=== PATIENT | female | born 1955 | race African-American/Black ===

== ENCOUNTER 2017-05-19 07:48 | Observation (INO) | payer MEDICAID ==
[~2017-05-19] VITALS: Ht 152.4 cm; Wt 126.1 kg
[2017-05-19] VITALS (10 sets, daily range): BP systolic 141–210; BP diastolic 65–91; PULSE 74–90; RESP 16–20; TEMP 98–99.2; O2SAT 92–98
[~2017-05-19 07:48] MED LIST: ADVA500A INH; ALBU0.08 NEB; AMLO10TA2 PO; BENZ100 PO; CPAP; DOCU100C15 PO; ESCI10TA PO; FERR325T18 PO; FURO40TA PO; GETGO ROLLING W1 MI1; HOSP BED1; HOSP BED2; ISOS20TA PO; LEVO750T3 PO; LEVO75TA3 PO; LORA0.5T PO; METF500T PO; MORP60TA24 PO; NEBUKIT5; NITR0.4S SL; OMEP20TA93 PO; OXYC-395 PO; PRED10 PO; PRED20 PO; PROC10TA PO; RISP2TAB37 PO; ROPI4TAB PO; SENN1TAB PO; SPIR25TA PO; TRAZ50TA12 PO; WHEEMIS3
[2017-05-19] MEDS ORDERED: SODIUM CHLORIDE 0.9% FLUSH 10 ML FLUSH IVF PRN (08:00)
--- NOTE | 2017-05-19 08:07 | PD ---
HPI Chief Complaint: Cardiac Complaint Time Seen by Provider: 07:56 Travel History International Travel<30 days: No Contact w/Intl Traveler<30days: No Traveled to known affect area: No History of Present Illness HPI per patient history of defib firing intermittently almost daily for past 2 weeks per patient...last shock was last night 8pm and previous one was 8am...just prior to firing of device she feels lightheaded and palpitations. per patient last devise evaluation about 3 months ago pcp: verna? in professional building cardio:shamsin medtronic pmhx: dm, htn, chol, mi without stents, pacemaker/defibrillator PFSH Past Medical History Hx Anticoagulant Therapy: Yes (COUMADIN) Anemia: Yes Arthritis: Yes Asthma: Yes Atrial Fibrillation: Yes Autoimmune Disease: No Blood Disorders: No Bipolar Disorder: Yes Anxiety: Yes Depression: Yes Heart Rhythm Problems: Yes (PALPITATIONS ) Cancer: No Cardiac Catheterization: Yes Cardiovascular Problems: Yes (PACEMAKER) High Cholesterol: Yes Chemotherapy: No Chest Pain: Yes Congestive Heart Failure: Yes COPD: Yes Cerebrovascular Accident: Yes Coronary Artery Disease: Yes Dementia: Yes Diabetes: Yes Dialysis: Yes Diminished Hearing: No Diverticulitis: Yes Endocrine: Yes Gastrointestinal Disorders: Yes (DIVERTICULITIS) GERD: Yes Glaucoma: No Genitourinary: No Headaches: Yes (1978 UNKNOWN TYPE) Hepatitis: Yes (doesn't know what type) Hiatal Hernia: Yes Hypertension: Yes Immune Disorder: No Implanted Vascular Access Dvce: Yes Kidney Stones: No Musculoskeletal: Yes (DJD) Neurologic: Yes Psychiatric: Yes Reproductive: Yes Respiratory: Yes Immunizations Current: No Myocardial Infarction: Yes Pancreatitis: Yes Pneumonia: Yes Radiation Therapy: No Renal Failure: No Schizophrenia: Yes Seizures: No Sickle Cell Disease: No Sleep Apnea: Yes (CPAP) Thyroid Disease: Yes (NODULES ON THYROID) Ulcer: Yes PNEUMOCCOCAL Vaccine (Year): 2010 Menopausal: Yes : 1 Para: 1 Miscarriage: 0 : 0 Tubal Ligation: Yes Past Surgical History Abdominal Surgery: Yes (gall bladder removed 2009) AICD: Yes (PACER/DEFIB - medtronic) Body Medical Devices: PACER Cardiac Surgery: Yes (pacemaker) Cholecystectomy: Yes Ear Surgery: No Endocrine Surgery: No Eye Surgery: No Genitourinary Surgery: No Gynecologic Surgery: Yes (PARTIAL HYSTERECTOMY) Hysterectomy: Yes Neurologic Surgery: No Oral Surgery: Yes (UPPER TEETH REMOVED) Pacemaker: Yes Thoracic Surgery: No Other Surgery: Yes (RIGHT HAND, CYST) Social History Alcohol Use: No Tobacco Use: No (quit) Substance Use: No (PT DENIES) Allergies-Medications (Allergen,Severity, Reaction): Coded Allergies: aspirin (Verified Allergy, Severe, Anaphylaxis, 05/19/17) PT STATES IT MAKES HER TONGUE SWELL AND HER HEART STOPS BEATING. benazepril (Verified Allergy, Severe, ANAPHALAXIS, 05/19/17) captopril (Verified Allergy, Severe, ANAPHALAXIS, 05/19/17) enalaprilat (Verified Allergy, Severe, Anaphylaxis, 05/19/17) fosinopril (Verified Allergy, Severe, ANAPHALAXIS, 05/19/17) gabapentin (Verified Allergy, Severe, AGGRESSIVE BEHAVIOR, 05/19/17) ibuprofen (Verified Allergy, Severe, TOUNGE SWELLING, 05/19/17) lisinopril (Verified Allergy, Severe, ANAPHALAXIS, 05/19/17) quinapril (Verified Allergy, Severe, ANAPHALAXIS, 05/19/17) naproxen (Verified Allergy, Intermediate, RESTELESS LEG, 05/19/17) MRI PRECAUTION (Verified Adverse Reaction, Severe, NON REVO PACEMAKER 07/04 LRS, 05/19/17) acetaminophen (Verified Adverse Reaction, Severe, 05/19/17) RESTLESS LEGS Reported Meds & Prescriptions Reported Meds & Active Scripts Active Levofloxacin 750 Mg Tablet 750 Mg PO DAILY Prednisone 20 Mg Tab 40 Mg PO DAILY Take 40 mg (2 tablets) daily for 5 days Albuterol Neb (Albuterol Sulfate) 2.5 Mg/3 Ml Neb 2.5 Mg NEB Q4HR NEB PRN Advair Diskus Inh (Fluticasone-Salmeterol Inh) 500-50 Mcg/Blist Aer 1 Puff INH BID Rinse mouth after use. Amlodipine (Amlodipine Besylate) 10 Mg Tab 10 Mg PO DAILY Tessalon Perles (Benzonatate) 100 Mg Cap 100 Mg PO TID PRN Lorazepam 0.5 Mg Tab 0.5 Mg PO Q6H PRN Morphine Sulfate CR (Morphine Sulfate) 60 Mg Tab 30 Mg PO BID PRN Oxycodone (Oxycodone HCl) 10 Mg Tab 10 Mg PO Q4H PRN Furosemide 40 Mg Tab 40 Mg PO BID Isosorbide Mononitrate 20 Mg Tab 60 Mg PO DAILY Take 2 doses 7 hours apart. Prednisone 10 Mg Tab 10 Mg PO DAILY Prochlorperazine Maleate 10 Mg Tab 10 Mg PO Q4H PRN Ferrous Sulfate 325 Mg (65 Mg Iron) Tablet 325 Mg PO TIDPC Risperdal (Risperidone) 2 Mg Tab 2 Mg PO BID Metformin (Metformin HCl) 500 Mg Tab 500 Mg PO BIDPC With meals Ropinirole 4 Mg Tab 8 Mg PO BID Omeprazole 20 Mg Tab 20 Mg PO DAILY Trazodone (Trazodone HCl) 50 Mg Tab 50 Mg PO HS Levothyroxine (Levothyroxine Sodium) 75 Mcg Tab 75 Mcg PO DAILY [Cpap] HS Nebulizer Kit/Tubing/Mout (N/A) 1 Kit Kit Kit .ROUTE DIRECTED Wheelchair (Device) 1 Mis Mis Ea .ROUTE DIRECTED Walker Rolling/GetGo (Device) 1 Mis Mis Ea .ROUTE DIRECTED Hospital Bed - Electric 1 Ea Ea Ea .ROUTE DIRECTED Hospital Bed - Manual 1 Ea Ea Ea .ROUTE DIRECTED Spironolactone 25 Mg Tab 12.5 Mg PO DAILY Reported Nitrostat SL (Nitroglycerin) 0.4 Mg Subl 0.4 Mg SL DIRECTED PRN 1 tablet under the tongue as needed for chest pain. Repeat every 5 minutes for a total of 3 DOSES or call 911 if NO relief. Senna-Plus (Sennosides-Docusate Sodium) 8.6-50 Mg Tab 2 Tab PO BID Escitalopram (Escitalopram Oxalate) 10 Mg Tab 10 Mg PO DAILY Docusate Sodium 100 Mg Cap 100 Mg PO DAILY Review of Systems General / Constitutional: No: Fever Eyes: No: Visual changes HENT: Positive: Lightheadedness Cardiovascular: Positive: Palpitations Respiratory: No: Shortness of Breath Gastrointestinal: No: Abdominal Pain Genitourinary: No: Dysuria Musculoskeletal: No: Pain Skin: No Rash Neurologic: No: Weakness Psychiatric: No: Depression Endocrine: No: Polydipsia Hematologic/Lymphatic: No: Easy Bruising Physical Exam Narrative GENERAL: SKIN: Warm and dry. HEAD: Atraumatic. Normocephalic. EYES: Pupils equal and round. No scleral icterus. No injection or drainage. ENT: No nasal bleeding or discharge. Mucous membranes pink and moist. NECK: Trachea midline. No JVD. CARDIOVASCULAR: Regular rate and rhythm. RESPIRATORY: No accessory muscle use. Clear to auscultation. Breath sounds equal bilaterally. GASTROINTESTINAL: Abdomen soft, non-tender, nondistended. obese MUSCULOSKELETAL: Extremities without clubbing, cyanosis, or edema. No obvious deformities. NEUROLOGICAL: Awake and alert. No obvious cranial nerve deficits. Motor grossly within normal limits. Five out of 5 muscle strength in the arms and legs. Normal speech. PSYCHIATRIC: Appropriate mood and affect; insight and judgment normal. Data Data Last Documented VS Vital Signs Date Time Temp Pulse Resp B/P (MAP) Pulse Ox O2 Delivery O2 Flow Rate FiO2 05/19/17 08:12 98.8 88 20 173/74 (107) 98 Room Air Orders Orders Electrocardiogram (05/19/17 07:56) B-Type Natriuretic Peptide (05/19/17 07:56) Ckmb (Isoenzyme) Profile (05/19/17 07:56) Complete Blood Count With Diff (05/19/17 07:56) Comprehensive Metabolic Panel (05/19/17 07:56) Prothrombin Time / Inr (Pt) (05/19/17 07:56) Act Partial Throm Time (Ptt) (05/19/17 07:56) Troponin I (05/19/17 07:56) Lipase (05/19/17 07:56) Chest, Single Ap (05/19/17 07:56) Ecg Monitoring (05/19/17 07:56) Bilateral Bp Monitoring (05/19/17 07:56) Iv Access Insert/Monitor (05/19/17 07:56) Oximetry (05/19/17 07:56) Oxygen Administration (05/19/17 07:56) Sodium Chloride 0.9% Flush (Ns Flush) (05/19/17 08:00) [facility] Medical Decision Making Medical Screen Exam Complete: Yes Emergency Medical Condition: Yes Medical Record Reviewed: Yes Interpretation(s) paced rhythm on ekg Differential Diagnosis arrhythmia v anemia v dehydration v electrolyte abnl v mi v nonstemi Narrative Course medtronic rep called for device interrogation Facundo Bean MD May 19, 2017 08:07
--- NOTE | 2017-05-19 08:22 | RADRPT ---
EXAM DATE/TIME: 05/19/2017 08:05 [place] COMPARISON: CHEST SINGLE AP, December 26, 2015, 7:24. INDICATIONS : Chest pain, states pacemaker difibrillator has been going off 2 or 3 times a night for the past 2 wee ks MEDICAL HISTORY : Diabetes mellitus type II. Cardiovascular disease. Stroke. SURGICAL HISTORY : Pacemaker. ENCOUNTER: Initial ACUITY: 2 weeks PAIN SCORE: 4/10 LOCATION: Bilateral chest FINDINGS: A single view of the chest demonstrates the lungs to be symmetrically aerated without evidence of mas s, infiltrate or effusion. The cardiomediastinal contours are unremarkable. Osseous structures are intact. A pacing device overlies the left chest. Leads appear intact within their visualized aspects. CONCLUSION: No acute disease. Manny Darden Jr., MD on May 19, 2017 at 8:18 Board Certified Radiologist. This report was verified electronically.
[2017-05-19 09:16] LABS: AUTOMATED NEUTROPHIL # 7.4 TH/MM3 (1.8-7.7); BASOPHIL # 0.1 TH/MM3 (0-0.2); BASOPHIL % 0.7 % (0.0-2.0); HEMATOCRIT 39.8 % (35.0-46.0); HEMO FLAGS DIFF FINAL; LYMPH % 14.5 % (9.0-44.0); LYMPHOCYTE # 1.4 TH/MM3 (1.0-4.8); MEAN CELL VOLUME 77.4 FL (80.0-100.0); MEAN CORPUSCULAR HEMOGLOBIN 23.9 PG (27.0-34.0); MEAN CORPUSCULAR HGB CONC 30.9 % (32.0-36.0); MONO % 5.9 % (0.0-8.0); NEUT % 78.9 % (16.0-70.0); PLATELET COUNT 225 TH/MM3 (150-450); RED BLOOD COUNT 5.14 MIL/MM3 (4.00-5.30); RED CELL DISTRIBUTION WIDTH 19.1 % (11.6-17.2); WHITE BLOOD COUNT 9.3 TH/MM3 (4.0-11.0)
[2017-05-19 09:23] LABS: INTERNATIONAL NORMALIZED RATIO 1.1 RATIO; PROTHROMBIN TIME - PATIENT 11.3 SEC (9.8-11.6)
[2017-05-19] MEDS ORDERED: SODIUM CHLORIDE 0.9% FLUSH 10 ML FLUSH IV FLUSH PRN ×2 (10:00→10:30)
[2017-05-19] MEDS ORDERED: D5-1/2 NS + KCL 20 MEQ INJ 1,000 ML IV SCH (10:26)
[2017-05-19] MEDS ORDERED: RESP: ALBUTEROL 2.5 MG/3 ML NEB (PRN) NEB ×2 (10:30→11:30)
[2017-05-19] MEDS ORDERED: PROCHLORPERAZINE MALEATE 10 MG TAB PO PRN (10:30)
[2017-05-19] MEDS ORDERED: NITROGLYCERIN 0.4 MG SL 25 TABS/BTL SL PRN (10:30)
[2017-05-19 10:38] LABS: APTT (PATIENT) 40.1 SEC (24.3-30.1)
[2017-05-19] MEDS ORDERED: GLUCAGON 1 MG/ML VIAL OTHER PRN (10:45)
[2017-05-19] MEDS ORDERED: SENNOSIDES 8.6 MG TAB PO PRN (10:45)
[2017-05-19] MEDS ORDERED: DEXTROSE 50% IN WATER 50 ML VIAL(D50) IV PUSH PRN (10:45)
[2017-05-19] MEDS ORDERED: LACTULOSE SYRUP 20 GM/30 ML CUP PO PRN (10:45)
[2017-05-19] MEDS ORDERED: ONDANSETRON HCL 4 MG/2 ML VIAL IVP PRN (10:45)
[2017-05-19] MEDS ORDERED: MAGNESIUM HYDROXIDE SUSP 30 ML CUP PO PRN (10:45)
[2017-05-19] MEDS ORDERED: BISACODYL 10 MG SUPP RECTAL PRN (10:45)
[2017-05-19] MEDS ORDERED: ACETAMINOPHEN 325 MG TAB PO PRN (10:45)
[2017-05-19 10:47] LABS: ALKALINE PHOSPHATASE 121 U/L (45-117); CREATINE KINASE 209 U/L (26-192); TOTAL BILIRUBIN ADULT 0.2 MG/DL (0.2-1.0)
[2017-05-19 10:56] LABS: ALT (GPT) 20 U/L (10-53); ANION GAP 5 MEQ/L (5-15); AST (GOT) 17 U/L (15-37); BICARBONATE 25.7 MEQ/L (21.0-32.0); BLOOD UREA NITROGEN 15 MG/DL (7-18); CHLORIDE 106 MEQ/L (98-107); GLOMERULAR FILTRATION RATE 81 ML/MIN (>89); POTASSIUM 4.1 MEQ/L (3.5-5.1); SODIUM (NA) 137 MEQ/L (136-145)
[2017-05-19 11:00] LABS: CKMB 2.6 NG/ML (0.5-3.6)
[2017-05-19] MEDS ORDERED: PILL SPLITTER OTHER PRN (11:00)
[2017-05-19] MEDS: methylPREDNISolone SOD SUCC 40 MG/1 ML VIAL IV PUSH SCH ×2 (11:25→21:38)
[2017-05-19] MEDS: INSULIN ASPART SUPPLEMENTAL SCALE SQ SCH ×3 (11:28→21:00)
--- NOTE | 2017-05-19 11:33 | HHI.HP ---
[facility] Service Family Medicine Primary Care Physician Giovana Khan , R3 MD Karan Admission Diagnosis AICD LOW BATTERY Diagnoses: International Travel<30 Days: No Contact w/Intl Traveler<30days: No Known Affected Area: No History of Present Illness This is a 61-year-old female with past medical history significant for multiple chronic medical conditions presenting to the hospital with complaints of sporadic chest pain that she claims is her AICD shocking her. At the time of evaluation she is no longer having the chest pain. The AICD techs evaluated her pacemaker and found the battery to be low, and reported that at this point it could not shock her if needed. Patient reports that she's been feeling these chest pain symptoms daily for the past 2 weeks and felt like the last shock with this morning. She feels like the shocks occurs sporadically and she cannot relate them to any specific activity. She reports that she's seen her PCP for an upper respiratory infection 3 days ago and feels like her symptoms are resolving. There is also concern for possible urinary tract infection UA was ordered and results are not available, repeat UA to be performed and antibiotics continued at this time. She admits to some mild shortness of breath and wheezing that has been progressively improving. She says at baseline she has chronic lower back pain and abdominal pain that is treated with morphine and oxycodone. Explained to her that the plan is to admit her and have cardiology evaluate her AICD and she agrees to the plan of care. (Truong Mendez MD, R3) Review of Systems Constitutional: COMPLAINS OF: Fatigue, Dizziness, DENIES: Fever, Weight gain, Weight loss, Change in appetite Endocrine: DENIES: Polydipsia, Polyuria Eyes: DENIES: Blurred vision, Eye pain, Vision loss, Double Vision Ears, nose, mouth, throat: DENIES: Tinnitus, Hearing loss, Vertigo, Nasal discharge, Throat pain, Hoarseness, Running Nose, Epistaxis Respiratory: COMPLAINS OF: Apneas, Snoring, Shortness of breath, DENIES: Wheezing, Sputum production Cardiovascular: COMPLAINS OF: Chest pain, DENIES: Syncope, Lower Extremity Edema Gastrointestinal: COMPLAINS OF: Abdominal pain, DENIES: Black stools, Bloody stools, Diarrhea, Nausea, Vomiting Genitourinary: DENIES: Dyspareunia, Urinary frequency, Urinary incontinence, Hematuria Musculoskeletal: COMPLAINS OF: Joint pain, Back pain, DENIES: Muscle aches, Stiffness, Joint Swelling Integumentary: DENIES: Rash Hematologic/lymphatic: DENIES: Bruising Neurologic: COMPLAINS OF: Headache, Tremor, Poor Balance, DENIES: Abnormal gait , Seizures Psychiatric: COMPLAINS OF: Anxiety, Depression (Truong Mendez MD, R3) Past Family Social History Past Medical History Past Medical History Anxiety/depression Atrial fibrillation Bipolar disorder Hypertension Hyperlipidemia COPD Congestive heart failure, systolic Diabetes mellitus, diet controlled GERD History of diverticulitis Sleep apnea Schizophrenia Chronic back pain Sleep apnea RLS Past Surgical History Past Surgical History AICD (left ventribular pacemaker lead) implantation 2010 for Cardiomyopathy Cholecystectomy 2007 Partial hysterectomy 1989 Dental extraction Right hand surgery 1993 (Truong Mendez MD, R3) Allergies: Coded Allergies: aspirin (Verified Allergy, Severe, Anaphylaxis, 05/19/17) PT STATES IT MAKES HER TONGUE SWELL AND HER HEART STOPS BEATING. benazepril (Verified Allergy, Severe, ANAPHALAXIS, 05/19/17) captopril (Verified Allergy, Severe, ANAPHALAXIS, 05/19/17) enalaprilat (Verified Allergy, Severe, Anaphylaxis, 05/19/17) fosinopril (Verified Allergy, Severe, ANAPHALAXIS, 05/19/17) gabapentin (Verified Allergy, Severe, AGGRESSIVE BEHAVIOR, 05/19/17) ibuprofen (Verified Allergy, Severe, TOUNGE SWELLING, 05/19/17) lisinopril (Verified Allergy, Severe, ANAPHALAXIS, 05/19/17) quinapril (Verified Allergy, Severe, ANAPHALAXIS, 05/19/17) naproxen (Verified Allergy, Intermediate, RESTELESS LEG, 05/19/17) MRI PRECAUTION (Verified Adverse Reaction, Severe, NON REVO PACEMAKER 07/04 LRS, 05/19/17) acetaminophen (Verified Adverse Reaction, Severe, 05/19/17) RESTLESS LEGS Family History Family History Father: Alcoholic Mother: Heart disease, DM 10 brothers and sisters: DM, hypertension, heart disease, hypothyroidism, renal disease, prostate cancer, depression Social History Social History Lives with daughter. 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 Completed 4 years of college. from her . Denies alcohol or illicit drug use. Smokes 11.5 PPD for 30 years, currently smoking. Daughter smokes 1 pack per day in the house. (Truong Mendez MD, R3) Physical Exam Vital Signs Vital Signs Date Time Temp Pulse Resp B/P (MAP) Pulse Ox O2 Delivery O2 Flow Rate FiO2 05/19/17 08:12 98.8 88 20 173/74 (107) 98 Room Air 05/19/17 07:50 99.0 80 18 210/91 (130) 98 Room Air Physical Exam GENERAL: Well-nourished, well-developed obese female patient in no acute distress. SKIN: Warm and dry. No rashes or lesions present. EYES: No scleral icterus. No conjunctival injection or drainage. Extraocular movements intact. THROAT: Moist mucous membranes. NECK: Supple, trachea midline. CARDIOVASCULAR: Regular rate and rhythm with 2/6 CHEN. Strong radial and pedal pulses. CHEST: Symmetric chest expansion with respiration. RESPIRATORY: Scattered wheezes bilaterally, decreased breath sounds in lower lobes bilaterally. No accessory muscle use. GASTROINTESTINAL: Abdomen soft, suprapubic tenderness, nondistended. MUSCULOSKELETAL: No cyanosis or edema. No nail changes. BACK: Bilateral CVA tenderness. Neuro: Resting tremor in right arm. PSYCH: Flat affect. Good eye contact. Good insight and judgment. Normal speech. Laboratory Laboratory Tests Test 05/19/17 08:54 05/19/17 10:08 White Blood Count 9.3 Red Blood Count 5.14 Hemoglobin 12.3 Hematocrit 39.8 Mean Corpuscular Volume 77.4 Mean Corpuscular Hemoglobin 23.9 Mean Corpuscular Hemoglobin Concent 30.9 Red Cell Distribution Width 19.1 Platelet Count 225 Mean Platelet Volume 8.5 Neutrophils (%) (Auto) 78.9 Lymphocytes (%) (Auto) 14.5 Monocytes (%) (Auto) 5.9 Eosinophils (%) (Auto) 0.0 Basophils (%) (Auto) 0.7 Neutrophils # (Auto) 7.4 Lymphocytes # (Auto) 1.4 Monocytes # (Auto) 0.6 Eosinophils # (Auto) 0.0 Basophils # (Auto) 0.1 CBC Comment DIFF FINAL Differential Comment B-Type Natriuretic Peptide 32 Prothrombin Time 11.3 Prothromb Time International Ratio 1.1 Activated Partial Thromboplast Time 40.1 (Truong Mendez MD, R3) Result Diagram: 05/19/17 0854 Imaging Last Impressions Chest X-Ray 05/19/17 0756 Signed Impressions: Service Date/Time: Friday, May 19, 2017 08:05 - CONCLUSION: No acute disease. Manny Darden Jr., MD (Truong Mendez MD, R3) Caprini VTE Risk Assessment Caprini VTE Risk Assessment: Mod/High Risk (score >= 2) Caprini Risk Assessment Model Point Value = 1 Point Value = 2 Point Value = 3 Point Value = 5 Age 41-60 Minor surgery BMI > 25 kg/m2 Swollen legs Varicose veins or History of unexplained or recurrent spontaneous Oral contraceptives or hormone replacement Sepsis (< 1 month) Serious lung disease, including pneumonia (< 1 month) Abnormal pulmonary function Acute myocardial infarction Congestive heart failure (< 1 month) History of inflammatory bowel disease Medical patient at bed rest Age 61-74 Arthroscopic surgery Major open surgery (> 45 min) Laparoscopic surgery (> 45 min) Malignancy Confined to bed (> 72 hours) Immobilizing plaster cast Central venous access Age >= 75 History of VTE Family history of VTE Factor V Leiden Prothrombin [id number] Lupus anticoagulant Anticardiolipin antibodies Elevated serum homocysteine Heparin-induced thrombocytopenia Other congenital or acquired thrombophilia Stroke (< 1 month) Elective arthroplasty Hip, pelvis, or leg fracture Acute spinal cord injury (< 1 month) Prophylaxis Regimen Total Risk Factor Score Risk Level Prophylaxis Regimen 0-1 Low Early ambulation 2 Moderate Order ONE of the following: *Sequential Compression Device (SCD) *Heparin 5000 units SQ BID 3-4 Higher Order ONE of the following medications: *Heparin 5000 units SQ TID *Enoxaparin/Lovenox 40 mg SQ daily (WT < 150 kg, CrCl > 30 mL/min) *Enoxaparin/Lovenox 30 mg SQ daily (WT < 150 kg, CrCl > 10-29 mL/min) *Enoxaparin/Lovenox 30 mg SQ BID (WT < 150 kg, CrCl > 30 mL/min) AND/OR *Sequential Compression Device (SCD) 5 or more Highest Order ONE of the following medications: *Heparin 5000 units SQ TID (Preferred with Epidurals) *Enoxaparin/Lovenox 40 mg SQ daily (WT < 150 kg, CrCl > 30 mL/min) *Enoxaparin/Lovenox 30 mg SQ daily (WT < 150 kg, CrCl > 10-29 mL/min) *Enoxaparin/Lovenox 30 mg SQ BID (WT < 150 kg, CrCl > 30 mL/min) AND *Sequential Compression Device (SCD) (Truong Mendez MD, R3) Assessment and Plan Assessment and Plan This is a 61-year-old female with past medical history significant for multiple chronic medical conditions presenting to the hospital for complaints of her AICD shocking her, upon evaluation AICD is low battery. She is being admitted for the low battery AICD and chest pain rule out. Code Status Full code (Truong Mendez MD, R3) Attending Attestation Patient seen and examined. Case reviewed and discussed with the resident team. Agree with plan of care as discussed with me and documented in the resident note. pt seen on admission. she is still having constant pain from the "picking " of her pace maker as she describes it. (Loida Nuñez MD) Problem List: (1) Chest pain ICD Codes: R07.9 - Chest pain Status: Acute Plan: Patient presents to the hospital with 2 week history of chest pain that she reports is her AICD shocking her. Upon evaluation of the AICD has a low battery and currently cannot be shocking the patient. Admitted for chest pain rule out and further AICD evaluation. * Admit to observation * Consulted cardiology to evaluate AICD, recommendations appreciated * Trending troponins: Current troponin level is less than 0.02 * Trending EKG * NPO at this time for possible procedure today, will start diabetic diet if no procedure today * CBC, CMP ordered for the a.m. * Place on telemetry for chest pain (2) AICD battery failure ICD Codes: Z45.02 - Encounter for adjustment and management of automatic implantable cardiac defibrillator Status: Acute Plan: Per AICD electrical maintenance technician the battery is low and cannot be operational at this time See plan above (3) UTI (urinary tract infection) ICD Codes: N39.0 - Urinary tract infection, site not specified Status: Acute Plan: Previous visit with PCP was concerned for urinary tract infection UA was ordered but results have not been obtained * UA and cultures ordered * Continued levofloxacin 750 mg as previously prescribed (4) Upper respiratory infection ICD Codes: J06.9 - Acute upper respiratory infection, unspecified Status: Acute Plan: At visit with PCP on 05/16/17 patient was reporting cough, nasal congestion, and mild shortness of breath, concerning for viral upper respiratory infection. On physical exam there is notable wheezing. Antibiotics previously started for urinary tract infection will be continued. * Continue patient's home breathing treatments * Held by mouth steroids started Solu-Medrol IV * Oxygen as needed (5) Cardiomyopathy ICD Codes: I42.9 - Cardiomyopathy, unspecified Status: Chronic Plan: AICD was placed due to cardiomyopathy. * See plan above (6) COPD (chronic obstructive pulmonary disease) ICD Codes: J44.9 - Chronic obstructive pulmonary disease Status: Chronic Plan: Patient has a history of COPD. * Continue home breathing treatments * Start albuterol 2.5 mg every 6 hours when necessary shortness of breath or wheezing (7) DM (diabetes mellitus) ICD Codes: E11.9 - Diabetes mellitus Status: Chronic Plan: Patient history of type 2 diabetes. Currently being treated with metformin. * Holding metformin * Monitor blood glucose per protocol * Started Levemir 5 units twice a day we'll titrate per glucoses * Placed on sliding scale (8) CHF (congestive heart failure) ICD Codes: I50.9 - Heart failure, unspecified Status: Chronic Plan: Present history of congestive heart failure part of reason for AICD placement * Continue furosemide 40 mg twice a day * Continue amlodipine 10 mg by mouth daily * Continue isosorbide mononitrate 30 mg by mouth daily * Continue Nitrostat * Continue spironolactone 12.5 mg by mouth daily (9) Schizophrenia ICD Codes: F20.9 - Schizophrenia, unspecified Status: Acute Plan: Long-standing history of schizophrenia versus bipolar with anxiety and depression * Continue risperidone * Continue trazodone * Continue escitalopram * Continue Ativan when necessary anxiety (10) Hypertension ICD Codes: I10 - Essential (primary) hypertension Status: Chronic Plan: Long-standing history of hypertension. * See congestive heart failure plan above (11) Hypothyroidism ICD Codes: E03.9 - Hypothyroidism Status: Chronic Plan: Long-standing history of hypothyroidism * Continue Synthroid 75 MCG by mouth daily (12) Chronic back pain ICD Codes: M54.9 - Dorsalgia, unspecified; G89.29 - Other chronic pain Status: Acute (13) Nutrition, metabolism, and development symptoms ICD Codes: R63.8 - Other symptoms and signs concerning food and fluid intake Plan: Fluids: D5-1/2 NS at 100mls/hr Diet: Nothing by mouth for possible procedure will start diet if procedure is delayed Vitals every 4 Monitor electrolytes and replace accordingly Out of bed ad lilia. GI prophylaxis with omeprazole DD prophylaxis with SCDs holding pharmacologic for possible procedure (Truong Mendez MD, R3) Problem Qualifiers (1) Chest pain: Qualified Codes: R07.9 - Chest pain, unspecified (2) Upper respiratory infection: Qualified Codes: J06.9 - Acute upper respiratory infection, unspecified (3) COPD (chronic obstructive pulmonary disease): (4) DM (diabetes mellitus): (5) Hypertension: Qualified Codes: I10 - Essential (primary) hypertension Truong Mendez MD, R3 May 19, 2017 11:33 Loida Nuñez MD May 20, 2017 16:20
--- NOTE | 2017-05-19 12:52 | MB ---
cc: MARCIE SOTELO M.D. DATE OF CONSULTATION 05/19/2017 REASON FOR CONSULTATION AICD discharge HISTORY OF PRESENT ILLNESS This is a 61-yof8 who I saw in my office twice. The patient presented to [facility] emergency room with a complaint of AICD discharge. The AICD was checked and showed no actual discharge, however, the battery is very low. The patient also complained of chest pain and body aches all over. She denies unprovoked or exertional shortness of breath. She also denies PND, orthopnea or lower extremity edema or weight gain. Her set of cardiac enzymes are normal. EKG is also within normal limits. ALLERGIES Unknown SOCIAL HISTORY The patient smoked for a long time and continues to do so. FAMILY HISTORY Noncontributory REVIEW OF SYSTEMS HEENT: No complaints of lightheadedness or dizziness. CARDIOVASCULAR: History of cardiomyopathy status post AICD placement. PULMONARY: No history of asthma. There is a history of COPD. GASTROINTESTINAL: No history of GERD or GI bleed. The remainder of her review of systems is within normal limits. PHYSICAL EXAMINATION VITAL SIGNS: Blood pressure 130/70 with a heart rate of 80, respiratory rate 12. The patient is afebrile. NECK: Supple with no jugular venous distention. CHEST: Clear to auscultation and percussion. HEART: S1 normal in intensity. S2 single. Regular rate and rhythm. No S3 appreciated. ABDOMEN: Benign. EXTREMITIES: No edema, clubbing or cyanosis. IMPRESSION 1. AICD battery end of life. 2. History of cardiomyopathy status post AICD placement. 3. Tobacco abuse 4. COPD 5. Type 2 diabetes mellitus 6. Hypertension 7. Hypothyroidism 8. History of schizophrenia. RECOMMENDATIONS We will rule out the patient for myocardial infarction with serial CPK's and EKG's. I will contact Dr. Yoo, data technician for a battery exchange next available. Thank you for this consultation. MD JAREN Hebert/JOVI /12:34 PM /12:39 PM
[2017-05-19 15:16] LABS: BACTERIA, URINE OCC /hpf; BLOOD, URINE NEG (NEG); COMMENT (UR) CULT NOT INDICATED; CULTURE IF INDICATED CULT NOT INDICATED; GLUCOSE,URINE NEG (NEG); KETONE, URINE NEG (NEG); MUCUS URINE FEW /lpf (OCC); NITRITE,URINE NEG (NEG); SQUAMOUS EPITHELIAL CELL URINE 4 /hpf (0-5); URINE COLOR YELLOW (YELLW/STRAW)
[2017-05-19] MEDS: FERROUS SULFATE 325 MG (65 MG ELEMENTAL IRON) TAB PO SCH ×2 (16:09→18:20)
[2017-05-19] MEDS: MORPHINE SULFATE 30 MG CONTROLLED RELEASE TAB PO SCH ×2 (16:09→23:41)
--- NOTE | 2017-05-19 16:44 | EKG ---
Date Performed: 05/19/2017 Time Performed: 08:23:08 PTAGE: 61 years EKG: ELECTRONIC VENTRICULAR PACEMAKER Since previous tracing, no significant change noted ABNORM AL RHYTHM ECG PREVIOUS TRACING : 12/26/2015 06.51 DOCTOR: Sona Potter Interpretating Date/Time 05/19/2017 16:44:40
[2017-05-19] MEDS: FUROSEMIDE 40 MG TAB PO SCH (18:20)
--- NOTE | 2017-05-19 19:19 | MB ---
cc: MARCIE SOTELO M.D., HANSCY M.D. DATE OF CONSULTATION 05/19/17 REASON FOR CONSULTATION Defibrillator generator replacement. HISTORY OF PRESENT ILLNESS Mrs. Rubi is a 69 year-old female with history of congestive heart failure, cardiomyopathy, morbid obesity, high blood pressure followed by Dr. Sotelo admitted to the emergency room due to chest pain. During hospitalization, interrogation of the device showed device basically end of life. I was consulted for evaluation and management. The chart was reviewed. The patient was evaluated. ALLERGIES MRI ACETAMINOPHEN ASPIRIN BENAZEPRIL ENALAPRIL FOSINOPRIL NEURONTIN IBUPROFEN LISINOPRIL NAPROXEN QUINALAPRIL SOCIAL HISTORY Mrs. Rubi at this point denies smoking and drinking. FAMILY HISTORY Noncontributory to her current medical condition. MEDICATIONS Currently 1. Amlodipine 10 mg a day. 2. Lexapro 10 mg a day. 3. Ferrous sulfate 4. Lasix 40 mg twice a day. 5. Insulin. 6. Imdur 60 mg daily. 7. Levaquin. 8. Methylprednisolone 9. Risperdal 10. Requip 11. Senokot. 12. Aldactone 13. Desyrel. REVIEW OF SYSTEMS She referred currently no chest pain, no chest discomfort. No fever. PHYSICAL EXAMINATION GENERAL: Alert, fully oriented. VITAL SIGNS: Blood pressure is very high 179/91, pulse 74, respiratory rate is around 18 LUNGS: Ventilated CARDIOVASCULAR: S1-S2, no gallop. No murmur. ABDOMEN: Obese. No mass. No bruit. EXTREMITIES: With no edema. CARDIOLOGY STUDIES Electrocardiogram shows AV synchronized pacing. LABORATORY DATA Hemoglobin 12, white blood cell 9.3, potassium is 4.1, creatinine 0.86, troponin less than 0.02. INR is 1.1. ASSESSMENT AND RECOMMENDATIONS Mrs. Rubi has multiple risk factors. She has morbid obesity. She has high blood pressure, hyperlipidemia, diabetes mellitus. She has a history of heart failure. She is complaining of chest pain. Ischemic workup will be necessary. I will request a nuclear stress study. If there is no ischemia then I will proceed on Monday with a generator change. Case extensively discussed with her. Will be followed by one of my partners during the weekend. MD SABI Prajapati/ /6:49 PM /7:08 PM
[2017-05-19] MEDS ORDERED: SODIUM CHLORIDE 0.9% FLUSH 10 ML FLUSH IV FLUSH SCH (21:00)
[2017-05-19] MEDS: DOCUSATE SODIUM 50 MG/SENNA 8.6 MG TAB PO SCH (21:00)
[2017-05-19] MEDS: BUDESONIDE-FORMOTEROL 160/4.5 MCG INHALER INH SCH (21:38)
[2017-05-19] MEDS: risperiDONE 1 MG TAB PO SCH (21:39)
[2017-05-19] MEDS: traZODone HCL 50 MG TAB PO SCH (21:39)
[2017-05-19] MEDS: SODIUM CHLORIDE 0.9% FLUSH 10 ML FLUSH IV FLUSH SCH (21:40)
[2017-05-19] MEDS: INSULIN DETEMIR 100 UNITS/ML VIAL SQ SCH (21:40)
[2017-05-20] VITALS (9 sets, daily range): BP systolic 152–178; BP diastolic 59–88; PULSE 65–83; RESP 17–20; TEMP 98.2–98.4; O2SAT 93–100
[2017-05-20] MEDS: ISOSORBIDE MONONITRATE 20 MG TAB PO SCH (06:06)
[2017-05-20] MEDS: LEVOTHYROXINE SODIUM 75 MCG TAB PO SCH (06:06)
--- NOTE | 2017-05-20 06:55 | HHI.FPPN ---
Subjective Remarks Patient seen and examined this morning. Temperature 98.4, pulse 76, respiratory rate 17, blood pressure 152/59, pulse ox 100 on room air. She is continuing to complain of some chest pain. Troponins trended negative. Wheezing with inspiration has resolved. She understands that the plan of care is to perform nuclear stress test today, scheduled for AICD battery replacement on Monday, she agrees to this plan of care. No other complaints at this time (Truong Mendez MD, R3) Objective Vitals Vital Signs Date Time Temp Pulse Resp B/P (MAP) Pulse Ox O2 Delivery O2 Flow Rate FiO2 05/20/17 03:36 83 05/20/17 03:20 98.4 76 17 152/59 (90) 100 05/20/17 03:15 18 05/20/17 01:01 18 05/20/17 00:09 69 05/19/17 23:41 98.4 81 16 141/69 (93) 97 05/19/17 20:45 98.1 79 18 145/65 (91) 96 05/19/17 20:15 98 Nasal Cannula 2.00 05/19/17 20:00 77 05/19/17 16:05 99.2 90 18 186/88 (120) 92 05/19/17 15:00 81 05/19/17 11:53 80 05/19/17 11:01 98.0 74 20 179/91 (120) 94 05/19/17 10:50 05/19/17 08:12 98.8 88 20 173/74 (107) 98 Room Air 05/19/17 07:50 99.0 80 18 210/91 (130) 98 Room Air I/O 05/19/17 05/19/17 05/19/17 05/20/17 05/20/17 05/20/17 07:00 15:00 23:00 07:00 15:00 23:00 Intake Total 200 ml 750 ml Output Total 150 ml 800 ml Balance 50 ml -50 ml Intake Oral 750 ml IV Total 200 ml Output Urine Total 150 ml 800 ml # Voids 1 (Truong Mendez MD, R3) Result Diagram: 05/19/17 0854 05/19/17 1008 Imaging Last Impressions Chest X-Ray 05/19/17 6877 Signed Impressions: Service Date/Time: Friday, May 19, 2017 08:05 - CONCLUSION: No acute disease. Manny Darden Jr., MD Objective Remarks GENERAL: Well-nourished, well-developed obese female patient in no acute distress. SKIN: Warm and dry. No rashes or lesions present. EYES: No scleral icterus. No conjunctival injection or drainage. Extraocular movements intact. THROAT: Moist mucous membranes. NECK: Supple, trachea midline. CARDIOVASCULAR: Regular rate and rhythm with 2/6 CHEN. Strong radial and pedal pulses. CHEST: Symmetric chest expansion with respiration. RESPIRATORY: Scattered wheezes bilaterally, decreased breath sounds in lower lobes bilaterally. No accessory muscle use. GASTROINTESTINAL: Abdomen soft, suprapubic tenderness, nondistended. MUSCULOSKELETAL: No cyanosis or edema. No nail changes. BACK: Bilateral CVA tenderness. Neuro: Resting tremor in right arm. PSYCH: Flat affect. Good eye contact. Good insight and judgment. Normal speech. Medications and IVs Current Medications Medications (Trade) Dose Ordered Sig/Nilo Route Start Time Stop Time Status Last Admin (NS Flush) 2 ml UNSCH PRN IV FLUSH 05/19/17 10:00 (NS Flush) 2 ml BID IV FLUSH 05/19/17 21:00 05/19/17 21:40 (Norvasc) 10 mg DAILY PO 05/20/17 09:00 (Lexapro) 10 mg DAILY PO 05/20/17 09:00 (Ferrous Sulfate) 325 mg TIDPC PO 05/19/17 13:30 05/19/17 18:20 (Lasix) 40 mg BID@0900,1800 PO 05/19/17 18:00 05/19/17 18:20 (Ismo) 60 mg DAILY@0700 PO 05/20/17 07:00 05/20/17 06:06 (Synthroid) 75 mcg DAILY@0600 PO 05/20/17 06:00 05/20/17 06:06 (Ativan) 0.5 mg Q6H PRN PO 05/19/17 10:30 (Nitrostat Sl) 0.4 mg Q4HR PRN SL 05/19/17 10:30 (Compazine) 10 mg Q4H PRN PO 05/19/17 10:30 (Aldactone) 12.5 mg DAILY PO 05/20/17 09:00 (Desyrel) 50 mg HS PO 05/19/17 21:00 05/19/17 21:39 (Symbicort 160-4.5 Mcg Inh) 2 puff BID INH 05/19/17 21:00 05/19/17 21:38 (Pravachol) 40 mg DAILY PO 05/20/17 09:00 (risperDAL) 2 mg BID PO 05/19/17 21:00 05/19/17 21:39 (Requip) 8 mg BID PO 05/19/17 21:00 05/19/17 21:39 (Oramorph Sr) 30 mg Q12H PO 05/19/17 11:00 05/19/17 23:41 (Roxicodone) 10 mg Q4H PRN PO 05/19/17 10:45 05/20/17 02:00 (Tylenol) 650 mg Q4H PRN PO 05/19/17 10:45 (Zofran Inj) 4 mg Q6H PRN IVP 05/19/17 10:45 (Dee-Colace) 1 tab BID PO 05/19/17 21:00 (Milk Of Magnesia Liq) 30 ml Q12H PRN PO 05/19/17 10:45 (Senokot) 17.2 mg Q12H PRN PO 05/19/17 10:45 (Dulcolax Supp) 10 mg DAILY PRN RECTAL 05/19/17 10:45 (Lactulose Liq) 30 ml DAILY PRN PO 05/19/17 10:45 (D50w (Vial) Inj) 50 ml UNSCH PRN IV PUSH 05/19/17 10:45 (Glucagon Inj) 1 mg UNSCH PRN OTHER 05/19/17 10:45 (NovoLOG SUPPLEMENTAL SCALE) 1 ACHS SLIDING SCALE SQ 05/19/17 12:00 (Levemir Inj) 5 units BID SQ 05/19/17 21:00 05/19/17 21:40 (Pill Splitter) 1 ea UNSCH PRN OTHER 05/19/17 11:00 (Levaquin) 750 mg DAILY PO 05/20/17 09:00 05/23/17 08:59 (SoluMEDROL INJ) 40 mg Q12HR IV PUSH 05/19/17 11:00 05/19/17 21:38 (Albuterol Neb) 2.5 mg Q6HR NEB PRN NEB 05/19/17 11:30 (Truong Mendez MD, R3) A/P Assessment and Plan This is a 61-year-old female with past medical history significant for multiple chronic medical conditions presenting to the hospital for complaints of her AICD shocking her, upon evaluation AICD is low battery. She is being admitted for the low battery AICD and chest pain rule out. Discharge Planning AICD battery replacement scheduled for Monday anticipate discharge following procedure is doing well (Truong Mendez MD, R3) Attending Attestation Patient seen and examined. Case reviewed and discussed with the resident team. Agree with plan of care as discussed with me and documented in the resident note. she is getting her stress test today. she is stable with the same pain but controlled with meds (Loida Nuñez MD) Problem List: (1) Chest pain ICD Codes: R07.9 - Chest pain Status: Acute Plan: Patient presents to the hospital with 2 week history of chest pain that she reports is her AICD shocking her. Upon evaluation of the AICD has a low battery and currently cannot be shocking the patient. Admitted for chest pain rule out and further AICD evaluation. * Admit to observation * Consulted cardiology to evaluate AICD, recommendations appreciated * Pending nuclear stress test today * AICD replacement of battery to be performed on Monday05/22/17 * troponins: Trended less than 0.023 * Diabetic diet to be held prior to procedures * CBC, CMP ordered for the a.m. * Place on telemetry for chest pain (2) AICD battery failure ICD Codes: Z45.02 - Encounter for adjustment and management of automatic implantable cardiac defibrillator Status: Acute Plan: Per AICD stage technician the battery is low and cannot be operational at this time See plan above (3) UTI (urinary tract infection) ICD Codes: N39.0 - Urinary tract infection, site not specified Status: Acute Plan: Previous visit with PCP was concerned for urinary tract infection UA was ordered but results have not been obtained * UA and cultures ordered * Continued levofloxacin 750 mg as previously prescribed continued through Monday (4) Upper respiratory infection ICD Codes: J06.9 - Acute upper respiratory infection, unspecified Status: Acute Plan: At visit with PCP on 05/16/17 patient was reporting cough, nasal congestion, and mild shortness of breath, concerning for viral upper respiratory infection. On physical exam there is notable wheezing. Antibiotics previously started for urinary tract infection will be continued. * Continue patient's home breathing treatments * Converting Solu-Medrol to by mouth prednisone * Oxygen as needed (5) Cardiomyopathy ICD Codes: I42.9 - Cardiomyopathy, unspecified Status: Chronic Plan: AICD was placed due to cardiomyopathy. * See plan above (6) COPD (chronic obstructive pulmonary disease) ICD Codes: J44.9 - Chronic obstructive pulmonary disease Status: Chronic Plan: Patient has a history of COPD. * Continue home breathing treatments * Start albuterol 2.5 mg every 6 hours when necessary shortness of breath or wheezing (7) DM (diabetes mellitus) ICD Codes: E11.9 - Diabetes mellitus Status: Chronic Plan: Patient history of type 2 diabetes. Currently being treated with metformin. * Holding metformin * Monitor blood glucose per protocol * Started Levemir 5 units twice a day we'll titrate per glucoses * Placed on sliding scale (8) CHF (congestive heart failure) ICD Codes: I50.9 - Heart failure, unspecified Status: Chronic Plan: Present history of congestive heart failure part of reason for AICD placement * Continue furosemide 40 mg twice a day * Continue amlodipine 10 mg by mouth daily * Continue isosorbide mononitrate 30 mg by mouth daily * Continue Nitrostat * Continue spironolactone 12.5 mg by mouth daily (9) Schizophrenia ICD Codes: F20.9 - Schizophrenia, unspecified Status: Acute Plan: Long-standing history of schizophrenia versus bipolar with anxiety and depression * Continue risperidone * Continue trazodone * Continue escitalopram * Continue Ativan when necessary anxiety (10) Hypertension ICD Codes: I10 - Essential (primary) hypertension Status: Chronic Plan: Long-standing history of hypertension. * See congestive heart failure plan above (11) Hypothyroidism ICD Codes: E03.9 - Hypothyroidism Status: Chronic Plan: Long-standing history of hypothyroidism * Continue Synthroid 75 MCG by mouth daily (12) Chronic back pain ICD Codes: M54.9 - Dorsalgia, unspecified; G89.29 - Other chronic pain Status: Acute (13) Nutrition, metabolism, and development symptoms ICD Codes: R63.8 - Other symptoms and signs concerning food and fluid intake Plan: Fluids: Adequate by mouth intake Diet: Nothing by mouth for possible procedure will start diet if procedure is delayed Vitals every 4 Monitor electrolytes and replace accordingly Out of bed ad lilia. GI prophylaxis with omeprazole DVT prophylaxis with SCDs holding pharmacologic for possible procedure (Truong Mendez MD, R3) Problem Qualifiers (1) Chest pain: Qualified Codes: R07.9 - Chest pain, unspecified (2) Upper respiratory infection: Qualified Codes: J06.9 - Acute upper respiratory infection, unspecified (3) COPD (chronic obstructive pulmonary disease): (4) DM (diabetes mellitus): (5) Hypertension: Qualified Codes: I10 - Essential (primary) hypertension Truong Mendez MD, R3 May 20, 2017 06:55 Loida Nuñez MD May 20, 2017 16:21
[2017-05-20 07:16] LABS: AUTOMATED NEUTROPHIL # 6.5 TH/MM3 (1.8-7.7); BASOPHIL % 0.1 % (0.0-2.0); HEMATOCRIT 38.5 % (35.0-46.0); HEMO FLAGS DIFF FINAL; LYMPHOCYTE # 0.8 TH/MM3 (1.0-4.8); MEAN CELL VOLUME 77.9 FL (80.0-100.0); MEAN CORPUSCULAR HEMOGLOBIN 23.8 PG (27.0-34.0); MEAN CORPUSCULAR HGB CONC 30.5 % (32.0-36.0); MONO % 3.7 % (0.0-8.0); NEUT % 85.2 % (16.0-70.0); PLATELET COUNT 234 TH/MM3 (150-450); RED BLOOD COUNT 4.95 MIL/MM3 (4.00-5.30); RED CELL DISTRIBUTION WIDTH 18.2 % (11.6-17.2); WHITE BLOOD COUNT 7.6 TH/MM3 (4.0-11.0)
[2017-05-20 07:42] LABS: BICARBONATE 27.9 MEQ/L (21.0-32.0); POTASSIUM 3.8 MEQ/L (3.5-5.1)
[2017-05-20] MEDS: INSULIN ASPART SUPPLEMENTAL SCALE SQ SCH ×4 (08:00→21:00)
[2017-05-20] MEDS: INSULIN DETEMIR 100 UNITS/ML VIAL SQ SCH ×2 (09:00→21:00)
[2017-05-20] MEDS ORDERED: predniSONE 10 MG TAB PO SCH (09:00)
[2017-05-20] MEDS: DOCUSATE SODIUM 50 MG/SENNA 8.6 MG TAB PO SCH ×2 (09:58→22:09)
[2017-05-20] MEDS: predniSONE 20 MG TAB PO SCH ×2 (09:58→22:09)
[2017-05-20] MEDS: FERROUS SULFATE 325 MG (65 MG ELEMENTAL IRON) TAB PO SCH ×3 (09:58→18:42)
[2017-05-20] MEDS: PRAVASTATIN SOD 40 MG TAB PO SCH (09:59)
[2017-05-20] MEDS: ESCITALOPRAM OXALATE 10 MG TAB PO SCH (09:59)
[2017-05-20] MEDS: risperiDONE 1 MG TAB PO SCH ×2 (09:59→22:09)
[2017-05-20] MEDS: SODIUM CHLORIDE 0.9% FLUSH 10 ML FLUSH IV FLUSH SCH ×2 (10:04→22:09)
[2017-05-20] MEDS: BUDESONIDE-FORMOTEROL 160/4.5 MCG INHALER INH SCH ×2 (10:04→22:26)
[2017-05-20] MEDS: LEVOFLOXACIN 750 MG TAB PO SCH (10:04)
[2017-05-20] MEDS ORDERED: REGADENOSON INJ 0.4 MG/5 ML SYR ONE (11:03)
[2017-05-20] MEDS: MORPHINE SULFATE 30 MG CONTROLLED RELEASE TAB PO SCH (12:47)
[2017-05-20] MEDS: SPIRONOLACTONE 25 MG TAB PO SCH (12:47)
[2017-05-20] MEDS: FUROSEMIDE 40 MG TAB PO SCH ×2 (12:47→18:42)
--- NOTE | 2017-05-20 13:26 | RADRPT ---
EXAM DATE/TIME: 05/20/2017 10:51 [facility] COMPARISON: MYOCARDIAL PERF PHARM SPECT, GATED W/EF, December 26, 2014, 11:28. INDICATIONS : Chest palpatations. Angina. DOSE: 35 mCi Tc99m Myoview at stress. 11 mCi Tc99m Myoview at rest. 0.4 mg Lexiscan STRESS SYMPTOMS: Headache, nausea. EJECTION FRACTION: 48% MEDICAL HISTORY : Myocardial infarction. Hepatitis. Congestive heart failure. COPD and CAD. SURGICAL HISTORY : Tubal ligation. Pacemaker. Cholecystectomy. ENCOUNTER: Initial ACUITY: 2 weeks PAIN SCALE: 3/10 LOCATION: chest TECHNIQUE: The patient underwent pharmacologic stress with infusion of prescribed dose. Continuous ECG tracing was monitored during stress. Gated SPECT imaging was performed after stress and conventional SPECT i maging was performed at rest. The examination was performed on a SPECT/CT scanner, both attenuation and non-corrected datasets were reviewed. FINDINGS: DISTRIBUTION: The maximum perfused segment at stress is in the inferior septal wall. PERFUSION STUDY: The pattern of perfusion at stress is within normal limits. GATED STUDY: There is global hypokinesia without hypokinetic or dyskinetic segments. CONCLUSION: 1. No evidence of significant infarct or ischemia. 2. Grossly stable global hypokinesia with EF of 48%. RISK CATEGORY: Intermediate (1-3% Annual Mortality Rate) Lonnie Driver MD on May 20, 2017 at 13:21 Board Certified Radiologist. This report was verified electronically.
[2017-05-20] MEDS: LORazepam 0.5 MG TAB PO PRN (18:43)
[2017-05-20] MEDS: traZODone HCL 50 MG TAB PO SCH (22:09)
[2017-05-21] VITALS (10 sets, daily range): BP systolic 139–197; BP diastolic 64–90; PULSE 73–82; RESP 18–22; TEMP 97.6–99.7; O2SAT 92–95
[2017-05-21] MEDS: MORPHINE SULFATE 30 MG CONTROLLED RELEASE TAB PO SCH ×3 (00:16→21:49)
[2017-05-21] MEDS: LEVOTHYROXINE SODIUM 75 MCG TAB PO SCH (05:42)
[2017-05-21] MEDS: ISOSORBIDE MONONITRATE 20 MG TAB PO SCH (05:42)
[2017-05-21] MEDS: INSULIN ASPART SUPPLEMENTAL SCALE SQ SCH ×4 (08:00→21:00)
[2017-05-21] MEDS: FUROSEMIDE 40 MG TAB PO SCH ×2 (09:00→18:14)
[2017-05-21] MEDS: INSULIN DETEMIR 100 UNITS/ML VIAL SQ SCH ×2 (09:00→21:48)
[2017-05-21] MEDS: DOCUSATE SODIUM 50 MG/SENNA 8.6 MG TAB PO SCH ×2 (09:00→21:49)
--- NOTE | 2017-05-21 09:01 | HHI.FPPN ---
Subjective Remarks Patient seen and examined this morning. Temperature 98.2, pulse 80, respiratory 20, blood pressure 144/90, pulse ox 95 on room air. She reports that she is doing well and having the lower back pain and occasional chest pain. Nuclear stress test was performed on 05/20/17 with no evidence of significant infarct or ischemia. Plan is still the same to have AICD battery change to be performed on Monday05/22/17. She agrees to this plan of care. She is hoping to leave shortly after the procedure being performed. (Truong Mendez MD, R3) Objective Vitals Vital Signs Date Time Temp Pulse Resp B/P (MAP) Pulse Ox O2 Delivery O2 Flow Rate FiO2 05/21/17 07:28 98.2 80 20 144/90 (108) 95 05/21/17 04:59 16 05/21/17 04:44 80 05/21/17 03:32 98.6 82 18 197/84 (121) 95 05/21/17 01:16 15 05/21/17 00:45 73 05/21/17 00:01 98.2 78 18 176/79 (111) 94 05/20/17 21:58 98.2 69 18 171/82 (111) 94 05/20/17 20:15 77 05/20/17 16:00 98.4 65 20 178/88 (118) 95 I/O 05/20/17 05/20/17 05/20/17 05/21/17 05/21/17 05/21/17 07:00 15:00 23:00 07:00 15:00 23:00 Output Total 400 ml 200 ml Balance -400 ml -200 ml Output Urine Total 400 ml 200 ml (Truong Mendez MD, R3) Result Diagram: 05/20/17 0645 05/20/17 0645 Imaging Last Impressions Myocardial Perfusion Scan Nuc Med 05/20/17 0000 Signed Impressions: Service Date/Time: Saturday, May 20, 2017 10:51 - CONCLUSION: 1. No evidence of significant infarct or ischemia. 2. Grossly stable global hypokinesia with EF of 48%%. RISK CATEGORY: Intermediate (1-3%% Annual Mortality Rate) Lonnie Driver MD Chest X-Ray 05/19/17 0756 Signed Impressions: Service Date/Time: Friday, May 19, 2017 08:05 - CONCLUSION: No acute disease. Manny Darden Jr., MD Objective Remarks GENERAL: Well-nourished, well-developed obese female patient in no acute distress. SKIN: Warm and dry. No rashes or lesions present. EYES: No scleral icterus. No conjunctival injection or drainage. Extraocular movements intact. THROAT: Moist mucous membranes. NECK: Supple, trachea midline. CARDIOVASCULAR: Regular rate and rhythm with 2/6 CHEN. Strong radial and pedal pulses. CHEST: Symmetric chest expansion with respiration. RESPIRATORY: Scattered wheezes bilaterally, decreased breath sounds in lower lobes bilaterally. No accessory muscle use. GASTROINTESTINAL: Abdomen soft, suprapubic tenderness, nondistended. MUSCULOSKELETAL: No cyanosis or edema. No nail changes. BACK: Bilateral CVA tenderness. Neuro: Resting tremor in right arm. PSYCH: Flat affect. Good eye contact. Good insight and judgment. Normal speech. Medications and IVs Current Medications Medications (Trade) Dose Ordered Sig/Nilo Route Start Time Stop Time Status Last Admin (NS Flush) 2 ml UNSCH PRN IV FLUSH 05/19/17 10:00 (NS Flush) 2 ml BID IV FLUSH 05/19/17 21:00 05/20/17 22:09 (Norvasc) 10 mg DAILY PO 05/20/17 09:00 05/20/17 09:59 (Lexapro) 10 mg DAILY PO 05/20/17 09:00 05/20/17 09:59 (Ferrous Sulfate) 325 mg TIDPC PO 05/19/17 13:30 05/20/17 18:42 (Lasix) 40 mg BID@0900,1800 PO 05/19/17 18:00 05/20/17 18:42 (Ismo) 60 mg DAILY@0700 PO 05/20/17 07:00 05/21/17 05:42 (Synthroid) 75 mcg DAILY@0600 PO 05/20/17 06:00 05/21/17 05:42 (Ativan) 0.5 mg Q6H PRN PO 05/19/17 10:30 05/20/17 18:43 (Nitrostat Sl) 0.4 mg Q4HR PRN SL 05/19/17 10:30 (Compazine) 10 mg Q4H PRN PO 05/19/17 10:30 (Aldactone) 12.5 mg DAILY PO 05/20/17 09:00 05/20/17 12:47 (Desyrel) 50 mg HS PO 05/19/17 21:00 05/20/17 22:09 (Symbicort 160-4.5 Mcg Inh) 2 puff BID INH 05/19/17 21:00 05/20/17 22:26 (Pravachol) 40 mg DAILY PO 05/20/17 09:00 05/20/17 09:59 (risperDAL) 2 mg BID PO 05/19/17 21:00 05/20/17 22:09 (Requip) 8 mg BID PO 05/19/17 21:00 05/20/17 22:09 (Oramorph Sr) 30 mg Q12H PO 05/19/17 11:00 05/21/17 00:16 (Roxicodone) 10 mg Q4H PRN PO 05/19/17 10:45 05/21/17 03:42 (Tylenol) 650 mg Q4H PRN PO 05/19/17 10:45 (Zofran Inj) 4 mg Q6H PRN IVP 05/19/17 10:45 (Dee-Colace) 1 tab BID PO 05/19/17 21:00 05/20/17 22:09 (Milk Of Magnesia Liq) 30 ml Q12H PRN PO 05/19/17 10:45 (Senokot) 17.2 mg Q12H PRN PO 05/19/17 10:45 (Dulcolax Supp) 10 mg DAILY PRN RECTAL 05/19/17 10:45 (Lactulose Liq) 30 ml DAILY PRN PO 05/19/17 10:45 (D50w (Vial) Inj) 50 ml UNSCH PRN IV PUSH 05/19/17 10:45 (Glucagon Inj) 1 mg UNSCH PRN OTHER 05/19/17 10:45 (NovoLOG SUPPLEMENTAL SCALE) 1 ACHS SLIDING SCALE SQ 05/19/17 12:00 (Levemir Inj) 5 units BID SQ 05/19/17 21:00 05/19/17 21:40 (Pill Splitter) 1 ea UNSCH PRN OTHER 05/19/17 11:00 (Levaquin) 750 mg DAILY PO 05/20/17 09:00 05/23/17 08:59 05/20/17 10:04 (Albuterol Neb) 2.5 mg Q6HR NEB PRN NEB 05/19/17 11:30 (Deltasone) 20 mg BID PO 05/20/17 09:00 05/20/17 22:09 (Truong Mendez MD, R3) A/P Assessment and Plan This is a 61-year-old female with past medical history significant for multiple chronic medical conditions presenting to the hospital for complaints of her AICD shocking her, upon evaluation AICD is low battery. She is being admitted for the low battery AICD and chest pain rule out. Discharge Planning AICD battery replacement scheduled for Monday anticipate discharge following procedure if doing well (Truong Mendez MD, R3) Attending Attestation Patient seen and examined. Case reviewed and discussed with the resident team. Agree with plan of care as discussed with me and documented in the resident note. she is hoping to go home soon. she has her chest pain that is the same as ever (Loida Nuñez MD) Problem List: (1) Chest pain ICD Codes: R07.9 - Chest pain Status: Acute Plan: Patient presents to the hospital with 2 week history of chest pain that she reports is her AICD shocking her. Upon evaluation of the AICD has a low battery and currently cannot be shocking the patient. Admitted for chest pain rule out and further AICD evaluation. * Admit to observation * Consulted cardiology to evaluate AICD, recommendations appreciated * AICD replacement of battery to be performed on Monday05/22/17 * troponins: Trended less than 0.023 * Diabetic diet to be held prior to procedure * CBC, CMP ordered for the a.m. * Place on telemetry for chest pain (2) AICD battery failure ICD Codes: Z45.02 - Encounter for adjustment and management of automatic implantable cardiac defibrillator Status: Acute Plan: Per AICD installer technician the battery is low and cannot be operational at this time See plan above (3) UTI (urinary tract infection) ICD Codes: N39.0 - Urinary tract infection, site not specified Status: Acute Plan: Previous visit with PCP was concerned for urinary tract infection UA was ordered but results have not been obtained * UA and cultures ordered * Continued levofloxacin 750 mg as previously prescribed continued through Monday (4) Upper respiratory infection ICD Codes: J06.9 - Acute upper respiratory infection, unspecified Status: Acute Plan: At visit with PCP on 05/16/17 patient was reporting cough, nasal congestion, and mild shortness of breath, concerning for viral upper respiratory infection. On physical exam there is notable wheezing. Antibiotics previously started for urinary tract infection will be continued. * Continue patient's home breathing treatments * Continue by mouth prednisone * Oxygen as needed (5) Cardiomyopathy ICD Codes: I42.9 - Cardiomyopathy, unspecified Status: Chronic Plan: AICD was placed due to cardiomyopathy. * See plan above (6) COPD (chronic obstructive pulmonary disease) ICD Codes: J44.9 - Chronic obstructive pulmonary disease Status: Chronic Plan: Patient has a history of COPD. * Continue home breathing treatments * Start albuterol 2.5 mg every 6 hours when necessary shortness of breath or wheezing (7) DM (diabetes mellitus) ICD Codes: E11.9 - Diabetes mellitus Status: Chronic Plan: Patient history of type 2 diabetes. Currently being treated with metformin. * Holding metformin * Monitor blood glucose per protocol * Started Levemir 5 units twice a day we'll titrate per glucoses * Placed on sliding scale (8) CHF (congestive heart failure) ICD Codes: I50.9 - Heart failure, unspecified Status: Chronic Plan: Present history of congestive heart failure part of reason for AICD placement * Continue furosemide 40 mg twice a day * Continue amlodipine 10 mg by mouth daily * Continue isosorbide mononitrate 30 mg by mouth daily * Continue Nitrostat * Continue spironolactone 12.5 mg by mouth daily (9) Schizophrenia ICD Codes: F20.9 - Schizophrenia, unspecified Status: Acute Plan: Long-standing history of schizophrenia versus bipolar with anxiety and depression * Continue risperidone * Continue trazodone * Continue escitalopram * Continue Ativan when necessary anxiety (10) Hypertension ICD Codes: I10 - Essential (primary) hypertension Status: Chronic Plan: Long-standing history of hypertension. * See congestive heart failure plan above (11) Hypothyroidism ICD Codes: E03.9 - Hypothyroidism Status: Chronic Plan: Long-standing history of hypothyroidism * Continue Synthroid 75 MCG by mouth daily (12) Chronic back pain ICD Codes: M54.9 - Dorsalgia, unspecified; G89.29 - Other chronic pain Status: Acute (13) Nutrition, metabolism, and development symptoms ICD Codes: R63.8 - Other symptoms and signs concerning food and fluid intake Plan: Fluids: Adequate by mouth intake Diet: Diabetic diet nothing by mouth after midnight Vitals every 4 Monitor electrolytes and replace accordingly Out of bed ad lilia. GI prophylaxis with omeprazole DVT prophylaxis with SCDs holding pharmacologic for possible procedure (Truong Mendez MD, R3) Problem Qualifiers (1) Chest pain: Qualified Codes: R07.9 - Chest pain, unspecified (2) Upper respiratory infection: Qualified Codes: J06.9 - Acute upper respiratory infection, unspecified (3) COPD (chronic obstructive pulmonary disease): (4) DM (diabetes mellitus): (5) Hypertension: Qualified Codes: I10 - Essential (primary) hypertension Truong Mendez MD, R3 May 21, 2017 09:01 Loida Nuñez MD May 22, 2017 13:50
[2017-05-21] MEDS: SPIRONOLACTONE 25 MG TAB PO SCH (09:42)
[2017-05-21] MEDS: risperiDONE 1 MG TAB PO SCH ×2 (09:42→21:48)
[2017-05-21] MEDS: ESCITALOPRAM OXALATE 10 MG TAB PO SCH (09:42)
[2017-05-21] MEDS: PRAVASTATIN SOD 40 MG TAB PO SCH (09:43)
[2017-05-21] MEDS: predniSONE 20 MG TAB PO SCH ×2 (09:43→21:49)
[2017-05-21] MEDS: LEVOFLOXACIN 750 MG TAB PO SCH (09:43)
[2017-05-21] MEDS: BUDESONIDE-FORMOTEROL 160/4.5 MCG INHALER INH SCH ×2 (09:44→21:48)
[2017-05-21] MEDS: SODIUM CHLORIDE 0.9% FLUSH 10 ML FLUSH IV FLUSH SCH ×2 (09:44→21:52)
[2017-05-21] MEDS: FERROUS SULFATE 325 MG (65 MG ELEMENTAL IRON) TAB PO SCH ×3 (12:06→18:14)
[2017-05-21 13:41] LABS: HEMATOCRIT 39.8 % (35.0-46.0); MEAN CELL VOLUME 77.8 FL (80.0-100.0); MEAN CORPUSCULAR HEMOGLOBIN 24.2 PG (27.0-34.0); MEAN CORPUSCULAR HGB CONC 31.1 % (32.0-36.0); PLATELET COUNT 207 TH/MM3 (150-450); RED BLOOD COUNT 5.11 MIL/MM3 (4.00-5.30); RED CELL DISTRIBUTION WIDTH 17.9 % (11.6-17.2); REVIEW FLAG FINAL
[2017-05-21 14:07] LABS: BICARBONATE 32.3 MEQ/L (21.0-32.0); POTASSIUM 3.5 MEQ/L (3.5-5.1)
[2017-05-21] MEDS: LORazepam 0.5 MG TAB PO PRN (18:22)
[2017-05-21] MEDS: traZODone HCL 50 MG TAB PO SCH (21:49)
--- NOTE | 2017-05-21 23:16 | EKG ---
Date Performed: 05/19/2017 Time Performed: 19:20:11 PTAGE: 61 years EKG: ELECTRONIC VENTRICULAR PACEMAKER ABNORMAL RHYTHM ECG PREVIOUS TRACING : 05/19/2017 13.47 Compared to prior tracing no significant change DOCTOR: Portillo Marcus Interpretating Date/Time 05/21/2017 23:15:51
--- NOTE | 2017-05-21 23:27 | EKG ---
Date Performed: 05/19/2017 Time Performed: 13:47:31 PTAGE: 61 years EKG: ELECTRONIC VENTRICULAR PACEMAKER ABNORMAL RHYTHM ECG PREVIOUS TRACING : 05/19/2017 08.23 Compared to prior tracing no significant change DOCTOR: Portillo Marcus Interpretating Date/Time 05/21/2017 23:27:13
[2017-05-22] VITALS (13 sets, daily range): BP systolic 109–137; BP diastolic 55–70; PULSE 66–81; RESP 18–20; TEMP 98–99.2; O2SAT 88–98
[2017-05-22] MEDS: ISOSORBIDE MONONITRATE 20 MG TAB PO SCH (06:26)
[2017-05-22] MEDS: LEVOTHYROXINE SODIUM 75 MCG TAB PO SCH (06:26)
[2017-05-22] MEDS: INSULIN ASPART SUPPLEMENTAL SCALE SQ SCH ×4 (08:00→21:56)
[2017-05-22] MEDS: SODIUM CHLORIDE 0.9% FLUSH 10 ML FLUSH IV FLUSH SCH ×3 (09:00→21:00)
--- NOTE | 2017-05-22 09:09 | HHI.FPPN ---
Subjective Remarks Patient seen and examined this morning. Overnight had a run of V. tach for 20 beats. Transferred to higher care floor due to this episode. Vitals at this time are 98.6, pulse 78, respirate 20, blood pressure 114/55, pulse ox 96 on 2 L nasal cannula. Plan is still to perform AICD battery replacement today (). Currently the patient denies any chest pain and she is no longer having V. tach. She is comfortable in bed is not complaining of any chest pain at this time. She still wishes to get out of the the hospitalist as soon as possible. (Truong Mendez MD, R3) Objective Vitals Vital Signs Date Time Temp Pulse Resp B/P (MAP) Pulse Ox O2 Delivery O2 Flow Rate FiO2 05/22/17 08:10 96 2.00 05/22/17 08:10 96 Nasal Cannula 2.00 05/22/17 08:07 98.6 78 20 114/55 (74) 96 05/22/17 07:34 98 05/22/17 04:56 88 Nasal Cannula 05/22/17 04:40 98.6 76 18 137/67 (90) 97 05/22/17 04:15 66 05/22/17 00:15 72 05/21/17 23:56 97.9 76 18 141/64 (89) 95 05/21/17 20:59 99.7 78 18 139/65 (89) 93 05/21/17 20:15 81 05/21/17 15:34 97.6 75 22 144/65 (91) 93 05/21/17 11:20 97.8 77 22 169/77 (107) 92 I/O 05/21/17 05/21/17 05/21/17 05/22/17 05/22/17 05/22/17 07:00 15:00 23:00 07:00 15:00 23:00 Output Total 350 ml Balance -350 ml Output Urine Total 350 ml (Truong Mendez MD, R3) Result Diagram: 05/21/17 1310 05/21/17 1310 Imaging Last 72 hours Impressions Myocardial Perfusion Scan Nuc Med 05/20/17 0000 Signed Impressions: Service Date/Time: Saturday, May 20, 2017 10:51 - CONCLUSION: 1. No evidence of significant infarct or ischemia. 2. Grossly stable global hypokinesia with EF of 48%%. RISK CATEGORY: Intermediate (1-3%% Annual Mortality Rate) Lonnie Driver MD Objective Remarks GENERAL: Well-nourished, well-developed obese female patient in no acute distress. SKIN: Warm and dry. No rashes or lesions present. EYES: No scleral icterus. No conjunctival injection or drainage. Extraocular movements intact. THROAT: Moist mucous membranes. NECK: Supple, trachea midline. CARDIOVASCULAR: Regular rate and rhythm with 2/6 CHEN. Strong radial and pedal pulses. CHEST: Symmetric chest expansion with respiration. RESPIRATORY: Scattered wheezes bilaterally, decreased breath sounds in lower lobes bilaterally. No accessory muscle use. GASTROINTESTINAL: Abdomen soft, suprapubic tenderness, nondistended. MUSCULOSKELETAL: No cyanosis or edema. No nail changes. BACK: Bilateral CVA tenderness. Neuro: Resting tremor in right arm. PSYCH: Flat affect. Good eye contact. Good insight and judgment. Normal speech. Medications and IVs Current Medications Medications (Trade) Dose Ordered Sig/Nilo Route Start Time Stop Time Status Last Admin (NS Flush) 2 ml UNSCH PRN IV FLUSH 05/19/17 10:00 (NS Flush) 2 ml BID IV FLUSH 05/19/17 21:00 05/21/17 21:52 (Norvasc) 10 mg DAILY PO 05/20/17 09:00 05/21/17 09:43 (Lexapro) 10 mg DAILY PO 05/20/17 09:00 05/21/17 09:42 (Ferrous Sulfate) 325 mg TIDPC PO 05/19/17 13:30 05/21/17 18:14 (Lasix) 40 mg BID@0900,1800 PO 05/19/17 18:00 05/21/17 18:14 (Ismo) 60 mg DAILY@0700 PO 05/20/17 07:00 05/22/17 06:26 (Synthroid) 75 mcg DAILY@0600 PO 05/20/17 06:00 05/22/17 06:26 (Ativan) 0.5 mg Q6H PRN PO 05/19/17 10:30 05/21/17 18:22 (Nitrostat Sl) 0.4 mg Q4HR PRN SL 05/19/17 10:30 05/22/17 08:20 (Compazine) 10 mg Q4H PRN PO 05/19/17 10:30 (Aldactone) 12.5 mg DAILY PO 05/20/17 09:00 05/21/17 09:42 (Desyrel) 50 mg HS PO 05/19/17 21:00 05/21/17 21:49 (Symbicort 160-4.5 Mcg Inh) 2 puff BID INH 05/19/17 21:00 05/21/17 21:48 (Pravachol) 40 mg DAILY PO 05/20/17 09:00 05/21/17 09:43 (risperDAL) 2 mg BID PO 05/19/17 21:00 05/21/17 21:48 (Requip) 8 mg BID PO 05/19/17 21:00 05/21/17 21:54 (Oramorph Sr) 30 mg Q12H PO 05/19/17 11:00 05/21/17 21:49 (Roxicodone) 10 mg Q4H PRN PO 05/19/17 10:45 05/22/17 06:29 (Tylenol) 650 mg Q4H PRN PO 05/19/17 10:45 (Zofran Inj) 4 mg Q6H PRN IVP 05/19/17 10:45 (Dee-Colace) 1 tab BID PO 05/19/17 21:00 05/21/17 21:49 (Milk Of Magnesia Liq) 30 ml Q12H PRN PO 05/19/17 10:45 (Senokot) 17.2 mg Q12H PRN PO 05/19/17 10:45 (Dulcolax Supp) 10 mg DAILY PRN RECTAL 05/19/17 10:45 (Lactulose Liq) 30 ml DAILY PRN PO 05/19/17 10:45 (D50w (Vial) Inj) 50 ml UNSCH PRN IV PUSH 05/19/17 10:45 (Glucagon Inj) 1 mg UNSCH PRN OTHER 05/19/17 10:45 (NovoLOG SUPPLEMENTAL SCALE) 1 ACHS SLIDING SCALE SQ 05/19/17 12:00 05/21/17 18:16 (Levemir Inj) 5 units BID SQ 05/19/17 21:00 05/21/17 21:48 (Pill Splitter) 1 ea UNSCH PRN OTHER 05/19/17 11:00 (Levaquin) 750 mg DAILY PO 05/20/17 09:00 05/23/17 08:59 05/21/17 09:43 (Albuterol Neb) 2.5 mg Q6HR NEB PRN NEB 05/19/17 11:30 (Deltasone) 20 mg BID PO 05/20/17 09:00 05/21/17 21:49 (Truong Mendez MD, R3) A/P Assessment and Plan This is a 61-year-old female with past medical history significant for multiple chronic medical conditions presenting to the hospital for complaints of her AICD shocking her, upon evaluation AICD is low battery. She is being admitted for the low battery AICD and chest pain rule out. Discharge Planning AICD battery replacement scheduled for Monday anticipate discharge following procedure if doing well (Truong Mendez MD, R3) Attending Attestation Patient seen and examined. Case reviewed and discussed with the resident team. Agree with plan of care as discussed with me and documented in the resident note. going for battery replacement today (Loida Nuñez MD) Problem List: (1) Chest pain ICD Codes: R07.9 - Chest pain Status: Acute Plan: Patient presents to the hospital with 2 week history of chest pain that she reports is her AICD shocking her. Upon evaluation of the AICD has a low battery and currently cannot be shocking the patient. Admitted for chest pain rule out and further AICD evaluation. During the night of 05/21/17 patient had a run of 20 beats of V. tach with symptomatic chest pain and shortness of breath. * Admit to observation * Consulted cardiology to evaluate AICD, recommendations appreciated * AICD replacement of battery to be performed today 05/22/17 * troponins: Trended less than 0.023 * Diabetic diet to be held prior to procedure * CBC, CMP ordered for the a.m. * Place on telemetry for chest pain (2) AICD battery failure ICD Codes: Z45.02 - Encounter for adjustment and management of automatic implantable cardiac defibrillator Status: Acute Plan: Per AICD home appliance technician the battery is low and cannot be operational at this time See plan above (3) UTI (urinary tract infection) ICD Codes: N39.0 - Urinary tract infection, site not specified Status: Acute Plan: Previous visit with PCP was concerned for urinary tract infection UA was ordered but results have not been obtained * UA and cultures: Negative * Continued levofloxacin 750 mg as previously prescribed continued through Monday (4) Upper respiratory infection ICD Codes: J06.9 - Acute upper respiratory infection, unspecified Status: Acute Plan: At visit with PCP on 05/16/17 patient was reporting cough, nasal congestion, and mild shortness of breath, concerning for viral upper respiratory infection. On physical exam there is notable wheezing. Antibiotics previously started for urinary tract infection will be continued. * Continue patient's home breathing treatments * Continue by mouth prednisone * Oxygen as needed (5) Cardiomyopathy ICD Codes: I42.9 - Cardiomyopathy, unspecified Status: Chronic Plan: AICD was placed due to cardiomyopathy. * See plan above (6) COPD (chronic obstructive pulmonary disease) ICD Codes: J44.9 - Chronic obstructive pulmonary disease Status: Chronic Plan: Patient has a history of COPD. * Continue home breathing treatments * Start albuterol 2.5 mg every 6 hours when necessary shortness of breath or wheezing (7) DM (diabetes mellitus) ICD Codes: E11.9 - Diabetes mellitus Status: Chronic Plan: Patient history of type 2 diabetes. Currently being treated with metformin. * Holding metformin * Monitor blood glucose per protocol * Blood glucose ranging between 94-160 * Started Levemir 5 units twice a day we'll titrate per glucoses * Placed on sliding scale (8) CHF (congestive heart failure) ICD Codes: I50.9 - Heart failure, unspecified Status: Chronic Plan: Present history of congestive heart failure part of reason for AICD placement * Continue furosemide 40 mg twice a day * Continue amlodipine 10 mg by mouth daily * Continue isosorbide mononitrate 30 mg by mouth daily * Continue Nitrostat * Continue spironolactone 12.5 mg by mouth daily (9) Schizophrenia ICD Codes: F20.9 - Schizophrenia, unspecified Status: Acute Plan: Long-standing history of schizophrenia versus bipolar with anxiety and depression * Continue risperidone * Continue trazodone * Continue escitalopram * Continue Ativan when necessary anxiety (10) Hypertension ICD Codes: I10 - Essential (primary) hypertension Status: Chronic Plan: Long-standing history of hypertension. * See congestive heart failure plan above (11) Hypothyroidism ICD Codes: E03.9 - Hypothyroidism Status: Chronic Plan: Long-standing history of hypothyroidism * Continue Synthroid 75 MCG by mouth daily (12) Chronic back pain ICD Codes: M54.9 - Dorsalgia, unspecified; G89.29 - Other chronic pain Status: Acute (13) Nutrition, metabolism, and development symptoms ICD Codes: R63.8 - Other symptoms and signs concerning food and fluid intake Plan: Fluids: Adequate by mouth intake Diet: Diabetic diet nothing by mouth after midnight Vitals every 4 Monitor electrolytes and replace accordingly Out of bed ad lilia. GI prophylaxis with omeprazole DVT prophylaxis with SCDs holding pharmacologic for possible procedure (Truong Mendez MD, R3) Problem Qualifiers (1) Chest pain: Qualified Codes: R07.9 - Chest pain, unspecified (2) Upper respiratory infection: Qualified Codes: J06.9 - Acute upper respiratory infection, unspecified (3) COPD (chronic obstructive pulmonary disease): (4) DM (diabetes mellitus): (5) Hypertension: Qualified Codes: I10 - Essential (primary) hypertension Truong Mendez MD, R3 May 22, 2017 09:09 Loida Nuñez MD May 22, 2017 13:51
[2017-05-22] MEDS: PRAVASTATIN SOD 40 MG TAB PO SCH (09:42)
[2017-05-22] MEDS: SPIRONOLACTONE 25 MG TAB PO SCH (09:42)
[2017-05-22] MEDS: predniSONE 20 MG TAB PO SCH ×2 (09:42→19:56)
[2017-05-22] MEDS: ESCITALOPRAM OXALATE 10 MG TAB PO SCH (09:42)
[2017-05-22] MEDS: DOCUSATE SODIUM 50 MG/SENNA 8.6 MG TAB PO SCH ×2 (09:42→19:56)
[2017-05-22] MEDS: FERROUS SULFATE 325 MG (65 MG ELEMENTAL IRON) TAB PO SCH ×3 (09:43→17:11)
[2017-05-22] MEDS: LEVOFLOXACIN 750 MG TAB PO SCH (09:43)
[2017-05-22] MEDS: INSULIN DETEMIR 100 UNITS/ML VIAL SQ SCH ×2 (09:43→21:56)
[2017-05-22] MEDS ORDERED: LIDOCAINE HCL 2% 50 ML VIAL ONE (10:52)
[2017-05-22] MEDS ORDERED: ceFAZolin INJ 1,000 MG VIAL ONE (10:53)
[2017-05-22] MEDS ORDERED: VANCOMYCIN 500 MG VIAL ONE (10:53)
[2017-05-22] MEDS ORDERED: VANCOMYCIN HCL 1000 MG VIAL ONE (10:53)
[2017-05-22] MEDS ORDERED: SODIUM CHLOR 0.9% 250 ML INJ 250 ML ONE (10:55)
[2017-05-22] MEDS: MORPHINE SULFATE 30 MG CONTROLLED RELEASE TAB PO SCH ×3 (11:00→22:51)
--- NOTE | 2017-05-22 11:44 | CATHPROC ---
[facility] HIS Report Study Information Study Number Admission Scheduled Start Study Start [id number] 05/19/2017 05/22/2017 May 22 2017 10:43AM Referring Institution Admit Source Facility Department 1 Other [facility] Lab Physician and Clinical Staff Initial Pavel Birch Summer Babysitter Blake Boateng,RT(R) Other Anesthesia, BEAN SORTER Recorder Manny Cedeno,RN Recorder Mayra Daigle,BSRN Scrub Karina Link,MEDICAL CODING SPECIALIST TECH2 Equipment Time Wrap Turner Description Size Mfg Part Number Used/Scraped DERMABOND, ADHESIVE SKIN [id number] 10:53 CORDIS/PACER * Used GLUE MINI *[id number] 10:53 MEDLINE INDUSTRIES SUTURE, STRIP PLUS 1/2" * Used *[id number] 10:53 MEDLINE PACER YANEZ, LIMB * 2530 *[id number] Used [id number] 10:53 MEDLINE PACER PACK, PACER CUSTOM * Used *[id number] 11:03 Needle Sponge Count 1 1 Used 11:21 Needle Sponge Count 1 1 Used 11:03 Needle Sponge Count 2 22 Used 11:21 Needle Sponge Count 2 22 Used 11:29 Needle Sponge Count 2 22 Used 11:29 Needle Sponge Count 20 200 Used 11:21 Needle Sponge Count 20 200 Used 11:03 Needle Sponge Count 20 200 Used 11:31 Needle Sponge Count 3 33 Used 11:32 Needle Sponge Count 3 33 Used 11:32 Needle Sponge Count 3 33 Used SUTURE, 0 ETHIBOND [CT1] ([id number]), 8pk SUTURE, 2-0 VICRYL [CT1] ([id number]) SUTURE, 2-0 VICRYL [CT1] ([id number]) [id number] 10:53 [facility] BLANKET,WARM AIR CCL * Used *[id number] [facility] PAD, ELECTROSURGICAL 10:53 * [id number] *[id number] Used SURGICAL GROUNDING ORANGE 11:16 VITATRON MEDTRON[employer] DEFIBRILLATOR, VIVA XT CLOTH PICKER-D DDE-DDDR [id number] Used 10:54 VITATRON MEDTRONIC PLASMABLADE, PEAD 3.0S * [id number] Used [id number] 10:53 [employer]. / * Used *[id number] Equipment Model, Serial, Lot Number and Expiration Data Description Model Number Serial Number Lot Number Expiration Date DEFIBRILLATOR, VIVA XT CLOTH PICKER-D [id number] 04-01-2018 History: Allergies Allergy Reaction captopril ANAPHALAXIS lisinopril ANAPHALAXIS aspirin Anaphylaxis acetaminophen ibuprofen TOUNGE SWELLING naproxen RESTELESS LEG benazepril ANAPHALAXIS quinapril ANAPHALAXIS gabapentin AGGRESSIVE BEHAVIOR fosinopril ANAPHALAXIS enalaprilat Anaphylaxis MRI PRECAUTION NON REVO PACEMAKER 07/04/13 LRS History: Risk Factors Hypertension Dyslipidemia Previous Heart Failure Yes Yes Yes Chronic Lung Diabetes Disease Labs Hgb (g/dl) Hct (%) WBC (l/cumm) Platelets (thousands) 11.60-17.00 35.00-51.00 4.00-11.00 150.00-450.00 12.4 39.8 9 207 Glucose (mg/dl) BUN (mg/dl) Creatinine (mg/dl) BUN:Creatinine (1:x) 74.00-106.00 7.00-18.00 0.50-1.30 10.00-20.00 146 20 0.9 22.2 Na (meq/l) K (meq/l) 136.00-145.00 3.50-5.10 135 3.5 INR (PTT:PT) 0.90-1.10 1.1 Medication Medication Total Dose (Bolus/Oral) Medication Total Dosage/Unit 2% XYLOCAINE 50 mL Medications (Bolus/Oral) Medication Time Given Dosage/Unit Administered By Reason 2% XYLOCAINE 05/22/2017 11:14:41 AM 50 mL Pavel Yoo As per physicians ve rbal order 50 mL 2% XYLOCAINE given in lab by Pavel Yoo via Subcutaneous. Ordered by Pavel Yoo. Reason: As per physicians verbal order. left upper chest Medication (Drip) Medication Time Given Dosage/Unit Concentration/Unit Diluent (ml) Solution IV Solutions 05/22/2017 10:50:43 AM 0 mL (IV) NaCl .9 IV Solutions given in lab by Anesthesia, BEAN SORTER in Right Hand via Peripheral IV. Pump/Drip Flow = 50 ml /hr using NaCl .9. Ordered by Pavel Yoo. Reason: As per physicians verbal order. VANCOMYCIN DRIP 05/22/2017 11:12:00 AM 1 g 1 g VANCOMYCIN DRIP given in lab by Anesthesia, BEAN SORTER in Right Hand via Peripheral IV. Ordered by Pavel Anderson. Reason: As per physicians verbal order. Initial Case Assessment Cardiovascular HR NIBP Chest Pain 73 105/58 0 Edema Present Skin color Skin None Normal Warm Dry Neurological State Oriented to time-place- Alert Moves all extremities person Respiration - General Respiration Rate SpO2 (%) (B/min) 20 100 Final Case Assessment Cardiovascular HR 97 Respiration - General Respiration Rate SpO2 (%) (B/min) 20 97 Chronological Log Time Study Chronological Log 10:40:00 Patient arrived via Bed. 10:42:00 Patient Name, D.O.B, / Armband Verified By R.N. 10:43:00 Consent signed by the physician and the patient and verified by the Parts Salesman staff. 10:44:00 Pre-op and post- op instructions given; patient acknowledges understanding of instruction s. Verbal Stimulation=2 Physical Stimulation=2 Airway=~AIRWAY~ Respiration=2 TOTAL=10. (0=absent , 1=limited, 10:45:00 2=present) 10:49:50 Anesthesia at bedside. Assumes care of patient. 10:49:56 Patient has been NPO for More than 6Hrs. 10:49:58 Skin Breakdown- none 10:50:10 Patient Warmer Placed on the Table. 10:50:13 Disposable Defibrillator Pads Placed On Patient. 10:50:16 Julian Prominences Protected 10:50:19 A # 22 IV was noted in the Hand (right). Grade = ~GRADE~ 10:50:40 History and physical on the chart or being dictated. IV Solutions given in lab by Anesthesia, BEAN SORTER in Right Hand via Peripheral IV. Pump/Drip Flow = 50 ml/hr using NaCl 10:50:43 .9. Ordered by Pavel Yoo. Reason: As per physicians verbal order. Assessment: Initial Case, HR=73 BPM, EMVI=035/58 mmhg, Chest Pain=0, Edema=None, Color=Normal, Skin = Warm, Dry 10:51:07 Neurological: State=Alert, Ox3, [place] Respiration: Resp=20 B/min, EaN5=516 % 10:51:45 Table restraints applied according to hospital policy 10:51:48 Left Upper Chest Prepped Times Two. 10:52:01 Bovie ground pad applied to: right thigh 10:52:12 2% CHLORHEXIDINE GLUCONATE WASH AND NASAL SWIPE DONE PRIOR TO PROCEDURE. 10:54:21 Reference ECG taken First Sponge And Instrument Count Done by Manny Cedeno, RN. 11:02:36 Hypo's: 1, Sponges: 20, Bovie/scratch: 3 Sutures: 2, Blades: 1, Instruments: 26, Syveck Patches: 0 11:09:25 MD notified ready. 11:10:01 MD responded. 1 g VANCOMYCIN DRIP given in lab by Anesthesia, BEAN SORTER in Right Hand via Peripheral IV. Ordered b Pavel Roberto. 11:12:00 Reason: As per physicians verbal order. 11:14:28 Immediate Presedation assesment performed by physician. Time Out. Correct patient, procedure, procedure equipment, site and side verified with physicia n present. Time 11:14:31 concurred by MD, individual staff and BEAN SORTER. Time Out #2 - Consents verified, patient in correct position, all results are labled and displa yed, safety precautions 11:14:36 taken, antibiotics administered. Time out concurred by MD, individual staff and BEAN SORTER in procedu re 11:14:40 Case Start 50 mL 2% XYLOCAINE given in lab by Pavel Yoo via Subcutaneous. Ordered by Pavel Yoo. Re ason: As per 11:14:41 physicians verbal order. left upper chest 11:15:07 Surgical Incision Made. 11:17:03 A device was explanted. 11:19:36 Pocket flushed with antibiotic solution 11:19:38 A DEFIBRILLATOR, VIVA XT CLOTH PICKER-D DDE-DDDR was connected and placed in the pocket. Second Sponge And Instrument Count Done by Blake Boateng RT(R). 11:19:45 Hypo's: 1, Sponges: 20, Bovie/scratch: 3 Sutures: ~SUTURE~, Blades: 1, Instruments: 26, Syveck Patches: 0 11:21:36 Implant Procedure was performed. BIV/ICD GEN CHANGE 11:21:59 A Bivent ICD Implant . (Dual) GEN CHANGE 11:22:25 The pocket was closed. The Final Sponge And Instrument Count Done by Blake Boateng RT(R). 11:28:16 Hypo's: 1, Sponges: 20, Bovie/scratch: 3 Sutures: 2, Blades: 1, Instruments: 26, Syveck Patches: 0 11:29:09 Steri-strips and a sterile dressing applied to site. Assessment: Final Case, HR=97 BPM 11:29:26 Respiration: Resp=20 B/min, SpO2=97 % 11:30:08 Case End 11:32:09 No case complications noted. 11:32:15 Cine recording checked. 11:32:18 Bedside Report will be given. 11:32:24 Implantable Device card placed in patient's chart. 11:32:26 Defibrillator and ground pads removed. Skin intact. 11:55:00 Patient moved to stretcher and transported to PACU. End Study - Contrast Media Used In Study Contrast Total Opened (mL) Total Used (mL) Total Wasted (mL) Unspecified 0 0 0 End Study - Maximum Contrast Load Max Contrast Load (mL) 722.2 End Study - Radiation Exposure Fluoro Time (minutes) 0.4 End Study - Patient Disposition Complications Transferred To Interventional Outcome No Telemetry Bed successful
[2017-05-22] MEDS ORDERED: ACETAMINOPHEN/CODEINE 300 MG/30 MG TAB PO PRN ×2 (11:45)
[2017-05-22] MEDS ORDERED: ONDANSETRON HCL 4 MG/2 ML VIAL IV PUSH PRN (11:45)
[2017-05-22] MEDS ORDERED: SODIUM CHLORIDE 0.9% FLUSH 10 ML FLUSH IV FLUSH PRN (11:45)
[2017-05-22] MEDS ORDERED: DO NOT ADM ANY ANTICOAGULANT DRUGS PRN (11:58)
--- NOTE | 2017-05-22 12:25 | MP ---
cc: MODESTO SAMUEL M.D. DATE OF SURGERY 05/22/2017 PROCEDURE Biventricular pacer/defibrillator removal, biventricular/pacer/ defibrillator replacement and pocket revision. INDICATIONS FOR PROCEDURE Mrs. Rubi is a 61-year-old -[place] female with congestive heart failure, previous biventricular pacer defibrillator implanted. The defibrillator is completely end of life, it can barely be interrogated. She is to undergo generator replacement. The risks, the nature and the benefit of the procedure are clearly stated to her. The risks include pneumothorax, cardiac perforation, stroke and even . She understood and agreed to proceed. PROCEDURE After written informed consent was obtained, the patient was brought to the EP Lab where she was prepped and draped in the usual sterile fashion. Conscious sedation was initiated and maintained throughout the procedure by the anesthesiologist. Once sedation was verified, the left infraclavicular area over the existing generator was anesthetized with 2% Xylocaine. Using the #11 blade scalpel, a 3-cm incision was made over the existing generator. Dissection was then taken down to the deep fascial layer using Bovie cautery and blunt dissection. Once exposed, the generator was removed from the pocket, scar tissue was removed from around the lead pocket and was expanded. Pocket revision was performed. Then the leads were disconnected from the generator and tested. After adequate pacing and sensing thresholds were obtained, the leads were connected to the new generator and placed into the pocket. Because systolic blood pressure was under 60, the patient was unstable. I decided not to proceed with device testing. I did proceed with wound closure. The deep fascial layer was approximated with #2-0 Vicryl suture in a continuous fashion. The subcutaneous layer was approximated with #2-0 Vicryl suture in a continuous fashion. The subcuticular layer was approximated using a 2-0 Vicryl suture in a continuous fashion. Dermabond adhesive was applied to the wound, followed by a sterile pressure dressing. There was no complication. The patient tolerated the procedure. Blood loss minimal. 1. EXPLANTED HARDWARE: The explanted biventricular pacer defibrillator is a Medtronic model number [id number]. 2. IMPLANTED HARDWARE: The implanted biventricular pacer/defibrillator is a Medtronic model number [id number], serial number [id number]. 3. THRESHOLDS: The right atrial pacing threshold in the bipolar mode was at 0.5 volts at 0.4 milliseconds; the impedance 400 ohms, P-wave at 6.1 mV. The right ventricle pacing threshold in the bipolar mode was at 0.75 volts at 0.4 milliseconds. Lead impedance 435 ohms. R-wave at 6.4 millivolts. The left ventricular pacing threshold in the bipolar mode was 1.5 volts at 0.5 milliseconds. Lead impedance 240 ohms. 4. SETTINGS: The device is set in DDD 60, upper limit 130 beats per minute. AV delay paced at 160 and sensed at 140, LV first by 40 milliseconds. The defibrillatory portion set for two zones, one zone for ventricular tachycardia between 170 and 250 beats/minute. Initial therapy consists of one burst of ATP, one ramp, 81%, 10 pause, 10 millisecond incremental, followed by 20, then 25 and all subsequent shocks at 35 joules defibrillatory shock. Second zone for ventricular fibrillation above 250 beats/minute, first therapy at 25 and all subsequent shocks at 35 joules defibrillatory shock. CONCLUSIONS Successful biventricular pacer defibrillator removal, biventricular pacer/defibrillator replacement. COMMENT AND RECOMMENDATIONS The patient is going to be transferred to the Telemetry unit. He will be observed and when stable can be discharged home. Modesto Samuel MD HS/SSB /11:46 AM /12:04 PM
[2017-05-22] MEDS ORDERED: MSIR30 PO (15:36)
[2017-05-22] MEDS: FUROSEMIDE 40 MG TAB PO SCH (17:10)
[2017-05-22] MEDS: BUDESONIDE-FORMOTEROL 160/4.5 MCG INHALER INH SCH (19:55)
[2017-05-22] MEDS: traZODone HCL 50 MG TAB PO SCH (19:56)
[2017-05-22] MEDS: risperiDONE 1 MG TAB PO SCH (21:56)
[2017-05-22 21:57] LABS: HEMATOCRIT 39.5 % (35.0-46.0); MEAN CELL VOLUME 77.2 FL (80.0-100.0); MEAN CORPUSCULAR HEMOGLOBIN 23.6 PG (27.0-34.0); MEAN CORPUSCULAR HGB CONC 30.5 % (32.0-36.0); PLATELET COUNT 205 TH/MM3 (150-450); RED BLOOD COUNT 5.12 MIL/MM3 (4.00-5.30); RED CELL DISTRIBUTION WIDTH 17.8 % (11.6-17.2); REVIEW FLAG FINAL; WHITE BLOOD COUNT 8.9 TH/MM3 (4.0-11.0)
[2017-05-22 22:24] LABS: BICARBONATE 33.3 MEQ/L (21.0-32.0)
[2017-05-23] VITALS (11 sets, daily range): BP systolic 119–147; BP diastolic 64–85; PULSE 60–76; RESP 16–18; TEMP 98.8–98.9; O2SAT 98
[2017-05-23] MEDS: LEVOTHYROXINE SODIUM 75 MCG TAB PO SCH (05:59)
[2017-05-23] MEDS: ISOSORBIDE MONONITRATE 20 MG TAB PO SCH (06:04)
[2017-05-23] MEDS: INSULIN ASPART SUPPLEMENTAL SCALE SQ SCH (08:00)
--- NOTE | 2017-05-23 08:40 | HHI.FPPN ---
Subjective Remarks Patient seen and examined this morning. Afebrile vital signs stable. She denies any chest pain or shortness of breath this morning. Reports overnight she had some pain at the incision site. Incision site is clean dry and intact. Overall she reports she is feeling fine and wants to get out of the hospital today. Informed her that we are waiting on cardiology clearance for discharge. Objective Vitals Vital Signs Date Time Temp Pulse Resp B/P (MAP) Pulse Ox O2 Delivery O2 Flow Rate FiO2 05/23/17 07:00 72 05/23/17 07:00 98.9 74 16 119/64 (82) 98 05/23/17 06:00 63 05/23/17 05:10 16 05/23/17 05:04 60 05/23/17 04:07 70 05/23/17 03:00 66 05/23/17 03:00 98.8 76 18 147/85 (105) 98 05/23/17 02:03 67 05/23/17 01:04 65 05/23/17 00:03 18 05/23/17 00:00 63 05/22/17 23:00 69 05/22/17 23:00 98.4 79 18 129/63 (85) 93 05/22/17 20:00 98.0 71 18 109/60 (76) 95 05/22/17 19:00 81 05/22/17 17:45 98 Nasal Cannula 2.00 05/22/17 16:00 77 05/22/17 16:00 99.2 78 20 122/70 (87) 98 05/22/17 13:50 98.6 71 20 118/65 (82) 98 05/22/17 13:30 98.7 70 21 96/58 (71) 99 Nasal Cannula 2 05/22/17 13:15 73 12 106/56 (73) 97 Nasal Cannula 2 05/22/17 13:00 72 16 96/52 (67) 98 Nasal Cannula 2 05/22/17 12:45 76 16 92/51 (65) 98 Nasal Cannula 2 05/22/17 12:30 75 16 99/54 (69) 97 Nasal Cannula 2 05/22/17 12:15 79 13 99/55 (70) 97 Nasal Cannula 2 05/22/17 12:00 84 22 116/59 (78) 100 Nasal Cannula 2 05/22/17 11:56 98.6 84 19 97/55 (69) 100 Nasal Cannula 2 I/O 05/22/17 05/22/17 05/22/17 05/23/17 05/23/17 05/23/17 07:00 15:00 23:00 07:00 15:00 23:00 Intake Total 50 ml 360 ml 1200 ml Output Total 100 ml 600 ml Balance 50 ml 260 ml 600 ml Intake Oral 50 ml 360 ml 1200 ml IV Total 0 ml Output Urine Total 100 ml 600 ml # Voids 0 Result Diagram: 05/22/17214205/22/172142 Imaging Last Impressions Myocardial Perfusion Scan Nuc Med 05/20/17 0000 Signed Impressions: Service Date/Time: Saturday, May 20, 2017 10:51 - CONCLUSION: 1. No evidence of significant infarct or ischemia. 2. Grossly stable global hypokinesia with EF of 48%%. RISK CATEGORY: Intermediate (1-3%% Annual Mortality Rate) Lonnie Driver MD Chest X-Ray 05/19/17 0756 Signed Impressions: Service Date/Time: Friday, May 19, 2017 08:05 - CONCLUSION: No acute disease. Manny Darden Jr., MD Objective Remarks GENERAL: Well-nourished, well-developed obese female patient in no acute distress. SKIN: Warm and dry. No rashes or lesions present. EYES: No scleral icterus. No conjunctival injection or drainage. Extraocular movements intact. THROAT: Moist mucous membranes. NECK: Supple, trachea midline. CARDIOVASCULAR: Regular rate and rhythm with 2/6 CHEN. Strong radial and pedal pulses. CHEST: Symmetric chest expansion with respiration. RESPIRATORY: Scattered wheezes bilaterally, decreased breath sounds in lower lobes bilaterally. No accessory muscle use. GASTROINTESTINAL: Abdomen soft, suprapubic tenderness, nondistended. MUSCULOSKELETAL: No cyanosis or edema. No nail changes. BACK: Bilateral CVA tenderness. Neuro: Resting tremor in right arm. PSYCH: Flat affect. Good eye contact. Good insight and judgment. Normal speech. Procedures AICD battery replacement performed on 05/22/17 Medications and IVs Current Medications Medications (Trade) Dose Ordered Sig/Nilo Route Start Time Stop Time Status Last Admin (NS Flush) 2 ml UNSCH PRN IV FLUSH 05/19/17 10:00 (NS Flush) 2 ml BID IV FLUSH 05/19/17 21:00 05/22/17 19:57 (Norvasc) 10 mg DAILY PO 05/20/17 09:00 05/22/17 09:42 (Lexapro) 10 mg DAILY PO 05/20/17 09:00 05/22/17 09:42 (Ferrous Sulfate) 325 mg TIDPC PO 05/19/17 13:30 05/22/17 17:11 (Lasix) 40 mg BID@0900,1800 PO 05/19/17 18:00 05/22/17 17:10 (Ismo) 60 mg DAILY@0700 PO 05/20/17 07:00 05/23/17 06:04 (Synthroid) 75 mcg DAILY@0600 PO 05/20/17 06:00 05/23/17 05:59 (Ativan) 0.5 mg Q6H PRN PO 05/19/17 10:30 05/21/17 18:22 (Nitrostat Sl) 0.4 mg Q4HR PRN SL 05/19/17 10:30 05/22/17 08:20 (Compazine) 10 mg Q4H PRN PO 05/19/17 10:30 (Aldactone) 12.5 mg DAILY PO 05/20/17 09:00 05/22/17 09:42 (Desyrel) 50 mg HS PO 05/19/17 21:00 05/22/17 19:56 (Symbicort 160-4.5 Mcg Inh) 2 puff BID INH 05/19/17 21:00 05/22/17 19:55 (Pravachol) 40 mg DAILY PO 05/20/17 09:00 05/22/17 09:42 (risperDAL) 2 mg BID PO 05/19/17 21:00 05/22/17 21:56 (Oramorph Sr) 30 mg Q12H PO 05/19/17 11:00 05/22/17 22:51 (Roxicodone) 10 mg Q4H PRN PO 05/19/17 10:45 05/23/17 04:38 (Tylenol) 650 mg Q4H PRN PO 05/19/17 10:45 (Zofran Inj) 4 mg Q6H PRN IVP 05/19/17 10:45 (Dee-Colace) 1 tab BID PO 05/19/17 21:00 05/22/17 19:56 (Milk Of Magnesia Liq) 30 ml Q12H PRN PO 05/19/17 10:45 (Senokot) 17.2 mg Q12H PRN PO 05/19/17 10:45 (Dulcolax Supp) 10 mg DAILY PRN RECTAL 05/19/17 10:45 (Lactulose Liq) 30 ml DAILY PRN PO 05/19/17 10:45 (D50w (Vial) Inj) 50 ml UNSCH PRN IV PUSH 05/19/17 10:45 (Glucagon Inj) 1 mg UNSCH PRN OTHER 05/19/17 10:45 (NovoLOG SUPPLEMENTAL SCALE) 1 ACHS SLIDING SCALE SQ 05/19/17 12:00 05/22/17 21:56 (Levemir Inj) 5 units BID SQ 05/19/17 21:00 05/22/17 21:56 (Pill Splitter) 1 ea UNSCH PRN OTHER 05/19/17 11:00 (Levaquin) 750 mg DAILY PO 05/20/17 09:00 05/23/17 08:59 05/22/17 09:43 (Albuterol Neb) 2.5 mg Q6HR NEB PRN NEB 05/19/17 11:30 (Deltasone) 20 mg BID PO 05/20/17 09:00 05/22/17 19:56 (Zofran Inj) 4 mg Q4H PRN IV PUSH 05/22/17 11:45 (Tylenol-Codeine #3) 1 tab Q4H PRN PO 05/22/17 11:45 (Tylenol-Codeine #3) 2 tab Q4H PRN PO 05/22/17 11:45 (NS Flush) 2 ml BID IV FLUSH 05/22/17 21:00 (NS Flush) 2 ml UNSCH PRN IV FLUSH 05/22/17 11:45 Miscellaneous Information ALL NURSING DEPARTME... UNSCH PRN .XX 05/22/17 11:58 05/23/17 11:57 (Requip) 8 mg BID PO 05/23/17 09:00 A/P Assessment and Plan This is a 61-year-old female with past medical history significant for multiple chronic medical conditions presenting to the hospital for complaints of her AICD shocking her, upon evaluation AICD is low battery. She is being admitted for the low battery AICD and chest pain rule out. Discharge Planning Anticipate discharge today following cardiology clearance Problem List: (1) Chest pain ICD Codes: R07.9 - Chest pain Status: Acute Plan: Patient presents to the hospital with 2 week history of chest pain that she reports is her AICD shocking her. Upon evaluation of the AICD has a low battery and currently cannot be shocking the patient. Admitted for chest pain rule out and further AICD evaluation. ACD battery replaced on 05/22/17 * Admit to observation * Consulted cardiology, recommendations appreciated * troponins: Trended less than 0.023 * Diabetic diet to be held prior to procedure * Place on telemetry for chest pain (2) AICD battery failure ICD Codes: Z45.02 - Encounter for adjustment and management of automatic implantable cardiac defibrillator Status: Acute Plan: Per AICD autocad technician the battery is low and cannot be operational at this time See plan above (3) UTI (urinary tract infection) ICD Codes: N39.0 - Urinary tract infection, site not specified Status: Acute Plan: Previous visit with PCP was concerned for urinary tract infection UA was ordered but results have not been obtained * UA and cultures: Negative * Continued levofloxacin 750 mg as previously prescribed continued through Monday (4) Upper respiratory infection ICD Codes: J06.9 - Acute upper respiratory infection, unspecified Status: Acute Plan: At visit with PCP on 05/16/17 patient was reporting cough, nasal congestion, and mild shortness of breath, concerning for viral upper respiratory infection. On physical exam there is notable wheezing. Antibiotics previously started for urinary tract infection will be continued. * Continue patient's home breathing treatments * Continue by mouth prednisone * Oxygen as needed (5) Cardiomyopathy ICD Codes: I42.9 - Cardiomyopathy, unspecified Status: Chronic Plan: AICD was placed due to cardiomyopathy. * See plan above (6) COPD (chronic obstructive pulmonary disease) ICD Codes: J44.9 - Chronic obstructive pulmonary disease Status: Chronic Plan: Patient has a history of COPD. * Continue home breathing treatments * Start albuterol 2.5 mg every 6 hours when necessary shortness of breath or wheezing (7) DM (diabetes mellitus) ICD Codes: E11.9 - Diabetes mellitus Status: Chronic Plan: Patient history of type 2 diabetes. Currently being treated with metformin. * Holding metformin * Monitor blood glucose per protocol * Blood glucose ranging between 94-160 * Started Levemir 5 units twice a day we'll titrate per glucoses * Placed on sliding scale (8) CHF (congestive heart failure) ICD Codes: I50.9 - Heart failure, unspecified Status: Chronic Plan: Present history of congestive heart failure part of reason for AICD placement * Continue furosemide 40 mg twice a day * Continue amlodipine 10 mg by mouth daily * Continue isosorbide mononitrate 30 mg by mouth daily * Continue Nitrostat * Continue spironolactone 12.5 mg by mouth daily (9) Schizophrenia ICD Codes: F20.9 - Schizophrenia, unspecified Status: Acute Plan: Long-standing history of schizophrenia versus bipolar with anxiety and depression * Continue risperidone * Continue trazodone * Continue escitalopram * Continue Ativan when necessary anxiety (10) Hypertension ICD Codes: I10 - Essential (primary) hypertension Status: Chronic Plan: Long-standing history of hypertension. * See congestive heart failure plan above (11) Hypothyroidism ICD Codes: E03.9 - Hypothyroidism Status: Chronic Plan: Long-standing history of hypothyroidism * Continue Synthroid 75 MCG by mouth daily (12) Chronic back pain ICD Codes: M54.9 - Dorsalgia, unspecified; G89.29 - Other chronic pain Status: Acute Plan: Continue home pain medication (13) Nutrition, metabolism, and development symptoms ICD Codes: R63.8 - Other symptoms and signs concerning food and fluid intake Plan: Fluids: Adequate by mouth intake Diet: Diabetic diet Vitals every 4 Monitor electrolytes and replace accordingly Out of bed ad lilia. GI prophylaxis with omeprazole DVT prophylaxis with SCDs holding pharmacologic for possible procedure Problem Qualifiers (1) Chest pain: Qualified Codes: R07.9 - Chest pain, unspecified (2) Upper respiratory infection: Qualified Codes: J06.9 - Acute upper respiratory infection, unspecified (3) COPD (chronic obstructive pulmonary disease): (4) DM (diabetes mellitus): (5) Hypertension: Qualified Codes: I10 - Essential (primary) hypertension Truong Mendez MD, R3 May 23, 2017 08:40
[2017-05-23] MEDS: SODIUM CHLORIDE 0.9% FLUSH 10 ML FLUSH IV FLUSH SCH ×2 (09:00)
[2017-05-23] MEDS: FUROSEMIDE 40 MG TAB PO SCH (09:00)
[2017-05-23] MEDS: SPIRONOLACTONE 25 MG TAB PO SCH (09:00)
[2017-05-23] MEDS: BUDESONIDE-FORMOTEROL 160/4.5 MCG INHALER INH SCH (09:58)
[2017-05-23] MEDS: FERROUS SULFATE 325 MG (65 MG ELEMENTAL IRON) TAB PO SCH (09:58)
[2017-05-23] MEDS: predniSONE 20 MG TAB PO SCH (09:58)
[2017-05-23] MEDS: risperiDONE 1 MG TAB PO SCH (09:58)
[2017-05-23] MEDS: ESCITALOPRAM OXALATE 10 MG TAB PO SCH (09:58)
[2017-05-23] MEDS: PRAVASTATIN SOD 40 MG TAB PO SCH (09:58)
[2017-05-23] MEDS: DOCUSATE SODIUM 50 MG/SENNA 8.6 MG TAB PO SCH (09:58)
[2017-05-23] MEDS: INSULIN DETEMIR 100 UNITS/ML VIAL SQ SCH (10:01)
--- NOTE | 2017-05-23 10:24 | HHI.DCPOC ---
Discharge Care Plan Diagnosis: (1) AICD battery failure (2) UTI (urinary tract infection) (3) Upper respiratory infection (4) Chest pain (5) COPD (chronic obstructive pulmonary disease) (6) DM (diabetes mellitus) (7) Hyperlipemia (8) Hypertension (9) Hypothyroidism (10) CHF (congestive heart failure) (11) Schizophrenia Goals to Promote Your Health * To prevent worsening of your condition and complications * To maintain your health at the optimal level Directions to Meet Your Goals Take your medications as prescribed Follow your dietary instruction Follow activity as directed Keep your appointments as scheduled Take your immunizations and boosters as scheduled If your symptoms worsen call your PCP, if no PCP go to Urgent Care Center or Emergency Room Smoking is Dangerous to Your Health. Avoid second hand smoke Call the 24-hour hour crisis hotline for domestic abuse at Truong Mendez MD, R3 May 23, 2017 10:24
--- NOTE | 2017-05-23 10:31 | HHI.DS ---
Discharge Summary Admission Date May 19, 2017 at 10:06 Discharge Date: May 23, 2017 Admitting Diagnosis AICD LOW BATTERY (1) Chest pain Diagnosis: Principal Plan: Patient presents to the hospital with 2 week history of chest pain that she reports is her AICD shocking her. Upon evaluation of the AICD has a low battery and currently cannot be shocking the patient. Admitted for chest pain rule out and further AICD evaluation. ACD battery replaced on 05/22/17 * Admit to observation * Consulted cardiology, recommendations appreciated * troponins: Trended less than 0.023 * Diabetic diet to be held prior to procedure * Place on telemetry for chest pain ICD Codes: R07.9 - Chest pain Status: Acute (2) AICD battery failure Diagnosis: Principal Plan: Per AICD environmental monitoring technician the battery is low and cannot be operational at this time See plan above ICD Codes: Z45.02 - Encounter for adjustment and management of automatic implantable cardiac defibrillator Status: Acute (3) UTI (urinary tract infection) Diagnosis: Secondary Plan: Previous visit with PCP was concerned for urinary tract infection UA was ordered but results have not been obtained * UA and cultures: Negative * Continued levofloxacin 750 mg as previously prescribed continued through Monday ICD Codes: N39.0 - Urinary tract infection, site not specified Status: Acute (4) Upper respiratory infection Diagnosis: Secondary Plan: At visit with PCP on 05/16/17 patient was reporting cough, nasal congestion, and mild shortness of breath, concerning for viral upper respiratory infection. On physical exam there is notable wheezing. Antibiotics previously started for urinary tract infection will be continued. * Continue patient's home breathing treatments * Continue by mouth prednisone * Oxygen as needed ICD Codes: J06.9 - Acute upper respiratory infection, unspecified Status: Acute (5) Cardiomyopathy Diagnosis: Secondary Plan: AICD was placed due to cardiomyopathy. * See plan above ICD Codes: I42.9 - Cardiomyopathy, unspecified Status: Chronic (6) COPD (chronic obstructive pulmonary disease) Diagnosis: Secondary Plan: Patient has a history of COPD. * Continue home breathing treatments * Start albuterol 2.5 mg every 6 hours when necessary shortness of breath or wheezing ICD Codes: J44.9 - Chronic obstructive pulmonary disease Status: Chronic (7) DM (diabetes mellitus) Diagnosis: Secondary Plan: Patient history of type 2 diabetes. Currently being treated with metformin. * Holding metformin * Monitor blood glucose per protocol * Blood glucose ranging between 94-160 * Started Levemir 5 units twice a day we'll titrate per glucoses * Placed on sliding scale ICD Codes: E11.9 - Diabetes mellitus Status: Chronic (8) CHF (congestive heart failure) Diagnosis: Secondary Plan: Present history of congestive heart failure part of reason for AICD placement * Continue furosemide 40 mg twice a day * Continue amlodipine 10 mg by mouth daily * Continue isosorbide mononitrate 30 mg by mouth daily * Continue Nitrostat * Continue spironolactone 12.5 mg by mouth daily ICD Codes: I50.9 - Heart failure, unspecified Status: Chronic (9) Schizophrenia Diagnosis: Secondary Plan: Long-standing history of schizophrenia versus bipolar with anxiety and depression * Continue risperidone * Continue trazodone * Continue escitalopram * Continue Ativan when necessary anxiety ICD Codes: F20.9 - Schizophrenia, unspecified Status: Acute (10) Hypertension Diagnosis: Secondary Plan: Long-standing history of hypertension. * See congestive heart failure plan above ICD Codes: I10 - Essential (primary) hypertension Status: Chronic (11) Hypothyroidism Diagnosis: Secondary Plan: Long-standing history of hypothyroidism * Continue Synthroid 75 MCG by mouth daily ICD Codes: E03.9 - Hypothyroidism Status: Chronic (12) Chronic back pain Diagnosis: Secondary Plan: Continue home pain medication ICD Codes: M54.9 - Dorsalgia, unspecified; G89.29 - Other chronic pain Status: Acute (13) Nutrition, metabolism, and development symptoms Diagnosis: Secondary Plan: Fluids: Adequate by mouth intake Diet: Diabetic diet Vitals every 4 Monitor electrolytes and replace accordingly Out of bed ad lilia. GI prophylaxis with omeprazole DVT prophylaxis with SCDs holding pharmacologic for possible procedure ICD Codes: R63.8 - Other symptoms and signs concerning food and fluid intake Consultants Cardiology Procedures AICD battery replacement performed on 05/22/17 Brief History This is a 61-year-old female with past medical history significant for multiple chronic medical conditions presenting to the hospital with complaints of sporadic chest pain that she claims is her AICD shocking her. At the time of evaluation she is no longer having the chest pain. The AICD techs evaluated her pacemaker and found the battery to be low, and reported that at this point it could not shock her if needed. Patient reports that she's been feeling these chest pain symptoms daily for the past 2 weeks and felt like the last shock with this morning. She feels like the shocks occurs sporadically and she cannot relate them to any specific activity. She reports that she's seen her PCP for an upper respiratory infection 3 days ago and feels like her symptoms are resolving. There is also concern for possible urinary tract infection UA was ordered and results are not available, repeat UA to be performed and antibiotics continued at this time. She admits to some mild shortness of breath and wheezing that has been progressively improving. She says at baseline she has chronic lower back pain and abdominal pain that is treated with morphine and oxycodone. Explained to her that the plan is to admit her and have cardiology evaluate her AICD and she agrees to the plan of care. CBC/BMP: 05/22/17214205/22/172142 Significant Findings Laboratory Tests Test 05/21/17 13:10 05/22/17 21:43 Mean Corpuscular Volume 77.8 FL (80.0-100.0) 77.2 FL (80.0-100.0) Mean Corpuscular Hemoglobin 24.2 PG (27.0-34.0) 23.6 PG (27.0-34.0) Mean Corpuscular Hemoglobin Concent 31.1 % (32.0-36.0) 30.5 % (32.0-36.0) Red Cell Distribution Width 17.9 % (11.6-17.2) 17.8 % (11.6-17.2) Blood Urea Nitrogen 20 MG/DL (7-18) 21 MG/DL (7-18) Random Glucose 146 MG/DL (74-106) 134 MG/DL (74-106) Sodium Level 135 MEQ/L (136-145) Carbon Dioxide Level 32.3 MEQ/L (21.0-32.0) 33.3 MEQ/L (21.0-32.0) Estimat Glomerular Filtration Rate 77 ML/MIN (>89) 62 ML/MIN (>89) Creatinine 1.09 MG/DL (0.50-1.00) PE at Discharge GENERAL: Well-nourished, well-developed obese female patient in no acute distress. SKIN: Warm and dry. No rashes or lesions present. EYES: No scleral icterus. No conjunctival injection or drainage. Extraocular movements intact. THROAT: Moist mucous membranes. NECK: Supple, trachea midline. CARDIOVASCULAR: Regular rate and rhythm with 2/6 CHEN. Strong radial and pedal pulses. CHEST: Symmetric chest expansion with respiration. RESPIRATORY: Scattered wheezes bilaterally, decreased breath sounds in lower lobes bilaterally. No accessory muscle use. GASTROINTESTINAL: Abdomen soft, suprapubic tenderness, nondistended. MUSCULOSKELETAL: No cyanosis or edema. No nail changes. BACK: Bilateral CVA tenderness. Neuro: Resting tremor in right arm. PSYCH: Flat affect. Good eye contact. Good insight and judgment. Normal speech. Hospital Course Patient was admitted on 05/19/1718. Her AICD battery was determined to be low. Chest pain rule out was performed and was negative. Battery was replaced on 05/22/17. Patient was determined to be medically stable for discharge on 05/23/17 with a working pacemaker. Pt Condition on Discharge: Stable Discharge Disposition: Discharge Home Discharge Instructions DIET: Follow Instructions for: Diabetic Diet Activities you can perform: Regular-No Restrictions Follow up Referrals: Cardiology - 1 Week with Trina Dodson MD PCP Follow-up - 1 Week with Giovana Russo MD, R3 Continued Medications: Albuterol Neb (Albuterol Neb) 2.5 Mg/3 Ml Neb 2.5 MG NEB Q4HR NEB PRN for SHORTNESS OF BREATH, #60 NEBULE 0 Refills Amlodipine (Amlodipine) 10 Mg Tab 10 MG PO DAILY for Blood Pressure Management, #90 TAB 3 Refills Docusate Sodium (Docusate Sodium) 100 Mg Cap 100 MG PO DAILY for Prevent Constipation, #60 CAP 0 Refills Escitalopram (Escitalopram) 10 Mg Tab 10 MG PO DAILY, #30 TAB 0 Refills Ferrous Sulfate (Ferrous Sulfate) 325 Mg (65 Mg Iron) Tablet 325 MG PO TIDPC for Nutritional Supplement, #90 TAB 3 Refills Fluticasone-Salmeterol Inh (Advair Diskus Inh) 500-50 Mcg/Blist Aer 1 PUFF INH BID, #1 INHALER 9 Refills Rinse mouth after use. Furosemide (Furosemide) 40 Mg Tab 40 MG PO BID, #180 TAB 3 Refills Isosorbide Mononitrate (Isosorbide Mononitrate) 20 Mg Tab 60 MG PO DAILY for Prevent Chest Pain, #90 TAB 3 Refills Take 2 doses 7 hours apart. Levothyroxine (Levothyroxine) 75 Mcg Tab 75 MCG PO DAILY for Thyroid, #90 TAB 3 Refills Lorazepam (Lorazepam) 0.5 Mg Tab 0.5 MG PO Q6H PRN for ANXIETY, #60 TAB 0 Refills Metformin (Metformin) 500 Mg Tab 500 MG PO BIDPC for Blood Sugar Management, #180 TAB 3 Refills With meals Morphine IR (Morphine IR) 30 Mg Tab 30 MG PO BID PRN for PAIN, #60 TAB 0 Refills Nitroglycerin SL (Nitrostat SL) 0.4 Mg Subl 0.4 MG SL DIRECTED PRN for CHEST PAIN, #100 TAB.SL 0 Refills 1 tablet under the tongue as needed for chest pain. Repeat every 5 minutes for a total of 3 DOSES or call 911 if NO relief. Omeprazole (Omeprazole) 20 Mg Tab 20 MG PO DAILY, #90 TAB 3 Refills Oxycodone (Oxycodone) 10 Mg Tab 10 MG PO Q4H PRN for PAIN, #120 TAB 0 Refills Prednisone (Prednisone) 10 Mg Tab 10 MG PO DAILY, #30 TAB 3 Refills Prochlorperazine Maleate (Prochlorperazine Maleate) 10 Mg Tab 10 MG PO Q4H PRN for NAUSEA OR VOMITING, #120 TAB 3 Refills Risperidone (Risperdal) 2 Mg Tab 2 MG PO BID, #30 TAB 3 Refills Ropinirole (Ropinirole) 4 Mg Tab 8 MG PO BID, #180 TAB 3 Refills Sennosides-Docusate Sodium (Senna-Plus) 8.6-50 Mg Tab 2 TAB PO BID for Constipation, TAB 0 Refills Spironolactone (Spironolactone) 25 Mg Tab 12.5 MG PO DAILY, #90 TAB 3 Refills Trazodone (Trazodone) 50 Mg Tab 50 MG PO HS for Control Depression, #90 TAB 3 Refills Truong Mendez MD, R3 May 23, 2017 10:31
--- NOTE | 2017-05-23 14:37 | EKG ---
Date Performed: 05/22/2017 Time Performed: 13:32:02 PTAGE: 61 years EKG: ELECTRONIC VENTRICULAR PACEMAKER ABNORMAL RHYTHM ECG Compared to prior tracing no significa nt change PREVIOUS TRACING : 05/19/2017 19.20 DOCTOR: Mae Mcneal Interpretating Date/Time 05/23/2017 14:32:29
[2017-05-30] MEDS ORDERED: CELE10TA PO (10:31)
[2017-06-01] MEDS ORDERED: LORA0.5T PO (13:48)
[2017-06-01] MEDS ORDERED: OXYC-395 PO (13:48)
== END 2017-05-23 11:31 | disposition home or self-care (01) ==
LOC: NEPE 07:48 → NEDA 10:06 → NEPHCDU 10:55 → HCVI 05-22 08:50 → HCIS 05-22 11:01
PROVIDERS: ADMIT Family Medicine; ATTEND Family Medicine
DX: Z45.02 Encounter for adjustment and management of automatic implantable cardiac defibrillator (principal); I11.0 Hypertensive heart disease with heart failure; I50.22 Chronic systolic (congestive) heart failure; R42 Dizziness and giddiness; R00.2 Palpitations; I42.9 Cardiomyopathy, unspecified; E66.01 Morbid (severe) obesity due to excess calories; E78.5 Hyperlipidemia, unspecified; E11.9 Type 2 diabetes mellitus without complications; J06.9 Acute upper respiratory infection, unspecified; J44.9 Chronic obstructive pulmonary disease, unspecified; E03.9 Hypothyroidism, unspecified; G89.29 Other chronic pain; M54.5 Low back pain; Z79.4 Long term (current) use of insulin; R79.1 Abnormal coagulation profile; R79.89 Other specified abnormal findings of blood chemistry; R94.31 Abnormal electrocardiogram [ECG] [EKG]
CPT/HCPCS: 00530; 33264; 71010; 78452; 80048; 80053; 81001; 82550; 82552; 82948; 83690; 83880; 84484; 85025; 85027; 85610; 85730; 93005; 93017; 96372; 96374; 96376; 99285; A9502; C1882; G0378; J1815; J2785; J2920; J3370; J3480; J7050; J7512; J0690

== ENCOUNTER → 2017-06-21 | Day surgery (SDC) | payer MEDICAID ==
[~2017-06-21] VITALS: Ht 152.4 cm; Wt 131.4 kg
[~2017-06-21] MED LIST changes: -BENZ100 PO; +CELE10TA PO; +CYCLOPENTOLATE HCL 1% OPHT SOLN 2 ML BTL ONE; +DIFL0.0512 LEFT EYE; +EPINEPHrine-Lidocaine/BSS (PF/SF) 4-120 mg/16 mL OPTH SYR ONE; -ESCI10TA PO; -HOSP BED1; -HOSP BED2; +HYALURONIDASE/LIDOCAINE/BUPIVACAINE 5 ML SYR ONE; +HYDROCORTISONE SOD SUCCINATE 100 MG VIAL ONE; -LEVO750T3 PO; +LIDOCAINE HCL 1% PF 30 ML VIAL ONE; -MORP60TA24 PO; +NEPA0.3D LEFT EYE; +PHENYLEPHRINE HCL 10% OPTH SOLN 5 ML BTL ONE; -PRED20 PO; +PROPOFOL 200 MG/20 ML AMP ONE; -RISP2TAB37 PO; +RISP4TAB2 PO; +SODIUM CHLORID 0.9% 500 ML INJ 500 ML ONE; +TETRACAINE 0.5% OPTH SOLN 4 ML BTL ONE; +TOBRAMYCIN/DEXAMETHASONE OPTH OINT 3.5 GM TUBE ONE; +TROPICAMIDE 1% OPHT SOLN 15 ML BTL ONE; +VIGA0.5D LEFT EYE; +VISCOAT OPHT IRRIG SOLN 0.75 ML SYRINGE ONE
[2017-06-21 08:50] VITALS: PULSE 76
[2017-06-21 09:10] VITALS: PULSE 100
[2017-06-21] MEDS: TRYPAN BLUE 0.5 ML OPHT DYE SYRINGE LEFT EYE ONE ×2 (09:26→12:02)
[2017-06-21 10:35] VITALS: BP 145/78; PULSE 84; RESP 16; TEMP 98; O2SAT 96
--- NOTE | 2017-06-21 10:56 | PD.OP ---
Operative Report Date of Surgery: Jun 21, 2017 Preoperative Diagnosis: (1) Posterior subcapsular age-related cataract of left eye Postoperative Diagnosis: (1) Pseudophakia of left eye Procedure: phacoemulsification and intraocular lens implant left eye Surgeon: Jennifer Neely Olericulture Teacher(s): none Operation and Findings: Patient was consented for surgery, given a retrobulbar block by anesthesia, and taken back to the operating room. She was prepped and draped in the usual sterile fashion for ophthalmic surgery. A wire lid speculum was placed in the left eye. A paracentesis incision was created at the 5 o'clock position on the limbus. Vision blue dye, intracameral epishugarcaine, and viscoelastic was injected into the anterior chamber. The main incision was created at the 2 o' clock position on the limbus with a 2.4 mm keratome. A continuous curvilinear capsulorrhexis was made on the anterior lens capsule. Hydrodissection was used to separate the lens from the capsule. Phacoemulsification was used to remove the lens nucleus material. Irrigation and aspiration was used to remove the remaining cortical material. The lens implant ([id number] SN [id number]) was placed in the capsular bag. Viscoelastic was removed with irrigation and aspiration. The incisions were irrigated and found to be watertight. Tobradex ointment, a patch, and shield were placed on the left eye. The patient was sent to PACU in stable condition. Jennifer Neely MD Jun 21, 2017 10:56
== END | disposition home or self-care (01) ==
LOC: PHSDC 08:07
PROVIDERS: ATTEND Ophthalmology
DX: H25.9 Unspecified age-related cataract (principal)
CPT/HCPCS: 00142; 66984; J1720; J7040; V2632

== ENCOUNTER 2017-07-30 10:53 | Emergency (ER) | payer MEDICAID ==
[~2017-07-30] VITALS: Ht 152.4 cm; Wt 120.0 kg
[~2017-07-30 10:53] MED LIST changes: -CYCLOPENTOLATE HCL 1% OPHT SOLN 2 ML BTL ONE; -EPINEPHrine-Lidocaine/BSS (PF/SF) 4-120 mg/16 mL OPTH SYR ONE; -HYALURONIDASE/LIDOCAINE/BUPIVACAINE 5 ML SYR ONE; -HYDROCORTISONE SOD SUCCINATE 100 MG VIAL ONE; +LEVO750T3 PO; -LIDOCAINE HCL 1% PF 30 ML VIAL ONE; -PHENYLEPHRINE HCL 10% OPTH SOLN 5 ML BTL ONE; +PRED20 PO; -PROPOFOL 200 MG/20 ML AMP ONE; -SODIUM CHLORID 0.9% 500 ML INJ 500 ML ONE; -TETRACAINE 0.5% OPTH SOLN 4 ML BTL ONE; -TOBRAMYCIN/DEXAMETHASONE OPTH OINT 3.5 GM TUBE ONE; -TROPICAMIDE 1% OPHT SOLN 15 ML BTL ONE; -VISCOAT OPHT IRRIG SOLN 0.75 ML SYRINGE ONE
[2017-07-30] MEDS ORDERED: IOHEXOL 350 MG/ML 10 ML VIAL (for RAD DIAG) IVCONTRAST ONE (10:54)
[2017-07-30 10:55] VITALS: BP 144/69; PULSE 91; RESP 23; TEMP 98.5; O2SAT 96
[2017-07-30] MEDS ORDERED: SODIUM CHLORIDE 0.9% FLUSH 10 ML FLUSH IVF PRN (11:30)
[2017-07-30] MEDS ORDERED: MORPHINE SULFATE 2 MG/ML INJ IV PUSH ONE ×2 (11:30→13:15)
--- NOTE | 2017-07-30 11:39 | PD ---
HPI Chief Complaint: Respiratory Symptoms Time Seen by Provider: 11:11 Travel History International Travel<30 days: No Contact w/Intl Traveler<30days: No Traveled to known affect area: No History of Present Illness HPI 62y female with a complicated medical history of MARYAN, CHF, CVA, DM, chronic LBP , A Fib, presents to the ED with multiple medical complaints. She was diagnosed with pneumonia 2 weeks ago and finished a course of Levaquin x5 days. Says that she had a mechanical fall down her stairs landing on her lumbar spine proximally 2-3 days ago and states this is very painful. She does not know if she had her head or loss consciousness. Patient states that she does have some numbness and tingling in the groin area along with increased urination. Patient denies fevers, chills, history of IV drug use, unusual weakness. In addition, she is complaining of midsternal chest pain that radiates to her left shoulder and arm associated with nausea. No pall/prov factors. Says she also has a productive cough with yellow sputum. Says she used her duoneb this morning and did not have a significant relief. Patient follows Dr. Mahoney for primary care physician. Denies tobacco use although she is exposed to tobacco smoke at home. PFSH Past Medical History Hx Anticoagulant Therapy: Yes (COUMADIN) Anemia: Yes Arthritis: Yes Asthma: Yes Atrial Fibrillation: Yes Autoimmune Disease: No Blood Disorders: No Bipolar Disorder: Yes Anxiety: Yes Depression: Yes Heart Rhythm Problems: Yes (PALPITATIONS ) Cancer: No Cardiac Catheterization: Yes Cardiovascular Problems: Yes (CONGESTIVE HEART FAILURE) High Cholesterol: Yes Chemotherapy: No Chest Pain: Yes Congestive Heart Failure: Yes COPD: Yes Cerebrovascular Accident: Yes Coronary Artery Disease: Yes Dementia: Yes Diabetes: Yes (TYPE 2) Patient Takes Glucophage: Yes (metformin) Dialysis: Yes Diminished Hearing: No Diverticulitis: Yes Endocrine: Yes Gastrointestinal Disorders: Yes (GERD, DIVERTICULITIS) GERD: Yes Glaucoma: No Genitourinary: No Headaches: Yes (1978 UNKNOWN TYPE) Hepatitis: Yes (doesn't know what type) Hiatal Hernia: Yes Hypertension: Yes Immune Disorder: No Implanted Vascular Access Dvce: Yes Kidney Stones: No Musculoskeletal: Yes (OSTEOPOROSIS) Neurologic: Yes (RESTLESS LEG SYNDROME) Psychiatric: Yes (ANXIETY, DEPRESSION,BIPOLAR,SCHIZOPHRENIA) Reproductive: Yes Respiratory: Yes (ASTHMA, COPD,SLEEP APNEA) Immunizations Current: No Myocardial Infarction: Yes Pancreatitis: Yes Pneumonia: Yes Radiation Therapy: No Renal Failure: No Schizophrenia: Yes Seizures: No Sickle Cell Disease: No Sleep Apnea: Yes (CPAP) Thyroid Disease: Yes (HYPO) Ulcer: Yes PNEUMOCCOCAL Vaccine (Year): 2010 Menopausal: Yes : 1 Para: 1 Miscarriage: 0 : 0 Tubal Ligation: Yes Past Surgical History Abdominal Surgery: Yes (gall bladder removed 2009) AICD: Yes (PACER/DEFIB - medtronic) Body Medical Devices: PACER Cardiac Surgery: Yes (pacemaker) Cholecystectomy: Yes Ear Surgery: No Endocrine Surgery: No Eye Surgery: No Genitourinary Surgery: No Gynecologic Surgery: Yes (PARTIAL HYSTERECTOMY) Hysterectomy: Yes Joint Replacement: No Neurologic Surgery: No Oral Surgery: Yes (UPPER TEETH REMOVED) Pacemaker: Yes Thoracic Surgery: No Other Surgery: Yes (RIGHT HAND, CYST) Social History Alcohol Use: No Tobacco Use: No (quit) Substance Use: No Allergies-Medications (Allergen,Severity, Reaction): Coded Allergies: aspirin (Verified Allergy, Severe, Anaphylaxis, 07/30/17) PT STATES IT MAKES HER TONGUE SWELL AND HER HEART STOPS BEATING. benazepril (Verified Allergy, Severe, ANAPHALAXIS, 07/30/17) captopril (Verified Allergy, Severe, ANAPHALAXIS, 07/30/17) enalaprilat (Verified Allergy, Severe, Anaphylaxis, 07/30/17) fosinopril (Verified Allergy, Severe, ANAPHALAXIS, 07/30/17) gabapentin (Verified Allergy, Severe, AGGRESSIVE BEHAVIOR, 07/30/17) ibuprofen (Verified Allergy, Severe, TOUNGE SWELLING, 07/30/17) lisinopril (Verified Allergy, Severe, ANAPHALAXIS, 07/30/17) quinapril (Verified Allergy, Severe, ANAPHALAXIS, 07/30/17) naproxen (Verified Allergy, Intermediate, RESTELESS LEG, 07/30/17) MRI PRECAUTION (Verified Adverse Reaction, Severe, NON REVO PACEMAKER 07/04 LRS, 07/30/17) acetaminophen (Verified Adverse Reaction, Severe, 07/30/17) RESTLESS LEGS Reported Meds & Prescriptions Reported Meds & Active Scripts Active Prednisone 5 Mg Tab 5 Mg PO DAILY 5 Days Prednisone 20 Mg Tab 40 Mg PO DAILY Take 40 mg (2 tablets) daily for 5 days Vigamox Opth Drops (Moxifloxacin Opth Drops) 0.5 % Soln 1 Drop LEFT EYE QID Ilevro Opth Drops (Nepafenac) 0.3 % Soln 1 Drop LEFT EYE DAILY Durezol Opth (Difluprednate Opth) 0.05% Emul 1 Drop LEFT EYE QID Albuterol Neb (Albuterol Sulfate) 2.5 Mg/3 Ml Neb 2.5 Mg NEB Q4HR NEB PRN Advair Diskus Inh (Fluticasone-Salmeterol Inh) 500-50 Mcg/Blist Aer 1 Puff INH BID Rinse mouth after use. Amlodipine (Amlodipine Besylate) 10 Mg Tab 10 Mg PO DAILY Furosemide 40 Mg Tab 40 Mg PO BID Isosorbide Mononitrate 20 Mg Tab 60 Mg PO DAILY Take 2 doses 7 hours apart. Prochlorperazine Maleate 10 Mg Tab 10 Mg PO Q4H PRN Ferrous Sulfate 325 Mg (65 Mg Iron) Tablet 325 Mg PO TIDPC Metformin (Metformin HCl) 500 Mg Tab 500 Mg PO BIDPC With meals Ropinirole 4 Mg Tab 8 Mg PO BID Omeprazole 20 Mg Tab 20 Mg PO DAILY Trazodone (Trazodone HCl) 50 Mg Tab 50 Mg PO HS Levothyroxine (Levothyroxine Sodium) 75 Mcg Tab 75 Mcg PO DAILY [Cpap] HS Nebulizer Kit/Tubing/Mout (N/A) 1 Kit Kit Kit .ROUTE DIRECTED Wheelchair (Device) 1 Mis Mis Ea .ROUTE DIRECTED Walker Rolling/GetGo (Device) 1 Mis Mis Ea .ROUTE DIRECTED Spironolactone 25 Mg Tab 12.5 Mg PO DAILY Reported Risperidone 4 Mg Tab 8 Mg PO BID Celexa (Citalopram Hydrobromide) 10 Mg Tab 10 Mg PO DAILY Nitrostat SL (Nitroglycerin) 0.4 Mg Subl 0.4 Mg SL DIRECTED PRN 1 tablet under the tongue as needed for chest pain. Repeat every 5 minutes for a total of 3 DOSES or call 911 if NO relief. Senna-Plus (Sennosides-Docusate Sodium) 8.6-50 Mg Tab 2 Tab PO BID Docusate Sodium 100 Mg Cap 100 Mg PO DAILY Review of Systems Except as stated in HPI: all other systems reviewed are Neg Physical Exam Narrative GENERAL: Well-developed well-nourished in mild distress SKIN: Focused skin assessment warm/dry. HEAD: Atraumatic. Normocephalic. EYES: Pupils equal and round. No scleral icterus. No injection or drainage. EOMI ENT: No nasal bleeding or discharge. Mucous membranes pink and moist. NECK: Trachea midline. No JVD. CARDIOVASCULAR: Regular rate and rhythm. No murmur appreciated. RESPIRATORY: No accessory muscle use. Clear to auscultation. Breath sounds equal bilaterally. GASTROINTESTINAL: Abdomen soft, non-tender, nondistended. Hepatic and splenic margins not palpable although patient is rather obese MUSCULOSKELETAL: No obvious deformities. No clubbing. No cyanosis. No edema. Left upper extremity and lower extremity grade 4/5 strength, right extremities 5 /5 Midline lumbar TTP without step offs or deformities. NEUROLOGICAL: Awake and alert. No obvious cranial nerve deficits. Motor grossly within normal limits. Normal speech. PSYCHIATRIC: Appropriate mood and affect; insight and judgment normal. Data Data Last Documented VS Vital Signs Date Time Temp Pulse Resp B/P (MAP) Pulse Ox O2 Delivery O2 Flow Rate FiO2 07/30/17 17:39 07/30/17 16:01 96 24 94 Room Air 07/30/17 10:55 98.5 Orders Orders Electrocardiogram (07/30/17:) B-Type Natriuretic Peptide (07/30/17 11:) Ckmb (Isoenzyme) Profile (07/30/17 11:22) Complete Blood Count With Diff (07/30/17 11:) Comprehensive Metabolic Panel (07/30/17 11:) Magnesium (Mg) (07/30/17:) Prothrombin Time / Inr (Pt) (07/30/17 11:) Act Partial Throm Time (Ptt) (07/30/17 11:) Troponin I (07/30/17 11:) Lipase (07/30/17 11:) Chest, Single Ap (07/30/17:) Ecg Monitoring (07/30/17 11:) Iv Access Insert/Monitor (07/30/17 11:) Oximetry (07/30/17 11:22) Oxygen Administration (07/30/17 11:) Albuterol-Ipratropium Neb (Duoneb Neb) (07/30/17 11:30) Sodium Chloride 0.9% Flush (Ns Flush) (07/30/17 11:30) Morphine Inj (Morphine Inj) (07/30/17 11:30) Ct Lumb Spine W/O Contrast (07/30/17 ) Ct Brain W/O Iv Contrast(Rout) (07/30/17 ) Ct Cerv Spine W/O Contrast (07/30/17 ) CKMB (07/30/17 11:34) CKMB% (07/30/17 11:34) Lactic Acid (07/30/17 12:24) Ondansetron Inj (Zofran Inj) (07/30/17 12:30) Morphine Inj (Morphine Inj) (07/30/17 13:15) Ct Pulmonary Angiogram (07/30/17 ) Iohexol 350 Inj (Omnipaque 350 Inj) (07/30/17 10:54) Prednisone (Deltasone) (07/30/17 16:15) Ed Discharge Order (07/30/17 16:06) Labs Laboratory Tests Test 07/30/17 11:34 07/30/17 12:30 White Blood Count 10.3 TH/MM3 Red Blood Count 5.61 MIL/MM3 Hemoglobin 13.2 GM/DL Hematocrit 41.3 % Mean Corpuscular Volume 73.6 FL Mean Corpuscular Hemoglobin 23.6 PG Mean Corpuscular Hemoglobin Concent 32.1 % Red Cell Distribution Width 19.0 % Platelet Count 268 TH/MM3 Mean Platelet Volume 8.4 FL Neutrophils (%) (Auto) 73.6 % Lymphocytes (%) (Auto) 19.7 % Monocytes (%) (Auto) 5.9 % Eosinophils (%) (Auto) 0.1 % Basophils (%) (Auto) 0.7 % Neutrophils # (Auto) 7.6 TH/MM3 Lymphocytes # (Auto) 2.0 TH/MM3 Monocytes # (Auto) 0.6 TH/MM3 Eosinophils # (Auto) 0.0 TH/MM3 Basophils # (Auto) 0.1 TH/MM3 CBC Comment AUTO DIFF Differential Comment AUTO DIFF CONFIRMED Platelet Estimate NORMAL Platelet Morphology Comment NORMAL Ovalocytes 1+ Prothrombin Time 10.7 SEC Prothromb Time International Ratio 1.1 RATIO Activated Partial Thromboplast Time 25.9 SEC Blood Urea Nitrogen 6 MG/DL Creatinine 0.85 MG/DL Random Glucose 118 MG/DL Total Protein 7.6 GM/DL Albumin 3.4 GM/DL Calcium Level 9.1 MG/DL Magnesium Level 2.1 MG/DL Alkaline Phosphatase 110 U/L Aspartate Amino Transf (AST/SGOT) 18 U/L Alanine Aminotransferase (ALT/SGPT) 13 U/L Total Bilirubin 0.5 MG/DL Sodium Level 137 MEQ/L Potassium Level 4.3 MEQ/L Chloride Level 105 MEQ/L Carbon Dioxide Level 25.2 MEQ/L Anion Gap 7 MEQ/L Estimat Glomerular Filtration Rate 82 ML/MIN Total Creatine Kinase 135 U/L Creatine Kinase MB 1.1 NG/ML Troponin I LESS THAN 0.02 NG/ML B-Type Natriuretic Peptide 72 PG/ML Lipase 132 U/L Lactic Acid Level 0.8 mmol/L MDM Medical Decision Making Medical Screen Exam Complete: Yes Emergency Medical Condition: Yes Differential Diagnosis Acute exacerbation of CHF, STEMI, NSTEMI, angina, unstable angina, lumbar fracture, lumbar contusion Narrative Course 62y female with a complicated medical history of MARYAN, CHF, CVA, DM, chronic LBP , A Fib, presents to the ED with multiple medical complaints. She was diagnosed with pneumonia 2 weeks ago and finished a course of Levaquin x5 days. Says that she had a mechanical fall down her stairs landing on her lumbar spine proximally 2-3 days ago and states this is very painful. She does not know if she had her head or loss consciousness. Patient states that she does have some numbness and tingling in the groin area along with increased urination. Patient denies fevers, chills, history of IV drug use, unusual weakness. In addition, she is complaining of midsternal chest pain that radiates to her left shoulder and arm associated with nausea. No pall/prov factors. Says she also has a productive cough with yellow sputum. Says she used her duoneb this morning and did not have a significant relief. Patient follows Dr. Mahoney for primary care physician. Denies tobacco use although she is exposed to tobacco smoke at home. Vital signs- afebrile at HR 91, 96%RA I discussed this case with my attending, Dr. Sutton who agreed with a CT lumbar spine. ASA was not administered as she has an allergy to ASA. Duonebsx2 administered- pt says did not provide much relief. Morphine administered for LBP. EKG- paced rhythm Review of the EMR shows a history of CVA however, I do not see where the diagnosis was actually made. In 2014, she was evaluated as an inpatient and her head CT was negative for acute process, but there was a question of CVA so an EEG was ordered. Last Echo 03/2017 5-60%. Heart Cath from 05/2017(?) Laboratory Tests Test 07/30/17 11:34 07/30/17 12:30 White Blood Count 10.3 TH/MM3 Red Blood Count 5.61 MIL/MM3 Hemoglobin 13.2 GM/DL Hematocrit 41.3 % Mean Corpuscular Volume 73.6 FL Mean Corpuscular Hemoglobin 23.6 PG Mean Corpuscular Hemoglobin Concent 32.1 % Red Cell Distribution Width 19.0 % Platelet Count 268 TH/MM3 Mean Platelet Volume 8.4 FL Neutrophils (%) (Auto) 73.6 % Lymphocytes (%) (Auto) 19.7 % Monocytes (%) (Auto) 5.9 % Eosinophils (%) (Auto) 0.1 % Basophils (%) (Auto) 0.7 % Neutrophils # (Auto) 7.6 TH/MM3 Lymphocytes # (Auto) 2.0 TH/MM3 Monocytes # (Auto) 0.6 TH/MM3 Eosinophils # (Auto) 0.0 TH/MM3 Basophils # (Auto) 0.1 TH/MM3 CBC Comment AUTO DIFF Differential Comment AUTO DIFF CONFIRMED Platelet Estimate NORMAL Platelet Morphology Comment NORMAL Ovalocytes 1+ Prothrombin Time 10.7 SEC Prothromb Time International Ratio 1.1 RATIO Activated Partial Thromboplast Time 25.9 SEC Blood Urea Nitrogen 6 MG/DL Creatinine 0.85 MG/DL Random Glucose 118 MG/DL Total Protein 7.6 GM/DL Albumin 3.4 GM/DL Calcium Level 9.1 MG/DL Magnesium Level 2.1 MG/DL Alkaline Phosphatase 110 U/L Aspartate Amino Transf (AST/SGOT) 18 U/L Alanine Aminotransferase (ALT/SGPT) 13 U/L Total Bilirubin 0.5 MG/DL Sodium Level 137 MEQ/L Potassium Level 4.3 MEQ/L Chloride Level 105 MEQ/L Carbon Dioxide Level 25.2 MEQ/L Anion Gap 7 MEQ/L Estimat Glomerular Filtration Rate 82 ML/MIN Total Creatine Kinase 135 U/L Creatine Kinase MB 1.1 NG/ML Troponin I LESS THAN 0.02 NG/ML B-Type Natriuretic Peptide 72 PG/ML Lipase 132 U/L Last Impressions Chest X-Ray 07/30/17 1122 Signed Impressions: Service Date/Time: Sunday, July 30, 2017 12:18 - CONCLUSION: Stable mild cardiomegaly. Prominence of the pulmonary vasculature may be secondary to congestive heart failure versus artifact from portable technique. Samantha Gonzalez MD Lumbar Spine CT 07/30/17 0000 Signed Impressions: Service Date/Time: Sunday, July 30, 2017 11:58 - CONCLUSION: No acute abnormality. There are severe degenerative changes seen within the mid and lower lumbar spine which are progressive from the prior exam. Samantha Gonzalez MD Head CT 07/30/17 0000 Signed Impressions: Service Date/Time: Sunday, July 30, 2017 11:48 - CONCLUSION: No acute disease. Samantha Gonzalez MD Cervical Spine CT 07/30/17 0000 Signed Impressions: Service Date/Time: Sunday, July 30, 2017 11:48 - CONCLUSION: No evidence of fracture, dislocation or soft tissue abnormality. Degenerative changes of the cervical spine which are stable from prior exam and most severe at the level of C6/C7 where the uncovertebral joint hypertrophy contributes to severe right-sided neural foraminal narrowing.. Samantha Gonzalez MD I discussed this case with Dr. Sutton. Ordered CT Pulmonary angio for further evaluation. CT Pulmonary Angiography show stable CT without PE or acute process. Pt will be discharged home with prednisone cautiously and advised to follow up with her PCP. Advised she should return for worsening or persistent symptoms. Diagnosis Primary Impression: COPD exacerbation Referrals: [facility] Additional Instructions: Follow-up with your primary care physician this week. Take all medications as prescribed. If your symptoms persist or worsen return to the emergency department. Use her nebulizer machine as prescribed. Scripts Prednisone (Prednisone) 5 Mg Tab 5 MG PO DAILY for 5 Days, #5 TAB 0 Refills Prov: Ana M Yang 07/30/17 Disposition: 01 DISCHARGE HOME Condition: Stable Ana M Yang Jul 30, 2017 11:39
[2017-07-30 11:41] VITALS: O2SAT 97
[2017-07-30 11:56] LABS: AUTOMATED NEUTROPHIL # 7.6 TH/MM3 (1.8-7.7); BASOPHIL # 0.1 TH/MM3 (0-0.2); BASOPHIL % 0.7 % (0.0-2.0); EOSINOPHIL % 0.1 % (0.0-4.0); HEMATOCRIT 41.3 % (35.0-46.0); HEMOGLOBIN 13.2 GM/DL (11.6-15.3); INTERNATIONAL NORMALIZED RATIO 1.1 RATIO; LYMPH % 19.7 % (9.0-44.0); MEAN CELL VOLUME 73.6 FL (80.0-100.0); MEAN CORPUSCULAR HEMOGLOBIN 23.6 PG (27.0-34.0); MEAN CORPUSCULAR HGB CONC 32.1 % (32.0-36.0); MEAN PLATELET VOLUME 8.4 FL (7.0-11.0); MONO % 5.9 % (0.0-8.0); MONOCYTE # 0.6 TH/MM3 (0-0.9); NEUT % 73.6 % (16.0-70.0); PLATELET COUNT 268 TH/MM3 (150-450); PROTHROMBIN TIME - PATIENT 10.7 SEC (9.8-11.6); RED BLOOD COUNT 5.61 MIL/MM3 (4.00-5.30); WHITE BLOOD COUNT 10.3 TH/MM3 (4.0-11.0)
[2017-07-30 12:05] LABS: ALT (GPT) 13 U/L (10-53)
--- NOTE | 2017-07-30 12:05 | RADRPT ---
EXAM DATE/TIME: 07/30/2017 11:48 [facility] COMPARISON: CT BRAIN W/O CONTRAST, December 26, 2015, 7:30. INDICATIONS : Trauma, fall today. Cephalgia, neck pain and lower back pain. RADIATION DOSE: 52.01 CTDIvol (mGy) MEDICAL HISTORY : Stroke. Dementia. Congestive heart failure. SURGICAL HISTORY : Hysterectomy. ENCOUNTER: Initial ACUITY: 1 day PAIN SCALE: 9/10 LOCATION: Bilateral head TECHNIQUE: Multiple contiguous axial images were obtained of the head. Using automated exposure control and adj ustment of the mA and/or kV according to patient size, radiation dose was kept as low as reasonably a chievable to obtain optimal diagnostic quality images. DICOM format image data is available electro nically for review and comparison. FINDINGS: CEREBRUM: The ventricles are normal for age. No evidence of midline shift, mass lesion, hemorrhage or acute in farction. No extra-axial fluid collections are seen. POSTERIOR FOSSA: The cerebellum and brainstem are intact. The 4th ventricle is midline. The cerebellopontine angle i s unremarkable. EXTRACRANIAL: The visualized portion of the orbits is intact. SKULL: The calvaria is intact. No evidence of skull fracture. CONCLUSION: No acute disease. Samantha Gonzalez MD on July 30, 2017 at 12:02 Board Certified Radiologist. This report was verified electronically.
[2017-07-30] MEDS: RESP: ALBUTEROL 2.5 MG/IPRATROPIUM 0.5 MG NEB (SCH) INH (12:11)
[2017-07-30 12:14] LABS: ALBUMIN 3.4 GM/DL (3.4-5.0); ALKALINE PHOSPHATASE 110 U/L (45-117); AST (GOT) 18 U/L (15-37); BICARBONATE 25.2 MEQ/L (21.0-32.0); BLOOD UREA NITROGEN 6 MG/DL (7-18); CALCIUM 9.1 MG/DL (8.5-10.1); CHLORIDE 105 MEQ/L (98-107); CREATININE 0.85 MG/DL (0.50-1.00); GLOMERULAR FILTRATION RATE 82 ML/MIN (>89); GLUCOSE,RANDOM 118 MG/DL (74-106); MAGNESIUM 2.1 MG/DL (1.5-2.5); SODIUM (NA) 137 MEQ/L (136-145); TOTAL BILIRUBIN ADULT 0.5 MG/DL (0.2-1.0); TOTAL PROTEIN 7.6 GM/DL (6.4-8.2); TROPONIN I LESS THAN 0.02 NG/ML (0.02-0.05)
--- NOTE | 2017-07-30 12:19 | RADRPT ---
EXAM DATE/TIME: 07/30/2017 11:48 [facility] COMPARISON: CT CERVICAL SPINE W/O CONTRAST, December 26, 2015, 7:30. INDICATIONS : Trauma, fall today. Cephalgia, neck pain and lower back pain. RADIATION DOSE: 24.47 CTDIvol (mGy) MEDICAL HISTORY : Stroke. Congestive heart failure. diabetes SURGICAL HISTORY : Pacemaker. ENCOUNTER: Initial ACUITY: 1 day PAIN SCALE: 9/10 LOCATION: Bilateral neck TECHNIQUE: Volumetric scanning of the cervical spine was performed. Multiplanar reconstructions in the sagittal, coronal and oblique axial planes were performed. Using automated exposure control and adjustment o f the mA and/or kV according to patient size, radiation dose was kept as low as reasonably achievable to obtain optimal diagnostic quality images. DICOM format image data is available electronically f or review and comparison. FINDINGS: VERTEBRAE: Normal vertebral body height. No evidence of fracture or dislocation. ALIGNMENT: No evidence of s ubluxation. C2-C3: The bony spinal canal is normal in size. No evidence of disc bulge or herniation. The neural forami na are bilaterally patent. C3-C4: The bony spinal canal is normal in size. No evidence of disc bulge or herniation. The neural forami na are bilaterally patent. C4-C5: Disc desiccation and disc space narrowing with a posterior osteophyte which contributes to mild bilat eral neural foraminal narrowing. C5-C6: Disc desiccation and disc space narrowing with a broad-based posterior osteophyte which contributes t o moderate bilateral neural foraminal narrowing. C6-C7: Disc desiccation and disc space narrowing with a large right uncovertebral joint osteophyte which cau ses severe right-sided neural foraminal narrowing, moderate on the left. C7-T1: The bony spinal canal is normal in size. No evidence of disc bulge or herniation. The neural forami na are bilaterally patent. CONCLUSION: No evidence of fracture, dislocation or soft tissue abnormality. Degenerative changes of the cervical spine which are stable from prior exam and most severe at the level of C6/C7 where the uncovertebral joint hypertrophy contributes to severe right-sided neural foraminal narrowing.. Samantha Gonzalez MD on July 30, 2017 at 12:15 Board Certified Radiologist. This report was verified electronically.
--- NOTE | 2017-07-30 12:23 | RADRPT ---
EXAM DATE/TIME: 07/30/2017 11:58 [facility] COMPARISON: CT LUMBAR SPINE W/O CONTRAST, March 08, 2013, 9:20. INDICATIONS : Trauma, fall today. Cephalgia, neck pain and lower back pain. RADIATION DOSE: 39.12 CTDIvol (mGy) ; Patient body habitus MEDICAL HISTORY : Stroke. Congestive heart failure. diabetes SURGICAL HISTORY : Hysterectomy. Cholecystectomy.colectomy ENCOUNTER: Initial ACUITY: 1 day PAIN SCALE: 9/10 LOCATION: Bilateral lower back TECHNIQUE: Volumetric scanning of the lumbar spine was performed. Multiplanar reconstructions in the sagittal, coronal and oblique axial planes were performed. Using automated exposure control and adjustment of the mA and/or kV according to patient size, radiation dose was kept as low as reasonably achievable t o obtain optimal diagnostic quality images. DICOM format image data is available electronically for review and comparison. FINDINGS: VERTEBRAE: Epidural bodies maintain normal height. There has been interval fusion at the level of L4/L5 and L5/S 1. There is extensive degenerative changes seen at these levels. Degenerative change present at L3/L4 . ALIGNMENT: There is grade 1 anterolisthesis of L4 on L5 which is new from the prior exam. Given the fusion acros s the L4/L5 disc space this is chronic. T12-L1: The thecal sac has a normal diameter. No evidence of disc bulge or protrusion. The neural foramina are patent bilaterally. L1-L2: The thecal sac has a normal diameter. No evidence of disc bulge or protrusion. The neural foramina are patent bilaterally. Moderate to severe facet degenerative change. L2-L3: The thecal sac has a normal diameter. No evidence of disc bulge or protrusion. The neural foramina are patent bilaterally. Moderate to severe facet degenerative change. L3-L4: Disc desiccation and disc space narrowing with a broad-based disc bulge which extends into the bilate ral neuroforamina. Severe facet degenerative changes. Severe right-sided neuroforaminal narrowing and moderate to severe on the left. L4-L5: Disc desiccation, disc space narrowing and anterior posterior bony productive changes with fusion of the disc space. Severe facet degenerative changes. Severe central canal stenosis and severe bilateral neuroforaminal stenosis. L5-S1: Fusion across the disc space with severe bilateral neural foraminal stenosis. Calcified posterior stephy tral disc.. CONCLUSION: No acute abnormality. There are severe degenerative changes seen within the mid and lower lumbar spin e which are progressive from the prior exam. Samantha Gonzalez MD on July 30, 2017 at 12:17 Board Certified Radiologist. This report was verified electronically.
--- NOTE | 2017-07-30 12:29 | RADRPT ---
EXAM DATE/TIME: 07/30/2017 12:18 [facility] COMPARISON: CHEST SINGLE AP, May 19, 2017, 8:05. INDICATIONS : Short of Breath MEDICAL HISTORY : Stroke. Dementia. Congestive heart failure SURGICAL HISTORY : Hysterectomy. ENCOUNTER: Initial ACUITY: 1 day PAIN SCORE: 0/10 LOCATION: chest FINDINGS: Mild cardiomegaly. Dual-lead AICD present. Prominence of the pulmonary vasculature, stable. Lungs are grossly clear. CONCLUSION: Stable mild cardiomegaly. Prominence of the pulmonary vasculature may be secondary to congestive hear t failure versus artifact from portable technique. Samantha Gonzalez MD on July 30, 2017 at 12:25 Board Certified Radiologist. This report was verified electronically.
[2017-07-30] MEDS ORDERED: ONDANSETRON HCL 4 MG/2 ML VIAL IV PUSH ONE (12:30)
[2017-07-30 12:36] LABS: OVALOCYTES 1+ (NORMAL)
[2017-07-30 14:00] VITALS: BP 158/75; PULSE 92; RESP 22; O2SAT 95
--- NOTE | 2017-07-30 15:56 | RADRPT ---
EXAM DATE/TIME: 07/30/2017 15:26 [facility] COMPARISON: CT PULMONARY ANGIOGRAM, June 04, 2015, 14:29. CHEST SINGLE AP, July 30, 2017, 12:18. INDICATIONS : Chest pain and shortness of breath. IV CONTRAST: 69 cc Omnipaque 350 (iohexol) IV RADIATION DOSE: 11.04 CTDIvol (mGy) MEDICAL HISTORY : Congestive hearrt failure. Myocardial infarction. Chronic obstructive pulmonary disease.Stroke, hyper tension, diabetes. SURGICAL HISTORY : Pacemaker. ENCOUNTER: Initial ACUITY: 3 days PAIN SCALE: 3/10 LOCATION: Bilateral upper chest TECHNIQUE: Volumetric scanning of the chest was performed using a pulmonary embolism protocol MIP images were re constructed. Using automated exposure control and adjustment of the mA and/or kV according to patien t size, radiation dose was kept as low as reasonably achievable to obtain optimal diagnostic quality images. DICOM format image data is available electronically for review and comparison. Follow-up recommendations for detected pulmonary nodules are based at a minimum on nodule size and pa tient risk factors according to Fleischner Society Guidelines. FINDINGS: PULMONARY ARTERIES: No filling defects are seen in the pulmonary arteries through the segmental level. LUNGS: There is no consolidation or pneumothorax . No concerning pulmonary nodule is visualized. Interstiti al markings in the anterior aspect of bilateral mid lung chin upper lobes and are stable and unchan ged. There is no consolidated infiltrates. PLEURAE: There is no pleural thickening or pleural effusion. MEDIASTINUM: There is good visualization of the great vessels of the middle mediastinum. No evidence of mediastin al or hilar adenopathy/mass. There is a bipolar pacemaker in place. Epicardial pacemaker wires are in place. Charito of calcification is appreciated left anterior descending coronary artery. There are a f ew prevascular 1 cm lymph nodes which are stable relative to prior examination. MUSCULOSKELETAL: Within normal limits for patient age. MISCELLANEOUS: The visualized upper abdominal organs demonstrate no acute abnormality. CONCLUSION: Essentially stable CT pulmonary angiogram of the chest. Negative for pulmonary embolization with no a cute cardiopulmonary process. Daryl Ivey MD on July 30, 2017 at 15:48 Board Certified Radiologist. This report was verified electronically.
[2017-07-30 16:01] VITALS: BP 123/77; PULSE 96; RESP 24; O2SAT 94
[2017-07-30] MEDS ORDERED: PRED5TAB PO (16:01)
[2017-07-30] MEDS ORDERED: predniSONE 20 MG TAB PO ONE (16:15)
--- NOTE | 2017-07-31 11:08 | EKG ---
Date Performed: 07/30/2017 Time Performed: 11:38:36 PTAGE: 62 years EKG: ELECTRONIC VENTRICULAR PACEMAKER ABNORMAL RHYTHM ECG Since the prior tracing, there has bee n no significant change PREVIOUS TRACING : 05/22/2017 13.32 DOCTOR: Mikey Del Cid Interpretating Date/Time 07/31/2017 11:03:30
== END 2017-07-30 17:41 | disposition home or self-care (01) ==
LOC: NEPC 10:53
DX: J44.1 Chronic obstructive pulmonary disease with (acute) exacerbation (principal); M50.323 Other cervical disc degeneration at C6-C7 level; M51.36 Other intervertebral disc degeneration, lumbar region; I51.7 Cardiomegaly; I11.0 Hypertensive heart disease with heart failure; I50.9 Heart failure, unspecified; E11.9 Type 2 diabetes mellitus without complications; I25.10 Atherosclerotic heart disease of native coronary artery without angina pectoris; R94.31 Abnormal electrocardiogram [ECG] [EKG]
CPT/HCPCS: 70450; 71045; 71275; 72125; 72131; 80053; 82550; 82552; 83605; 83690; 83735; 83880; 84484; 85025; 85610; 85730; 93005; 94640; 94664; 96374; 96375; 96376; 99285; J2270; J2405; J7512; Q9967

== ENCOUNTER 2017-09-19 09:25 | Inpatient (IN) | payer MEDICAID ==
[2017-09-19] VITALS (10 sets, daily range): BP systolic 145–181; BP diastolic 77–91; PULSE 73–88; RESP 16–22; TEMP 97.7–98.4; O2SAT 94–98
[~2017-09-19] VITALS: Ht 152.4 cm; Wt 115.6 kg
[~2017-09-19 09:25] MED LIST changes: -LEVO750T3 PO; -LORA0.5T PO; -OXYC-395 PO; -PRED10 PO; +PRED5TAB PO
[2017-09-19] MEDS ORDERED: SODIUM CHLORIDE 0.9% FLUSH 10 ML FLUSH IVF PRN (10:15)
--- NOTE | 2017-09-19 10:17 | PD ---
HPI Chief Complaint: Neuro Symptoms/ Deficits Time Seen by Provider: 09:59 Travel History International Travel<30 days: No Contact w/Intl Traveler<30days: No Traveled to known affect area: No History of Present Illness HPI The patient was seen and examined in the presence of the nurse. This patient reports that she saw her primary physician this morning who sent her here because she is having a stroke. It turns out that she started to get some weakness of her right arm and right leg 1-2 weeks ago. She also complains of numbness in her right arm. Denies headache or head injury. She has history of stroke causing left-sided weakness. She reports this is new and different. She ambulates with a walker. Denies speech slurring. No blood thinners. Does not take aspirin, reports allergy to it. No alleviating factors. No exacerbating factors. Duration 1-2 weeks PFSH Past Medical History Hx Anticoagulant Therapy: Yes (COUMADIN) Anemia: Yes Arthritis: Yes Asthma: Yes Atrial Fibrillation: Yes Autoimmune Disease: No Blood Disorders: No Bipolar Disorder: Yes Anxiety: Yes Depression: Yes Heart Rhythm Problems: Yes (PALPITATIONS ) Cancer: No Cardiac Catheterization: Yes Cardiovascular Problems: Yes (CONGESTIVE HEART FAILURE) High Cholesterol: Yes Chemotherapy: No Chest Pain: Yes Congestive Heart Failure: Yes COPD: Yes Cerebrovascular Accident: Yes Coronary Artery Disease: Yes Dementia: Yes Diabetes: Yes (TYPE 2) Patient Takes Glucophage: Yes Dialysis: Yes Diminished Hearing: No Diverticulitis: Yes Endocrine: Yes Gastrointestinal Disorders: Yes (GERD, DIVERTICULITIS) GERD: Yes Glaucoma: No Genitourinary: No Headaches: Yes (1978 UNKNOWN TYPE) Hepatitis: Yes (doesn't know what type) Hiatal Hernia: Yes Hypertension: Yes Immune Disorder: No Implanted Vascular Access Dvce: Yes Kidney Stones: No Musculoskeletal: Yes (OSTEOPOROSIS) Neurologic: Yes (RESTLESS LEG SYNDROME) Psychiatric: Yes (ANXIETY, DEPRESSION,BIPOLAR,SCHIZOPHRENIA) Reproductive: Yes Respiratory: Yes (ASTHMA, COPD,SLEEP APNEA) Immunizations Current: No Myocardial Infarction: Yes Pancreatitis: Yes Pneumonia: Yes Radiation Therapy: No Renal Failure: No Schizophrenia: Yes Seizures: No Sickle Cell Disease: No Sleep Apnea: Yes (CPAP) Thyroid Disease: Yes (HYPO) Ulcer: Yes PNEUMOCCOCAL Vaccine (Year): 2010 ?: Not Menopausal: Yes : 1 Para: 1 Miscarriage: 0 : 0 Tubal Ligation: Yes Past Surgical History Abdominal Surgery: Yes (gall bladder removed 2009) AICD: Yes (PACER/DEFIB - medtronic) Body Medical Devices: PACER Cardiac Surgery: Yes (pacemaker) Cholecystectomy: Yes Ear Surgery: No Endocrine Surgery: No Eye Surgery: No Genitourinary Surgery: No Gynecologic Surgery: Yes (PARTIAL HYSTERECTOMY) Hysterectomy: Yes Joint Replacement: No Neurologic Surgery: No Oral Surgery: Yes (UPPER TEETH REMOVED) Pacemaker: Yes Thoracic Surgery: No Other Surgery: Yes (RIGHT HAND, CYST) Social History Alcohol Use: No Tobacco Use: Yes (quit) Substance Use: No Allergies-Medications (Allergen,Severity, Reaction): Coded Allergies: aspirin (Verified Allergy, Severe, Anaphylaxis, 09/19/17) PT STATES IT MAKES HER TONGUE SWELL AND HER HEART STOPS BEATING. benazepril (Verified Allergy, Severe, ANAPHALAXIS, 09/19/17) captopril (Verified Allergy, Severe, ANAPHALAXIS, 09/19/17) enalaprilat (Verified Allergy, Severe, Anaphylaxis, 09/19/17) fosinopril (Verified Allergy, Severe, ANAPHALAXIS, 09/19/17) gabapentin (Verified Allergy, Severe, AGGRESSIVE BEHAVIOR, 09/19/17) ibuprofen (Verified Allergy, Severe, TOUNGE SWELLING, 09/19/17) lisinopril (Verified Allergy, Severe, ANAPHALAXIS, 09/19/17) quinapril (Verified Allergy, Severe, ANAPHALAXIS, 09/19/17) naproxen (Verified Allergy, Intermediate, RESTELESS LEG, 09/19/17) MRI PRECAUTION (Verified Adverse Reaction, Severe, NON REVO PACEMAKER 07/04 LRS, 09/19/17) acetaminophen (Verified Adverse Reaction, Severe, 09/19/17) RESTLESS LEGS Reported Meds & Prescriptions Reported Meds & Active Scripts Active Albuterol Neb (Albuterol Sulfate) 2.5 Mg/3 Ml Neb 2.5 Mg NEB Q4HR NEB PRN Advair Diskus Inh (Fluticasone-Salmeterol Inh) 500-50 Mcg/Blist Aer 1 Puff INH BID Rinse mouth after use. Furosemide 40 Mg Tab 40 Mg PO BID Isosorbide Mononitrate 20 Mg Tab 60 Mg PO DAILY Take 2 doses 7 hours apart. Prochlorperazine Maleate 10 Mg Tab 10 Mg PO Q4H PRN Ferrous Sulfate 325 Mg (65 Mg Iron) Tablet 325 Mg PO TIDPC Metformin (Metformin HCl) 500 Mg Tab 500 Mg PO BIDPC With meals Ropinirole 4 Mg Tab 8 Mg PO BID Omeprazole 20 Mg Tab 20 Mg PO DAILY Trazodone (Trazodone HCl) 50 Mg Tab 50 Mg PO HS Levothyroxine (Levothyroxine Sodium) 75 Mcg Tab 75 Mcg PO DAILY Spironolactone 25 Mg Tab 12.5 Mg PO DAILY Reported Prednisone 10 Mg Tab 10 Mg PO DAILY Morphine Sulfate CR (Morphine Sulfate) 60 Mg Tab 30 Mg PO BID PRN Lexapro (Escitalopram Oxalate) 10 Mg Tab 10 Mg PO DAILY Norvasc (Amlodipine Besylate) 5 Mg Tab 5 Mg PO DAILY Ativan (Lorazepam) 0.5 Mg Tab 0.5 Mg PO Q6H PRN Oxycodone (Oxycodone HCl) 10 Mg Tab 10 Mg PO Q4H PRN Risperidone 2 Mg Tab 2 Mg PO Q12HR Nitrostat SL (Nitroglycerin) 0.4 Mg Subl 0.4 Mg SL DIRECTED PRN 1 tablet under the tongue as needed for chest pain. Repeat every 5 minutes for a total of 3 DOSES or call 911 if NO relief. Senna-Plus (Sennosides-Docusate Sodium) 8.6-50 Mg Tab 2 Tab PO BID Docusate Sodium 100 Mg Cap 100 Mg PO DAILY Review of Systems General / Constitutional: No: Fever Eyes: No: Visual changes HENT: No: Headaches Cardiovascular: No: Chest Pain or Discomfort Respiratory: No: Shortness of Breath Gastrointestinal: No: Abdominal Pain Genitourinary: No: Dysuria Musculoskeletal: Positive: Weakness, Pain Skin: No Rash Neurologic: Positive: Weakness, Sensory Disturbance Psychiatric: No: Depression Endocrine: No: Polydipsia Hematologic/Lymphatic: No: Easy Bruising Physical Exam Narrative GENERAL: Well-nourished, well-developed patient in no apparent distress. SKIN: Focused skin assessment reveals no rash and nodules. Skin is Warm and dry. HEAD: Atraumatic. Normocephalic. EYES: Pupils equal and round. No scleral icterus. No injection or drainage. ENT: No nasal bleeding or discharge. Mucous membranes pink and moist. NECK: Trachea midline. No JVD. CARDIOVASCULAR: Regular rate and rhythm. No murmur appreciated. RESPIRATORY: No accessory muscle use. Clear to auscultation. Breath sounds equal bilaterally. GASTROINTESTINAL: Abdomen soft, non-tender, nondistended. Hepatic and splenic margins not palpable. MUSCULOSKELETAL: No obvious deformities. No clubbing. No cyanosis. No edema. NEUROLOGICAL: Awake and alert. No obvious cranial nerve deficits. Motor exam shows motor weakness of the right arm and right leg when compared to the left side. No facial droop. Sensation is subjectively diminished to sharp and light touch in the right arm and area of the right shoulder as well as the right cheek. Normal speech. PSYCHIATRIC: Appropriate mood and affect; insight and judgment normal. Data Data Last Documented VS Vital Signs Date Time Temp Pulse Resp B/P (MAP) Pulse Ox O2 Delivery O2 Flow Rate FiO2 09/19/17 12:04 87 17 173/79 (110) 95 Room Air 09/19/17 09:35 98.3 Orders Orders Electrocardiogram (09/19/17 10:08) Prothrombin Time / Inr (Pt) (09/19/17 10:08) Act Partial Throm Time (Ptt) (09/19/17 10:08) Complete Blood Count With Diff (09/19/17 10:08) Basic Metabolic Panel (Bmp) (09/19/17 10:08) Ct Brain W/O Iv Contrast(Rout) (09/19/17 10:08) Ecg Monitoring (09/19/17 10:08) Iv Access Insert/Monitor (09/19/17 10:08) Oximetry (09/19/17 10:08) Sodium Chloride 0.9% Flush (Ns Flush) (09/19/17 10:15) Oxycodone (Roxicodone) (09/19/17 12:15) Labs Laboratory Tests Test 09/19/17 10:13 09/19/17 10:58 Blood Urea Nitrogen 14 MG/DL Creatinine 0.97 MG/DL Random Glucose 89 MG/DL Calcium Level 8.8 MG/DL Sodium Level 137 MEQ/L Potassium Level 4.3 MEQ/L Chloride Level 106 MEQ/L Carbon Dioxide Level 24.6 MEQ/L Anion Gap 6 MEQ/L Estimat Glomerular Filtration Rate 71 ML/MIN White Blood Count 6.8 TH/MM3 Red Blood Count 5.03 MIL/MM3 Hemoglobin 12.4 GM/DL Hematocrit 39.2 % Mean Corpuscular Volume 77.9 FL Mean Corpuscular Hemoglobin 24.7 PG Mean Corpuscular Hemoglobin Concent 31.7 % Red Cell Distribution Width 17.1 % Platelet Count 231 TH/MM3 Mean Platelet Volume 8.5 FL Neutrophils (%) (Auto) 66.9 % Lymphocytes (%) (Auto) 25.7 % Monocytes (%) (Auto) 6.6 % Eosinophils (%) (Auto) 0.0 % Basophils (%) (Auto) 0.8 % Neutrophils # (Auto) 4.5 TH/MM3 Lymphocytes # (Auto) 1.7 TH/MM3 Monocytes # (Auto) 0.4 TH/MM3 Eosinophils # (Auto) 0.0 TH/MM3 Basophils # (Auto) 0.1 TH/MM3 CBC Comment DIFF FINAL Differential Comment Prothrombin Time 11.0 SEC Prothromb Time International Ratio 1.1 RATIO Activated Partial Thromboplast Time 37.6 SEC MDM Medical Decision Making Medical Screen Exam Complete: Yes Emergency Medical Condition: Yes Medical Record Reviewed: Yes Differential Diagnosis Ischemic CVA, TIA, hemorrhagic CVA Narrative Course I have reviewed the patient's electronic medical record. Patient has a subacute neurologic deficit of right arm and leg weakness and right arm and facial numbness Brain CT is negative She is in a sinus rhythm without ectopy I reviewed her labs They have mild abnormalities but nothing emergent Patient reports aspirin allergy I reviewed the case with the medical residents They will admit for subacute ischemic CVA Diagnosis Primary Impression: CVA (cerebral vascular accident) Qualified Codes: I63.9 - Cerebral infarction, unspecified Admitting Information Admitting Physician Requests: it Denzel Crabtree MD Sep 19, 2017 10:17
--- NOTE | 2017-09-19 11:02 | RADRPT ---
EXAM DATE/TIME: 09/19/2017 10:47 [facility] COMPARISON: CT BRAIN W/O CONTRAST, July 30, 2017, 11:48. INDICATIONS : Right upper and lower extremity weakness for 2 weeks. RADIATION DOSE: 41.80 CTDIvol (mGy) MEDICAL HISTORY : Cardiovascular disease. Cerebrovascular disease. Hypertension. SURGICAL HISTORY : Hysterectomy. Cholecystectomy.Pacemaker ENCOUNTER: Initial ACUITY: 2 weeks PAIN SCALE: 0/10 LOCATION: cranial TECHNIQUE: Multiple contiguous axial images were obtained of the head. Using automated exposure control and adj ustment of the mA and/or kV according to patient size, radiation dose was kept as low as reasonably a chievable to obtain optimal diagnostic quality images. DICOM format image data is available electro nically for review and comparison. FINDINGS: CEREBRUM: The ventricles are normal for age. No evidence of midline shift, mass lesion, hemorrhage or acute in farction. No extra-axial fluid collections are seen. POSTERIOR FOSSA: The cerebellum and brainstem are intact. The 4th ventricle is midline. The cerebellopontine angle i s unremarkable. EXTRACRANIAL: The visualized portion of the orbits is intact. SKULL: The calvaria is intact. No evidence of skull fracture. CONCLUSION: No acute intracranial abnormality demonstrated. Ga Torres MD on September 19, 2017 at 11:00 Board Certified Radiologist. This report was verified electronically.
[2017-09-19 11:09] LABS: BICARBONATE 24.6 MEQ/L (21.0-32.0); CALCIUM 8.8 MG/DL (8.5-10.1); CREATININE 0.97 MG/DL (0.50-1.00)
[2017-09-19] MEDS ORDERED: RISP2TAB2 PO (11:25)
[2017-09-19] MEDS ORDERED: AMLO5 PO (11:25)
[2017-09-19] MEDS ORDERED: MORP60TA24 PO (11:25)
[2017-09-19] MEDS ORDERED: LORA-392 PO (11:25)
[2017-09-19] MEDS ORDERED: PRED10 PO (11:25)
[2017-09-19] MEDS ORDERED: OXYC-395 PO (11:25)
[2017-09-19] MEDS ORDERED: LEXA10TA PO (11:25)
[2017-09-19 11:27] LABS: AUTOMATED NEUTROPHIL # 4.5 TH/MM3 (1.8-7.7); BASOPHIL # 0.1 TH/MM3 (0-0.2); BASOPHIL % 0.8 % (0.0-2.0); HEMATOCRIT 39.2 % (35.0-46.0); HEMOGLOBIN 12.4 GM/DL (11.6-15.3); LYMPH % 25.7 % (9.0-44.0); LYMPHOCYTE # 1.7 TH/MM3 (1.0-4.8); MEAN CELL VOLUME 77.9 FL (80.0-100.0); MEAN CORPUSCULAR HEMOGLOBIN 24.7 PG (27.0-34.0); MEAN CORPUSCULAR HGB CONC 31.7 % (32.0-36.0); MEAN PLATELET VOLUME 8.5 FL (7.0-11.0); MONO % 6.6 % (0.0-8.0); MONOCYTE # 0.4 TH/MM3 (0-0.9); NEUT % 66.9 % (16.0-70.0); PLATELET COUNT 231 TH/MM3 (150-450); RED BLOOD COUNT 5.03 MIL/MM3 (4.00-5.30); RED CELL DISTRIBUTION WIDTH 17.1 % (11.6-17.2); WHITE BLOOD COUNT 6.8 TH/MM3 (4.0-11.0)
[2017-09-19 11:34] LABS: INTERNATIONAL NORMALIZED RATIO 1.1 RATIO
[2017-09-19] MEDS ORDERED: SODIUM CHLORIDE 0.9% FLUSH 10 ML FLUSH IV FLUSH PRN ×2 (12:30→14:45)
--- NOTE | 2017-09-19 12:57 | HHI.HP ---
[facility] Service Family Medicine Primary Care Physician Giovana Khan , R3 MD Karan Admission Diagnosis subacute ischemic CVA Diagnoses: International Travel<30 Days: No Contact w/Intl Traveler<30days: No Known Affected Area: No History of Present Illness Ms. Rubi is a 62-year-old -Togol[place] female with a past medical history of atrial fibrillation, hypertension, type 2 diabetes presented to the ED with right sided weakness of 2 weeks duration. She stated this started about 1-2 weeks ago when she was awakened in the middle of the night by her sister and noticed that her right arm and leg felt weak, numb, and painful. Discussed the pain in her right arm and leg is a 10/10 aching pain, nothing makes it better or worse. Since this started she has gotten weaker. She states that her vision became blurry in both eyes, no spots in her vision. She is dizzy as well. He states that she is also had a frontal headache. That she describes as a sharp pain that radiates down the side of her right neck down her shoulder to her arm. She has also noticed that she has developed a tremor in her right hand that started 3-4 weeks ago. She also noticed that her mouth is a tremor as well that started a few days ago. She is also had trouble swallowing liquids. She states that she chokes a lot. She states that she started drooling recently at night and it is "strangles her." She does use a CPAP at night, but her machine is currently broken. She has also had trouble with speaking. She states that it is hard to form words. Patient endorses fevers and chills at night. She states that she has chest pain located on her left side, sharp, worse when she coughs or breathes deeply, worse with walking. She noticed this started a few days ago. Is also having shortness of breath with walking which leads to dizziness after 3-4 steps, that she feels like she is about fall. (Lydia Diaz MD R1) Review of Systems Eyes: COMPLAINS OF: Blurred vision Respiratory: COMPLAINS OF: Shortness of breath Cardiovascular: COMPLAINS OF: Chest pain, Palpitations Gastrointestinal: COMPLAINS OF: Nausea, DENIES: Black stools, Bloody stools, Vomiting Genitourinary: COMPLAINS OF: Dysuria Integumentary: DENIES: Rash Neurologic: COMPLAINS OF: Headache, Localized weakness, Tremor, Poor Balance ( even with the walker), DENIES: Seizures (Lydia Diaz MD R1) Past Family Social History Past Medical History COPD Asthma CHF Restless legs syndrome Hypothyroidism MARYAN Atrial fibrillation Bipolar disorder Schizophrenia Type 2 diabetes Past Surgical History Tubal ligation total colectomy Defibrillator/pacemaker Left cataract removal Cholecystectomy Carpal tunnel surgery Partial hysterectomy Reported Medications Reported Meds & Active Scripts Active Albuterol Neb (Albuterol Sulfate) 2.5 Mg/3 Ml Neb 2.5 Mg NEB Q4HR NEB PRN Advair Diskus Inh (Fluticasone-Salmeterol Inh) 500-50 Mcg/Blist Aer 1 Puff INH BID Rinse mouth after use. Furosemide 40 Mg Tab 40 Mg PO BID Isosorbide Mononitrate 20 Mg Tab 60 Mg PO DAILY Take 2 doses 7 hours apart. Prochlorperazine Maleate 10 Mg Tab 10 Mg PO Q4H PRN Ferrous Sulfate 325 Mg (65 Mg Iron) Tablet 325 Mg PO TIDPC Metformin (Metformin HCl) 500 Mg Tab 500 Mg PO BIDPC With meals Ropinirole 4 Mg Tab 8 Mg PO BID Omeprazole 20 Mg Tab 20 Mg PO DAILY Trazodone (Trazodone HCl) 50 Mg Tab 50 Mg PO HS Levothyroxine (Levothyroxine Sodium) 75 Mcg Tab 75 Mcg PO DAILY Spironolactone 25 Mg Tab 12.5 Mg PO DAILY Reported Prednisone 10 Mg Tab 10 Mg PO DAILY Morphine Sulfate CR (Morphine Sulfate) 60 Mg Tab 30 Mg PO BID PRN Lexapro (Escitalopram Oxalate) 10 Mg Tab 10 Mg PO DAILY Norvasc (Amlodipine Besylate) 5 Mg Tab 5 Mg PO DAILY Ativan (Lorazepam) 0.5 Mg Tab 0.5 Mg PO Q6H PRN Oxycodone (Oxycodone HCl) 10 Mg Tab 10 Mg PO Q4H PRN Risperidone 2 Mg Tab 2 Mg PO Q12HR Nitrostat SL (Nitroglycerin) 0.4 Mg Subl 0.4 Mg SL DIRECTED PRN 1 tablet under the tongue as needed for chest pain. Repeat every 5 minutes for a total of 3 DOSES or call 911 if NO relief. Senna-Plus (Sennosides-Docusate Sodium) 8.6-50 Mg Tab 2 Tab PO BID Docusate Sodium 100 Mg Cap 100 Mg PO DAILY (Lydia Diaz MD R1) Allergies: Coded Allergies: aspirin (Verified Allergy, Severe, Anaphylaxis, 09/19/17) PT STATES IT MAKES HER TONGUE SWELL AND HER HEART STOPS BEATING. benazepril (Verified Allergy, Severe, ANAPHALAXIS, 09/19/17) captopril (Verified Allergy, Severe, ANAPHALAXIS, 09/19/17) enalaprilat (Verified Allergy, Severe, Anaphylaxis, 09/19/17) fosinopril (Verified Allergy, Severe, ANAPHALAXIS, 09/19/17) gabapentin (Verified Allergy, Severe, AGGRESSIVE BEHAVIOR, 09/19/17) ibuprofen (Verified Allergy, Severe, TOUNGE SWELLING, 09/19/17) lisinopril (Verified Allergy, Severe, ANAPHALAXIS, 09/19/17) quinapril (Verified Allergy, Severe, ANAPHALAXIS, 09/19/17) naproxen (Verified Allergy, Intermediate, RESTELESS LEG, 09/19/17) MRI PRECAUTION (Verified Adverse Reaction, Severe, NON REVO PACEMAKER 07/04 LRS, 09/19/17) acetaminophen (Verified Adverse Reaction, Severe, 09/19/17) RESTLESS LEGS Family History Father-alcohol abuse Mother DM, heart disease, kidney disease Siblings-DM, heart disease, kidney disease, hypertension, depression, hypothyroidism Social History Lives with her sister Denies alcohol use, smokes 1-2 cigarettes sometimes (Lydia Diaz MD R1) Physical Exam Vital Signs Vital Signs Date Time Temp Pulse Resp B/P (MAP) Pulse Ox O2 Delivery O2 Flow Rate FiO2 09/19/17 12:04 87 17 173/79 (110) 95 Room Air 09/19/17 09:54 82 22 181/82 (115) 97 09/19/17 09:35 98.3 83 18 145/86 (105) 97 Physical Exam GENERAL: This is a well-nourished, well-developed obese female patient laying in bed, in no apparent distress. SKIN: No rashes, ecchymoses or lesions. Cool and dry. HEAD: Atraumatic. Normocephalic. EYES: Pupils equal round and reactive. Extraocular motions intact. No scleral icterus. No injection or drainage. ENT: Nose without bleeding, purulent drainage or septal hematoma. Throat without erythema, tonsillar hypertrophy or exudate. Uvula midline. Airway patent. Edentulous. NECK: Trachea midline. No JVD or lymphadenopathy. Supple. CARDIOVASCULAR: Regular rate and rhythm without murmurs, gallops, or rubs. RESPIRATORY: Inspiratory and expiratory wheezing. Breath sounds equal bilaterally. GASTROINTESTINAL: Abdomen soft, left upper quadrant tenderness, nondistended. No hepato-splenomegaly, or palpable masses. No guarding. MUSCULOSKELETAL: Extremities without clubbing, cyanosis, or edema. No joint tenderness, effusion, or edema noted. No calf tenderness. NEUROLOGICAL: Awake and alert. Cranial nerves II through XII intact. Motor and sensory grossly within normal limits. 4/5 muscle strength in all muscle groups. Left shoulder strength greater than right. Decreased sensation on right face, upper and lower extremities. Normal speech. Laboratory Laboratory Tests Test 09/19/17 10:13 09/19/17 10:58 Blood Urea Nitrogen 14 Creatinine 0.97 Random Glucose 89 Calcium Level 8.8 Sodium Level 137 Potassium Level 4.3 Chloride Level 106 Carbon Dioxide Level 24.6 Anion Gap 6 Estimat Glomerular Filtration Rate 71 White Blood Count 6.8 Red Blood Count 5.03 Hemoglobin 12.4 Hematocrit 39.2 Mean Corpuscular Volume 77.9 Mean Corpuscular Hemoglobin 24.7 Mean Corpuscular Hemoglobin Concent 31.7 Red Cell Distribution Width 17.1 Platelet Count 231 Mean Platelet Volume 8.5 Neutrophils (%) (Auto) 66.9 Lymphocytes (%) (Auto) 25.7 Monocytes (%) (Auto) 6.6 Eosinophils (%) (Auto) 0.0 Basophils (%) (Auto) 0.8 Neutrophils # (Auto) 4.5 Lymphocytes # (Auto) 1.7 Monocytes # (Auto) 0.4 Eosinophils # (Auto) 0.0 Basophils # (Auto) 0.1 CBC Comment DIFF FINAL Differential Comment Prothrombin Time 11.0 Prothromb Time International Ratio 1.1 Activated Partial Thromboplast Time 37.6 (Lydia Diaz MD R1) Result Diagram: 09/19/17 1058 09/19/17 1013 Imaging Last Impressions Head CT 09/19/17 1008 Signed Impressions: Service Date/Time: Tuesday, September 19, 2017 10:47 - CONCLUSION: No acute intracranial abnormality demonstrated. Ga Torres MD (Lydia Diaz MD R1) Caprini VTE Risk Assessment Caprini VTE Risk Assessment: Mod/High Risk (score >= 2) Caprini Risk Assessment Model Point Value = 1 Point Value = 2 Point Value = 3 Point Value = 5 Age 41-60 Minor surgery BMI > 25 kg/m2 Swollen legs Varicose veins or History of unexplained or recurrent spontaneous Oral contraceptives or hormone replacement Sepsis (< 1 month) Serious lung disease, including pneumonia (< 1 month) Abnormal pulmonary function Acute myocardial infarction Congestive heart failure (< 1 month) History of inflammatory bowel disease Medical patient at bed rest Age 61-74 Arthroscopic surgery Major open surgery (> 45 min) Laparoscopic surgery (> 45 min) Malignancy Confined to bed (> 72 hours) Immobilizing plaster cast Central venous access Age >= 75 History of VTE Family history of VTE Factor V Leiden Prothrombin [id number] Lupus anticoagulant Anticardiolipin antibodies Elevated serum homocysteine Heparin-induced thrombocytopenia Other congenital or acquired thrombophilia Stroke (< 1 month) Elective arthroplasty Hip, pelvis, or leg fracture Acute spinal cord injury (< 1 month) Prophylaxis Regimen Total Risk Factor Score Risk Level Prophylaxis Regimen 0-1 Low Early ambulation 2 Moderate Order ONE of the following: *Sequential Compression Device (SCD) *Heparin 5000 units SQ BID 3-4 Higher Order ONE of the following medications: *Heparin 5000 units SQ TID *Enoxaparin/Lovenox 40 mg SQ daily (WT < 150 kg, CrCl > 30 mL/min) *Enoxaparin/Lovenox 30 mg SQ daily (WT < 150 kg, CrCl > 10-29 mL/min) *Enoxaparin/Lovenox 30 mg SQ BID (WT < 150 kg, CrCl > 30 mL/min) AND/OR *Sequential Compression Device (SCD) 5 or more Highest Order ONE of the following medications: *Heparin 5000 units SQ TID (Preferred with Epidurals) *Enoxaparin/Lovenox 40 mg SQ daily (WT < 150 kg, CrCl > 30 mL/min) *Enoxaparin/Lovenox 30 mg SQ daily (WT < 150 kg, CrCl > 10-29 mL/min) *Enoxaparin/Lovenox 30 mg SQ BID (WT < 150 kg, CrCl > 30 mL/min) AND *Sequential Compression Device (SCD) (Lydia Diaz MD R1) Assessment and Plan Assessment and Plan 62-year-old -Tog[place] female with past medical history of atrial fibrillation, hypertension, diabetes presenting with right-sided weakness. She has been admitted to our inpatient service. Code Status DNR Discussed Condition With Dr. Nuñez (Lydia Diaz MD R1) Attending Attestation Patient seen and examined. Case reviewed and discussed with the resident team. Agree with plan of care as discussed with me and documented in the resident note. agree with admission for weakness and evaluation of causes for this (Loida Nuñez MD) Problem List: (1) CVA (cerebral vascular accident) ICD Codes: I63.9 - Cerebral infarction, unspecified Status: Acute Plan: Presenting with right sided weakness, numbness that started 1-2 weeks ago. Possible CVA although head CT shows no acute process. Patient not a candidate for MRI due to pacemaker. Patient also has resting tremor of the hand and mouth. This may be due to her psychiatric medications. Head CT on admission, 09/19, shows no acute intracranial abnormality. Head and neck CTAs pending -Consult neurology, appreciate recommendations -possible parkinsonism due to gastric medications -CTA of brain and cervical spine ordered -Echocardiogram ordered -Plavix therapy initiated -Speech therapy consult, appreciate recommendations -Physical therapy consult -Neuro checks every 4 hours (2) DM (diabetes mellitus) ICD Codes: E11.9 - Diabetes mellitus Status: Chronic Plan: Bedside glucose monitoring Low-dose sliding scale NovoLog insulin Hypoglycemia protocol (3) Anxiety and depression ICD Codes: F41.9 - Anxiety disorder, unspecified; F32.9 - Major depressive disorder, single episode, unspecified Status: Chronic Plan: -Continue at home escitalopram 10 mg p.o. daily Continue home trazodone 50 mg p.o. at bedtime (4) Bipolar 1 disorder ICD Codes: F31.9 - Bipolar I disorder Status: Acute Plan: Continue at home risperidone 2 mg p.o. every 12 hours (5) Restless leg syndrome ICD Codes: G25.81 - Restless legs syndrome Status: Acute Plan: Continue at home ferrous sulfate 325 mg p.o. 3 times daily PC Continue home ropinirole 8 mg p.o. twice daily (6) Hypothyroidism ICD Codes: E03.9 - Hypothyroidism Status: Chronic Plan: Continue at home levothyroxine 75 mcg p.o. daily (7) Hypertension ICD Codes: I10 - Essential (primary) hypertension Status: Chronic Plan: Continue at home amlodipine 5 mg p.o. daily Continue furosemide 40 mg p.o. twice daily Continue at home spironolactone 12.5 mg p.o. daily (8) COPD (chronic obstructive pulmonary disease) ICD Codes: J44.9 - Chronic obstructive pulmonary disease Status: Chronic Plan: Continue at home albuterol nebulizer every 4 hours Continue home Symbicort inhaler (9) MARYAN on CPAP ICD Codes: G47.33 - Obstructive sleep apnea (adult) (pediatric); Z99.89 - Dependence on other enabling machines and devices Status: Acute Plan: Use alternative BiPAP while hospitalized (10) FEN Status: Acute Plan: Fluids: NS @ 785ml/hr Electrolytes: monitor and replete as needed Nutrition: Diabetic diet DVT Prophylaxis: Early ambulation. Lovenox 40mg subQ q24hr GI Prophylaxis: Continue at home pantoprazole 20 mg p.o. daily Pain management: Continue at home morphine 30 mg twice daily as needed (Lydia Diaz MD R1) Physician Certification 2 Midnight Certification Type: Admission for Inpatient Services Order for Inpatient Services The services are ordered in accordance with Medicare regulations or non- Medicare payer requirements, as applicable. In the case of services not specified as inpatient-only, they are appropriately provided as inpatient services in accordance with the 2-midnight benchmark. Estimated LOS (days): 3 days is the estimated time the patient will need to remain in the hospital, assuming treatment plan goals are met and no additional complications. Post-Hospital Plan: Not yet determined (Lydia Diaz MD R1) Problem Qualifiers (1) CVA (cerebral vascular accident): Qualified Codes: I63.9 - Cerebral infarction, unspecified (2) DM (diabetes mellitus): Qualified Codes: E11.8 - Type 2 diabetes mellitus with unspecified complications (3) Hypothyroidism: Qualified Codes: E03.9 - Hypothyroidism, unspecified (4) Hypertension: Qualified Codes: I10 - Essential (primary) hypertension (5) COPD (chronic obstructive pulmonary disease): Qualified Codes: J44.9 - Chronic obstructive pulmonary disease, unspecified Lydia Diaz MD R1 Sep 19, 2017 12:57 Loida Nuñez MD Sep 20, 2017 14:58
[2017-09-19] MEDS ORDERED: GLUCAGON 1 MG/ML VIAL OTHER PRN (14:45)
[2017-09-19] MEDS ORDERED: LABETALOL HCL 100 MG/20 ML VIAL IV PUSH PRN (14:45)
[2017-09-19] MEDS ORDERED: DEXTROSE 50% IN WATER 50 ML VIAL(D50) IV PUSH PRN (14:45)
[2017-09-19] MEDS ORDERED: RESP: ALBUTEROL 2.5 MG/3 ML NEB (PRN) NEB (15:00)
[2017-09-19] MEDS ORDERED: PILL SPLITTER OTHER PRN (15:30)
--- NOTE | 2017-09-19 15:48 | PD.CONS ---
History of Present Illness Service Neurology Consult Requested By medical Reason for Consult stroke Primary Care Physician Giovana Khan , R3 MD Karan History of Present Illness 62 y/o f admitted for possible stroke. ? rt sided weakness. put states she hasn' t been "feeling well". no specific symptoms per se. smokes 1/2-1 ppd. not on any blood thinners, including aspirin. see's psych for schizophrenia. admits to moderate stress. 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 ct brain- nml. glucose 89. bp 145/86 204- cta brain/carotid- no vessel occlusion Review of Systems as above and admit hp Past Family Social History Past Medical History COPD Asthma CHF schizophrenia with psychosis MARYAN, rls Atrial fibrillation? pacemaker Allergies: Coded Allergies: aspirin (Verified Allergy, Severe, Anaphylaxis, 09/19/17) PT STATES IT MAKES HER TONGUE SWELL AND HER HEART STOPS BEATING. benazepril (Verified Allergy, Severe, ANAPHALAXIS, 09/19/17) captopril (Verified Allergy, Severe, ANAPHALAXIS, 09/19/17) enalaprilat (Verified Allergy, Severe, Anaphylaxis, 09/19/17) fosinopril (Verified Allergy, Severe, ANAPHALAXIS, 09/19/17) gabapentin (Verified Allergy, Severe, AGGRESSIVE BEHAVIOR, 09/19/17) ibuprofen (Verified Allergy, Severe, TOUNGE SWELLING, 09/19/17) lisinopril (Verified Allergy, Severe, ANAPHALAXIS, 09/19/17) quinapril (Verified Allergy, Severe, ANAPHALAXIS, 09/19/17) naproxen (Verified Allergy, Intermediate, RESTELESS LEG, 09/19/17) MRI PRECAUTION (Verified Adverse Reaction, Severe, NON REVO PACEMAKER 07/04 LRS, 09/19/17) acetaminophen (Verified Adverse Reaction, Severe, 09/19/17) RESTLESS LEGS Review of Systems All other ROS: ROS reviewed as documented in chart Past Family Social History Allergies: Coded Allergies: aspirin (Verified Allergy, Severe, Anaphylaxis, 09/19/17) PT STATES IT MAKES HER TONGUE SWELL AND HER HEART STOPS BEATING. benazepril (Verified Allergy, Severe, ANAPHALAXIS, 09/19/17) captopril (Verified Allergy, Severe, ANAPHALAXIS, 09/19/17) enalaprilat (Verified Allergy, Severe, Anaphylaxis, 09/19/17) fosinopril (Verified Allergy, Severe, ANAPHALAXIS, 09/19/17) gabapentin (Verified Allergy, Severe, AGGRESSIVE BEHAVIOR, 09/19/17) ibuprofen (Verified Allergy, Severe, TOUNGE SWELLING, 09/19/17) lisinopril (Verified Allergy, Severe, ANAPHALAXIS, 09/19/17) quinapril (Verified Allergy, Severe, ANAPHALAXIS, 09/19/17) naproxen (Verified Allergy, Intermediate, RESTELESS LEG, 09/19/17) MRI PRECAUTION (Verified Adverse Reaction, Severe, NON REVO PACEMAKER 07/04 LRS, 09/19/17) acetaminophen (Verified Adverse Reaction, Severe, 09/19/17) RESTLESS LEGS Active Ordered Medications Current Medications Medications (Trade) Dose Ordered Sig/Nilo Route Start Time Stop Time Status Last Admin (NS Flush) 2 ml UNSCH PRN IV FLUSH 09/19/17 12:30 (NS Flush) 2 ml BID IV FLUSH 09/19/17 21:00 (NovoLOG SUPPLEMENTAL SCALE) 1 ACHS SQ 09/19/17 17:00 (D50w (Vial) Inj) 50 ml UNSCH PRN IV PUSH 09/19/17 14:45 (Glucagon Inj) 1 mg UNSCH PRN OTHER 09/19/17 14:45 (Trandate Inj) 10 mg Q2H PRN IV PUSH 09/19/17 14:45 (Lovenox Inj) 40 mg Q24H SQ 09/19/17 16:00 (Albuterol Neb) 2.5 mg Q4HR NEB PRN NEB 09/19/17 15:00 (Norvasc) 5 mg DAILY PO 09/20/17 09:00 (Colace) 100 mg DAILY PO 09/20/17 09:00 UNV (Lexapro) 10 mg DAILY PO 09/20/17 09:00 (Ferrous Sulfate) 325 mg TIDPC PO 09/19/17 18:30 UNV (Lasix) 40 mg BID PO 09/19/17 21:00 (Ismo) 60 mg DAILY PO 09/20/17 09:00 UNV (Synthroid) 75 mcg DAILY@0600 PO 09/20/17 06:00 (Ativan) 0.5 mg Q6H PRN PO 09/19/17 15:00 (Oramorph Sr) 30 mg BID PRN PO 09/19/17 15:00 UNV (Deltasone) 10 mg DAILY PO 09/20/17 09:00 (Compazine) 10 mg Q4H PRN PO 09/19/17 15:00 UNV (Dee-Colace) 2 tab BID PO 09/19/17 21:00 UNV (Aldactone) 12.5 mg DAILY PO 09/20/17 09:00 (Desyrel) 50 mg HS PO 09/19/17 21:00 Non-Formulary Medication 1 puff BID INH 09/19/17 21:00 UNV (Protonix) 20 mg DAILY PO 09/20/17 09:00 (risperDAL) 2 mg Q12HR PO 09/19/17 21:00 Non-Formulary Medication 8 mg BID PO 09/19/17 21:00 UNV (Pill Splitter) 1 ea UNSCH PRN OTHER 09/19/17 15:30 Exam I&O / VS Vital Signs Date Time Temp Pulse Resp B/P (MAP) Pulse Ox O2 Delivery O2 Flow Rate FiO2 09/19/17 12:04 87 17 173/79 (110) 95 Room Air 09/19/17 09:54 82 22 181/82 (115) 97 09/19/17 09:35 98.3 83 18 145/86 (105) 97 General: Alert and Oriented, No acute distress Respiratory: Non-labored respirations Cardiology: Normal rate Neurologic: Alert, Oriented Psychiatric: Cooperative, Appropriate mood & affect Exam Comments alert, ox 3, follows, articulate, hypophonic, facial hypomimia. 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 takes 2 dopa-antagonists and one ssri recs p.t. aspirin. OAC if pt can afford and be compliant with it with hxo f afib? consider cardiology eval f/u echo/cta's stop tobacco use wt loss/exercise (2) Anxiety and depression ICD Codes: F41.9 - Anxiety disorder, unspecified; F32.9 - Major depressive disorder, single episode, unspecified Status: Chronic (3) Schizophrenia ICD Codes: F20.9 - Schizophrenia, unspecified Status: Chronic (4) CHF (congestive heart failure) ICD Codes: I50.9 - Heart failure, unspecified Status: Chronic Rafat Patiño MD Sep 19, 2017 15:48
[2017-09-19] MEDS ORDERED: ENOXAPARIN SODIUM 40 MG/0.4 ML SYRINGE SQ SCH (16:00)
[2017-09-19] MEDS ORDERED: ASPIRIN EC 325 MG TABEC PO SCH (16:15)
[2017-09-19] MEDS: MORPHINE SULFATE 30 MG CONTROLLED RELEASE TAB PO PRN (16:48)
[2017-09-19] MEDS: INSULIN ASPART SUPPLEMENTAL SCALE SQ SCH ×2 (17:00→21:00)
[2017-09-19] MEDS ORDERED: IOHEXOL 350 MG/ML 10 ML VIAL (for RAD DIAG) IVCONTRAST ONE (18:01)
[2017-09-19] MEDS: FERROUS SULFATE 325 MG (65 MG ELEMENTAL IRON) TAB PO SCH (18:30)
[2017-09-19] MEDS: CLOPIDOGREL 75 MG TAB PO SCH (18:38)
[2017-09-19] MEDS: SODIUM CHLOR 0.9% 1000 ML INJ 1,000 ML IV SCH ×2 (18:39→21:20)
[2017-09-19] MEDS ORDERED: SODIUM CHLORIDE 0.9% FLUSH 10 ML FLUSH IV FLUSH SCH (21:00)
[2017-09-19] MEDS ORDERED: NON-FORMULARY DRUG (Fluticasone-Salmeterol Inh (Advair Diskus Inh) 1 PUFF) INH SCH (21:00)
[2017-09-19] MEDS ORDERED: ROPINIROLE 8 MG PO SCH (21:00)
--- NOTE | 2017-09-19 21:11 | RADRPT ---
EXAM DATE/TIME: 09/19/2017 17:48 [facility] COMPARISON: No previous studies available for comparison. INDICATIONS : Dizzy, tremors, trouble speaking, evaluate for thrombus. IV CONTRAST: 100 cc Omnipaque 350 (iohexol) IV ; Cumulative dose for multiple exams. RADIATION DOSE: 28.38 CTDIvol (mGy) ; Combined studies MEDICAL HISTORY : Cardiovascular disease. Cerebrovascular disease. Hypertension.COPD, diabetic SURGICAL HISTORY : Pacemaker. Hysterectomy. ENCOUNTER: Initial ACUITY: 1 day PAIN SCALE: 10/10 LOCATION: cranial TECHNIQUE: Volumetric scanning was performed using a multi-row detector CT scanner. The data was post processed with a variety of visualization algorithms including full volume maximum intensity projection, multi -planar sliding thin slab reformation, curved planar reformation, and surface rendering techniques. Using automated exposure control and adjustment of the mA and/or kV according to patient size, radiat ion dose was kept as low as reasonably achievable to obtain optimal diagnostic quality images. DICO M format image data is available electronically for review and comparison. FINDINGS: 1 There is excellent visualization of the major intracranial arteries out to the second-order branch ve ssels. There is no evidence for aneurysm, vessel truncation or stenosis, and no evidence for vascula r malformation.1 CONCLUSION: 1. No acute findings. Multinodular goiter noted incidentally. Mikhail Roche MD on September 19, 2017 at 21:06 Board Certified Radiologist. This report was verified electronically.
--- NOTE | 2017-09-19 21:14 | RADRPT ---
EXAM DATE/TIME: 09/19/2017 17:48 [facility] COMPARISON: No previous studies available for comparison. INDICATIONS : Dizzy, tremors, trouble speaking, evaluate for occlusion. IV CONTRAST: 100 cc Omnipaque 350 (iohexol) IV RADIATION DOSE: 28.38 CTDIvol (mGy) ; Combined studies MEDICAL HISTORY : Cardiovascular disease. Cerebrovascular disease. Hypertension.COPD, asthma SURGICAL HISTORY : Pacemaker. Hysterectomy. ENCOUNTER: Initial ACUITY: 1 day PAIN SCALE: 10/10 LOCATION: neck Elevated flow velocities and ICA/CCA ratios have been found to correlate with increased degrees of vessel stenosis, calculated as percentage of diameter relative to a normal segment of distal ICA/CCA. TECHNIQUE: Volumetric scanning was performed using a multirow detector CT scanner. The data was post processed with a variety of visualization algorithms including full-volume maximum intensity pro jection, multiplanar sliding thin-slab reformation, curved-planar reformation, and surface-rendering techniques. Using automated exposure control and adjustment of the mA and/or kV according to patient size, radiation dose was kept as low as reasonably achievable to obtain optimal diagnostic quality i mages. DICOM format image data is available electronically for review and comparison. FINDINGS: AORTIC ARCH: There is a three-vessel origin of the great vessels from the aorta. No evidence of ostial narrowing. RIGHT CAROTID: The common carotid artery is intact. The carotid bulb has a normal configuration w ithout ulceration or narrowing. The internal carotid artery lumen is smooth without stenosis. The ex ternal carotid artery is intact. LEFT CAROTID: The common carotid artery is intact. The carotid bulb has a normal configuration w ithout ulceration or narrowing. The internal carotid artery lumen is smooth without stenosis. The e xternal carotid artery is intact. VERTEBRALS: The vertebral arteries have a symmetric diameter. No stenotic lesions are seen. CONCLUSION: Minimal atherosclerotic plaque in the carotid arteries bilaterally. There is no significant stenosis. Mikhail Roche MD on September 19, 2017 at 21:09 Board Certified Radiologist. This report was verified electronically.
[2017-09-19] MEDS: BUDESONIDE-FORMOTEROL 160/4.5 MCG INHALER INH SCH (21:20)
[2017-09-19] MEDS: SODIUM CHLORIDE 0.9% FLUSH 10 ML FLUSH IV FLUSH SCH (21:22)
[2017-09-19] MEDS: traZODone HCL 50 MG TAB PO SCH (21:27)
[2017-09-19] MEDS: DOCUSATE SODIUM 50 MG/SENNA 8.6 MG TAB PO SCH (21:27)
[2017-09-19] MEDS: risperiDONE 1 MG TAB PO SCH (21:28)
[2017-09-19] MEDS: LORazepam 0.5 MG TAB PO PRN (21:29)
[2017-09-19] MEDS: FUROSEMIDE 40 MG TAB PO SCH (21:31)
[2017-09-19 23:18] LABS: TROPONIN I LESS THAN 0.02 NG/ML (0.02-0.05)
[2017-09-20] VITALS (12 sets, daily range): BP systolic 116–175; BP diastolic 58–84; PULSE 70–99; RESP 16–20; TEMP 98–98.4; O2SAT 94–98
[2017-09-20] MEDS: LEVOTHYROXINE SODIUM 75 MCG TAB PO SCH (06:05)
[2017-09-20] MEDS: MORPHINE SULFATE 30 MG CONTROLLED RELEASE TAB PO PRN ×2 (06:17→19:11)
[2017-09-20 07:58] LABS: CHOLESTEROL/ HDL RATIO 5.78 RATIO; HDL CHOLESTEROL 37.5 MG/DL (40.0-60.0)
[2017-09-20] MEDS: INSULIN ASPART SUPPLEMENTAL SCALE SQ SCH ×4 (08:00→21:00)
[2017-09-20] MEDS: SODIUM CHLORIDE 0.9% FLUSH 10 ML FLUSH IV FLUSH SCH ×3 (09:00→21:20)
--- NOTE | 2017-09-20 09:01 | HHI.PR ---
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 takes 2 dopa-antagonists and one ssri recs neuro stable. no focal weakness plavix. no aspirin with ?allergy. OAC if pt can afford and be compliant with it with hxo f afib? consider cardiology eval statin p.t ok to d/c from neuro ldl <70/bp/dm control stop tobacco use wt loss/exercise (2) Anxiety and depression ICD Codes: F41.9 - Anxiety disorder, unspecified; F32.9 - Major depressive disorder, single episode, unspecified Status: Chronic (3) Schizophrenia ICD Codes: F20.9 - Schizophrenia, unspecified Status: Chronic (4) CHF (congestive heart failure) ICD Codes: I50.9 - Heart failure, unspecified Status: Chronic Subjective Subjective Comments No acute events reported No headache No chest pain No dyspnea Active Medications Current Medications Medications (Trade) Dose Ordered Sig/Nilo Route Start Time Stop Time Status Last Admin (NS Flush) 2 ml UNSCH PRN IV FLUSH 09/19/17 12:30 (NS Flush) 2 ml BID IV FLUSH 09/19/17 21:00 09/19/17 21:22 (NovoLOG SUPPLEMENTAL SCALE) 1 ACHS SQ 09/19/17 17:00 (D50w (Vial) Inj) 50 ml UNSCH PRN IV PUSH 09/19/17 14:45 (Glucagon Inj) 1 mg UNSCH PRN OTHER 09/19/17 14:45 (Trandate Inj) 10 mg Q2H PRN IV PUSH 09/19/17 14:45 (Lovenox Inj) 40 mg Q24H SQ 09/19/17 16:00 09/19/17 18:37 (Albuterol Neb) 2.5 mg Q4HR NEB PRN NEB 09/19/17 15:00 (Norvasc) 5 mg DAILY PO 09/20/17 09:00 (Colace) 100 mg DAILY PO 09/20/17 09:00 (Lexapro) 10 mg DAILY PO 09/20/17 09:00 (Ferrous Sulfate) 325 mg TIDPC PO 09/19/17 18:30 09/19/17 18:30 (Lasix) 40 mg BID PO 09/19/17 21:00 09/19/17 21:31 (Ismo) 60 mg DAILY PO 09/20/17 09:00 (Synthroid) 75 mcg DAILY@0600 PO 09/20/17 06:00 09/20/17 06:05 (Ativan) 0.5 mg Q6H PRN PO 09/19/17 15:00 09/19/17 21:29 (Oramorph Sr) 30 mg BID PRN PO 09/19/17 16:00 09/20/17 06:17 (Deltasone) 10 mg DAILY PO 09/20/17 09:00 (Compazine) 10 mg Q4H PRN PO 09/19/17 15:00 (Dee-Colace) 2 tab BID PO 09/19/17 21:00 09/19/17 21:27 (Aldactone) 12.5 mg DAILY PO 09/20/17 09:00 (Desyrel) 50 mg HS PO 09/19/17 21:00 09/19/17 21:27 (Protonix) 20 mg DAILY PO 09/20/17 09:00 (risperDAL) 2 mg Q12HR PO 09/19/17 21:00 09/19/17 21:28 (Pill Splitter) 1 ea UNSCH PRN OTHER 09/19/17 15:30 (Requip) 8 mg BID PO 09/19/17 21:00 09/19/17 21:28 (Symbicort 160-4.5 Mcg Inh) 2 puff BID INH 09/19/17 21:00 09/19/17 21:20 Sodium Chloride 1,000 ml @ 75 mls/hr [id number] IV 09/19/17 17:00 09/19/17 21:20 (Plavix) 75 mg DAILY PO 09/19/17 18:00 09/19/17 18:38 Allergies Allergies Coded Allergies aspirin (Verified Allergy, Severe, Anaphylaxis, 09/19/17) benazepril (Verified Allergy, Severe, ANAPHALAXIS, 09/19/17) captopril (Verified Allergy, Severe, ANAPHALAXIS, 09/19/17) enalaprilat (Verified Allergy, Severe, Anaphylaxis, 09/19/17) fosinopril (Verified Allergy, Severe, ANAPHALAXIS, 09/19/17) gabapentin (Verified Allergy, Severe, AGGRESSIVE BEHAVIOR, 09/19/17) ibuprofen (Verified Allergy, Severe, TOUNGE SWELLING, 09/19/17) lisinopril (Verified Allergy, Severe, ANAPHALAXIS, 09/19/17) quinapril (Verified Allergy, Severe, ANAPHALAXIS, 09/19/17) naproxen (Verified Allergy, Intermediate, RESTELESS LEG, 09/19/17) MRI PRECAUTION (Verified Adverse Reaction, Severe, NON REVO PACEMAKER 07/04/13 LRS, 09/19/17) acetaminophen (Verified Adverse Reaction, Severe, 09/19/17) Review of Systems All other ROS: ROS reviewed as documented in chart Exam I&O / VS Vital Signs Date Time Temp Pulse Resp B/P (MAP) Pulse Ox O2 Delivery O2 Flow Rate FiO2 09/20/17 08:27 98.4 70 16 174/84 (114) 95 09/20/17 04:00 98.0 75 20 175/78 (110) 94 09/20/17 00:00 98.3 76 18 163/76 (105) 98 09/19/17 23:26 98 35 09/19/17 23:00 78 09/19/17 22:16 97 21 09/19/17 20:00 97.7 78 18 181/91 (121) 96 09/19/17 19:13 98.4 88 16 165/78 (107) 96 09/19/17 19:01 09/19/17 18:39 17 09/19/17 15:47 73 17 168/77 (107) 94 Room Air 09/19/17 14:55 96 21 09/19/17 14:00 17 09/19/17 12:04 87 17 173/79 (110) 95 Room Air 09/19/17 09:54 82 22 181/82 (115) 97 09/19/17 09:35 98.3 83 18 145/86 (105) 97 General: Alert and Oriented, No acute distress Respiratory: Non-labored respirations Cardiology: Normal rate Neurologic: Alert, Oriented Psychiatric: Cooperative, Appropriate mood & affect Exam Comments alert, ox 3, follows, sitting up eating breakfast using both hands comfortably and appropriately, articulate, hypophonic, facial hypomimia. eomi, ou 3-2mm, face sym, mild jillian ue rigidity, able to raise all 4 ext to gravity Objective Micro and Labs Laboratory Tests Test 09/19/17 10:13 09/19/17 10:58 09/19/17 15:46 09/19/17 22:40 Blood Urea Nitrogen 14 Creatinine 0.97 Random Glucose 89 Calcium Level 8.8 Sodium Level 137 Potassium Level 4.3 Chloride Level 106 Carbon Dioxide Level 24.6 Anion Gap 6 Estimat Glomerular Filtration Rate 71 White Blood Count 6.8 Red Blood Count 5.03 Hemoglobin 12.4 Hematocrit 39.2 Mean Corpuscular Volume 77.9 Mean Corpuscular Hemoglobin 24.7 Mean Corpuscular Hemoglobin Concent 31.7 Red Cell Distribution Width 17.1 Platelet Count 231 Mean Platelet Volume 8.5 Neutrophils (%) (Auto) 66.9 Lymphocytes (%) (Auto) 25.7 Monocytes (%) (Auto) 6.6 Eosinophils (%) (Auto) 0.0 Basophils (%) (Auto) 0.8 Neutrophils # (Auto) 4.5 Lymphocytes # (Auto) 1.7 Monocytes # (Auto) 0.4 Eosinophils # (Auto) 0.0 Basophils # (Auto) 0.1 CBC Comment DIFF FINAL Differential Comment Prothrombin Time 11.0 Prothromb Time International Ratio 1.1 Activated Partial Thromboplast Time 37.6 Troponin I LESS THAN 0.02 LESS THAN 0.02 Test 09/20/17 05:48 Troponin I LESS THAN 0.02 Triglycerides Level 155 Cholesterol Level 217 LDL Cholesterol 149 HDL Cholesterol 37.5 Cholesterol/HDL Ratio 5.78 Thyroid Stimulating Hormone 3rd Gen 0.560 Rafat Patiño MD Sep 20, 2017 09:01
[2017-09-20] MEDS: BUDESONIDE-FORMOTEROL 160/4.5 MCG INHALER INH SCH ×2 (09:29→21:19)
[2017-09-20] MEDS: amLODIPine BESYLATE 5 MG TAB PO SCH (09:32)
[2017-09-20] MEDS: CLOPIDOGREL 75 MG TAB PO SCH (09:32)
[2017-09-20] MEDS: risperiDONE 1 MG TAB PO SCH (09:32)
[2017-09-20] MEDS: SPIRONOLACTONE 25 MG TAB PO SCH (09:32)
[2017-09-20] MEDS: predniSONE 10 MG TAB PO SCH (09:32)
[2017-09-20] MEDS: DOCUSATE SODIUM 100 MG CAP PO SCH (09:32)
[2017-09-20] MEDS: PANTOPRAZOLE SOD 20 MG DELAYED RELEASE TAB PO SCH (09:32)
[2017-09-20] MEDS: ESCITALOPRAM OXALATE 10 MG TAB PO SCH (09:33)
[2017-09-20] MEDS: FUROSEMIDE 40 MG TAB PO SCH ×2 (09:33→21:21)
[2017-09-20] MEDS: FERROUS SULFATE 325 MG (65 MG ELEMENTAL IRON) TAB PO SCH ×3 (09:33→17:19)
[2017-09-20] MEDS: DOCUSATE SODIUM 50 MG/SENNA 8.6 MG TAB PO SCH ×2 (09:33→21:22)
[2017-09-20] MEDS: ISOSORBIDE MONONITRATE 20 MG TAB PO SCH (10:44)
[2017-09-20] MEDS: LORazepam 0.5 MG TAB PO PRN ×2 (12:03→21:22)
--- NOTE | 2017-09-20 13:07 | HHI.HP ---
[facility] Service Family Medicine Primary Care Physician Xavier Pitt MD Admission Diagnosis subacute ischemic CVA Diagnoses: (1) CVA (cerebral vascular accident) Diagnosis: Principal (2) DM (diabetes mellitus) Diagnosis: Principal (3) Anxiety and depression Diagnosis: Principal (4) Bipolar 1 disorder Diagnosis: Principal (5) Restless leg syndrome Diagnosis: Principal (6) Hypothyroidism Diagnosis: Principal (7) Hypertension Diagnosis: Principal (8) COPD (chronic obstructive pulmonary disease) Diagnosis: Principal (9) MARYAN on CPAP Diagnosis: Principal (10) FEN Diagnosis: Principal International Travel<30 Days: No Contact w/Intl Traveler<30days: No Known Affected Area: No History of Present Illness Ms. Rubi is a 62-year-old -[place] female with a past medical history of atrial fibrillation, hypertension, type 2 diabetes who presented to the ED with right sided weakness of 2 weeks duration. She stated this started about 1- 2 weeks ago when she was awakened in the middle of the night by her sister and noticed that her right arm and leg felt weak, numb, and painful. Discussed the pain in her right arm and leg is a 10/10 aching pain, nothing makes it better or worse. Since this started she has gotten weaker. She states that her vision became blurry in both eyes, no spots in her vision. She is dizzy as well. He states that she also had a frontal headache. she describes this as a sharp pain that radiates down the side of her right neck down her shoulder to her arm. She has also noticed that she has developed a tremor in her right hand that started 3-4 weeks ago. She also noticed that her mouth has a "tremor" as well that started a few days ago. She also had trouble swallowing liquids. She states that she chokes a lot. She states that she started drooling recently at night and it is "strangles her." She does use a CPAP at night, but her machine is currently broken. She has also had trouble with speaking. She states that it is hard to form words. Patient endorses fevers and chills at night. She states that she has chest pain located on her left side, sharp, worse when she coughs or breathes deeply, worse with walking. She noticed this started a few days ago. Is also having shortness of breath with walking which leads to dizziness after 3-4 steps, that she feels like she is about fall. Review of Systems ROS Limitations: Clinical Condition, Poor Historian Constitutional: COMPLAINS OF: Night Sweats, DENIES: Fever, Weight loss Eyes: COMPLAINS OF: Blurred vision, DENIES: Diplopia, Eye pain, Vision loss, Photosensitivity, Double Vision Ears, nose, mouth, throat: DENIES: Hearing loss, Nasal discharge, Oral lesions , Throat pain, Ear Pain, Running Nose, Sinus Pain Respiratory: COMPLAINS OF: Apneas, Snoring, Wheezing, Shortness of breath, DENIES: Hemoptysis, Sputum production Cardiovascular: COMPLAINS OF: Chest pain, Dyspnea on Exertion, DENIES: Palpitations Gastrointestinal: COMPLAINS OF: Difficulty Swallowing, DENIES: Anorexia Integumentary: DENIES: Abnormal pigmentation Neurologic: COMPLAINS OF: Abnormal gait, Headache, Localized weakness, Tremor, Poor Balance, DENIES: Seizures Psychiatric: DENIES: Suicidal Ideation, Homicidal Ideation Other Eyes: COMPLAINS OF: Blurred vision Respiratory: COMPLAINS OF: Shortness of breath Cardiovascular: COMPLAINS OF: Chest pain, Palpitations Gastrointestinal: COMPLAINS OF: Nausea, DENIES: Black stools, Bloody stools, Vomiting Genitourinary: COMPLAINS OF: Dysuria Integumentary: DENIES: Rash Neurologic: COMPLAINS OF: Headache, Localized weakness, Tremor, Poor Balance ( even with the walker), DENIES: Seizures Past Family Social History Past Medical History COPD Asthma CHF Restless legs syndrome Hypothyroidism MARYAN Atrial fibrillation Bipolar disorder Schizophrenia Type 2 diabetes Past Surgical History Tubal ligation total colectomy Defibrillator/pacemaker Left cataract removal Cholecystectomy Carpal tunnel surgery Partial hysterectomy Allergies: Coded Allergies: aspirin (Verified Allergy, Severe, Anaphylaxis, 09/19/17) PT STATES IT MAKES HER TONGUE SWELL AND HER HEART STOPS BEATING. benazepril (Verified Allergy, Severe, ANAPHALAXIS, 09/19/17) captopril (Verified Allergy, Severe, ANAPHALAXIS, 09/19/17) enalaprilat (Verified Allergy, Severe, Anaphylaxis, 09/19/17) fosinopril (Verified Allergy, Severe, ANAPHALAXIS, 09/19/17) gabapentin (Verified Allergy, Severe, AGGRESSIVE BEHAVIOR, 09/19/17) ibuprofen (Verified Allergy, Severe, TOUNGE SWELLING, 09/19/17) lisinopril (Verified Allergy, Severe, ANAPHALAXIS, 09/19/17) quinapril (Verified Allergy, Severe, ANAPHALAXIS, 09/19/17) naproxen (Verified Allergy, Intermediate, RESTELESS LEG, 09/19/17) MRI PRECAUTION (Verified Adverse Reaction, Severe, NON REVO PACEMAKER 07/04 LRS, 09/19/17) acetaminophen (Verified Adverse Reaction, Severe, 09/19/17) RESTLESS LEGS Family History Father-alcohol abuse Mother DM, heart disease, kidney disease Siblings-DM, heart disease, kidney disease, hypertension, depression, hypothyroidism Social History Lives with her sister Denies alcohol use, smokes 1-2 cigarettes sometimes Physical Exam Vital Signs Vital Signs Date Time Temp Pulse Resp B/P (MAP) Pulse Ox O2 Delivery O2 Flow Rate FiO2 09/20/17 12:49 98.2 97 16 116/71 (86) 96 09/20/17 08:27 98.4 70 16 174/84 (114) 95 09/20/17 04:00 98.0 75 20 175/78 (110) 94 09/20/17 00:00 98.3 76 18 163/76 (105) 98 09/19/17 23:26 98 35 09/19/17 23:00 78 09/19/17 22:16 97 21 09/19/17 20:00 97.7 78 18 181/91 (121) 96 09/19/17 19:13 98.4 88 16 165/78 (107) 96 09/19/17 19:01 09/19/17 18:39 17 09/19/17 15:47 73 17 168/77 (107) 94 Room Air 09/19/17 14:55 96 21 09/19/17 14:00 17 Physical Exam GENERAL: This is a well-nourished, well-developed obese female patient laying in bed, in no apparent distress. SKIN: No rashes, ecchymoses or lesions. Cool and dry. HEAD: Atraumatic. Normocephalic. EYES: Pupils equal round and reactive. Extraocular motions intact. No scleral icterus. No injection or drainage. ENT: Nose without bleeding, purulent drainage or septal hematoma. Throat without erythema, tonsillar hypertrophy or exudate. Uvula midline. Airway patent. Edentulous. NECK: Trachea midline. No JVD or lymphadenopathy. Supple. CARDIOVASCULAR: Regular rate and rhythm without murmurs, gallops, or rubs. RESPIRATORY: Inspiratory and expiratory wheezing. Breath sounds equal bilaterally. GASTROINTESTINAL: Abdomen soft, left upper quadrant tenderness, nondistended. No hepato-splenomegaly, or palpable masses. No guarding. MUSCULOSKELETAL: Extremities without clubbing, cyanosis, or edema. No joint tenderness, effusion, or edema noted. No calf tenderness. NEUROLOGICAL: Awake and alert. Cranial nerves II through XII intact. Motor and sensory grossly within normal limits. 4/5 muscle strength in all muscle groups. Left shoulder strength greater than right. Decreased sensation on right face, upper and lower extremities. Normal speech. definite tremor at rest and with movement of her right hand not left hand. no observed abnormal movements of her mouth Laboratory Laboratory Tests Test 09/19/17 15:46 09/19/17 22:40 09/20/17 05:48 Troponin I LESS THAN 0.02 LESS THAN 0.02 LESS THAN 0.02 Triglycerides Level 155 Cholesterol Level 217 LDL Cholesterol 149 HDL Cholesterol 37.5 Cholesterol/HDL Ratio 5.78 Thyroid Stimulating Hormone 3rd Gen 0.560 Result Diagram: 09/19/17 1058 09/19/17 1013 Imaging Last Impressions Head CT 09/19/17 1008 Signed Impressions: Service Date/Time: Tuesday, September 19, 2017 10:47 - CONCLUSION: No acute intracranial abnormality demonstrated. Ga Torres MD Capkristeli VTE Risk Assessment Caprini VTE Risk Assessment: Mod/High Risk (score >= 2) Caprini Risk Assessment Model Point Value = 1 Point Value = 2 Point Value = 3 Point Value = 5 Age 41-60 Minor surgery BMI > 25 kg/m2 Swollen legs Varicose veins or History of unexplained or recurrent spontaneous Oral contraceptives or hormone replacement Sepsis (< 1 month) Serious lung disease, including pneumonia (< 1 month) Abnormal pulmonary function Acute myocardial infarction Congestive heart failure (< 1 month) History of inflammatory bowel disease Medical patient at bed rest Age 61-74 Arthroscopic surgery Major open surgery (> 45 min) Laparoscopic surgery (> 45 min) Malignancy Confined to bed (> 72 hours) Immobilizing plaster cast Central venous access Age >= 75 History of VTE Family history of VTE Factor V Leiden Prothrombin [id number] Lupus anticoagulant Anticardiolipin antibodies Elevated serum homocysteine Heparin-induced thrombocytopenia Other congenital or acquired thrombophilia Stroke (< 1 month) Elective arthroplasty Hip, pelvis, or leg fracture Acute spinal cord injury (< 1 month) Prophylaxis Regimen Total Risk Factor Score Risk Level Prophylaxis Regimen 0-1 Low Early ambulation 2 Moderate Order ONE of the following: *Sequential Compression Device (SCD) *Heparin 5000 units SQ BID 3-4 Higher Order ONE of the following medications: *Heparin 5000 units SQ TID *Enoxaparin/Lovenox 40 mg SQ daily (WT < 150 kg, CrCl > 30 mL/min) *Enoxaparin/Lovenox 30 mg SQ daily (WT < 150 kg, CrCl > 10-29 mL/min) *Enoxaparin/Lovenox 30 mg SQ BID (WT < 150 kg, CrCl > 30 mL/min) AND/OR *Sequential Compression Device (SCD) 5 or more Highest Order ONE of the following medications: *Heparin 5000 units SQ TID (Preferred with Epidurals) *Enoxaparin/Lovenox 40 mg SQ daily (WT < 150 kg, CrCl > 30 mL/min) *Enoxaparin/Lovenox 30 mg SQ daily (WT < 150 kg, CrCl > 10-29 mL/min) *Enoxaparin/Lovenox 30 mg SQ BID (WT < 150 kg, CrCl > 30 mL/min) AND *Sequential Compression Device (SCD) Assessment and Plan Assessment and Plan 62-year-old -[place] female with past medical history of atrial fibrillation, hypertension, diabetes presenting with right-sided weakness. She has been admitted to our inpatient service. Problem List: (1) Chest pain ICD Codes: R07.9 - Chest pain Status: Acute Plan: She is not the best historian and has many problems but does complain about chest pain. Her chest pain has been constant but also she has chest pain when she walks as well as SOB. She is very deconditioned and has underlying breathing problems, but she could very well have CAD. Will ask Cardiology to see her (2) CVA (cerebral vascular accident) ICD Codes: I63.9 - Cerebral infarction, unspecified Status: Acute Plan: Presenting with right sided weakness, numbness that started 1-2 weeks ago. Possible CVA although head CT shows no acute process. Patient not a candidate for MRI due to pacemaker. Patient also has resting tremor of the hand and possibly mouth. This may be due to her psychiatric medications. Head CT on admission, 09/19, shows no acute intracranial abnormality. Head and neck CTAs pending -Consult neurology, appreciate recommendations -possible parkinsonism due to gastric medications -CTA of brain and cervical spine ordered -Echocardiogram ordered -Plavix therapy initiated -Speech therapy consult, appreciate recommendations -Physical therapy consult -Neuro checks every 4 hours she could have a CVA from her a fib. She agreed to take an anticoagulant medicine so will start eliquis tomorrow as she had Lovenox today. there was some question of a GI bleed but on chart review there has been no recent bleeding or severe problems (3) DM (diabetes mellitus) ICD Codes: E11.9 - Diabetes mellitus Status: Chronic Plan: Bedside glucose monitoring Low-dose sliding scale NovoLog insulin Hypoglycemia protocol (4) Anxiety and depression ICD Codes: F41.9 - Anxiety disorder, unspecified; F32.9 - Major depressive disorder, single episode, unspecified Status: Chronic Plan: -Continue at home escitalopram 10 mg p.o. daily Continue home trazodone 50 mg p.o. at bedtime (5) Bipolar 1 disorder ICD Codes: F31.9 - Bipolar I disorder Status: Acute Plan: Continue at home risperidone 2 mg p.o. every 12 hours (6) Restless leg syndrome ICD Codes: G25.81 - Restless legs syndrome Status: Acute Plan: Continue at home ferrous sulfate 325 mg p.o. 3 times daily PC Continue home ropinirole 8 mg p.o. twice daily (7) Hypothyroidism ICD Codes: E03.9 - Hypothyroidism Status: Chronic Plan: Continue at home levothyroxine 75 mcg p.o. daily (8) Hypertension ICD Codes: I10 - Essential (primary) hypertension Status: Chronic Plan: Continue at home amlodipine 5 mg p.o. daily Continue furosemide 40 mg p.o. twice daily Continue at home spironolactone 12.5 mg p.o. daily (9) COPD (chronic obstructive pulmonary disease) ICD Codes: J44.9 - Chronic obstructive pulmonary disease Status: Chronic Plan: Continue at home albuterol nebulizer every 4 hours Continue home Symbicort inhaler (10) MARYAN on CPAP ICD Codes: G47.33 - Obstructive sleep apnea (adult) (pediatric); Z99.89 - Dependence on other enabling machines and devices Status: Acute Plan: Use alternative BiPAP while hospitalized (11) FEN Status: Acute Plan: Fluids: NS @ 85ml/hr, stop when taking po well Electrolytes: monitor and replete as needed Nutrition: Diabetic diet DVT Prophylaxis: Early ambulation. Lovenox 40mg subQ q24hr GI Prophylaxis: Continue at home pantoprazole 20 mg p.o. daily Pain management: Continue at home morphine 30 mg twice daily as needed Problem Qualifiers (1) CVA (cerebral vascular accident): Qualified Codes: I63.9 - Cerebral infarction, unspecified (2) DM (diabetes mellitus): Qualified Codes: E11.8 - Type 2 diabetes mellitus with unspecified complications (3) Hypothyroidism: Qualified Codes: E03.9 - Hypothyroidism, unspecified (4) Hypertension: Qualified Codes: I10 - Essential (primary) hypertension (5) COPD (chronic obstructive pulmonary disease): Qualified Codes: J44.9 - Chronic obstructive pulmonary disease, unspecified (6) Chest pain: Qualified Codes: R07.2 - Precordial pain Loida Nuñez MD Sep 20, 2017 13:07
--- NOTE | 2017-09-20 13:28 | EKG ---
Date Performed: 09/19/2017 Time Performed: 10:35:04 PTAGE: 62 years EKG: ELECTRONIC VENTRICULAR PACEMAKER ABNORMAL RHYTHM ECG PREVIOUS TRACING : 07/30/2017 11.38 DOCTOR: John Evans Interpretating Date/Time 09/20/2017 13:26:19
--- NOTE | 2017-09-20 14:09 | PD.PSY.CON ---
Provisional Diagnosis Admission Date Sep 19, 2017 at 12:19 [place] I. Schizophrenia, bipolar disorder [place] II. Deferred [place] III. GERD, obesity, CHF, COPD, asthma, HTN, diabetes, RLS History of Present Illness Service Psychiatry Consult Requested By Medical Reason for Consult Medication management Primary Care Physician Xavier Pitt MD HPI The patient is a 62-year-old -[place] woman, domiciled in [facility] with her daughter, , unemployed, on SSI, with psychiatric history of schizophrenia, bipolar disorder, four previous psychiatric hospitalizations, the last hospitalization was in the 90s, outpatient psychiatric care in [facility], she is in trazodone 50 mg, escitalopram 20 mg, risperidone 2 mg twice daily, Seroquel 200 mg at bedtime, with a past medical history of atrial fibrillation, hypertension, type 2 diabetes who presented to the ED with right sided weakness of 2 weeks duration. She stated this started about 1-2 weeks ago when she was awakened in the middle of the night by her sister and noticed that her right arm and leg felt weak, numb, and painful. Discussed the pain in her right arm and leg is a 10/10 aching pain, nothing makes it better or worse. Since this started she has gotten weaker. She states that her vision became blurry in both eyes, no spots in her vision. She is dizzy as well. He states that she also had a frontal headache. she describes this as a sharp pain that radiates down the side of her right neck down her shoulder to her arm.She has also noticed that she has developed a tremor in her right hand that started 3-4 weeks ago. She also noticed that her mouth has a "tremor" as well that started a few days ago. She also had trouble swallowing liquids. She states that she chokes a lot. She states that she started drooling recently at night and it is "strangles her." She does use a CPAP at night, but her machine is currently broken. She has also had trouble with speaking. She states that it is hard to form words. The patient was consulted to psychiatry to help with medications. management. Patient reports feeling better. Reports okay mood. Denies depressive symptoms. Denies suicidal or homicidal ideation. Reports chronic voices telling her "to listen to the doctor, to do the right thing". The patient is fully oriented 3, logical, coherent and relevant. No paranoia, no delusions, no loosening of associations present. Patient complains of tremors in her mouth and in her right hand. At the moment of my evaluation no tremors in her mouth or observed. However, unilateral, mild to moderate intensity right hand tremor is present. Patient denies the use of alcohol and illegal drugs Review of Systems Constitutional: DENIES: Diaphoretic episodes, Fatigue, Fever, Weight gain, Weight loss, Chills, Dizziness, Change in appetite, Night Sweats Endocrine: DENIES: Abnorml menstrual pattern, Heat/cold intolerance, Polydipsia , Polyuria, Polyphagia Eyes: DENIES: Blurred vision, Diplopia, Eye inflammation, Eye pain, Vision loss , Photosensitivity, Double Vision Ears, nose, mouth, throat: DENIES: Tinnitus, Hearing loss, Vertigo, Nasal discharge, Oral lesions, Throat pain, Hoarseness, Ear Pain, Running Nose, Epistaxis, Sinus Pain, Toothache, Odynophagia Cardiovascular: DENIES: Chest pain, Palpitations, Syncope, Dyspnea on Exertion , PND, Lower Extremity Edema, Orthopnea, Claudication Gastrointestinal: DENIES: Abdominal pain, Black stools, Bloody stools, Constipation, Diarrhea, Nausea, Vomiting, Difficulty Swallowing, Anorexia Genitourinary: DENIES: Abnormal vaginal bleeding, Dysmenorrhea, Dyspareunia, Sexual dysfunction, Urinary frequency, Urinary incontinence, Urgency, Hematuria , Dysuria, Nocturia, Vaginal discharge Musculoskeletal: DENIES: Joint pain, Muscle aches, Stiffness, Joint Swelling, Back pain, Neck pain Integumentary: DENIES: Abnormal pigmentation, Pruritus, Rash, Nail changes, Breast masses, Breast skin changes, Nipple discharge Hematologic/lymphatic: DENIES: Bruising, Lymphadenopathy Immunologic/allergic: DENIES: Eczema, Urticaria Neurologic: COMPLAINS OF: Tremor, DENIES: Abnormal gait, Headache, Localized weakness, Paresthesias, Seizures, Speech Problems, Poor Balance Psychiatric: COMPLAINS OF: Homicidal Ideation, DENIES: Anxiety, Confusion, Mood changes, Depression, Hallucinations, Agitation, Suicidal Ideation, Delusions Past Family Social History Coded Allergies: aspirin (Verified Allergy, Severe, Anaphylaxis, 09/19/17) PT STATES IT MAKES HER TONGUE SWELL AND HER HEART STOPS BEATING. benazepril (Verified Allergy, Severe, ANAPHALAXIS, 09/19/17) captopril (Verified Allergy, Severe, ANAPHALAXIS, 09/19/17) enalaprilat (Verified Allergy, Severe, Anaphylaxis, 09/19/17) fosinopril (Verified Allergy, Severe, ANAPHALAXIS, 09/19/17) gabapentin (Verified Allergy, Severe, AGGRESSIVE BEHAVIOR, 09/19/17) ibuprofen (Verified Allergy, Severe, TOUNGE SWELLING, 09/19/17) lisinopril (Verified Allergy, Severe, ANAPHALAXIS, 09/19/17) quinapril (Verified Allergy, Severe, ANAPHALAXIS, 09/19/17) naproxen (Verified Allergy, Intermediate, RESTELESS LEG, 09/19/17) MRI PRECAUTION (Verified Adverse Reaction, Severe, NON REVO PACEMAKER 07/04 LRS, 09/19/17) acetaminophen (Verified Adverse Reaction, Severe, 09/19/17) RESTLESS LEGS Active Scripts Albuterol Neb (Albuterol Neb) 2.5 Mg/3 Ml Neb, 2.5 MG NEB Q4HR NEB Y for SHORTNESS OF BREATH, #60 NEBULE 0 Refills Prov:Giovana Russo MD, R3 05/16/17 Fluticasone-Salmeterol Inh (Advair Diskus Inh) 500-50 Mcg/Blist Aer, 1 PUFF INH BID, #1 INHALER 9 Refills Rinse mouth after use. Prov:Giovana Russo MD, R3 05/16/17 Furosemide (Furosemide) 40 Mg Tab, 40 MG PO BID, #180 TAB 3 Refills Prov:Giovana Russo MD, R3 04/25/17 Isosorbide Mononitrate (Isosorbide Mononitrate) 20 Mg Tab, 60 MG PO DAILY for Prevent Chest Pain, #90 TAB 3 Refills Take 2 doses 7 hours apart. Prov:Giovana Russo MD, R3 04/25/17 Prochlorperazine Maleate (Prochlorperazine Maleate) 10 Mg Tab, 10 MG PO Q4H Y for NAUSEA OR VOMITING, #120 TAB 3 Refills Prov:Giovana Russo MD, R3 04/25/17 Ferrous Sulfate (Ferrous Sulfate) 325 Mg (65 Mg Iron) Tablet, 325 MG PO TIDPC for Nutritional Supplement, #90 TAB 3 Refills Prov:Giovana Russo MD, R3 04/05/17 Metformin (Metformin) 500 Mg Tab, 500 MG PO BIDPC for Blood Sugar Management, # 180 TAB 3 Refills With meals Prov:Giovana Russo MD, R3 04/05/17 Ropinirole (Ropinirole) 4 Mg Tab, 8 MG PO BID, #180 TAB 3 Refills Prov:Giovana Russo MD, R3 04/01/17 Omeprazole (Omeprazole) 20 Mg Tab, 20 MG PO DAILY, #90 TAB 3 Refills Prov:Giovana Russo MD, R3 03/23/17 Trazodone (Trazodone) 50 Mg Tab, 50 MG PO HS for Control Depression, #90 TAB 3 Refills Prov:Giovana Russo MD, R3 03/23/17 Levothyroxine (Levothyroxine) 75 Mcg Tab, 75 MCG PO DAILY for Thyroid, #90 TAB 3 Refills Prov:Giovana Russo MD, R3 03/23/17 Spironolactone (Spironolactone) 25 Mg Tab, 12.5 MG PO DAILY, #90 TAB 3 Refills Prov:Giovana Russo MD, R3 06/14/16 Reported Medications Prednisone (Prednisone) 10 Mg Tab, 10 MG PO DAILY, TAB 0 Refills 09/19/17 Morphine Sulfate CR (Morphine Sulfate CR) 60 Mg Tab, 30 MG PO BID Y for PAIN 09/19/17 Escitalopram (Lexapro) 10 Mg Tab, 10 MG PO DAILY, #30 TAB 0 Refills 09/19/17 Amlodipine (Norvasc) 5 Mg Tab, 5 MG PO DAILY for Blood Pressure Management, #30 TAB 0 Refills 18 Lorazepam (Ativan) 0.5 Mg Tab, 0.5 MG PO Q6H Y for ANXIETY, TAB 0 Refills 09/19/17 Oxycodone (Oxycodone) 10 Mg Tab, 10 MG PO Q4H Y for PAIN, TAB 0 Refills 09/19/17 Risperidone (Risperidone) 2 Mg Tab, 2 MG PO Q12HR, #60 TAB 0 Refills 18 Nitroglycerin SL (Nitrostat SL) 0.4 Mg Subl, 0.4 MG SL DIRECTED Y for CHEST PAIN, #100 TAB.SL 0 Refills 1 tablet under the tongue as needed for chest pain. Repeat every 5 minutes for a total of 3 DOSES or call 911 if NO relief. 03/28/17 Sennosides-Docusate Sodium (Senna-Plus) 8.6-50 Mg Tab, 2 TAB PO BID for Constipation, TAB 0 Refills 03/28/17 Docusate Sodium (Docusate Sodium) 100 Mg Cap, 100 MG PO DAILY for Prevent Constipation, #60 CAP 0 Refills 03/08/17 Discontinued Reported Medications Risperidone (Risperidone) 4 Mg Tab, 8 MG PO BID, #30 TAB 0 Refills 06/20/17 Citalopram (Celexa) 10 Mg Tab, 10 MG PO DAILY for Control Depression, #30 TAB 0 Refills 05/30/17 Discontinued Scripts Prednisone (Prednisone) 5 Mg Tab, 5 MG PO DAILY for 5 Days, #5 TAB 0 Refills Prov:Ana M Yang 07/30/17 Prednisone (Prednisone) 20 Mg Tab, 40 MG PO DAILY, #10 TAB 0 Refills Take 40 mg (2 tablets) daily for 5 days Prov:Giovana Russo MD, R3 07/14/17 Moxifloxacin Opth Drops (Vigamox Opth Drops) 0.5 % Soln, 1 DROP LEFT EYE QID for Infection, #1 BOTTLE 0 Refills Prov:Jennifer Neely MD 06/06/17 Nepafenac Opth Drops (Ilevro Opth Drops) 0.3 % Soln, 1 DROP LEFT EYE DAILY for Treat Swelling-Pain, #1 BOTTLE 2 Refills Prov:Jennifer Neely MD 06/06/17 Difluprednate Opth (Durezol Opth) 0.05% Emul, 1 DROP LEFT EYE QID, #1 BOTTLE 2 Refills Prov:Jennifer Neely MD 06/06/17 Current Medications Medications (Trade) Dose Ordered Sig/Nilo Route Start Time Stop Time Status Last Admin (NS Flush) 2 ml UNSCH PRN IV FLUSH 09/19/17 12:30 (NS Flush) 2 ml BID IV FLUSH 09/19/17 21:00 09/19/17 21:22 (NovoLOG SUPPLEMENTAL SCALE) 1 ACHS SQ 09/19/17 17:00 09/20/17 12:03 (D50w (Vial) Inj) 50 ml UNSCH PRN IV PUSH 09/19/17 14:45 (Glucagon Inj) 1 mg UNSCH PRN OTHER 09/19/17 14:45 (Trandate Inj) 10 mg Q2H PRN IV PUSH 09/19/17 14:45 (Lovenox Inj) 40 mg Q24H SQ 09/19/17 16:00 09/19/17 18:37 (Albuterol Neb) 2.5 mg Q4HR NEB PRN NEB 09/19/17 15:00 (Norvasc) 5 mg DAILY PO 09/20/17 09:00 09/20/17 09:32 (Colace) 100 mg DAILY PO 09/20/17 09:00 09/20/17 09:32 (Lexapro) 10 mg DAILY PO 09/20/17 09:00 09/20/17 09:33 (Ferrous Sulfate) 325 mg TIDPC PO 09/19/17 18:30 09/20/17 12:03 (Lasix) 40 mg BID PO 09/19/17 21:00 09/20/17 09:33 (Ismo) 60 mg DAILY PO 09/20/17 09:00 09/20/17 10:44 (Synthroid) 75 mcg DAILY@0600 PO 09/20/17 06:00 09/20/17 06:05 (Ativan) 0.5 mg Q6H PRN PO 09/19/17 15:00 09/20/17 12:03 (Oramorph Sr) 30 mg BID PRN PO 09/19/17 16:00 09/20/17 06:17 (Deltasone) 10 mg DAILY PO 09/20/17 09:00 09/20/17 09:32 (Compazine) 10 mg Q4H PRN PO 09/19/17 15:00 (Dee-Colace) 2 tab BID PO 09/19/17 21:00 09/20/17 09:33 (Aldactone) 12.5 mg DAILY PO 09/20/17 09:00 09/20/17 09:32 (Desyrel) 50 mg HS PO 09/19/17 21:00 09/19/17 21:27 (Protonix) 20 mg DAILY PO 09/20/17 09:00 09/20/17 09:32 (risperDAL) 2 mg Q12HR PO 09/19/17 21:00 09/20/17 09:32 (Pill Splitter) 1 ea UNSCH PRN OTHER 09/19/17 15:30 (Requip) 8 mg BID PO 09/19/17 21:00 09/20/17 10:44 (Symbicort 160-4.5 Mcg Inh) 2 puff BID INH 09/19/17 21:00 09/20/17 09:29 (Plavix) 75 mg DAILY PO 09/19/17 18:00 09/20/17 09:32 (Lipitor) 80 mg HS PO 09/20/17 21:00 Family Psych History No family psychiatric history Social History Patient was born and raised in [place], she lives in [facility] with her daughter, she is , supported by [facility] Physical Exam Vital Signs Vital Signs Date Time Temp Pulse Resp B/P (MAP) Pulse Ox O2 Delivery O2 Flow Rate FiO2 09/20/17 12:49 98.2 97 16 116/71 (86) 96 09/19/17 23:26 35 09/19/17 15:47 Room Air I/O 09/20/17 09/20/17 09/20/17 07:59 15:59 23:59 Output Total 1 ml Balance -1 ml Lab Results Test 09/19/17 15:46 09/19/17 22:40 09/20/17 05:48 Troponin I LESS THAN 0.02 NG/ML LESS THAN 0.02 NG/ML LESS THAN 0.02 NG/ML Triglycerides Level 155 MG/DL Cholesterol Level 217 MG/DL LDL Cholesterol 149 MG/DL HDL Cholesterol 37.5 MG/DL Cholesterol/HDL Ratio 5.78 RATIO Thyroid Stimulating Hormone 3rd Gen 0.560 uIU/ML Mental Status Examination Appearance: Appropriate Consciousness: Alert Orientation: x4 Motor Activity: Normal gait Speech: Unremarkable Language: Adequate Fund of Knowledge: Adequate Attention and Concentration: Adequate Memory: Unremarkable Mood: Appropriate Affect: Appropriate Thought Process & Associations: Intact Thought Content: Appropriate Hallucination Type: Auditory Delusion Type: None Suicidal Ideation: No Suicidal Plan: No Suicidal Intention: No Homicidal Ideation: No Homicidal Plan: No Homicidal Intention: No Insight: Adequate Judgment: Adequate Assessment & Plan Problem List: (1) Schizophrenia ICD Codes: F20.9 - Schizophrenia, unspecified Status: Chronic Assessment & Plan: On psychiatric evaluation today the patient does not present any evidence of acute, concerning her significant objective or subjective depressive symptoms, anxiety, ray or psychosis. The patient denies suicidal enemas ideation, she denies visual hallucinations. She does report chronic, noncommanding type, usually egosyntonic auditory hallucinations which is part of her residual symptoms of schizophrenia. Patient is fully oriented 3, no attention deficit, no fluctuation of consciousness, no gross cognitive impairment present. Patient is logical, coherent and relevant. No delusions, no paranoia, no ideas of reference, no loosening of associations, no disorganized behavior or speech, no agitation or aggressive behavior present. The patient has a long history of schizophrenia, multiple psychiatric hospitalizations, but the last hospitalization was in the 90s, she has been stable now for many years with outpatient care in [facility]. The patient does present a unilateral, right hand mild intensity continues tremor that does not seem to be related with EPS, since EPS is usually bilateral. However, parkinsonism induced by psychotropics is still possible, but other neurological causes of tremors should be also explored. In any case, I will discontinue Risperdal, since Risperdal is a highly anti-dopaminergic antipsychotic with high risk for EPS, will substitute with Seroquel 200 mg at bedtime and will add benztropine 1 mg twice daily to help with EPS. Patient does not meet criteria for involuntary psychiatric commitment. I will follow-up. Assessment & Plan Estimated LOS: Eduardo Chatterjee MD Sep 20, 2017 14:09
--- NOTE | 2017-09-20 15:14 | HHI.FPPN ---
Addendum to progress note ADDENDUM Reason for addendum: Additonal documentation Additional information Called at 1450 by RN for patient fall. Patient was on bedside chair. Got up to return to bed and "my legs gave out." She does not recall if she lost consciousness. She denies any palpitations or new chest pain associated with the fall. She did hit the back of her head. Currently she is having pain in her left and right hip, mid thoracic spine, and back of her head. She denies any new difficulty moving her extremities, blurry vision, confusion, chest pain, or shortness of breath. PE: VS: GEN: NAD slightly labored breathing. AAOx3. Thought president was [place] and thought today was Monday, otherwise wnl. HEENT: PERRL CN intact, no deficits on CN testing. RESP: CTAB CV: RRR no murmurs GI: Soft EXT: 5/5 strength on left lower leg at hip, 3/5 flexion at hip on right. No obvious bruising, swelling, or step off deformity of either hip. Pain disfusely throughout the exam. SPINE: Pain over palpation of thoracic spine (processes) at T2. Full sensation throughout. A/P: Mechanical Fall; neurologically intact. No obvious deformities or deficits on exam. Given pain in both hips and on palpation of thoracic spine will get xrays. If having any change in neuro exam or headaches would get CT of head at that time. Otherwise would hold off at this time. FELICITASW Dr. Lydia Diaz. Luis Angel Rodriguez MD, R3 Sep 20, 2017 15:13
[2017-09-20] MEDS ORDERED: SODIUM CHLORIDE 0.9% FLUSH 10 ML FLUSH IV FLUSH PRN (15:45)
[2017-09-20] MEDS ORDERED: MISC INFORMATION XX ONE (15:45)
--- NOTE | 2017-09-20 17:48 | RADRPT ---
EXAM DATE/TIME: 09/20/2017 16:45 [facility] COMPARISON: CHEST SINGLE AP, July 30, 2017, 12:18. INDICATIONS : Back pain. Patient fell today. MEDICAL HISTORY : Cardiovascular disease. Cerebrovascular disease. Hypertension.COPD. Asthma. SURGICAL HISTORY : Pacemaker. Hysterectomy. ENCOUNTER: Initial ACUITY: 1 day PAIN SCORE: 5/10 LOCATION: Thoracic. FINDINGS: The examination demonstrates degenerative changes throughout the thoracic spine. No definite compress ion fracture is seen. The limited portion of pulmonary parenchyma visualized appears clear. CONCLUSION: 1. Degenerative changes. No definite compression fracture identified. Miguel Stokes MD on September 20, 2017 at 17:36 Board Certified Radiologist. This report was verified electronically.
--- NOTE | 2017-09-20 17:50 | RADRPT ---
EXAM DATE/TIME: 09/20/2017 16:45 [facility] COMPARISON: CHEST SINGLE AP, July 30, 2017, 12:18. INDICATIONS : Right hip pain. Patient fell today. MEDICAL HISTORY : Cardiovascular disease. Cerebrovascular disease. Hypertension.COPD. Asthma. SURGICAL HISTORY : Pacemaker. Hysterectomy. ENCOUNTER: Initial ACUITY: 1 day PAIN SCORE: 5/10 LOCATION: Right hip. FINDINGS: The femoral head is well situated within the acetabular fossa. The alignment is good. There is no acu te fracture. There are moderate degenerative changes within the right hip joint. CONCLUSION: 1. Degenerative arthritic changes. No acute fracture. Miguel Stokes MD on September 20, 2017 at 17:46 Board Certified Radiologist. This report was verified electronically.
--- NOTE | 2017-09-20 17:51 | RADRPT ---
EXAM DATE/TIME: 09/20/2017 16:45 [facility] COMPARISON: CHEST SINGLE AP, July 30, 2017, 12:18. INDICATIONS : Left hip pain. MEDICAL HISTORY : Cardiovascular disease. Cerebrovascular disease. Hypertension. COPD. Asthma. SURGICAL HISTORY : Pacemaker. Hysterectomy. ENCOUNTER: Initial ACUITY: 1 day PAIN SCORE: 4/10 LOCATION: Left hip. FINDINGS: The femoral head is well situated within the acetabular fossa. There are mild arthritic changes. Ther e is no acute fracture. CONCLUSION: 1. Osteoarthritic changes. No acute fracture identified. Miguel Stokes MD on September 20, 2017 at 17:48 Board Certified Radiologist. This report was verified electronically.
[2017-09-20 20:47] LABS: HEMOGLOBIN A1C 5.7 % (4.3-6.0)
[2017-09-20] MEDS: BENZTROPINE MESYLATE 1 MG TAB PO SCH (21:20)
[2017-09-20] MEDS: traZODone HCL 50 MG TAB PO SCH (21:21)
[2017-09-20] MEDS: ATORVASTATIN 40 MG TAB PO SCH (21:21)
[2017-09-20] MEDS: QUEtiapine FUMARATE 200 MG TAB PO SCH (21:21)
[2017-09-21] VITALS (11 sets, daily range): BP systolic 106–149; BP diastolic 65–82; PULSE 68–87; RESP 17–18; TEMP 97.2–98.9; O2SAT 94–98
[2017-09-21] MEDS: LEVOTHYROXINE SODIUM 75 MCG TAB PO SCH (05:21)
[2017-09-21 07:16] LABS: AUTOMATED NEUTROPHIL # 4.2 TH/MM3 (1.8-7.7); BASOPHIL % 0.6 % (0.0-2.0); HEMATOCRIT 39.5 % (35.0-46.0); HEMOGLOBIN 12.5 GM/DL (11.6-15.3); LYMPH % 27.3 % (9.0-44.0); LYMPHOCYTE # 1.8 TH/MM3 (1.0-4.8); MEAN CELL VOLUME 78.2 FL (80.0-100.0); MEAN CORPUSCULAR HEMOGLOBIN 24.7 PG (27.0-34.0); MEAN CORPUSCULAR HGB CONC 31.6 % (32.0-36.0); MEAN PLATELET VOLUME 8.4 FL (7.0-11.0); MONO % 9.2 % (0.0-8.0); MONOCYTE # 0.6 TH/MM3 (0-0.9); NEUT % 62.9 % (16.0-70.0); PLATELET COUNT 210 TH/MM3 (150-450); RED BLOOD COUNT 5.05 MIL/MM3 (4.00-5.30); RED CELL DISTRIBUTION WIDTH 16.8 % (11.6-17.2); WHITE BLOOD COUNT 6.7 TH/MM3 (4.0-11.0)
[2017-09-21 07:58] LABS: BICARBONATE 27.4 MEQ/L (21.0-32.0); CALCIUM 8.7 MG/DL (8.5-10.1); CREATININE 1.02 MG/DL (0.50-1.00)
[2017-09-21] MEDS: INSULIN ASPART SUPPLEMENTAL SCALE SQ SCH ×4 (08:00→21:00)
[2017-09-21] MEDS ORDERED: APIXABAN 5 MG TABLET PO SCH (09:00)
[2017-09-21] MEDS: SODIUM CHLORIDE 0.9% FLUSH 10 ML FLUSH IV FLUSH SCH ×4 (09:00→21:29)
[2017-09-21] MEDS: BUDESONIDE-FORMOTEROL 160/4.5 MCG INHALER INH SCH ×2 (09:54→21:29)
[2017-09-21] MEDS: DOCUSATE SODIUM 50 MG/SENNA 8.6 MG TAB PO SCH ×2 (09:57→21:30)
[2017-09-21] MEDS: predniSONE 10 MG TAB PO SCH (09:57)
[2017-09-21] MEDS: ISOSORBIDE MONONITRATE 20 MG TAB PO SCH (09:57)
[2017-09-21] MEDS: FERROUS SULFATE 325 MG (65 MG ELEMENTAL IRON) TAB PO SCH ×3 (09:57→18:15)
[2017-09-21] MEDS: amLODIPine BESYLATE 5 MG TAB PO SCH (09:57)
[2017-09-21] MEDS: ESCITALOPRAM OXALATE 10 MG TAB PO SCH (09:58)
[2017-09-21] MEDS: PANTOPRAZOLE SOD 20 MG DELAYED RELEASE TAB PO SCH (09:58)
[2017-09-21] MEDS: FUROSEMIDE 40 MG TAB PO SCH ×2 (09:58→21:30)
[2017-09-21] MEDS: SPIRONOLACTONE 25 MG TAB PO SCH (09:58)
[2017-09-21] MEDS: DOCUSATE SODIUM 100 MG CAP PO SCH (09:58)
[2017-09-21] MEDS: BENZTROPINE MESYLATE 1 MG TAB PO SCH ×2 (09:58→21:30)
--- NOTE | 2017-09-21 12:25 | HHI.FPPN ---
Subjective Remarks No acute events overnight. Patient seen and examined this AM. Afebrile, vitals stable. Patient is not able to provide much details regarding her fall yesterday as she cannot recall exactly what happened. She denies any new focal neuro deficit. Continues to endorse right sided weakness. She continues to endorse a history of anginal type chest pains. Denies chest pain currently, denies SOB or fevers. (Kuldip Connor MD R2) Objective Vitals Vital Signs Date Time Temp Pulse Resp B/P (MAP) Pulse Ox O2 Delivery O2 Flow Rate FiO2 09/21/17 08:33 97.9 83 18 128/78 (95) 97 09/21/17 07:00 21 09/21/17 04:00 97.2 68 18 149/82 (104) 97 09/21/17 03:07 96 30 09/21/17 00:00 97.2 81 18 131/76 (94) 98 09/20/17 23:58 96 30 09/20/17 23:00 90 09/20/17 22:04 97 BiPAP 30 09/20/17 22:04 97 30 09/20/17 20:00 98.2 90 20 136/72 (93) 94 09/20/17 17:40 98.4 87 18 132/72 (92) 95 09/20/17 16:40 98.4 85 18 117/74 (88) 95 09/20/17 15:40 98.4 84 18 126/71 (89) 97 09/20/17 14:40 98.3 99 18 123/58 (79) 09/20/17 12:49 98.2 97 16 116/71 (86) 96 I/O 09/20/17 09/20/17 09/20/17 09/21/17 09/21/17 09/21/17 07:00 15:00 23:00 07:00 15:00 23:00 Intake Total 240 ml 480 ml 480 ml Output Total 1 ml Balance 239 ml 480 ml 480 ml Intake Oral 240 ml 480 ml 480 ml Output Urine Total 1 ml # Voids 10 2 2 1 (Kuldip Connor MD R2) Result Diagram: 09/21/17 0635 09/21/17 0635 Objective Remarks GENERAL: This is a well-nourished, well-developed obese female patient laying in bed, in no apparent distress. SKIN: No rashes, ecchymoses or lesions. Cool and dry. HEAD: Atraumatic. Normocephalic. EYES: Extraocular motions intact. No scleral icterus. No injection or drainage. ENT: Nose without bleeding, purulent drainage or septal hematoma. Throat without erythema, tonsillar hypertrophy or exudate. Uvula midline. Airway patent. Edentulous. NECK: Trachea midline. No JVD or lymphadenopathy. Supple. CARDIOVASCULAR: Regular rate and rhythm without murmurs, gallops, or rubs. RESPIRATORY: Inspiratory and expiratory wheezing. Breath sounds equal bilaterally. GASTROINTESTINAL: Abdomen soft, left upper quadrant tenderness, nondistended. No hepato-splenomegaly, or palpable masses. No guarding. MUSCULOSKELETAL: Extremities without clubbing, cyanosis, or edema. No joint tenderness, effusion, or edema noted. No calf tenderness. NEUROLOGICAL: Awake and alert. Cranial nerves II through XII intact. Motor and sensory grossly within normal limits. 4/5 muscle strength in all muscle groups. Left shoulder strength greater than right. Decreased sensation on right face, upper and lower extremities. Normal speech. (Kuldip Connor MD R2) A/P Assessment and Plan 62-year-old -[place] female with past medical history of atrial fibrillation, hypertension, diabetes admitted due to right sided weakness of unclear etiology. Discharge Planning PT eval recommending home with home health PT Patient does live with her sister, however is a high risk for falls Patient expressed desire for SNF placement if this may be possible, appreciate case management consult (Kuldip Connor MD R2) Attending Attestation Patient seen and examined. Case reviewed and discussed with the resident team. Agree with plan of care as discussed with me and documented in the resident note. she is not doing well with ambulating. she has had multiple falls at home and needs rehab (Loida Nuñez MD) Problem List: (1) Chest pain ICD Codes: R07.9 - Chest pain Status: Acute Plan: She is not the best historian and has many problems but does complain about chest pain. Her chest pain has been constant but also she has chest pain when she walks as well as SOB. She is very deconditioned and has underlying breathing problems, but she could very well have CAD. Cardiology has been consulted - Recommending per discussion with Dr. 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 Possible CVA although head CT shows no acute process. Patient not a candidate for MRI due to pacemaker. Patient also has resting tremor of the hand and possibly mouth. This may be due to her psychiatric medications. Head CT on admission, 09/19, shows no acute intracranial abnormality. Head and neck CTAs pending -Consult neurology, appreciate recommendations -possible parkinsonism due to gastric medications -CTA of brain and cervical spine without acute findings -Echocardiogram ordered, awaiting results -Plavix therapy initiated -Speech therapy consult, appreciate recommendations -Physical therapy consult -Neuro checks every 4 hours Discontinued Eliquis due to concern for intracranial hemorrhage especially given her history of falls Psychiatry consulted, appreciate recommendations - has discontinued risperdal and started patient on Seroquel as well as benztropine to help with potential symptoms related to EPS (3) DM (diabetes mellitus) ICD Codes: E11.9 - Diabetes mellitus Status: Chronic Plan: Bedside glucose monitoring Low-dose sliding scale NovoLog insulin Hypoglycemia protocol (4) Anxiety and depression ICD Codes: F41.9 - Anxiety disorder, unspecified; F32.9 - Major depressive disorder, single episode, unspecified Status: Chronic Plan: -Continue at home escitalopram 10 mg p.o. daily Continue home trazodone 50 mg p.o. at bedtime (5) Bipolar 1 disorder ICD Codes: F31.9 - Bipolar I disorder Status: Acute Plan: Continue at home risperidone 2 mg p.o. every 12 hours (6) Restless leg syndrome ICD Codes: G25.81 - Restless legs syndrome Status: Acute Plan: Continue at home ferrous sulfate 325 mg p.o. 3 times daily PC Continue home ropinirole 8 mg p.o. twice daily (7) Hypothyroidism ICD Codes: E03.9 - Hypothyroidism Status: Chronic Plan: Continue at home levothyroxine 75 mcg p.o. daily (8) Hypertension ICD Codes: I10 - Essential (primary) hypertension Status: Chronic Plan: Continue at home amlodipine 5 mg p.o. daily Continue furosemide 40 mg p.o. twice daily Continue at home spironolactone 12.5 mg p.o. daily (9) COPD (chronic obstructive pulmonary disease) ICD Codes: J44.9 - Chronic obstructive pulmonary disease Status: Chronic Plan: Continue at home albuterol nebulizer every 4 hours Continue home Symbicort inhaler (10) MARYAN on CPAP ICD Codes: G47.33 - Obstructive sleep apnea (adult) (pediatric); Z99.89 - Dependence on other enabling machines and devices Status: Acute Plan: Use alternative BiPAP while hospitalized (11) FEN Status: Acute Plan: Fluids: per PO Electrolytes: monitor and replete as needed Nutrition: Diabetic diet DVT Prophylaxis: Lovenox 40mg sq q24h GI Prophylaxis: Continue home pantoprazole 20 mg po daily Pain management: Continue home morphine 30 mg twice daily as needed (Kuldip Connor MD R2) Problem Qualifiers (1) Chest pain: Qualified Codes: R07.2 - Precordial pain (2) DM (diabetes mellitus): Qualified Codes: E11.8 - Type 2 diabetes mellitus with unspecified complications (3) Hypothyroidism: Qualified Codes: E03.9 - Hypothyroidism, unspecified (4) Hypertension: Qualified Codes: I10 - Essential (primary) hypertension (5) COPD (chronic obstructive pulmonary disease): Qualified Codes: J44.9 - Chronic obstructive pulmonary disease, unspecified Kuldip Connor MD R2 Sep 21, 2017 12:25 Loida Nuñez MD Sep 24, 2017 09:06
[2017-09-21] MEDS: LORazepam 0.5 MG TAB PO PRN ×2 (12:43→21:30)
--- NOTE | 2017-09-21 13:31 | MB ---
cc: Yosvany Singer MD DATE: 09/21/2017 HISTORY OF PRESENT ILLNESS: Windy is a very pleasant 62-year-old lady who presents to the hospital with chest pain. At the bedside she is currently having chest pain. She says it is moderate to severe but she appears very comfortable, in no acute distress. She denies fever, chills, cough, GI or bleeding, PND, orthopnea, syncope or dizziness. PAST MEDICAL HISTORY: Per history of present illness. She presented to the emergency room on 09/19/2017 at 10:17 a.m. She reported to the ER physician that she came due to having had a stroke. She describes weakness in the right upper extremity and right lower extremity for 1-2 weeks prior to admission, numbness in the right upper extremity. Past medical history includes CVA with left-sided hemiparesis, unsteady gait. She uses a walker. She has a history of anemia, arthritis, asthma, atrial fibrillation, bipolar disorder, anxiety, depression, palpitations, congestive heart failure, hyperlipidemia, COPD, coronary artery disease, diabetes, dementia, history of dialysis, diverticulitis, GERD, headaches, hepatitis, hiatal hernia, hypertension, implanted vascular access device, osteoporosis, restless leg syndrome, anxiety, depression, bipolar and schizophrenia, asthma, COPD, sleep apnea, history of myocardial infarction, pancreatitis, pneumonia, history of CPAP use, hypothyroidism, ulcers. PAST SURGICAL HISTORY: Status post automatic implantable cardioverter-defibrillator [employer] ,cholecystectomy in 2009, partial hysterectomy, upper teeth removed, pacemaker placement. SOCIAL HISTORY: Denies tobacco or alcohol use. Formerly used tobacco. ALLERGIES: ASPIRIN, where she gets tongue swelling and cardiac arrest. BENAZEPRIL ANAPHYLAXIS. CAPTOPRIL ANAPHYLAXIS. ENALAPRIL ANAPHYLAXIS. FOSINOPRIL ANAPHYLAXIS. GABAPENTIN, aggressive behavior. IBUPROFEN, tongue swelling,. LISINOPRIL ANAPHYLAXIS. QUINAPRIL ANAPHYLAXIS. NAPROSYN, restless legs syndrome. MRI PRECAUTION DUE TO PACEMAKER. MEDICATIONS PRIOR TO ADMISSION: 1. Albuterol. 2. Advair. 3. Furosemide 40 b.i.d. 4. Isosorbide mononitrate 20 mg and 60 mg taken 7 hours apart. 5. Prochlorperazine. 6. Ferrous sulfate 325 t.i.d. 7. Metformin 500 b.i.d. 8. Ropinirole. 9. Omeprazole. 10. Trazodone. 11. Levothyroxine. 12. Spironolactone 25 daily. 13. Prednisone 10 mg daily. 14. Morphine. 15. Lexapro 16. Norvasc 5 daily. 17. Ativan. 18. Oxycodone. 19. Risperidone. 20. Nitrostat. 21. Senna Plus Docusate sodium. MEDICATIONS IN THE HOSPITAL: 1. Atorvastatin 80 at bedtime. 2. Seroquel 200 mg at bedtime. 3. Benztropine 1 mg every 12 hours. 4. Amlodipine 5 mg daily. 5. Docusate 100 mg daily. 6. Lexapro 10 mg daily. 7. Isosorbide mononitrate 60 mg daily. 8. Prednisone 10 mg daily. 9. Aldactone 12.5 mg daily. 10. Pantoprazole 20 mg daily. 11. Levothyroxine 75 mcg daily. 12. Lasix 40 mg b.i.d. 13. Dee-Colace 2 tabs b.i.d. 14. Trazodone 50 mg at bedtime. 15. Ropinirole 8 mg b.i.d. 16. Symbicort 2 puffs b.i.d. 17. Ferrous sulfate 325 t.i.d. 18. Insulin. PHYSICAL EXAMINATION: VITAL SIGNS: Blood pressure 128/78, pulse 83, respiration 18, temperature 97.9. GENERAL: She is alert and oriented x3, in no acute distress. NECK: Supple. No JVD. No bruit. CARDIOVASCULAR: S1, S2. No murmurs, rubs or gallops. LUNGS: Clear to auscultation bilaterally. ABDOMEN: Soft, nontender, nondistended with positive bowel sounds. EXTREMITIES: No extremity edema. IMAGING STUDIES: She has a neck CTA on 09/19/2017 which showed minimal atherosclerotic plaque in the carotid arteries bilaterally. There is no significant stenosis. Head CTA: No acute findings. Multinodular goiter noted incidentally. Head CT: No acute intracranial abnormality demonstrated. Thoracic spine x-ray: Degenerative changes. No definite compression fracture identified. Hip x-ray: Degenerative arthritic changes, no acute fracture. Osteoarthritic changes. No acute fracture identified. EKG: Underlying atrial fibrillation with demand ventricular pacing. Second EKG shows atrial fibrillation with ventricular pacing. Third EKG shows what looks like A sensed, V paced rhythm at a rate of 79 beats per minute. NOTE: On 05/22/2017, the patient had a pacemaker placement. Echocardiogram on 06/04/2015 showed EF of 20%. Mild to moderate MR. LABORATORY DATA: White count 6.7, hemoglobin 12.5, hematocrit 39.5, MCV is 78.2, platelet count 210. Sodium 136, potassium 3.6, chloride 100, BUN 15, creatinine 1.02. Troponins less than 0.02. LDL is 149. TSH is 0.560. INR is 1.1. DIAGNOSES: 1. Cerebrovascular accident. 2. Chest pain. 3. Diabetes mellitus. 4. Cardiomyopathy. 5. Schizophrenia. 6. Bipolar disorder. 7. Sleep apnea. 8. Chronic obstructive pulmonary disease. DISCUSSION: The patient has a CHADS-VASc score of at least 3 with cardiomyopathy, hypertension and diabetes. Therefore, Coumadin or a novel oral anticoagulant agent is indicated. She has had a recent cerebrovascular accident and certainly this would need to be cleared by neurology, Dr. Patiño. However, Dr. Patiño does bring up the appropriate point of the ability of the patient to be compliant or affording these medications given her schizophrenia, bipolar disorder and gait instability. Life threatening bleeding would certainly be high risk for this patient. Dr. Patiño has recommended Plavix which seems reasonable. Regarding her chest pain in the setting of an acute cerebrovascular accident, she does not appear to be an ideal candidate for an invasive evaluation and management due to need for use of multiple anticoagulants and the possibility of converting her ischemic cerebrovascular accident into a hemorrhagic CVA. We will need to address this with Dr. Patiño as well. Could also consider stress testing, but again in the context of an acute CVA this may risk worse outcome of the CVA, so again will defer this to Dr. Patiño. In terms of her cardiomyopathy, she is status post an ICD. She is on Aldactone 12.5 once a day, Lasix 40 b.i.d. Optimally she should be on a beta david and RONEN inhibitor; however, again referring back to her CVA, we will need to be cautious with lowering her blood pressure abruptly and would need to have her cleared by Dr. Patiño for use of RONEN inhibitor and beta david. Recommend followup of her echocardiogram, telemetry monitoring and will continue to follow her trends in terms of her chest pain and hemodynamics. MD CHI Castellano/KRISTI , 12:41 PM , 01:30 PM
--- NOTE | 2017-09-21 13:58 | EKG ---
Date Performed: 09/20/2017 Time Performed: 16:25:00 PTAGE: 62 years EKG: ELECTRONIC VENTRICULAR PACEMAKER Since the previous tracing, no significant change noted AB NORMAL RHYTHM ECG PREVIOUS TRACING : 09/19/2017 10.35 DOCTOR: Mae Mcneal Interpretating Date/Time 09/21/2017 13:57:00
--- NOTE | 2017-09-21 13:58 | EKG ---
Date Performed: 09/21/2017 Time Performed: 10:08:39 PTAGE: 62 years EKG: ELECTRONIC VENTRICULAR PACEMAKER Since the previous tracing, no significant change noted AB NORMAL RHYTHM ECG PREVIOUS TRACING : 09/20/2017 16.25 DOCTOR: Mae Mcneal Interpretating Date/Time 09/21/2017 13:57:10
[2017-09-21] MEDS: MORPHINE SULFATE 30 MG CONTROLLED RELEASE TAB PO PRN (18:15)
--- NOTE | 2017-09-21 19:44 | ECHRPT ---
Indication: CVA / TIA CONCLUSIONS Technically very difficult study, making assessment of left ventricular function very suboptimal. Grossly, left ventricular function appears at least mildly reduced. Left ventricular size may be upper [place] l or mildly increased. Possible global hypokinesis. Mild mitral valve regurgitation. The aortic valve is not well visualized. Possible mild calcification of the aortic leaflets. No aortic valve stenosis or regurgitation. BP: / HR: Rhythm: Sinus MEASUREMENTS (Male / Female) Normal Values Technical Quality:Good 2D ECHO LV Diastolic Diameter PLAX 5.8 cm 4.2 - 5.9 / 3.9 - 5.3 cm LV Systolic Diameter PLAX 4.7 cm IVS Diastolic Thickness 1.1 cm 0.6 - 1.0 / 0.6 - 0.9 cm LVPW Diastolic Thickness 1.1 cm 0.6 - 1.0 / 0.6 - 0.9 cm LV Relative Wall Thickness 0.4 LVOT Diameter 2.0 cm M-MODE Aortic Root Diameter MM 2.5 cm LA Systolic Diameter MM 3.8 cm LA Ao Ratio MM 1.5 AV Cusp Separation MM 1.8 cm DOPPLER AV Peak Velocity 118.0 cm/s AV Peak Gradient 5.6 mmHg LVOT Peak Velocity 116.0 cm/s LVOT Peak Gradient 5.4 mmHg AV Area Cont Eq pk 3.1 cm MR Peak Velocity 533.5 cm/s MR Peak Gradient 113.8 mmHg Mitral E Point Velocity 72.1 cm/s Mitral A Point Velocity 114.0 cm/s Mitral E to A Ratio 0.6 LV E' Lateral Velocity 3.6 cm/s Mitral E to LV E' Lateral Ratio 20.0 LV E' Septal Velocity 3.7 cm/s Mitral E to LV E' Septal Ratio 19.5 PV Peak Velocity 144.0 cm/s PV Peak Gradient 8.3 mmHg FINDINGS LEFT VENTRICLE Technically very difficult study, making assessment of left ventricular function very suboptimal. Grossly, left ventricular function appears at least mildly reduced. Left ventricular size may be upper [place] l or mildly increased. Possible global hypokinesis. RIGHT VENTRICLE Normal right ventricular size and systolic function. LEFT ATRIUM The left atrial size is normal. RIGHT ATRIUM The right atrial size is normal. ATRIAL SEPTUM Normal atrial septal thickness without atrial level shunting by limited color doppler interrogation. AORTA The aortic root and proximal ascending aorta are normal in size on limited imaging. MITRAL VALVE Mild mitral valve regurgitation. AORTIC VALVE The aortic valve is not well visualized. Possible mild calcification of the aortic leaflets. No aortic valve stenosis or regurgitation. TRICUSPID VALVE Structurally normal tricuspid valve. No tricuspid valve stenosis or regurgitation. PULMONARY VALVE The pulmonary valve is not well visualized. VESSELS The inferior vena cava is normal in size. PERICARDIUM No pericardial effusion. Ramy Brown MD (Electronically Signed) Final Date:21 September 2017 19:43
[2017-09-21] MEDS: ATORVASTATIN 40 MG TAB PO SCH (21:30)
[2017-09-21] MEDS: QUEtiapine FUMARATE 200 MG TAB PO SCH (21:30)
[2017-09-21] MEDS: traZODone HCL 50 MG TAB PO SCH (21:30)
[2017-09-22] VITALS (11 sets, daily range): BP systolic 119–149; BP diastolic 63–80; PULSE 71–86; RESP 18–22; TEMP 97.5–98.8; O2SAT 92–96
[2017-09-22] MEDS: LEVOTHYROXINE SODIUM 75 MCG TAB PO SCH (05:03)
[2017-09-22] MEDS: LORazepam 0.5 MG TAB PO PRN ×2 (05:03→22:04)
[2017-09-22] MEDS: MORPHINE SULFATE 30 MG CONTROLLED RELEASE TAB PO PRN ×2 (05:03→22:03)
[2017-09-22] MEDS: INSULIN ASPART SUPPLEMENTAL SCALE SQ SCH ×4 (08:00→21:00)
[2017-09-22] MEDS: SODIUM CHLORIDE 0.9% FLUSH 10 ML FLUSH IV FLUSH SCH ×4 (09:00→22:02)
[2017-09-22] MEDS: BUDESONIDE-FORMOTEROL 160/4.5 MCG INHALER INH SCH ×2 (10:34→21:00)
[2017-09-22] MEDS: BENZTROPINE MESYLATE 1 MG TAB PO SCH ×2 (10:34→22:03)
[2017-09-22] MEDS: FERROUS SULFATE 325 MG (65 MG ELEMENTAL IRON) TAB PO SCH ×3 (10:34→18:42)
[2017-09-22] MEDS: DOCUSATE SODIUM 50 MG/SENNA 8.6 MG TAB PO SCH ×2 (10:35→22:04)
[2017-09-22] MEDS: DOCUSATE SODIUM 100 MG CAP PO SCH (10:36)
[2017-09-22] MEDS: FUROSEMIDE 40 MG TAB PO SCH ×2 (10:36→22:03)
[2017-09-22] MEDS: ESCITALOPRAM OXALATE 10 MG TAB PO SCH (10:36)
[2017-09-22] MEDS: SPIRONOLACTONE 25 MG TAB PO SCH (10:37)
[2017-09-22] MEDS: predniSONE 10 MG TAB PO SCH (10:37)
[2017-09-22] MEDS: PANTOPRAZOLE SOD 20 MG DELAYED RELEASE TAB PO SCH (10:38)
[2017-09-22] MEDS: amLODIPine BESYLATE 5 MG TAB PO SCH (10:38)
[2017-09-22] MEDS: ISOSORBIDE MONONITRATE 20 MG TAB PO SCH (10:39)
--- NOTE | 2017-09-22 14:07 | HHI.FPPN ---
Subjective Remarks Patient seen and examined this morning. He states that overnight she started getting new sharp, cramping pain in her legs, arms, and chest. She is also's still having anginal type chest pain. This is chronic for her. States that also her right leg weakness is worse. She also had an episode of confusion. No shortness of breath, no abdominal pain, no nausea/ vomiting. (Lydia Diaz MD R1) Objective Vitals Vital Signs Date Time Temp Pulse Resp B/P (MAP) Pulse Ox O2 Delivery O2 Flow Rate FiO2 09/22/17 13:04 93 Nasal Cannula 09/22/17 12:00 98.4 76 18 143/73 (96) 92 09/22/17 08:00 97.5 71 18 135/65 (88) 96 09/22/17 04:00 98.0 83 22 138/68 (91) 96 09/22/17 00:44 95 09/22/17 00:00 98.8 74 21 149/80 (103) 94 09/21/17 21:44 98 30 09/21/17 20:00 98.9 80 18 124/66 (85) 94 09/21/17 18:09 94 21 09/21/17 16:14 98.3 84 17 124/65 (84) 94 09/21/17 15:00 87 I/O 09/21/17 09/21/17 09/21/17 09/22/17 09/22/17 09/22/17 06:59 14:59 22:59 06:59 14:59 22:59 Intake Total 480 ml Balance 480 ml Intake Oral 480 ml # Voids 2 1 2 # Bowel Movements 0 (Lydia Diaz MD R1) Result Diagram: 09/21/17 0635 09/21/17 0635 Imaging Last Impressions Thoracic Spine X-Ray 09/20/17 0000 Signed Impressions: Service Date/Time: Wednesday, September 20, 2017 16:45 - CONCLUSION: 1. Degenerative changes. No definite compression fracture identified. Miguel Stokes MD Hip X-Ray 09/20/17 0000 Signed Impressions: Service Date/Time: Wednesday, September 20, 2017 16:45 - CONCLUSION: 1. Degenerative arthritic changes. No acute fracture. Miguel Stokes MD Head CT 09/19/17 1008 Signed Impressions: Service Date/Time: Tuesday, September 19, 2017 10:47 - CONCLUSION: No acute intracranial abnormality demonstrated. Ga Torres MD Neck CTA 09/19/17 0000 Signed Impressions: Service Date/Time: Tuesday, September 19, 2017 17:48 - CONCLUSION: Minimal atherosclerotic plaque in the carotid arteries bilaterally. There is no significant stenosis. Mikhail Roche MD Head CTA 09/19/17 0000 Signed Impressions: Service Date/Time: Tuesday, September 19, 2017 17:48 - CONCLUSION: 1. No acute findings. Multinodular goiter noted incidentally. Mikhail Roche MD Objective Remarks GENERAL: This is a well-nourished, well-developed obese female patient laying in bed, in no apparent distress. SKIN: No rashes, ecchymoses or lesions. Cool and dry. HEAD: Atraumatic. Normocephalic. EYES: Extraocular motions intact. No scleral icterus. No injection or drainage. ENT: Nose without bleeding, purulent drainage or septal hematoma. Throat without erythema, tonsillar hypertrophy or exudate. Uvula midline. Airway patent. Edentulous. NECK: Trachea midline. No JVD or lymphadenopathy. Supple. CARDIOVASCULAR: Regular rate and rhythm without murmurs, gallops, or rubs. RESPIRATORY: Inspiratory and expiratory wheezing. Breath sounds equal bilaterally. GASTROINTESTINAL: Abdomen soft, left upper quadrant tenderness, nondistended. No hepato-splenomegaly, or palpable masses. No guarding. MUSCULOSKELETAL: Extremities without clubbing, cyanosis, or edema. No joint tenderness, effusion, or edema noted. No calf tenderness. NEUROLOGICAL: Awake and alert. Cranial nerves II through XII intact. Motor and sensory grossly within normal limits. 3/5 muscle strength in all muscle groups. Left shoulder strength greater than right. Decreased sensation on right face, upper and lower extremities. Normal speech. (Lydia Diaz MD R1) A/P Assessment and Plan 62-year-old -[place]i female with past medical history of atrial fibrillation, hypertension, diabetes admitted due to right sided weakness of unclear etiology. Discharge Planning PT eval recommending home with home health PT Patient does live with her sister, however is a high risk for falls Patient expressed desire for SNF placement if this may be possible, appreciate case management consult (Lydia Diaz MD R1) Attending Attestation Patient seen and examined. Case reviewed and discussed with the resident team. Agree with plan of care as discussed with me and documented in the resident note. Cardiology elected not to cath her at this time as she has multiple other problems. she is not able to care for herself at this time (Loida Nuñez MD) Problem List: (1) Chest pain ICD Codes: R07.9 - Chest pain Status: Acute Plan: She is not the best historian and has many problems but does complain about chest pain. Her chest pain has been constant but also she has chest pain when she walks as well as SOB. She is very deconditioned and has underlying breathing problems, but she could very well have CAD. Cardiology has been consulted - Recommending per discussion with Dr. Patiño, plavix as a reasonable choice for prophylaxis given her neurological history - Not an ideal candidate for invasive evaluation and management secondary to concern for noncompliance - Consider beta david and RONEN inhibitor therapy - Cardiogram on 09/21 showed grossly that left ventricular function appeared at least mildly reduced. Assessment was suboptimal. Possible global hypokinesis. 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 Possible CVA although head CT shows no acute process. Patient not a candidate for MRI due to pacemaker. Patient also has resting tremor of the hand and possibly mouth. This may be due to her psychiatric medications. Head CT on admission, 09/19, shows no acute intracranial abnormality. Head and neck CTAs pending -Consult neurology, appreciate recommendations -possible parkinsonism due to gastric medications -CTA of brain and cervical spine without acute findings -Echocardiogram ordered, awaiting results -Plavix therapy initiated -Speech therapy consult, appreciate recommendations -Physical therapy consult -Neuro checks every 4 hours -OT consult Discontinued Eliquis due to concern for intracranial hemorrhage especially given her history of falls Psychiatry consulted, appreciate recommendations - has discontinued risperdal and started patient on Seroquel as well as benztropine to help with potential symptoms related to EPS (3) DM (diabetes mellitus) ICD Codes: E11.9 - Diabetes mellitus Status: Chronic Plan: Bedside glucose monitoring Low-dose sliding scale NovoLog insulin Hypoglycemia protocol (4) Anxiety and depression ICD Codes: F41.9 - Anxiety disorder, unspecified; F32.9 - Major depressive disorder, single episode, unspecified Status: Chronic Plan: -Continue at home escitalopram 10 mg p.o. daily Continue home trazodone 50 mg p.o. at bedtime (5) Bipolar 1 disorder ICD Codes: F31.9 - Bipolar I disorder Status: Acute Plan: Continue at home risperidone 2 mg p.o. every 12 hours (6) Restless leg syndrome ICD Codes: G25.81 - Restless legs syndrome Status: Acute Plan: Continue at home ferrous sulfate 325 mg p.o. 3 times daily PC Continue home ropinirole 8 mg p.o. twice daily (7) Hypothyroidism ICD Codes: E03.9 - Hypothyroidism Status: Chronic Plan: Continue at home levothyroxine 75 mcg p.o. daily (8) Hypertension ICD Codes: I10 - Essential (primary) hypertension Status: Chronic Plan: Continue at home amlodipine 5 mg p.o. daily Continue furosemide 40 mg p.o. twice daily Continue at home spironolactone 12.5 mg p.o. daily (9) COPD (chronic obstructive pulmonary disease) ICD Codes: J44.9 - Chronic obstructive pulmonary disease Status: Chronic Plan: Continue at home albuterol nebulizer every 4 hours Continue home Symbicort inhaler (10) MARYAN on CPAP ICD Codes: G47.33 - Obstructive sleep apnea (adult) (pediatric); Z99.89 - Dependence on other enabling machines and devices Status: Acute Plan: Use alternative BiPAP while hospitalized (11) FEN Status: Acute Plan: Fluids: per PO Electrolytes: monitor and replete as needed Nutrition: Diabetic diet DVT Prophylaxis: Lovenox 40mg sq q24h GI Prophylaxis: Continue home pantoprazole 20 mg po daily Pain management: Continue home morphine 30 mg twice daily as needed (Lydia Diaz MD R1) Problem Qualifiers (1) Chest pain: Qualified Codes: R07.2 - Precordial pain (2) DM (diabetes mellitus): Qualified Codes: E11.8 - Type 2 diabetes mellitus with unspecified complications (3) Hypothyroidism: Qualified Codes: E03.9 - Hypothyroidism, unspecified (4) Hypertension: Qualified Codes: I10 - Essential (primary) hypertension (5) COPD (chronic obstructive pulmonary disease): Qualified Codes: J44.9 - Chronic obstructive pulmonary disease, unspecified Lydia Diaz MD R1 Sep 22, 2017 14:07 Loida Nuñez MD Sep 24, 2017 09:08
--- NOTE | 2017-09-22 18:58 | HHI.PYPN ---
Subjective Remarks The patient is a 62-year-old -[place] woman, domiciled in [facility] with her daughter, , unemployed, on SSI, with psychiatric history of schizophrenia, bipolar disorder, four previous psychiatric hospitalizations, the last hospitalization was in the 90s, outpatient psychiatric care in [facility], who was seen by initial consult by Dr. Allan due to suspicion of EPS from psychotropic regimen is seen today for follow-up. Patient was found sitting in hospital chair noted to have any tremors or EPS noted during interview. Patient states that the tremor she was experiencing previously of her right arm and hand as well as her jaw had resolved. Recent medication adjustments included discontinuation of risperidone, patient continued on escitalopram, trazodone as well as quetiapine along with the addition of benztropine which patient has been tolerating well. Patient noted to have organized thought process, no indication of any acute psychotic symptoms at this time and patient tolerating medication regimen well with no adverse drug reactions. Patient reports current mood as being "okay", denying any SI or HI, AVH or delusions. Mental Status Examination Appearance: Appropriate Consciousness: Alert Orientation: x4 Motor Activity: Normal gait Speech: Unremarkable Language: Adequate Fund of Knowledge: Adequate Attention and Concentration: Adequate Memory: Unremarkable Mood: Appropriate Affect: Appropriate Thought Process & Associations: Intact Thought Content: Appropriate Hallucination Type: None Delusion Type: None Suicidal Ideation: No Suicidal Plan: No Suicidal Intention: No Homicidal Ideation: No Homicidal Plan: No Homicidal Intention: No Insight: Adequate Judgment: Adequate Results Vitals/IOs Vital Signs Date Time Temp Pulse Resp B/P (MAP) Pulse Ox O2 Delivery O2 Flow Rate FiO2 09/22/17 16:00 98.4 82 18 119/63 (81) 92 09/22/17 13:04 Nasal Cannula 09/21/17 21:44 30 Assessment & Plan Problem List: (1) Schizophrenia ICD Codes: F20.9 - Schizophrenia, unspecified Status: Chronic Assessment & Plan Patient this time continues to be noted to be psychiatrically stable, no acute symptomatology, no mood or psychotic symptoms, tolerating medication regimen well. Patient may continue current treatment regimen and outpatient follow for continuity of care. We will sign off, reconsult if needed. Consult appreciated. Justification for Cont. Inpt. Patient requires further medical stabilization Aditya Rojas MD Sep 22, 2017 18:58
[2017-09-22] MEDS: traZODone HCL 50 MG TAB PO SCH (22:03)
[2017-09-22] MEDS: ATORVASTATIN 80 MG TAB PO SCH (22:04)
[2017-09-22] MEDS: QUEtiapine FUMARATE 200 MG TAB PO SCH (22:05)
[2017-09-23] VITALS (9 sets, daily range): BP systolic 121–150; BP diastolic 58–77; PULSE 74–85; RESP 16–20; TEMP 97.6–98.3; O2SAT 92–99
[2017-09-23] MEDS: LORazepam 0.5 MG TAB PO PRN ×2 (06:04→12:59)
[2017-09-23] MEDS: LEVOTHYROXINE SODIUM 75 MCG TAB PO SCH (06:04)
[2017-09-23] MEDS: INSULIN ASPART SUPPLEMENTAL SCALE SQ SCH ×4 (08:00→21:00)
[2017-09-23] MEDS: SODIUM CHLORIDE 0.9% FLUSH 10 ML FLUSH IV FLUSH SCH ×4 (09:00→21:00)
[2017-09-23 09:13] LABS: BICARBONATE 29.4 MEQ/L (21.0-32.0); CALCIUM 9.3 MG/DL (8.5-10.1); CREATININE 0.98 MG/DL (0.50-1.00)
[2017-09-23] MEDS: ESCITALOPRAM OXALATE 10 MG TAB PO SCH (09:27)
[2017-09-23] MEDS: BENZTROPINE MESYLATE 1 MG TAB PO SCH ×2 (09:27→20:52)
[2017-09-23] MEDS: FERROUS SULFATE 325 MG (65 MG ELEMENTAL IRON) TAB PO SCH ×3 (09:27→17:21)
[2017-09-23] MEDS: SPIRONOLACTONE 25 MG TAB PO SCH (09:27)
[2017-09-23] MEDS: DOCUSATE SODIUM 50 MG/SENNA 8.6 MG TAB PO SCH ×2 (09:27→20:53)
[2017-09-23] MEDS: FUROSEMIDE 40 MG TAB PO SCH ×2 (09:27→20:58)
[2017-09-23] MEDS: predniSONE 10 MG TAB PO SCH (09:27)
[2017-09-23] MEDS: DOCUSATE SODIUM 100 MG CAP PO SCH (09:28)
[2017-09-23] MEDS: PANTOPRAZOLE SOD 20 MG DELAYED RELEASE TAB PO SCH (09:28)
[2017-09-23] MEDS: amLODIPine BESYLATE 5 MG TAB PO SCH (09:28)
[2017-09-23] MEDS: ISOSORBIDE MONONITRATE 20 MG TAB PO SCH (09:36)
[2017-09-23] MEDS: MORPHINE SULFATE 30 MG CONTROLLED RELEASE TAB PO PRN ×2 (09:57→20:58)
--- NOTE | 2017-09-23 11:03 | HHI.FPPN ---
Subjective Remarks Patient is seen and examined this morning. She states that she is tired. She was unable to rest well last night. She is also still having some cramping in her legs, chest, and back. Is also having chest pain when she gets up to walk to the bathroom. Is not experiencing any shortness of breath, no abdominal pain , no nausea or vomiting. She no longer has any hand or mouth tremors. (Lydia Diaz MD R1) Objective Vitals Vital Signs Date Time Temp Pulse Resp B/P (MAP) Pulse Ox O2 Delivery O2 Flow Rate FiO2 09/23/17 08:00 97.6 83 18 142/76 (98) 99 09/23/17 04:00 97.8 77 20 150/77 (101) 95 09/23/17 02:36 93 21 09/23/17 00:00 98.2 77 20 138/72 (94) 95 09/22/17 23:45 93 21 09/22/17 21:36 92 21 09/22/17 20:00 98.6 86 18 129/73 (91) 94 09/22/17 16:00 98.4 82 18 119/63 (81) 92 09/22/17 14:16 71 09/22/17 13:04 93 Nasal Cannula 09/22/17 12:00 98.4 76 18 143/73 (96) 92 I/O 09/22/17 09/22/17 09/22/17 09/23/17 09/23/17 09/23/17 07:00 15:00 23:00 07:00 15:00 23:00 Intake Total 480 ml Balance 480 ml Intake Oral 480 ml # Voids 2 1 3 # Bowel Movements 0 0 (Lydia Diaz MD R1) Result Diagram: 09/21/17 0635 09/23/17 0715 Imaging Last Impressions Thoracic Spine X-Ray 09/20/17 0000 Signed Impressions: Service Date/Time: Wednesday, September 20, 2017 16:45 - CONCLUSION: 1. Degenerative changes. No definite compression fracture identified. Miguel Stokes MD Hip X-Ray 09/20/17 0000 Signed Impressions: Service Date/Time: Wednesday, September 20, 2017 16:45 - CONCLUSION: 1. Degenerative arthritic changes. No acute fracture. Miguel Stokes MD Head CT 09/19/17 1008 Signed Impressions: Service Date/Time: Tuesday, September 19, 2017 10:47 - CONCLUSION: No acute intracranial abnormality demonstrated. Ga Torres MD Neck CTA 09/19/17 0000 Signed Impressions: Service Date/Time: Tuesday, September 19, 2017 17:48 - CONCLUSION: Minimal atherosclerotic plaque in the carotid arteries bilaterally. There is no significant stenosis. Mikhail Roche MD Head CTA 09/19/17 0000 Signed Impressions: Service Date/Time: Tuesday, September 19, 2017 17:48 - CONCLUSION: 1. No acute findings. Multinodular goiter noted incidentally. Mikhail Roche MD Objective Remarks GENERAL: This is a well-nourished, well-developed obese female patient sitting in chair, in no apparent distress. SKIN: No rashes, ecchymoses or lesions. Cool and dry. HEAD: Atraumatic. Normocephalic. EYES: Extraocular motions intact. No scleral icterus. No injection or drainage. ENT: Nose without bleeding, purulent drainage or septal hematoma. Throat without erythema, tonsillar hypertrophy or exudate. Uvula midline. Airway patent. Edentulous. NECK: Trachea midline. No JVD or lymphadenopathy. Supple. CARDIOVASCULAR: Regular rate and rhythm without murmurs, gallops, or rubs. RESPIRATORY: Inspiratory and expiratory wheezing. Breath sounds equal bilaterally. GASTROINTESTINAL: Abdomen soft, nontender, nondistended. No hepato-splenomegaly , or palpable masses. No guarding. MUSCULOSKELETAL: Extremities without clubbing, cyanosis, or edema. No joint tenderness, effusion, or edema noted. No calf tenderness. NEUROLOGICAL: Awake and alert. Cranial nerves II through XII intact. Motor and sensory grossly within normal limits. 3/5 muscle strength in all muscle groups. Left shoulder strength greater than right. Decreased sensation on right face, upper and lower extremities. Normal speech. (Lydia Diaz MD R1) A/P Assessment and Plan 62-year-old -Lebanese female with past medical history of atrial fibrillation, hypertension, diabetes admitted due to right sided weakness of unclear etiology. Discharge Planning PT eval recommending home with home health PT Patient does live with her sister, however is a high risk for falls Patient expressed desire for SNF placement if this may be possible, appreciate case management consult (Lydia Diaz MD R1) Attending Attestation Patient seen and examined. Case reviewed and discussed with the resident team. Agree with plan of care as discussed with me and documented in the resident note. she has multiple problems and is very deconditioned. she has agreed to go to a SNF skilled nursing (Loida Nuñez MD) Problem List: (1) Chest pain ICD Codes: R07.9 - Chest pain Status: Acute Plan: She is not the best historian and has many problems but does complain about chest pain. Her chest pain has been constant but also she has chest pain when she walks as well as SOB. She is very deconditioned and has underlying breathing problems, but she could very well have CAD. Cardiology has been consulted - Recommending per discussion with Dr. Patiño, plavix as a reasonable choice for prophylaxis given her neurological history - Not an ideal candidate for invasive evaluation and management secondary to concern for noncompliance - Consider beta david and RONEN inhibitor therapy - Cardiogram on 09/21 showed grossly that left ventricular function appeared at least mildly reduced. Assessment was suboptimal. Possible global hypokinesis. 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 Possible CVA although head CT shows no acute process. Patient not a candidate for MRI due to pacemaker. Patient also has resting tremor of the hand and possibly mouth. This may be due to her psychiatric medications. Head CT on admission, 09/19, shows no acute intracranial abnormality. Head and neck CTAs pending -Consult neurology, appreciate recommendations -possible parkinsonism due to gastric medications -CTA of brain and cervical spine without acute findings -Echocardiogram ordered, awaiting results -Plavix therapy initiated -Speech therapy consult, appreciate recommendations -Physical therapy consult -Neuro checks every 4 hours -OT consult -Psychiatry consulted, appreciate recommendations -has discontinued Risperdal and started patient on Seroquel as well as benztropine to help with potential symptoms related to EPS -Outpatient follow-up for continuity of care Discontinued Eliquis due to concern for intracranial hemorrhage especially given her history of falls (3) DM (diabetes mellitus) ICD Codes: E11.9 - Diabetes mellitus Status: Chronic Plan: Bedside glucose monitoring Low-dose sliding scale NovoLog insulin Hypoglycemia protocol (4) Anxiety and depression ICD Codes: F41.9 - Anxiety disorder, unspecified; F32.9 - Major depressive disorder, single episode, unspecified Status: Chronic Plan: -Continue at home escitalopram 10 mg p.o. daily Continue home trazodone 50 mg p.o. at bedtime (5) Bipolar 1 disorder ICD Codes: F31.9 - Bipolar I disorder Status: Acute Plan: Continue at home risperidone 2 mg p.o. every 12 hours (6) Restless leg syndrome ICD Codes: G25.81 - Restless legs syndrome Status: Acute Plan: Continue at home ferrous sulfate 325 mg p.o. 3 times daily PC Continue home ropinirole 8 mg p.o. twice daily (7) Hypothyroidism ICD Codes: E03.9 - Hypothyroidism Status: Chronic Plan: Continue at home levothyroxine 75 mcg p.o. daily (8) Hypertension ICD Codes: I10 - Essential (primary) hypertension Status: Chronic Plan: Continue at home amlodipine 5 mg p.o. daily Continue furosemide 40 mg p.o. twice daily Continue at home spironolactone 12.5 mg p.o. daily (9) COPD (chronic obstructive pulmonary disease) ICD Codes: J44.9 - Chronic obstructive pulmonary disease Status: Chronic Plan: Continue at home albuterol nebulizer every 4 hours Continue home Symbicort inhaler (10) MARYAN on CPAP ICD Codes: G47.33 - Obstructive sleep apnea (adult) (pediatric); Z99.89 - Dependence on other enabling machines and devices Status: Acute Plan: Use alternative BiPAP while hospitalized (11) FEN Status: Acute Plan: Fluids: per PO Electrolytes: monitor and replete as needed Nutrition: Diabetic diet DVT Prophylaxis: Lovenox 40mg sq q24h GI Prophylaxis: Continue home pantoprazole 20 mg po daily Pain management: Continue home morphine 30 mg twice daily as needed (Lydia Diaz MD R1) Problem Qualifiers (1) Chest pain: Qualified Codes: R07.2 - Precordial pain (2) DM (diabetes mellitus): Qualified Codes: E11.8 - Type 2 diabetes mellitus with unspecified complications (3) Hypothyroidism: Qualified Codes: E03.9 - Hypothyroidism, unspecified (4) Hypertension: Qualified Codes: I10 - Essential (primary) hypertension (5) COPD (chronic obstructive pulmonary disease): Qualified Codes: J44.9 - Chronic obstructive pulmonary disease, unspecified Lydia Diaz MD R1 Sep 23, 2017 11:03 Loida Nuñez MD Sep 24, 2017 09:09
[2017-09-23] MEDS ORDERED: POTASSIUM CHLORIDE 25 MEQ EFFERVESCENT TAB PO ONE (12:00)
[2017-09-23] MEDS: BUDESONIDE-FORMOTEROL 160/4.5 MCG INHALER INH SCH ×2 (13:00→21:00)
[2017-09-23] MEDS: PROCHLORPERAZINE MALEATE 10 MG TAB PO PRN (20:51)
[2017-09-23] MEDS: traZODone HCL 50 MG TAB PO SCH (20:52)
[2017-09-23] MEDS: QUEtiapine FUMARATE 200 MG TAB PO SCH (20:53)
[2017-09-23] MEDS: ATORVASTATIN 80 MG TAB PO SCH (20:53)
[2017-09-24] VITALS (8 sets, daily range): BP systolic 112–151; BP diastolic 56–81; PULSE 67–92; RESP 16–18; TEMP 98.2–98.6; O2SAT 91–97
[2017-09-24] MEDS: LEVOTHYROXINE SODIUM 75 MCG TAB PO SCH (05:25)
[2017-09-24] MEDS: INSULIN ASPART SUPPLEMENTAL SCALE SQ SCH ×4 (08:00→20:50)
[2017-09-24] MEDS: BUDESONIDE-FORMOTEROL 160/4.5 MCG INHALER INH SCH ×2 (08:40→20:51)
[2017-09-24] MEDS: SODIUM CHLORIDE 0.9% FLUSH 10 ML FLUSH IV FLUSH SCH ×4 (08:40→20:50)
[2017-09-24] MEDS: ESCITALOPRAM OXALATE 10 MG TAB PO SCH (08:40)
[2017-09-24] MEDS: BENZTROPINE MESYLATE 1 MG TAB PO SCH ×2 (08:40→20:46)
[2017-09-24] MEDS: ISOSORBIDE MONONITRATE 20 MG TAB PO SCH (08:41)
[2017-09-24] MEDS: FUROSEMIDE 40 MG TAB PO SCH ×2 (08:41→20:46)
[2017-09-24] MEDS: PANTOPRAZOLE SOD 20 MG DELAYED RELEASE TAB PO SCH (08:41)
[2017-09-24] MEDS: DOCUSATE SODIUM 100 MG CAP PO SCH (08:41)
[2017-09-24] MEDS: SPIRONOLACTONE 25 MG TAB PO SCH (08:41)
[2017-09-24] MEDS: predniSONE 10 MG TAB PO SCH (08:41)
[2017-09-24] MEDS: FERROUS SULFATE 325 MG (65 MG ELEMENTAL IRON) TAB PO SCH ×3 (08:41→17:32)
[2017-09-24] MEDS: amLODIPine BESYLATE 5 MG TAB PO SCH (08:41)
[2017-09-24] MEDS: DOCUSATE SODIUM 50 MG/SENNA 8.6 MG TAB PO SCH ×2 (08:42→20:45)
[2017-09-24] MEDS: MORPHINE SULFATE 30 MG CONTROLLED RELEASE TAB PO PRN ×2 (09:43→22:13)
[2017-09-24] MEDS ORDERED: MORP60TA24 PO (09:44)
[2017-09-24] MEDS ORDERED: LORA-392 PO (09:44)
[2017-09-24] MEDS ORDERED: Benztropine PO (09:44)
--- NOTE | 2017-09-24 09:45 | HHI.DCPOC ---
Discharge Care Plan Diagnosis: (1) Chest pain (2) FEN (3) Parkinsonism due to drug (4) Hyperlipemia (5) Hypertension (6) Hypothyroidism (7) CHF (congestive heart failure) (8) Cardiomyopathy (9) Schizophrenia (10) Bipolar 1 disorder (11) Restless leg syndrome (12) GERD (gastroesophageal reflux disease) (13) Chronic back pain Goals to Promote Your Health * To prevent worsening of your condition and complications * To maintain your health at the optimal level Directions to Meet Your Goals Take your medications as prescribed Follow your dietary instruction Follow activity as directed Keep your appointments as scheduled Take your immunizations and boosters as scheduled If your symptoms worsen call your PCP, if no PCP go to Urgent Care Center or Emergency Room Smoking is Dangerous to Your Health. Avoid second hand smoke Call the 24-hour hour crisis hotline for domestic abuse at Luis Angel Rodriguez MD, R3 Sep 24, 2017 09:45
--- NOTE | 2017-09-24 09:47 | HHI.FPPN ---
Subjective Remarks Very pleasant. AFVSS for age. Reporting worsening pain in her legs and thighs. No new SOB, CP, or palpitations. Slept well. Eating normal diet with normal BM and UO. No other concerns besides pain. (Luis Angel Rodriguez MD, R3) Objective Vitals Vital Signs Date Time Temp Pulse Resp B/P (MAP) Pulse Ox O2 Delivery O2 Flow Rate FiO2 09/24/17 08:00 98.2 78 18 126/56 (79) 93 09/24/17 04:00 81 09/24/17 04:00 98.2 75 16 151/81 (104) 91 09/24/17 00:00 98.3 67 16 143/70 (94) 93 09/23/17 21:37 96 21 09/23/17 20:00 98.0 74 16 127/61 (83) 98 09/23/17 16:00 98.3 81 18 121/58 (79) 92 09/23/17 16:00 85 09/23/17 12:00 98.3 82 18 123/60 (81) 97 09/23/17 12:00 78 09/23/17 11:25 93 21 I/O 09/23/17 09/23/17 09/23/17 09/24/17 09/24/17 09/24/17 07:00 15:00 23:00 07:00 15:00 23:00 Intake Total 480 ml Balance 480 ml Intake Oral 480 ml # Voids 3 # Bowel Movements 0 (Luis Angel Rodriguez MD, R3) Result Diagram: 09/21/17 0635 09/23/17 0715 Objective Remarks GENERAL: This is a well-nourished, well-developed obese female patient sitting in chair, in no apparent distress. SKIN: No rashes, ecchymoses or lesions. Cool and dry. HEAD: Atraumatic. Normocephalic. EYES: Extraocular motions intact. No scleral icterus. No injection or drainage. ENT: Nose without bleeding, purulent drainage or septal hematoma. Throat without erythema, tonsillar hypertrophy or exudate. Uvula midline. Airway patent. Edentulous. NECK: Trachea midline. No JVD or lymphadenopathy. Supple. CARDIOVASCULAR: Regular rate and rhythm without murmurs, gallops, or rubs. RESPIRATORY: Inspiratory and expiratory wheezing. Breath sounds equal bilaterally. GASTROINTESTINAL: Abdomen soft, nontender, nondistended. No hepato-splenomegaly , or palpable masses. No guarding. MUSCULOSKELETAL: Extremities without clubbing, cyanosis, or edema. No joint tenderness, effusion, or edema noted. No calf tenderness. NEUROLOGICAL: Awake and alert. Cranial nerves II through XII intact. Motor and sensory grossly within normal limits. 3/5 muscle strength in all muscle groups. Left shoulder strength greater than right. Decreased sensation on right face, upper and lower extremities. Normal speech. (Luis Angel Rodriguez MD, R3) A/P Assessment and Plan 62-year-old -[place] female with past medical history of atrial fibrillation, hypertension, diabetes admitted due to right sided weakness of unclear etiology. Discharge Planning PT eval recommending home with home health PT Patient does live with her sister, however is a high risk for falls Patient expressed desire for SNF placement if this may be possible, appreciate case management consult (Luis Angel Rodriguez MD, R3) Attending Attestation Patient seen and examined. Case reviewed and discussed with the resident team. Agree with plan of care as discussed with me and documented in the resident note. Ms Rubi has had about 4 falls in the last few weeks. will send her to a SNF (Loida Nuñez MD) Problem List: (1) Chest pain ICD Codes: R07.9 - Chest pain Status: Acute Plan: She is not the best historian and has many problems but does complain about chest pain. Her chest pain has been constant but also she has chest pain when she walks as well as SOB. She is very deconditioned and has underlying breathing problems, but she could very well have CAD. Cardiology has been consulted - Recommending per discussion with Dr. Patiño, plavix as a reasonable choice for prophylaxis given her neurological history. - Not an ideal candidate for invasive evaluation and management secondary to concern for noncompliance - Consider beta david and RONEN inhibitor therapy - Cardiogram on 09/21 showed grossly that left ventricular function appeared at least mildly reduced. Assessment was suboptimal. Possible global hypokinesis. 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 Possible CVA although head CT shows no acute process. Patient not a candidate for MRI due to pacemaker. Patient also has resting tremor of the hand and possibly mouth. This may be due to her psychiatric medications. Head CT on admission, 09/19, shows no acute intracranial abnormality. Head and neck CTAs pending -Consult neurology, appreciate recommendations -possible parkinsonism due to gastric medications -CTA of brain and cervical spine without acute findings -Echocardiogram ordered, awaiting results -Plavix therapy initiated -Speech therapy consult, appreciate recommendations -Physical therapy consult -Neuro checks every 4 hours -OT consult -Psychiatry consulted, appreciate recommendations -has discontinued Risperdal and started patient on Seroquel as well as benztropine to help with potential symptoms related to EPS -Outpatient follow-up for continuity of care Patient desires to restart eliquis BID for stroke prophylaxis. Warned about risk of falls and bleeding. She was able to undertsand these risks and is wanting to restart her blood thinner. (3) DM (diabetes mellitus) ICD Codes: E11.9 - Diabetes mellitus Status: Chronic Plan: Bedside glucose monitoring Low-dose sliding scale NovoLog insulin Hypoglycemia protocol (4) Anxiety and depression ICD Codes: F41.9 - Anxiety disorder, unspecified; F32.9 - Major depressive disorder, single episode, unspecified Status: Chronic Plan: -Continue at home escitalopram 10 mg p.o. daily Continue home trazodone 50 mg p.o. at bedtime (5) Bipolar 1 disorder ICD Codes: F31.9 - Bipolar I disorder Status: Acute Plan: Switched to seroquel 200 mg at bedtime. (6) Restless leg syndrome ICD Codes: G25.81 - Restless legs syndrome Status: Acute Plan: Continue at home ferrous sulfate 325 mg p.o. 3 times daily PC Continue home ropinirole 8 mg p.o. twice daily (7) Hypothyroidism ICD Codes: E03.9 - Hypothyroidism Status: Chronic Plan: Continue at home levothyroxine 75 mcg p.o. daily (8) Hypertension ICD Codes: I10 - Essential (primary) hypertension Status: Chronic Plan: Continue at home amlodipine 5 mg p.o. daily Continue furosemide 40 mg p.o. twice daily Continue at home spironolactone 12.5 mg p.o. daily (9) COPD (chronic obstructive pulmonary disease) ICD Codes: J44.9 - Chronic obstructive pulmonary disease Status: Chronic Plan: Continue at home albuterol nebulizer every 4 hours Continue home Symbicort inhaler (10) MARYAN on CPAP ICD Codes: G47.33 - Obstructive sleep apnea (adult) (pediatric); Z99.89 - Dependence on other enabling machines and devices Status: Acute Plan: Use alternative BiPAP while hospitalized (11) FEN Status: Acute Plan: Fluids: per PO Electrolytes: monitor and replete as needed Nutrition: Diabetic diet DVT Prophylaxis: Lovenox 40mg sq q24h GI Prophylaxis: Continue home pantoprazole 20 mg po daily Pain management: Continue home morphine 30 mg twice daily as needed SDW Dr. Nuñez. (Luis Angel Rodriguez MD, R3) Problem Qualifiers (1) Chest pain: Qualified Codes: R07.2 - Precordial pain (2) COPD (chronic obstructive pulmonary disease): Qualified Codes: J44.9 - Chronic obstructive pulmonary disease, unspecified Luis Angel Rodriguez MD, R3 Sep 24, 2017 09:46 Loida Nuñez MD Sep 24, 2017 12:22
[2017-09-24] MEDS ORDERED: APIX5TAB PO (10:09)
[2017-09-24] MEDS: LORazepam 0.5 MG TAB PO PRN (15:45)
[2017-09-24] MEDS: traZODone HCL 50 MG TAB PO SCH (20:45)
[2017-09-24] MEDS: ATORVASTATIN 80 MG TAB PO SCH (20:45)
[2017-09-24] MEDS: QUEtiapine FUMARATE 200 MG TAB PO SCH (20:46)
[2017-09-25] VITALS (9 sets, daily range): BP systolic 108–136; BP diastolic 56–74; PULSE 65–96; RESP 16–18; TEMP 97.9–98.9; O2SAT 72–100
[2017-09-25] MEDS: LEVOTHYROXINE SODIUM 75 MCG TAB PO SCH (06:14)
[2017-09-25] MEDS: INSULIN ASPART SUPPLEMENTAL SCALE SQ SCH ×4 (08:00→21:00)
[2017-09-25] MEDS: BUDESONIDE-FORMOTEROL 160/4.5 MCG INHALER INH SCH ×2 (09:00→22:20)
[2017-09-25] MEDS: SODIUM CHLORIDE 0.9% FLUSH 10 ML FLUSH IV FLUSH SCH ×3 (09:00→22:23)
[2017-09-25 09:39] LABS: BICARBONATE 29.3 MEQ/L (21.0-32.0); CALCIUM 9.1 MG/DL (8.5-10.1); CREATININE 0.99 MG/DL (0.50-1.00); MAGNESIUM 2.3 MG/DL (1.5-2.5)
[2017-09-25] MEDS: SPIRONOLACTONE 25 MG TAB PO SCH (11:07)
[2017-09-25] MEDS: DOCUSATE SODIUM 50 MG/SENNA 8.6 MG TAB PO SCH ×2 (11:07→22:19)
[2017-09-25] MEDS: ISOSORBIDE MONONITRATE 20 MG TAB PO SCH (11:07)
[2017-09-25] MEDS: DOCUSATE SODIUM 100 MG CAP PO SCH (11:08)
[2017-09-25] MEDS: FUROSEMIDE 40 MG TAB PO SCH ×2 (11:08→22:20)
[2017-09-25] MEDS: amLODIPine BESYLATE 5 MG TAB PO SCH (11:08)
[2017-09-25] MEDS: FERROUS SULFATE 325 MG (65 MG ELEMENTAL IRON) TAB PO SCH ×3 (11:08→17:23)
[2017-09-25] MEDS: predniSONE 10 MG TAB PO SCH (11:08)
--- NOTE | 2017-09-25 11:08 | HHI.FPPN ---
Subjective Remarks No acute events overnight. Afebrile, vitals stable. Patient sitting up on side of bed this morning eating breakfast. She denies any new focal neuro deficit, fevers, chest pain, dyspnea. (Kuldip Connor MD R2) Objective Vitals Vital Signs Date Time Temp Pulse Resp B/P (MAP) Pulse Ox O2 Delivery O2 Flow Rate FiO2 09/25/17 08:35 97.9 66 18 136/65 (88) 100 09/25/17 04:00 98.0 70 16 116/74 (88) 09/25/17 04:00 65 09/25/17 00:56 Nasal Cannula 2.00 09/25/17 00:00 98.0 69 16 120/74 (89) 92 09/25/17 00:00 82 09/24/17 20:00 98.6 72 16 112/69 (83) 97 09/24/17 19:17 Nasal Cannula 2.00 09/24/17 18:54 70 16 125/69 (87) 93 09/24/17 12:00 92 (Kuldip Connor MD R2) Result Diagram: 09/21/17 0635 09/25/17 0756 Objective Remarks GENERAL: This is a well-nourished, well-developed obese female patient sitting in chair, in no apparent distress. SKIN: No rashes, ecchymoses or lesions. Cool and dry. HEAD: Atraumatic. Normocephalic. EYES: Extraocular motions intact. No scleral icterus. No injection or drainage. ENT: MMM. Uvula midline. Airway patent. Edentulous. NECK: Trachea midline. No JVD or lymphadenopathy. Supple. CARDIOVASCULAR: Regular rate and rhythm without murmurs, gallops, or rubs. RESPIRATORY: Breath sounds equal bilaterally. No w/r/r. GASTROINTESTINAL: Abdomen soft, nontender, nondistended. No hepato-splenomegaly , or palpable masses. No guarding. MUSCULOSKELETAL: Extremities without clubbing, cyanosis, or edema. No joint tenderness, effusion, or edema noted. No calf tenderness. NEUROLOGICAL: Awake and alert. Cranial nerves II through XII intact. Motor and sensory grossly within normal limits. 4/5 muscle strength this morning in all muscle groups. Left shoulder strength greater than right. Decreased sensation on right face, upper and lower extremities. Normal speech. (Kuldip Connor MD R2) A/P Assessment and Plan 62-year-old -[place] female with past medical history of atrial fibrillation, hypertension, diabetes admitted due to right sided weakness of unclear etiology. Discharge Planning PT recommending PT at rehab Patient lives with her sister, is high risk for falls Patient would be appropriate for SNF placement, appreciate case management consult (Kuldip Connor MD R2) Attending Attestation Patient seen and examined. Case reviewed and discussed with the resident team. Agree with plan of care as discussed with me and documented in the resident note. Ms Rubi is slowly improving. hopefully she can get into a SNF. 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 Possible CVA although head CT shows no acute process. Patient not a candidate for MRI due to pacemaker. Patient also has resting tremor of the hand and possibly mouth. This may be due to her psychiatric medications. Head CT on admission, 09/19, shows no acute intracranial abnormality. Head and neck CTAs pending -Consult neurology, appreciate recommendations -possible parkinsonism due to gastric medications -CTA of brain and cervical spine without acute findings -Echocardiogram ordered, awaiting results -Plavix therapy initiated -Speech therapy consult, appreciate recommendations -Physical therapy consult, PT at rehab -Neuro checks every 4 hours -OT consult -Psychiatry consulted, appreciate recommendations -has discontinued Risperdal and started patient on Seroquel as well as benztropine to help with potential symptoms related to EPS -Outpatient follow-up for continuity of care Patient desires to restart eliquis BID for stroke prophylaxis. Warned about risk of falls and bleeding. She was able to understand these risks and is wanting to restart her blood thinner. (2) Chest pain ICD Codes: R07.9 - Chest pain Status: Acute Plan: She is not the best historian and has many problems but does complain about chest pain. Her chest pain has been constant but also she has chest pain when she walks as well as SOB. She is very deconditioned and has underlying breathing problems, but she could very well have CAD. Cardiology has been consulted - Recommending per discussion with Dr. Patiño, plavix as a reasonable choice for prophylaxis given her neurological history. - Not an ideal candidate for invasive evaluation and management secondary to concern for noncompliance - Consider beta david and RONEN inhibitor therapy - Cardiogram on 09/21 showed grossly that left ventricular function appeared at least mildly reduced. Assessment was suboptimal. Possible global hypokinesis. Started Eliquis 5mg po bid as above (3) DM (diabetes mellitus) ICD Codes: E11.9 - Diabetes mellitus Status: Chronic Plan: Bedside glucose monitoring Low-dose sliding scale NovoLog insulin Hypoglycemia protocol (4) Anxiety and depression ICD Codes: F41.9 - Anxiety disorder, unspecified; F32.9 - Major depressive disorder, single episode, unspecified Status: Chronic Plan: -Continue at home escitalopram 10 mg p.o. daily Continue home trazodone 50 mg p.o. at bedtime (5) Bipolar 1 disorder ICD Codes: F31.9 - Bipolar I disorder Status: Acute Plan: Switched to seroquel 200 mg at bedtime. (6) Restless leg syndrome ICD Codes: G25.81 - Restless legs syndrome Status: Acute Plan: Continue at home ferrous sulfate 325 mg p.o. 3 times daily PC Continue home ropinirole 8 mg p.o. twice daily (7) Hypothyroidism ICD Codes: E03.9 - Hypothyroidism Status: Chronic Plan: Continue at home levothyroxine 75 mcg p.o. daily (8) Hypertension ICD Codes: I10 - Essential (primary) hypertension Status: Chronic Plan: Continue at home amlodipine 5 mg p.o. daily Continue furosemide 40 mg p.o. twice daily Continue at home spironolactone 12.5 mg p.o. daily (9) COPD (chronic obstructive pulmonary disease) ICD Codes: J44.9 - Chronic obstructive pulmonary disease Status: Chronic Plan: Continue at home albuterol nebulizer every 4 hours Continue home Symbicort inhaler (10) MARYAN on CPAP ICD Codes: G47.33 - Obstructive sleep apnea (adult) (pediatric); Z99.89 - Dependence on other enabling machines and devices Status: Acute Plan: Use alternative BiPAP while hospitalized (11) FEN Status: Acute Plan: Fluids: per PO Electrolytes: monitor and replete as needed Nutrition: Diabetic diet DVT Prophylaxis: patient restarted on Eliquis GI Prophylaxis: Continue home pantoprazole 20 mg po daily Pain management: Continue home morphine 30 mg twice daily as needed dw Dr. Nuñez. (Kuldip Connor MD R2) Problem Qualifiers (1) Chest pain: Qualified Codes: R07.2 - Precordial pain (2) COPD (chronic obstructive pulmonary disease): Qualified Codes: J44.9 - Chronic obstructive pulmonary disease, unspecified Kuldip Connor MD R2 Sep 25, 2017 11:08 Loida Nuñez MD Sep 26, 2017 12:34
[2017-09-25] MEDS: BENZTROPINE MESYLATE 1 MG TAB PO SCH ×2 (11:09→22:18)
[2017-09-25] MEDS: ESCITALOPRAM OXALATE 10 MG TAB PO SCH (11:09)
[2017-09-25] MEDS: PANTOPRAZOLE SOD 20 MG DELAYED RELEASE TAB PO SCH (11:09)
[2017-09-25] MEDS: APIXABAN 5 MG TABLET PO SCH ×2 (11:56→22:14)
[2017-09-25] MEDS: LORazepam 0.5 MG TAB PO PRN ×2 (11:56→22:19)
[2017-09-25] MEDS: MORPHINE SULFATE 30 MG CONTROLLED RELEASE TAB PO PRN (15:22)
[2017-09-25] MEDS: PROCHLORPERAZINE MALEATE 10 MG TAB PO PRN (17:21)
[2017-09-25] MEDS: ATORVASTATIN 80 MG TAB PO SCH (22:18)
[2017-09-25] MEDS: QUEtiapine FUMARATE 200 MG TAB PO SCH (22:18)
[2017-09-25] MEDS: traZODone HCL 50 MG TAB PO SCH (22:19)
[2017-09-26] VITALS (10 sets, daily range): BP systolic 104–142; BP diastolic 56–74; PULSE 60–85; RESP 18–20; TEMP 97.1–98.7; O2SAT 92–99
[2017-09-26] MEDS: LEVOTHYROXINE SODIUM 75 MCG TAB PO SCH (05:37)
[2017-09-26] MEDS: PROCHLORPERAZINE MALEATE 10 MG TAB PO PRN ×2 (05:37→21:26)
[2017-09-26] MEDS: MORPHINE SULFATE 30 MG CONTROLLED RELEASE TAB PO PRN ×2 (05:37→14:54)
[2017-09-26] MEDS: INSULIN ASPART SUPPLEMENTAL SCALE SQ SCH ×4 (08:00→21:00)
[2017-09-26] MEDS: DOCUSATE SODIUM 50 MG/SENNA 8.6 MG TAB PO SCH ×2 (08:55→21:00)
[2017-09-26] MEDS: SPIRONOLACTONE 25 MG TAB PO SCH (08:55)
[2017-09-26] MEDS: BUDESONIDE-FORMOTEROL 160/4.5 MCG INHALER INH SCH ×2 (08:55→21:20)
[2017-09-26] MEDS: SODIUM CHLORIDE 0.9% FLUSH 10 ML FLUSH IV FLUSH SCH ×4 (08:55→21:28)
[2017-09-26] MEDS: amLODIPine BESYLATE 5 MG TAB PO SCH (08:56)
[2017-09-26] MEDS: APIXABAN 5 MG TABLET PO SCH ×2 (08:56→21:27)
[2017-09-26] MEDS: FERROUS SULFATE 325 MG (65 MG ELEMENTAL IRON) TAB PO SCH ×3 (08:56→18:34)
[2017-09-26] MEDS: BENZTROPINE MESYLATE 1 MG TAB PO SCH ×2 (08:56→21:22)
[2017-09-26] MEDS: predniSONE 10 MG TAB PO SCH (08:56)
[2017-09-26] MEDS: PANTOPRAZOLE SOD 20 MG DELAYED RELEASE TAB PO SCH (08:56)
[2017-09-26] MEDS: ESCITALOPRAM OXALATE 10 MG TAB PO SCH (08:56)
[2017-09-26] MEDS: DOCUSATE SODIUM 100 MG CAP PO SCH (08:56)
[2017-09-26] MEDS: ISOSORBIDE MONONITRATE 20 MG TAB PO SCH (08:56)
[2017-09-26] MEDS: FUROSEMIDE 40 MG TAB PO SCH ×2 (08:57→21:28)
--- NOTE | 2017-09-26 10:51 | HHI.FPPN ---
Subjective Remarks Patient seen and examined this morning. She states that she feels about the same. Is still having some chest pain and cramping in her back. No shortness of breath, no fevers or chills, no abdominal pain, no nausea or vomiting, urinating and stooling well. Has been working with PT on mobility. (Lydia Diaz MD R1) Objective Vitals Vital Signs Date Time Temp Pulse Resp B/P (MAP) Pulse Ox O2 Delivery O2 Flow Rate FiO2 09/26/17 10:16 99 2.00 09/26/17 08:00 Room Air 09/26/17 07:33 98.1 70 20 115/58 (77) 92 09/26/17 05:12 98.0 70 18 110/74 (86) 99 09/26/17 04:00 75 09/26/17 00:00 97.1 67 18 104/59 (74) 99 09/26/17 00:00 60 09/25/17 23:53 93 35 09/25/17 21:00 98.9 96 18 124/68 (86) 72 09/25/17 20:21 Nasal Cannula 2.00 09/25/17 20:00 73 09/25/17 12:53 98.3 70 18 108/56 (73) 99 09/25/17 12:16 75 09/25/17 12:07 95 Nasal Cannula 2.00 I/O 09/25/17 09/25/17 09/25/17 09/26/17 09/26/17 09/26/17 07:00 15:00 23:00 07:00 15:00 23:00 # Voids 1 2 (Lydia Diaz MD R1) Result Diagram: 09/25/17 0756 Imaging Last Impressions Thoracic Spine X-Ray 09/20/17 0000 Signed Impressions: Service Date/Time: Wednesday, September 20, 2017 16:45 - CONCLUSION: 1. Degenerative changes. No definite compression fracture identified. Miguel Stokes MD Hip X-Ray 09/20/17 0000 Signed Impressions: Service Date/Time: Wednesday, September 20, 2017 16:45 - CONCLUSION: 1. Degenerative arthritic changes. No acute fracture. Miguel Stokes MD Head CT 09/19/17 1008 Signed Impressions: Service Date/Time: Tuesday, September 19, 2017 10:47 - CONCLUSION: No acute intracranial abnormality demonstrated. Ga Torres MD Neck CTA 09/19/17 0000 Signed Impressions: Service Date/Time: Tuesday, September 19, 2017 17:48 - CONCLUSION: Minimal atherosclerotic plaque in the carotid arteries bilaterally. There is no significant stenosis. Mikhail Roche MD Head CTA 09/19/17 0000 Signed Impressions: Service Date/Time: Tuesday, September 19, 2017 17:48 - CONCLUSION: 1. No acute findings. Multinodular goiter noted incidentally. Mikhail Roche MD Objective Remarks GENERAL: This is a well-nourished, well-developed obese female patient sitting at edge of bed eating breakfast, in no apparent distress. SKIN: No rashes, ecchymoses or lesions. Cool and dry. HEAD: Atraumatic. Normocephalic. EYES: Extraocular motions intact. No scleral icterus. No injection or drainage. ENT: MMM. Uvula midline. Airway patent. Edentulous. NECK: Trachea midline. No JVD or lymphadenopathy. Supple. CARDIOVASCULAR: Regular rate and rhythm without murmurs, gallops, or rubs. RESPIRATORY: Breath sounds equal bilaterally. No w/r/r. GASTROINTESTINAL: Abdomen soft, nontender, nondistended. No hepato-splenomegaly , or palpable masses. No guarding. MUSCULOSKELETAL: Extremities without clubbing, cyanosis, or edema. No joint tenderness, effusion, or edema noted. No calf tenderness. NEUROLOGICAL: Awake and alert. Cranial nerves II through XII intact. Motor and sensory grossly within normal limits. 4/5 muscle strength this morning in all muscle groups. Left shoulder strength greater than right. Decreased sensation on right face, upper and lower extremities. Normal speech. (Lydia Diaz MD R1) A/P Assessment and Plan 62-year-old -[place] female with past medical history of atrial fibrillation, hypertension, diabetes admitted due to right sided weakness of unclear etiology. Discharge Planning PT changed recommendation to no PT at home Patient lives with her sister, is high risk for falls Patient would be appropriate for SNF placement, appreciate case management consult (Lydia Diaz MD R1) Attending Attestation Patient seen and examined. Case reviewed and discussed with the resident team. Agree with plan of care as discussed with me and documented in the resident note. when discussed, she wants to be on a strong anticoagulant to prevent strokes. she has a fib and is at higher risk because of this for future CVAs. 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 Possible CVA although head CT shows no acute process. Patient not a candidate for MRI due to pacemaker. Patient also has resting tremor of the hand and possibly mouth. This may be due to her psychiatric medications. Head CT on admission, 09/19, shows no acute intracranial abnormality. Head and neck CTAs pending -Consult neurology, appreciate recommendations -possible parkinsonism due to gastric medications -CTA of brain and cervical spine without acute findings -Echocardiogram ordered, awaiting results -Plavix therapy initiated -Speech therapy consult, appreciate recommendations -Physical therapy consult, PT at rehab -Neuro checks every 4 hours -OT consult -Psychiatry consulted, appreciate recommendations -has discontinued Risperdal and started patient on Seroquel as well as benztropine to help with potential symptoms related to EPS -Outpatient follow-up for continuity of care Patient desires to restart eliquis BID for stroke prophylaxis. Warned about risk of falls and bleeding. She was able to understand these risks and is wanting to restart her blood thinner. (2) Chest pain ICD Codes: R07.9 - Chest pain Status: Acute Plan: She is not the best historian and has many problems but does complain about chest pain. Her chest pain has been constant but also she has chest pain when she walks as well as SOB. She is very deconditioned and has underlying breathing problems, but she could very well have CAD. Cardiology has been consulted - Recommending per discussion with Dr. Patiño, plavix as a reasonable choice for prophylaxis given her neurological history. - Not an ideal candidate for invasive evaluation and management secondary to concern for noncompliance - Consider beta david and RONEN inhibitor therapy - Cardiogram on 09/21 showed grossly that left ventricular function appeared at least mildly reduced. Assessment was suboptimal. Possible global hypokinesis. Started Eliquis 5mg po bid as above (3) DM (diabetes mellitus) ICD Codes: E11.9 - Diabetes mellitus Status: Chronic Plan: Bedside glucose monitoring Low-dose sliding scale NovoLog insulin Hypoglycemia protocol (4) Anxiety and depression ICD Codes: F41.9 - Anxiety disorder, unspecified; F32.9 - Major depressive disorder, single episode, unspecified Status: Chronic Plan: -Continue at home escitalopram 10 mg p.o. daily Continue home trazodone 50 mg p.o. at bedtime (5) Bipolar 1 disorder ICD Codes: F31.9 - Bipolar I disorder Status: Acute Plan: Switched to seroquel 200 mg at bedtime. (6) Restless leg syndrome ICD Codes: G25.81 - Restless legs syndrome Status: Acute Plan: Continue at home ferrous sulfate 325 mg p.o. 3 times daily PC Continue home ropinirole 8 mg p.o. twice daily (7) Hypothyroidism ICD Codes: E03.9 - Hypothyroidism Status: Chronic Plan: Continue at home levothyroxine 75 mcg p.o. daily (8) Hypertension ICD Codes: I10 - Essential (primary) hypertension Status: Chronic Plan: Continue at home amlodipine 5 mg p.o. daily Continue furosemide 40 mg p.o. twice daily Continue at home spironolactone 12.5 mg p.o. daily (9) COPD (chronic obstructive pulmonary disease) ICD Codes: J44.9 - Chronic obstructive pulmonary disease Status: Chronic Plan: Continue at home albuterol nebulizer every 4 hours Continue home Symbicort inhaler (10) MARYAN on CPAP ICD Codes: G47.33 - Obstructive sleep apnea (adult) (pediatric); Z99.89 - Dependence on other enabling machines and devices Status: Acute Plan: Use alternative BiPAP while hospitalized (11) FEN Status: Acute Plan: Fluids: per PO Electrolytes: monitor and replete as needed Nutrition: Diabetic diet DVT Prophylaxis: patient restarted on Eliquis GI Prophylaxis: Continue home pantoprazole 20 mg po daily Pain management: Continue home morphine 30 mg twice daily as needed dw Dr. Nuñez. (Lydia Diaz MD R1) Problem Qualifiers (1) Chest pain: Qualified Codes: R07.2 - Precordial pain (2) COPD (chronic obstructive pulmonary disease): Qualified Codes: J44.9 - Chronic obstructive pulmonary disease, unspecified Lydia Diaz MD R1 Sep 26, 2017 10:51 Loida Nuñez MD Sep 26, 2017 12:39
[2017-09-26] MEDS: LORazepam 0.5 MG TAB PO PRN ×2 (14:54→21:28)
[2017-09-26] MEDS: QUEtiapine FUMARATE 200 MG TAB PO SCH (21:20)
[2017-09-26] MEDS: ATORVASTATIN 80 MG TAB PO SCH (21:23)
[2017-09-26] MEDS: traZODone HCL 50 MG TAB PO SCH (21:27)
[2017-09-27] VITALS (8 sets, daily range): BP systolic 111–150; BP diastolic 59–67; PULSE 61–77; RESP 18–20; TEMP 97.6–98.6; O2SAT 93–100
[2017-09-27] MEDS: MORPHINE SULFATE 30 MG CONTROLLED RELEASE TAB PO PRN ×3 (03:28→21:45)
[2017-09-27] MEDS: PROCHLORPERAZINE MALEATE 10 MG TAB PO PRN (03:28)
[2017-09-27] MEDS: LORazepam 0.5 MG TAB PO PRN ×2 (03:28→09:19)
[2017-09-27] MEDS: LEVOTHYROXINE SODIUM 75 MCG TAB PO SCH (05:27)
[2017-09-27] MEDS: INSULIN ASPART SUPPLEMENTAL SCALE SQ SCH ×4 (08:00→21:00)
[2017-09-27] MEDS: SODIUM CHLORIDE 0.9% FLUSH 10 ML FLUSH IV FLUSH SCH ×4 (09:00→21:47)
[2017-09-27] MEDS: BUDESONIDE-FORMOTEROL 160/4.5 MCG INHALER INH SCH ×2 (09:18→22:08)
[2017-09-27] MEDS: BENZTROPINE MESYLATE 1 MG TAB PO SCH ×2 (09:19→21:45)
[2017-09-27] MEDS: amLODIPine BESYLATE 5 MG TAB PO SCH (09:19)
[2017-09-27] MEDS: ISOSORBIDE MONONITRATE 20 MG TAB PO SCH (09:19)
[2017-09-27] MEDS: SPIRONOLACTONE 25 MG TAB PO SCH (09:19)
[2017-09-27] MEDS: ESCITALOPRAM OXALATE 10 MG TAB PO SCH (09:19)
[2017-09-27] MEDS: DOCUSATE SODIUM 100 MG CAP PO SCH (09:19)
[2017-09-27] MEDS: APIXABAN 5 MG TABLET PO SCH ×2 (09:19→21:46)
[2017-09-27] MEDS: FERROUS SULFATE 325 MG (65 MG ELEMENTAL IRON) TAB PO SCH ×3 (09:19→18:21)
[2017-09-27] MEDS: DOCUSATE SODIUM 50 MG/SENNA 8.6 MG TAB PO SCH ×2 (09:20→21:45)
[2017-09-27] MEDS: PANTOPRAZOLE SOD 20 MG DELAYED RELEASE TAB PO SCH (09:20)
[2017-09-27] MEDS: predniSONE 10 MG TAB PO SCH (09:20)
[2017-09-27] MEDS: FUROSEMIDE 40 MG TAB PO SCH ×2 (09:21→21:46)
--- NOTE | 2017-09-27 09:45 | HHI.FPPN ---
Subjective Remarks Patient seen and examined this morning. He states that dizzy and nauseous. She is still having pain located in her left chest, back, and right arm. Chest pain as a same as she has been experiencing while at the hospital and at home. She also states that she still feels weak. No shortness of breath, no abdominal pain, no trouble with urinating or stooling. (Lydia Diaz MD R1) Objective Vitals Vital Signs Date Time Temp Pulse Resp B/P (MAP) Pulse Ox O2 Delivery O2 Flow Rate FiO2 09/27/17 08:00 97.8 61 18 141/63 (89) 97 09/27/17 05:04 97.6 65 20 137/60 (85) 94 09/27/17 01:32 97 30 09/27/17 00:41 98.3 63 20 113/59 (77) 100 09/26/17 22:03 97 BiPAP 09/26/17 21:59 96 30 09/26/17 20:22 98.6 66 20 142/63 (89) 95 09/26/17 20:08 Nasal Cannula 2.00 09/26/17 15:32 98.7 85 20 129/56 (80) 95 09/26/17 11:49 98.2 81 20 121/58 (79) 93 09/26/17 10:16 99 2.00 I/O 09/26/17 09/26/17 09/26/17 09/27/17 09/27/17 09/27/17 07:00 15:00 23:00 07:00 15:00 23:00 # Voids 2 2 2 # Bowel Movements 1 (Lydia Diaz MD R1) Result Diagram: 09/25/17 0756 Imaging Last Impressions Thoracic Spine X-Ray 09/20/17 0000 Signed Impressions: Service Date/Time: Wednesday, September 20, 2017 16:45 - CONCLUSION: 1. Degenerative changes. No definite compression fracture identified. Miguel Stokes MD Hip X-Ray 09/20/17 0000 Signed Impressions: Service Date/Time: Wednesday, September 20, 2017 16:45 - CONCLUSION: 1. Degenerative arthritic changes. No acute fracture. Miguel Stokes MD Head CT 09/19/17 1008 Signed Impressions: Service Date/Time: Tuesday, September 19, 2017 10:47 - CONCLUSION: No acute intracranial abnormality demonstrated. Ga Torres MD Neck CTA 09/19/17 0000 Signed Impressions: Service Date/Time: Tuesday, September 19, 2017 17:48 - CONCLUSION: Minimal atherosclerotic plaque in the carotid arteries bilaterally. There is no significant stenosis. Mikhail Roche MD Head CTA 09/19/17 0000 Signed Impressions: Service Date/Time: Tuesday, September 19, 2017 17:48 - CONCLUSION: 1. No acute findings. Multinodular goiter noted incidentally. Mikhail Roche MD Objective Remarks GENERAL: This is a well-nourished, well-developed obese female patient sitting in bed, in no apparent distress. SKIN: No rashes, ecchymoses or lesions. Cool and dry. HEAD: Atraumatic. Normocephalic. EYES: Extraocular motions intact. No scleral icterus. No injection or drainage. ENT: MMM. Uvula midline. Airway patent. Edentulous. NECK: Trachea midline. No JVD or lymphadenopathy. Supple. CARDIOVASCULAR: Regular rate and rhythm without murmurs, gallops, or rubs. RESPIRATORY: Breath sounds equal bilaterally. No w/r/r. GASTROINTESTINAL: Abdomen soft, nontender, nondistended. No hepato-splenomegaly , or palpable masses. No guarding. MUSCULOSKELETAL: Extremities without clubbing, cyanosis, or edema. No joint tenderness, effusion, or edema noted. No calf tenderness. Left chest wall tender to palpation. NEUROLOGICAL: Awake and alert. Cranial nerves II through XII intact. Motor and sensory grossly within normal limits. 4/5 muscle strength this morning in all muscle groups. Left shoulder strength greater than right. Left tin assorter strength greater than right. Normal speech. (Lydia Diaz MD R1) A/P Assessment and Plan 62-year-old -[place] female with past medical history of atrial fibrillation, hypertension, diabetes admitted due to right sided weakness of unclear etiology. Discharge Planning PT changed recommendation to no PT at home Patient lives with her sister, is high risk for falls Patient would be appropriate for SNF placement, appreciate case management consult (Lydia Diaz MD R1) Attending Attestation Patient seen and examined. Case reviewed and discussed with the resident team. Agree with plan of care as discussed with me and documented in the resident note. 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 Possible CVA although head CT shows no acute process. Patient not a candidate for MRI due to pacemaker. Patient also has resting tremor of the hand and possibly mouth. This may be due to her psychiatric medications. Head CT on admission, 09/19, shows no acute intracranial abnormality. Head and neck CTAs pending -Consult neurology, appreciate recommendations -possible parkinsonism due to psychiatric medications -CTA of brain and cervical spine without acute findings -Echocardiogram ordered, awaiting results -Plavix therapy initiated -Speech therapy consult, appreciate recommendations -Physical therapy consult, PT at rehab -Neuro checks every 4 hours -OT consult -Psychiatry consulted, appreciate recommendations -has discontinued Risperdal and started patient on Seroquel as well as benztropine to help with potential symptoms related to EPS -Outpatient follow-up for continuity of care Patient desires to restart eliquis BID for stroke prophylaxis. Warned about risk of falls and bleeding. She was able to understand these risks and is wanting to restart her blood thinner. (2) Chest pain ICD Codes: R07.9 - Chest pain Status: Acute Plan: She is not the best historian and has many problems but does complain about chest pain. Her chest pain has been constant but also she has chest pain when she walks as well as SOB. She is very deconditioned and has underlying breathing problems, but she could very well have CAD. Cardiology has been consulted - Recommending per discussion with Dr. Patiño, plavix as a reasonable choice for prophylaxis given her neurological history. - Not an ideal candidate for invasive evaluation and management secondary to concern for noncompliance - Consider beta david and RONEN inhibitor therapy - Cardiogram on 09/21 showed grossly that left ventricular function appeared at least mildly reduced. Assessment was suboptimal. Possible global hypokinesis. Started Eliquis 5mg po bid as above (3) DM (diabetes mellitus) ICD Codes: E11.9 - Diabetes mellitus Status: Chronic Plan: Bedside glucose monitoring Low-dose sliding scale NovoLog insulin Hypoglycemia protocol (4) Anxiety and depression ICD Codes: F41.9 - Anxiety disorder, unspecified; F32.9 - Major depressive disorder, single episode, unspecified Status: Chronic Plan: -Continue at home escitalopram 10 mg p.o. daily Continue home trazodone 50 mg p.o. at bedtime (5) Bipolar 1 disorder ICD Codes: F31.9 - Bipolar I disorder Status: Acute Plan: Switched to seroquel 200 mg at bedtime. (6) Restless leg syndrome ICD Codes: G25.81 - Restless legs syndrome Status: Acute Plan: Continue at home ferrous sulfate 325 mg p.o. 3 times daily PC Continue home ropinirole 8 mg p.o. twice daily (7) Hypothyroidism ICD Codes: E03.9 - Hypothyroidism Status: Chronic Plan: Continue at home levothyroxine 75 mcg p.o. daily (8) Hypertension ICD Codes: I10 - Essential (primary) hypertension Status: Chronic Plan: Continue at home amlodipine 5 mg p.o. daily Continue furosemide 40 mg p.o. twice daily Continue at home spironolactone 12.5 mg p.o. daily (9) COPD (chronic obstructive pulmonary disease) ICD Codes: J44.9 - Chronic obstructive pulmonary disease Status: Chronic Plan: Continue at home albuterol nebulizer every 4 hours Continue home Symbicort inhaler (10) MARYAN on CPAP ICD Codes: G47.33 - Obstructive sleep apnea (adult) (pediatric); Z99.89 - Dependence on other enabling machines and devices Status: Acute Plan: Use alternative BiPAP while hospitalized (11) FEN Status: Acute Plan: Fluids: per PO Electrolytes: monitor and replete as needed Nutrition: Diabetic diet DVT Prophylaxis: patient restarted on Eliquis GI Prophylaxis: Continue home pantoprazole 20 mg po daily Pain management: Continue home morphine 30 mg twice daily as needed dw Dr. Nuñez. (Lydia Diaz MD R1) Problem Qualifiers (1) Chest pain: Qualified Codes: R07.2 - Precordial pain (2) COPD (chronic obstructive pulmonary disease): Qualified Codes: J44.9 - Chronic obstructive pulmonary disease, unspecified Lydia Diaz MD R1 Sep 27, 2017 09:45 Loida Nuñez MD Sep 28, 2017 13:26
--- NOTE | 2017-09-27 11:38 | HHI.PYPN ---
Subjective Remarks The patient was seen for psychiatric reevaluation. She reports feeling Ok, good mood, but "still hearing those voices". When I asked her what are these voices telling her she says "basically making noises, not really telling me anything specific". She has been compliant with her medications. No significant side effects reported. No EPS observed. She reports good sleep and appetite. She denies SI/HI. She is fully oriented X3. Review of Systems Constitutional: DENIES: Diaphoretic episodes, Fatigue, Fever, Weight gain, Weight loss, Chills, Dizziness, Change in appetite, Night Sweats Endocrine: DENIES: Abnorml menstrual pattern, Heat/cold intolerance, Polydipsia , Polyuria, Polyphagia Eyes: DENIES: Blurred vision, Diplopia, Eye inflammation, Eye pain, Vision loss , Photosensitivity, Double Vision Ears, nose, mouth, throat: DENIES: Tinnitus, Hearing loss, Vertigo, Nasal discharge, Oral lesions, Throat pain, Hoarseness, Ear Pain, Running Nose, Epistaxis, Sinus Pain, Toothache, Odynophagia Respiratory: DENIES: Apneas, Cough, Snoring, Wheezing, Hemoptysis, Sputum production, Shortness of breath Cardiovascular: DENIES: Chest pain, Palpitations, Syncope, Dyspnea on Exertion , PND, Lower Extremity Edema, Orthopnea, Claudication Gastrointestinal: DENIES: Abdominal pain, Black stools, Bloody stools, Constipation, Diarrhea, Nausea, Vomiting, Difficulty Swallowing, Anorexia Genitourinary: DENIES: Abnormal vaginal bleeding, Dysmenorrhea, Dyspareunia, Sexual dysfunction, Urinary frequency, Urinary incontinence, Urgency, Hematuria , Dysuria, Nocturia, Vaginal discharge Musculoskeletal: DENIES: Joint pain, Muscle aches, Stiffness, Joint Swelling, Back pain, Neck pain Integumentary: DENIES: Abnormal pigmentation, Pruritus, Rash, Nail changes, Breast masses, Breast skin changes, Nipple discharge Hematologic/lymphatic: DENIES: Bruising, Lymphadenopathy Immunologic/allergic: DENIES: Eczema, Urticaria Neurologic: DENIES: Abnormal gait, Headache, Localized weakness, Paresthesias, Seizures, Speech Problems, Tremor, Poor Balance Psychiatric: COMPLAINS OF: Hallucinations, DENIES: Anxiety, Confusion, Mood changes, Depression, Agitation, Suicidal Ideation, Homicidal Ideation, Delusions Mental Status Examination Appearance: Appropriate Consciousness: Alert Orientation: x4 Motor Activity: Normal gait Speech: Unremarkable Language: Adequate Fund of Knowledge: Adequate Attention and Concentration: Adequate Memory: Unremarkable Mood: Appropriate Affect: Appropriate Thought Process & Associations: Intact Thought Content: Appropriate Hallucination Type: Visual Delusion Type: None Suicidal Ideation: No Suicidal Plan: No Suicidal Intention: No Homicidal Ideation: No Homicidal Plan: No Homicidal Intention: No Insight: Fair Judgment: Impulsive Results Vitals/IOs Vital Signs Date Time Temp Pulse Resp B/P (MAP) Pulse Ox O2 Delivery O2 Flow Rate FiO2 09/27/17 08:00 97.8 61 18 141/63 (89) 97 09/27/17 08:00 Room Air 09/27/17 01:32 30 09/26/17 20:08 2.00 Assessment & Plan Problem List: (1) Schizophrenia ICD Codes: F20.9 - Schizophrenia, unspecified Status: Chronic Assessment & Plan: Patient seems to be at baseline. She does present auditory hallucinations that seems to be chronic and ego syntonic, non commanding in type. No concerning EPS at this moment. Will increase Seroquel to 300 mg hs to help with perceptual disturbances. Assessment & Plan Estimated LOS: days Justification for Cont. Inpt. No admission indicated Eduardo Allan MD Sep 27, 2017 11:38
[2017-09-27] MEDS: ATORVASTATIN 80 MG TAB PO SCH (21:46)
[2017-09-27] MEDS: traZODone HCL 50 MG TAB PO SCH (21:46)
[2017-09-27] MEDS: QUEtiapine FUMARATE 300 MG TAB PO SCH (22:09)
[2017-09-28] VITALS (10 sets, daily range): BP systolic 109–140; BP diastolic 51–65; PULSE 61–80; RESP 17–20; TEMP 97.3–98.6; O2SAT 95–99
[2017-09-28] MEDS: LEVOTHYROXINE SODIUM 75 MCG TAB PO SCH (06:42)
[2017-09-28] MEDS ORDERED: QUET1TAB10 PO (07:22)
[2017-09-28] MEDS: INSULIN ASPART SUPPLEMENTAL SCALE SQ SCH ×4 (08:00→21:00)
[2017-09-28] MEDS: SODIUM CHLORIDE 0.9% FLUSH 10 ML FLUSH IV FLUSH SCH ×4 (09:00→22:33)
[2017-09-28] MEDS: DOCUSATE SODIUM 50 MG/SENNA 8.6 MG TAB PO SCH ×2 (09:00→21:00)
[2017-09-28] MEDS: DOCUSATE SODIUM 100 MG CAP PO SCH (09:00)
[2017-09-28] MEDS: ISOSORBIDE MONONITRATE 20 MG TAB PO SCH (09:34)
[2017-09-28] MEDS: BENZTROPINE MESYLATE 1 MG TAB PO SCH ×2 (09:39→22:33)
[2017-09-28] MEDS: FERROUS SULFATE 325 MG (65 MG ELEMENTAL IRON) TAB PO SCH ×3 (09:40→17:09)
[2017-09-28] MEDS: amLODIPine BESYLATE 5 MG TAB PO SCH (09:40)
[2017-09-28] MEDS: PANTOPRAZOLE SOD 20 MG DELAYED RELEASE TAB PO SCH (09:40)
[2017-09-28] MEDS: ESCITALOPRAM OXALATE 10 MG TAB PO SCH (09:41)
[2017-09-28] MEDS: APIXABAN 5 MG TABLET PO SCH ×2 (09:41→22:30)
[2017-09-28] MEDS: SPIRONOLACTONE 25 MG TAB PO SCH (09:41)
[2017-09-28] MEDS: FUROSEMIDE 40 MG TAB PO SCH ×2 (09:42→22:30)
[2017-09-28] MEDS: predniSONE 10 MG TAB PO SCH (09:42)
[2017-09-28] MEDS: BUDESONIDE-FORMOTEROL 160/4.5 MCG INHALER INH SCH ×2 (09:43→22:33)
[2017-09-28] MEDS: LORazepam 0.5 MG TAB PO PRN ×2 (09:46→22:41)
[2017-09-28] MEDS: MORPHINE SULFATE 30 MG CONTROLLED RELEASE TAB PO PRN ×2 (10:29→22:32)
--- NOTE | 2017-09-28 12:15 | HHI.FPPN ---
Subjective Remarks Patient seen and examined this morning. Patient states that she is still having sharp chest pain. Is located in the left side of her chest and radiates down her left arm. She stated that it had gotten worse this morning when she got up to walk to the bathroom and worsened more after working with physical therapy. She also has this pain at rest. She is currently not having any shortness of breath, no fevers or chills, no abdominal pain, no nausea or vomiting, is urinating and stooling well. (Lydia Daiz MD R1) Objective Vitals Vital Signs Date Time Temp Pulse Resp B/P (MAP) Pulse Ox O2 Delivery O2 Flow Rate FiO2 09/28/17 08:00 97.3 61 17 109/51 (70) 97 09/28/17 04:49 98.6 70 20 140/65 (90) 97 09/28/17 04:00 66 09/28/17 00:13 99 30 09/28/17 00:04 98.0 62 18 132/60 (84) 95 09/28/17 00:00 72 09/27/17 22:00 Room Air 09/27/17 20:00 98.1 73 18 133/67 (89) 94 09/27/17 20:00 68 09/27/17 19:47 97 Nasal Cannula 2.00 09/27/17 16:00 98.4 65 20 150/67 (94) 93 I/O 09/27/17 09/27/17 09/27/17 09/28/17 09/28/17 09/28/17 07:00 15:00 23:00 07:00 15:00 23:00 Intake Total 60 ml Balance 60 ml Intake Oral 60 ml # Voids 2 2 4 2 # Bowel Movements 1 (Lydia Diaz MD R1) Result Diagram: 09/25/17 0756 Objective Remarks GENERAL: This is a well-nourished, well-developed obese female patient laying in bed and speaking very softly, in no apparent distress. SKIN: No rashes, ecchymoses or lesions. Cool and dry. HEAD: Atraumatic. Normocephalic. EYES: Extraocular motions intact. No scleral icterus. No injection or drainage. ENT: MMM. Uvula midline. Airway patent. Edentulous. NECK: Trachea midline. No JVD or lymphadenopathy. Supple. CARDIOVASCULAR: Regular rate and rhythm without murmurs, gallops, or rubs. RESPIRATORY: Breath sounds equal bilaterally. No w/r/r. GASTROINTESTINAL: Abdomen soft, nontender, nondistended. No hepato-splenomegaly , or palpable masses. No guarding. MUSCULOSKELETAL: Extremities without clubbing, cyanosis, or edema. No joint tenderness, effusion, or edema noted. No calf tenderness. Left chest wall tender to palpation. NEUROLOGICAL: Awake and alert. Cranial nerves II through XII intact. Motor and sensory grossly within normal limits. 4/5 muscle strength this morning in all muscle groups. Left shoulder strength greater than right. Left certified fire investigator strength greater than right. Normal speech. (Lydia Diaz MD R1) A/P Assessment and Plan 62-year-old -[place] female with past medical history of atrial fibrillation, hypertension, diabetes admitted due to right sided weakness of unclear etiology. Discharge Planning PT changed recommendation to no PT at home Patient lives with her sister, is high risk for falls Patient would be appropriate for SNF placement, appreciate case management consult (Lydia Diaz MD R1) Attending Attestation Patient seen and examined. Case reviewed and discussed with the resident team. Agree with plan of care as discussed with me and documented in the resident note. she is a difficult candidate for cath as she is a DNR and could have multiple problems from any procedure. 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 Possible CVA although head CT shows no acute process. Patient not a candidate for MRI due to pacemaker. Patient also has resting tremor of the hand and possibly mouth. This may be due to her psychiatric medications. Head CT on admission, 09/19, shows no acute intracranial abnormality. Head and neck CTAs pending -Consult neurology, appreciate recommendations -possible parkinsonism due to psychiatric medications -CTA of brain and cervical spine without acute findings -Echocardiogram ordered, awaiting results -Plavix therapy initiated -Speech therapy consult, appreciate recommendations -Physical therapy consult, PT at rehab -Neuro checks every 4 hours -OT consult -Psychiatry consulted, appreciate recommendations -has discontinued Risperdal and started patient on Seroquel as well as benztropine to help with potential symptoms related to EPS -Outpatient follow-up for continuity of care Patient desires to restart eliquis BID for stroke prophylaxis. Warned about risk of falls and bleeding. She was able to understand these risks and is wanting to restart her blood thinner. (2) Chest pain ICD Codes: R07.9 - Chest pain Status: Acute Plan: She is not the best historian and has many problems but does complain about chest pain. Her chest pain has been constant but also she has chest pain when she walks as well as SOB. She is very deconditioned and has underlying breathing problems, but she could very well have CAD. Cardiology has been consulted - Recommending per discussion with Dr. Patiño, plavix as a reasonable choice for prophylaxis given her neurological history. - Not an ideal candidate for invasive evaluation and management secondary to concern for noncompliance - Consider beta david and RONEN inhibitor therapy - Cardiogram on 09/21 showed grossly that left ventricular function appeared at least mildly reduced. Assessment was suboptimal. Possible global hypokinesis. Started Eliquis 5mg po bid as above (3) DM (diabetes mellitus) ICD Codes: E11.9 - Diabetes mellitus Status: Chronic Plan: Bedside glucose monitoring Low-dose sliding scale NovoLog insulin Hypoglycemia protocol (4) Anxiety and depression ICD Codes: F41.9 - Anxiety disorder, unspecified; F32.9 - Major depressive disorder, single episode, unspecified Status: Chronic Plan: -Continue at home escitalopram 10 mg p.o. daily Continue home trazodone 50 mg p.o. at bedtime (5) Bipolar 1 disorder ICD Codes: F31.9 - Bipolar I disorder Status: Acute Plan: Switched to seroquel 200 mg at bedtime. (6) Restless leg syndrome ICD Codes: G25.81 - Restless legs syndrome Status: Acute Plan: Continue at home ferrous sulfate 325 mg p.o. 3 times daily PC Continue home ropinirole 8 mg p.o. twice daily (7) Hypothyroidism ICD Codes: E03.9 - Hypothyroidism Status: Chronic Plan: Continue at home levothyroxine 75 mcg p.o. daily (8) Hypertension ICD Codes: I10 - Essential (primary) hypertension Status: Chronic Plan: Continue at home amlodipine 5 mg p.o. daily Continue furosemide 40 mg p.o. twice daily Continue at home spironolactone 12.5 mg p.o. daily (9) COPD (chronic obstructive pulmonary disease) ICD Codes: J44.9 - Chronic obstructive pulmonary disease Status: Chronic Plan: Continue at home albuterol nebulizer every 4 hours Continue home Symbicort inhaler (10) MARYAN on CPAP ICD Codes: G47.33 - Obstructive sleep apnea (adult) (pediatric); Z99.89 - Dependence on other enabling machines and devices Status: Acute Plan: Use alternative BiPAP while hospitalized (11) FEN Status: Acute Plan: Fluids: per PO Electrolytes: monitor and replete as needed Nutrition: Diabetic diet DVT Prophylaxis: patient restarted on Eliquis GI Prophylaxis: Continue home pantoprazole 20 mg po daily Pain management: Continue home morphine 30 mg twice daily as needed dw Dr. Nuñez. (Lydia Diaz MD R1) Problem Qualifiers (1) Chest pain: Qualified Codes: R07.2 - Precordial pain (2) COPD (chronic obstructive pulmonary disease): Qualified Codes: J44.9 - Chronic obstructive pulmonary disease, unspecified Lydia Diaz MD R1 Sep 28, 2017 12:15 Loida Nuñez MD Sep 30, 2017 11:08
[2017-09-28] MEDS: PROCHLORPERAZINE MALEATE 10 MG TAB PO PRN (12:43)
--- NOTE | 2017-09-28 18:44 | PD.CARD.PN ---
Subjective Subjective Remarks c/o moderate chest pain, unchanged, in nad Objective Medications Current Medications Medications (Trade) Dose Ordered Sig/Nilo Route Start Time Stop Time Status Last Admin (NS Flush) 2 ml UNSCH PRN IV FLUSH 09/19/17 12:30 (NS Flush) 2 ml BID IV FLUSH 09/19/17 21:00 09/28/17 09:43 (NovoLOG SUPPLEMENTAL SCALE) 1 ACHS SQ 09/19/17 17:00 09/20/17 12:03 (D50w (Vial) Inj) 50 ml UNSCH PRN IV PUSH 09/19/17 14:45 (Glucagon Inj) 1 mg UNSCH PRN OTHER 09/19/17 14:45 (Trandate Inj) 10 mg Q2H PRN IV PUSH 09/19/17 14:45 (Albuterol Neb) 2.5 mg Q4HR NEB PRN NEB 09/19/17 15:00 (Norvasc) 5 mg DAILY PO 09/20/17 09:00 09/28/17 09:40 (Colace) 100 mg DAILY PO 09/20/17 09:00 09/27/17 09:19 (Lexapro) 10 mg DAILY PO 09/20/17 09:00 09/28/17 09:41 (Ferrous Sulfate) 325 mg TIDPC PO 09/19/17 18:30 09/28/17 17:09 (Lasix) 40 mg BID PO 09/19/17 21:00 09/28/17 09:42 (Ismo) 60 mg DAILY PO 09/20/17 09:00 09/28/17 09:34 (Synthroid) 75 mcg DAILY@0600 PO 09/20/17 06:00 09/28/17 06:42 (Ativan) 0.5 mg Q6H PRN PO 09/19/17 15:00 09/28/17 09:46 (Oramorph Sr) 30 mg BID PRN PO 09/19/17 16:00 09/28/17 10:29 (Deltasone) 10 mg DAILY PO 09/20/17 09:00 09/28/17 09:42 (Compazine) 10 mg Q4H PRN PO 09/19/17 15:00 09/28/17 12:43 (Dee-Colace) 2 tab BID PO 09/19/17 21:00 09/27/17 21:45 (Aldactone) 12.5 mg DAILY PO 09/20/17 09:00 09/28/17 09:41 (Desyrel) 50 mg HS PO 09/19/17 21:00 09/27/17 21:46 (Protonix) 20 mg DAILY PO 09/20/17 09:00 09/28/17 09:40 (Pill Splitter) 1 ea UNSCH PRN OTHER 09/19/17 15:30 (Requip) 8 mg BID PO 09/19/17 21:00 09/28/17 09:35 (Symbicort 160-4.5 Mcg Inh) 2 puff BID INH 09/19/17 21:00 09/28/17 09:43 (Cogentin) 1 mg Q12HR PO 09/20/17 21:00 09/28/17 09:39 (NS Flush) 2 ml BID IV FLUSH 09/20/17 21:00 09/27/17 21:47 (NS Flush) 2 ml UNSCH PRN IV FLUSH 09/20/17 15:45 (Lipitor) 80 mg HS PO 09/22/17 21:00 09/27/17 21:46 (Eliquis) 5 mg BID PO 09/25/17 11:15 09/28/17 09:41 (SEROquel) 300 mg HS PO 09/27/17 21:00 09/27/17 22:09 Vital Signs / I&O Vital Signs Date Time Temp Pulse Resp B/P (MAP) Pulse Ox O2 Delivery O2 Flow Rate FiO2 09/28/17 16:00 98.5 74 17 137/59 (85) 96 09/28/17 12:00 98.4 78 17 132/60 (84) 96 09/28/17 10:15 98 21 09/28/17 08:30 Room Air 09/28/17 08:00 97.3 61 17 109/51 (70) 97 09/28/17 04:49 98.6 70 20 140/65 (90) 97 09/28/17 04:00 66 09/28/17 00:13 99 30 09/28/17 00:04 98.0 62 18 132/60 (84) 95 09/28/17 00:00 72 09/27/17 22:00 Room Air 09/27/17 20:00 98.1 73 18 133/67 (89) 94 09/27/17 20:00 68 09/27/17 19:47 97 Nasal Cannula 2.00 I/O 09/27/17 09/27/17 09/27/17 09/28/17 09/28/17 09/28/17 07:00 15:00 23:00 07:00 15:00 23:00 Intake Total 60 ml Balance 60 ml Intake Oral 60 ml # Voids 2 2 4 2 # Bowel Movements 1 Laboratory GENERAL: SKIN: Warm and dry. HEAD: Normocephalic. EYES: No scleral icterus. No injection or drainage. NECK: Supple, trachea midline. No JVD or lymphadenopathy. CARDIOVASCULAR: Regular rate and rhythm without murmurs, gallops, or rubs. RESPIRATORY: Breath sounds equal bilaterally. No accessory muscle use. GASTROINTESTINAL: Abdomen soft, non-tender, nondistended. MUSCULOSKELETAL: No cyanosis, or edema. BACK: Nontender without obvious deformity. No CVA tenderness. Assessment and Plan Problem List: (1) Chest pain ICD Codes: R07.9 - Chest pain Status: Acute (2) DM (diabetes mellitus) ICD Codes: E11.9 - Diabetes mellitus Status: Chronic (3) Cardiomyopathy ICD Codes: I42.9 - Cardiomyopathy, unspecified Status: Chronic (4) Schizophrenia ICD Codes: F20.9 - Schizophrenia, unspecified Status: Chronic (5) Bipolar 1 disorder ICD Codes: F31.9 - Bipolar I disorder Status: Acute (6) Atrial fibrillation ICD Codes: I48.91 - Unspecified atrial fibrillation Status: Chronic (7) CVA (cerebral vascular accident) ICD Codes: I63.9 - Cerebral infarction, unspecified Status: Acute Assessment and Plan 1.) chest pain - recommend mps if cleared by neurology; on vamshi jones Problem Qualifiers (1) Chest pain: Qualified Codes: R07.2 - Precordial pain (2) DM (diabetes mellitus): Qualified Codes: E11.8 - Type 2 diabetes mellitus with unspecified complications (3) Schizophrenia: Qualified Codes: F20.9 - Schizophrenia, unspecified (4) CVA (cerebral vascular accident): Qualified Codes: I63.9 - Cerebral infarction, unspecified Yosvany Singer MD Sep 28, 2017 18:44
[2017-09-28] MEDS: QUEtiapine FUMARATE 300 MG TAB PO SCH (22:30)
[2017-09-28] MEDS: ATORVASTATIN 80 MG TAB PO SCH (22:30)
[2017-09-28] MEDS: traZODone HCL 50 MG TAB PO SCH (22:32)
[2017-09-29] VITALS (7 sets, daily range): BP systolic 101–131; BP diastolic 55–84; PULSE 70–80; RESP 18–20; TEMP 96.4–99.1; O2SAT 90–98
[2017-09-29] MEDS: LEVOTHYROXINE SODIUM 75 MCG TAB PO SCH (06:00)
[2017-09-29] MEDS: INSULIN ASPART SUPPLEMENTAL SCALE SQ SCH ×2 (08:00→12:00)
[2017-09-29] MEDS: ISOSORBIDE MONONITRATE 20 MG TAB PO SCH (08:30)
[2017-09-29] MEDS: DOCUSATE SODIUM 100 MG CAP PO SCH (08:32)
[2017-09-29] MEDS: predniSONE 10 MG TAB PO SCH (08:32)
[2017-09-29] MEDS: SPIRONOLACTONE 25 MG TAB PO SCH (08:33)
[2017-09-29] MEDS: amLODIPine BESYLATE 5 MG TAB PO SCH (08:33)
[2017-09-29] MEDS: DOCUSATE SODIUM 50 MG/SENNA 8.6 MG TAB PO SCH (08:34)
[2017-09-29] MEDS: PANTOPRAZOLE SOD 20 MG DELAYED RELEASE TAB PO SCH (08:34)
[2017-09-29] MEDS: ESCITALOPRAM OXALATE 10 MG TAB PO SCH (08:34)
[2017-09-29] MEDS: APIXABAN 5 MG TABLET PO SCH (08:35)
[2017-09-29] MEDS: BENZTROPINE MESYLATE 1 MG TAB PO SCH (08:35)
[2017-09-29] MEDS: SODIUM CHLORIDE 0.9% FLUSH 10 ML FLUSH IV FLUSH SCH ×2 (08:35→08:40)
[2017-09-29] MEDS: FUROSEMIDE 40 MG TAB PO SCH (08:36)
[2017-09-29] MEDS: BUDESONIDE-FORMOTEROL 160/4.5 MCG INHALER INH SCH (08:37)
[2017-09-29] MEDS: FERROUS SULFATE 325 MG (65 MG ELEMENTAL IRON) TAB PO SCH ×2 (08:40→13:08)
--- NOTE | 2017-09-29 09:42 | HHI.FPPN ---
Subjective Remarks No acute events overnight. Afebrile, vitals stable. Patient sitting in chair this morning, appearing well. She denies any exacerbation of her chest pain. Denies fevers, dyspnea. She otherwise does not have specific complaints. (Kuldip Connor MD R2) Objective Vitals Vital Signs Date Time Temp Pulse Resp B/P (MAP) Pulse Ox O2 Delivery O2 Flow Rate FiO2 09/29/17 08:24 Room Air 09/29/17 07:46 98.4 70 20 101/55 (70) 90 09/29/17 04:00 96.4 80 20 130/75 (93) 93 09/29/17 00:44 96 BiPAP 30 09/29/17 00:44 96 30 09/29/17 00:00 97.3 78 18 131/84 (100) 97 09/28/17 20:00 Room Air 09/28/17 20:00 97.9 80 20 135/62 (86) 95 09/28/17 16:00 98.5 74 17 137/59 (85) 96 09/28/17 12:00 98.4 78 17 132/60 (84) 96 09/28/17 10:15 98 21 I/O 09/28/17 09/28/17 09/28/17 09/29/17 09/29/17 09/29/17 07:00 15:00 23:00 07:00 15:00 23:00 Intake Total 60 ml Balance 60 ml Intake Oral 60 ml # Voids 2 2 (Kuldip Connor MD R2) Result Diagram: 09/25/17 0756 Objective Remarks GENERAL: This is a well-nourished, well-developed obese female patient, speaking softly, in no apparent distress. SKIN: No rashes, ecchymoses or lesions. Cool and dry. HEAD: Atraumatic. Normocephalic. EYES: Extraocular motions intact. No scleral icterus. No injection or drainage. ENT: MMM. Uvula midline. Airway patent. Edentulous. NECK: Trachea midline. No JVD or lymphadenopathy. Supple. CARDIOVASCULAR: Regular rate and rhythm without murmurs, gallops, or rubs. RESPIRATORY: Breath sounds equal bilaterally. No w/r/r. GASTROINTESTINAL: Abdomen soft, nontender, nondistended. No hepato-splenomegaly , or palpable masses. No guarding. MUSCULOSKELETAL: Extremities without clubbing, cyanosis, or edema. No joint tenderness, effusion, or edema noted. No calf tenderness. Left chest wall tender to palpation. NEUROLOGICAL: Awake and alert. Cranial nerves II through XII intact. Motor and sensory grossly within normal limits. 4/5 muscle strength in all muscle groups. Normal speech. (Kuldip Connor MD R2) A/P Assessment and Plan 62-year-old -[place] female with past medical history of atrial fibrillation, hypertension, diabetes admitted due to right sided weakness of unclear etiology. Discharge Planning PT changed recommendation to no PT at home Patient lives with her sister, is high risk for falls Patient would be appropriate for SNF placement, appreciate case management consult (Kuldip Connor MD R2) Attending Attestation Patient seen and examined. Case reviewed and discussed with the resident team. Agree with plan of care as discussed with me and documented in the resident note. 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 Possible CVA although head CT shows no acute process. Patient not a candidate for MRI due to pacemaker. Patient also has resting tremor of the hand and possibly mouth. This may be due to her psychiatric medications. Head CT on admission, 09/19, shows no acute intracranial abnormality. Head and neck CTAs pending -Consult neurology, appreciate recommendations -possible parkinsonism due to psychiatric medications -CTA of brain and cervical spine without acute findings -Echocardiogram ordered, awaiting results -Plavix therapy initiated -Speech therapy consult, appreciate recommendations -Physical therapy consult -Neuro checks every 4 hours -OT consult -Psychiatry consulted, appreciate recommendations -has discontinued Risperdal and started patient on Seroquel as well as benztropine to help with potential symptoms related to EPS -Outpatient follow-up for continuity of care Patient desires to restart eliquis BID for stroke prophylaxis. Warned about risk of falls and bleeding. She was able to understand these risks and is wanting to restart her blood thinner. (2) Chest pain ICD Codes: R07.9 - Chest pain Status: Acute Plan: She is not the best historian and has many problems but does complain about chest pain. Her chest pain has been constant but also she has chest pain when she walks as well as SOB. She is very deconditioned and has underlying breathing problems, but she could very well have CAD. Cardiology has been consulted - Recommending per discussion with Dr. Patiño, plavix as a reasonable choice for prophylaxis given her neurological history. - Not an ideal candidate for invasive evaluation and management secondary to concern for noncompliance - Consider beta david and RONEN inhibitor therapy - Cardiogram on 09/21 showed grossly that left ventricular function appeared at least mildly reduced. Assessment was suboptimal. Possible global hypokinesis. - Reconsulted given her continued anginal type chest pain, recommending consideration for mps Started Eliquis 5mg po bid as above (3) DM (diabetes mellitus) ICD Codes: E11.9 - Diabetes mellitus Status: Chronic Plan: Bedside glucose monitoring Low-dose sliding scale NovoLog insulin Hypoglycemia protocol (4) Anxiety and depression ICD Codes: F41.9 - Anxiety disorder, unspecified; F32.9 - Major depressive disorder, single episode, unspecified Status: Chronic Plan: -Continue at home escitalopram 10 mg p.o. daily Continue home trazodone 50 mg p.o. at bedtime (5) Bipolar 1 disorder ICD Codes: F31.9 - Bipolar I disorder Status: Acute Plan: Switched to seroquel 200 mg at bedtime. (6) Restless leg syndrome ICD Codes: G25.81 - Restless legs syndrome Status: Acute Plan: Continue at home ferrous sulfate 325 mg p.o. 3 times daily PC Continue home ropinirole 8 mg p.o. twice daily (7) Hypothyroidism ICD Codes: E03.9 - Hypothyroidism Status: Chronic Plan: Continue at home levothyroxine 75 mcg p.o. daily (8) Hypertension ICD Codes: I10 - Essential (primary) hypertension Status: Chronic Plan: Continue at home amlodipine 5 mg p.o. daily Continue furosemide 40 mg p.o. twice daily Continue at home spironolactone 12.5 mg p.o. daily (9) COPD (chronic obstructive pulmonary disease) ICD Codes: J44.9 - Chronic obstructive pulmonary disease Status: Chronic Plan: Continue at home albuterol nebulizer every 4 hours Continue home Symbicort inhaler (10) MARYAN on CPAP ICD Codes: G47.33 - Obstructive sleep apnea (adult) (pediatric); Z99.89 - Dependence on other enabling machines and devices Status: Acute Plan: Use alternative BiPAP while hospitalized (11) FEN Status: Acute Plan: Fluids: per PO Electrolytes: monitor and replete as needed Nutrition: Diabetic diet DVT Prophylaxis: patient restarted on Eliquis GI Prophylaxis: Continue home pantoprazole 20 mg po daily Pain management: Continue home morphine 30 mg twice daily as needed dw Dr. Nuñez (Kuldip Connor MD R2) Problem Qualifiers (1) Chest pain: Qualified Codes: R07.2 - Precordial pain (2) COPD (chronic obstructive pulmonary disease): Qualified Codes: J44.9 - Chronic obstructive pulmonary disease, unspecified Kuldip Connor MD R2 Sep 29, 2017 09:42 Loida Nuñez MD Sep 30, 2017 11:09
[2017-09-29] MEDS: LORazepam 0.5 MG TAB PO PRN (13:07)
[2017-09-29] MEDS: MORPHINE SULFATE 30 MG CONTROLLED RELEASE TAB PO PRN (13:12)
--- NOTE | 2017-09-29 16:56 | HHI.DS ---
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 Possible CVA although head CT shows no acute process. Patient not a candidate for MRI due to pacemaker. Patient also has resting tremor of the hand and possibly mouth. This may be due to her psychiatric medications. Head CT on admission, 09/19, shows no acute intracranial abnormality. Head and neck CTAs pending -Consult neurology, appreciate recommendations -possible parkinsonism due to psychiatric medications -CTA of brain and cervical spine without acute findings -Echocardiogram ordered, awaiting results -Plavix therapy initiated -Speech therapy consult, appreciate recommendations -Physical therapy consult -Neuro checks every 4 hours -OT consult -Psychiatry consulted, appreciate recommendations -has discontinued Risperdal and started patient on Seroquel as well as benztropine to help with potential symptoms related to EPS -Outpatient follow-up for continuity of care Patient desires to restart eliquis BID for stroke prophylaxis. Warned about risk of falls and bleeding. She was able to understand these risks and is wanting to restart her blood thinner. ICD Codes: G21.19 - Other drug induced secondary parkinsonism Status: Chronic (2) Chest pain Diagnosis: Principal Plan: She is not the best historian and has many problems but does complain about chest pain. Her chest pain has been constant but also she has chest pain when she walks as well as SOB. She is very deconditioned and has underlying breathing problems, but she could very well have CAD. Cardiology has been consulted - Recommending per discussion with Dr. Patiño, plavix as a reasonable choice for prophylaxis given her neurological history. - Not an ideal candidate for invasive evaluation and management secondary to concern for noncompliance - Consider beta david and RONEN inhibitor therapy - Cardiogram on 09/21 showed grossly that left ventricular function appeared at least mildly reduced. Assessment was suboptimal. Possible global hypokinesis. - Reconsulted given her continued anginal type chest pain, recommending consideration for mps Started Eliquis 5mg po bid as above ICD Codes: R07.9 - Chest pain Status: Acute (3) DM (diabetes mellitus) Diagnosis: Secondary Plan: Bedside glucose monitoring Low-dose sliding scale NovoLog insulin Hypoglycemia protocol ICD Codes: E11.9 - Diabetes mellitus Status: Chronic (4) Anxiety and depression Diagnosis: Secondary Plan: -Continue at home escitalopram 10 mg p.o. daily Continue home trazodone 50 mg p.o. at bedtime ICD Codes: F41.9 - Anxiety disorder, unspecified; F32.9 - Major depressive disorder, single episode, unspecified Status: Chronic (5) Bipolar 1 disorder Diagnosis: Secondary Plan: Switched to seroquel 200 mg at bedtime. ICD Codes: F31.9 - Bipolar I disorder Status: Acute (6) Restless leg syndrome Diagnosis: Secondary Plan: Continue at home ferrous sulfate 325 mg p.o. 3 times daily PC Continue home ropinirole 8 mg p.o. twice daily ICD Codes: G25.81 - Restless legs syndrome Status: Acute (7) Hypothyroidism Diagnosis: Secondary Plan: Continue at home levothyroxine 75 mcg p.o. daily ICD Codes: E03.9 - Hypothyroidism Status: Chronic (8) Hypertension Diagnosis: Secondary Plan: Continue at home amlodipine 5 mg p.o. daily Continue furosemide 40 mg p.o. twice daily Continue at home spironolactone 12.5 mg p.o. daily ICD Codes: I10 - Essential (primary) hypertension Status: Chronic (9) COPD (chronic obstructive pulmonary disease) Diagnosis: Secondary Plan: Continue at home albuterol nebulizer every 4 hours Continue home Symbicort inhaler ICD Codes: J44.9 - Chronic obstructive pulmonary disease Status: Chronic (10) MARYAN on CPAP Diagnosis: Secondary Plan: Use alternative BiPAP while hospitalized ICD Codes: G47.33 - Obstructive sleep apnea (adult) (pediatric); Z99.89 - Dependence on other enabling machines and devices Status: Acute (11) FEN Diagnosis: Secondary Plan: Fluids: per PO Electrolytes: monitor and replete as needed Nutrition: Diabetic diet DVT Prophylaxis: patient restarted on Eliquis GI Prophylaxis: Continue home pantoprazole 20 mg po daily Pain management: Continue home morphine 30 mg twice daily as needed livan Nuñez Status: Acute Consultants Cardiology, Psychiatry, Neurology Brief History Ms. Rubi is a 62-year-old -[place] female with a past medical history of atrial fibrillation, hypertension, type 2 diabetes who presented to the ED with right sided weakness of 2 weeks duration. She stated this started about 1- 2 weeks ago when she was awakened in the middle of the night by her sister and noticed that her right arm and leg felt weak, numb, and painful. Discussed the pain in her right arm and leg is a 10/10 aching pain, nothing makes it better or worse. Since this started she has gotten weaker. She states that her vision became blurry in both eyes, no spots in her vision. She is dizzy as well. He states that she also had a frontal headache. she describes this as a sharp pain that radiates down the side of her right neck down her shoulder to her arm. She has also noticed that she has developed a tremor in her right hand that started 3-4 weeks ago. She also noticed that her mouth has a "tremor" as well that started a few days ago. She also had trouble swallowing liquids. She states that she chokes a lot. She states that she started drooling recently at night and it is "strangles her." She does use a CPAP at night, but her machine is currently broken. She has also had trouble with speaking. She states that it is hard to form words. Patient endorses fevers and chills at night. She states that she has chest pain located on her left side, sharp, worse when she coughs or breathes deeply, worse with walking. She noticed this started a few days ago. Is also having shortness of breath with walking which leads to dizziness after 3-4 steps, that she feels like she is about fall. CBC/BMP: 09/25/17 0756 Imaging Hip x-ray 09/20 osteoarthritic changes, no fracture T-spine x-ray degenerative changes, no compression fracture Head CT negative Head CTA negative Neck CTA minimal atherosclerotic plaque in the carotid arteries bilaterally, no significant stenosis PE at Discharge GENERAL: This is a well-nourished, well-developed obese female patient, speaking softly, in no apparent distress. SKIN: No rashes, ecchymoses or lesions. Cool and dry. HEAD: Atraumatic. Normocephalic. EYES: Extraocular motions intact. No scleral icterus. No injection or drainage. ENT: MMM. Uvula midline. Airway patent. Edentulous. NECK: Trachea midline. No JVD or lymphadenopathy. Supple. CARDIOVASCULAR: Regular rate and rhythm without murmurs, gallops, or rubs. RESPIRATORY: Breath sounds equal bilaterally. No w/r/r. GASTROINTESTINAL: Abdomen soft, nontender, nondistended. No hepato-splenomegaly , or palpable masses. No guarding. MUSCULOSKELETAL: Extremities without clubbing, cyanosis, or edema. No joint tenderness, effusion, or edema noted. No calf tenderness. Left chest wall tender to palpation. NEUROLOGICAL: Awake and alert. Cranial nerves II through XII intact. Motor and sensory grossly within normal limits. 4/5 muscle strength in all muscle groups. Normal speech. Hospital Course Neurology was consulted given her right sided weakness, thought possible conversion vs drug-induced parkinsonism; although patient does not multiple risk factors for CVA. Cardiology consulted given the patient having anginal chest pains, recommending medical management. Psychiatry consulted due to her schizophrenia and symptoms possibly EPS, patient was started on seroquel 300 mg at night and thought likely to not have EPS. The patient was started on Eliquis due to her CHADS-VASc score of at least three and presence of multiple risk factors and patient desiring to be restarted on her anticoagulant. PT consulted who recommended patient needing PT at rehab. Given her multiple comorbidities and need for restrengthening and conditioning patient would benefit from stay at a SNF. Pt Condition on Discharge: Stable Discharge Disposition: Discharge to SNF Discharge Instructions DIET: Follow Instructions for: As Tolerated, No Restrictions Speech Therapy-Diet Recommends: Regular Additional Diet Instructions: Out of bed with assistance. Activities you can perform: See Additionl Instruction Follow up Referrals: PCP Follow-up - 1 Week SNF/FPC/[facility] with [facility] New Medications: Apixaban (Eliquis) 5 Mg Tab 5 MG PO BID for Blood Clot Prevention, #60 TAB 0 Refills Quetiapine (Quetiapine) 300 Mg Tab 300 MG PO HS, #30 TAB [Benztropine] () 1 MG TAB 1 MG PO Q12HR, #60 Continued Medications: Albuterol Neb (Albuterol Neb) 2.5 Mg/3 Ml Neb 2.5 MG NEB Q4HR NEB PRN for SHORTNESS OF BREATH, #60 NEBULE 0 Refills Amlodipine (Norvasc) 5 Mg Tab 5 MG PO DAILY for Blood Pressure Management, #30 TAB 0 Refills Escitalopram (Lexapro) 10 Mg Tab 10 MG PO DAILY, #30 TAB 0 Refills Ferrous Sulfate (Ferrous Sulfate) 325 Mg (65 Mg Iron) Tablet 325 MG PO TIDPC for Nutritional Supplement, #90 TAB 3 Refills Fluticasone-Salmeterol Inh (Advair Diskus Inh) 500-50 Mcg/Blist Aer 1 PUFF INH BID, #1 INHALER 9 Refills Rinse mouth after use. Furosemide (Furosemide) 40 Mg Tab 40 MG PO BID, #180 TAB 3 Refills Isosorbide Mononitrate (Isosorbide Mononitrate) 20 Mg Tab 60 MG PO DAILY for Prevent Chest Pain, #90 TAB 3 Refills Take 2 doses 7 hours apart. Levothyroxine (Levothyroxine) 75 Mcg Tab 75 MCG PO DAILY for Thyroid, #90 TAB 3 Refills Lorazepam (Ativan) 0.5 Mg Tab 0.5 MG PO Q6H PRN for ANXIETY, #30 TAB 0 Refills (This prescription has been renewed) Metformin (Metformin) 500 Mg Tab 500 MG PO BIDPC for Blood Sugar Management, #180 TAB 3 Refills With meals Morphine Sulfate CR (Morphine Sulfate CR) 60 Mg Tab 30 MG PO BID PRN for PAIN, #45 TAB (This prescription has been renewed) Nitroglycerin SL (Nitrostat SL) 0.4 Mg Subl 0.4 MG SL DIRECTED PRN for CHEST PAIN, #100 TAB.SL 0 Refills 1 tablet under the tongue as needed for chest pain. Repeat every 5 minutes for a total of 3 DOSES or call 911 if NO relief. Omeprazole (Omeprazole) 20 Mg Tab 20 MG PO DAILY, #90 TAB 3 Refills Prednisone (Prednisone) 10 Mg Tab 10 MG PO DAILY, TAB 0 Refills Ropinirole (Ropinirole) 4 Mg Tab 8 MG PO BID, #180 TAB 3 Refills Sennosides-Docusate Sodium (Senna-Plus) 8.6-50 Mg Tab 2 TAB PO BID for Constipation, TAB 0 Refills Spironolactone (Spironolactone) 25 Mg Tab 12.5 MG PO DAILY, #90 TAB 3 Refills Trazodone (Trazodone) 50 Mg Tab 50 MG PO HS for Control Depression, #90 TAB 3 Refills Discontinued Medications: Docusate Sodium (Docusate Sodium) 100 Mg Cap 100 MG PO DAILY for Prevent Constipation, #60 CAP 0 Refills Oxycodone (Oxycodone) 10 Mg Tab 10 MG PO Q4H PRN for PAIN, TAB 0 Refills Prochlorperazine Maleate (Prochlorperazine Maleate) 10 Mg Tab 10 MG PO Q4H PRN for NAUSEA OR VOMITING, #120 TAB 3 Refills Risperidone (Risperidone) 2 Mg Tab 2 MG PO Q12HR, #60 TAB 0 Refills Kuldip Connor MD R2 Sep 29, 2017 16:56
== END 2017-09-29 16:40 | DRG 65 ==
LOC: NEPC 09:25 → NEDA 12:19 → NEDH 17:26 → N05B 18:57
PROVIDERS: ADMIT Family Medicine; ATTEND Family Medicine
DX: I63.9 Cerebral infarction, unspecified (principal); I69.354 Hemiplegia and hemiparesis following cerebral infarction affecting left non-dominant side; G21.19 Other drug induced secondary parkinsonism; I42.9 Cardiomyopathy, unspecified; I11.0 Hypertensive heart disease with heart failure; I50.9 Heart failure, unspecified; F03.90 Unspecified dementia, unspecified severity, without behavioral disturbance, psychotic disturbance, mood disturbance, and anxiety; Z68.42 Body mass index [BMI] 45.0-49.9, adult; I48.91 Unspecified atrial fibrillation; G25.81 Restless legs syndrome; J44.9 Chronic obstructive pulmonary disease, unspecified; E78.5 Hyperlipidemia, unspecified; E03.9 Hypothyroidism, unspecified; E11.9 Type 2 diabetes mellitus without complications; K21.9 Gastro-esophageal reflux disease without esophagitis; G89.11 Acute pain due to trauma; I25.2 Old myocardial infarction; I25.119 Atherosclerotic heart disease of native coronary artery with unspecified angina pectoris; G47.33 Obstructive sleep apnea (adult) (pediatric); E66.9 Obesity, unspecified; R13.10 Dysphagia, unspecified; M19.90 Unspecified osteoarthritis, unspecified site; M81.0 Age-related osteoporosis without current pathological fracture; F31.9 Bipolar disorder, unspecified; F20.9 Schizophrenia, unspecified; F17.200 Nicotine dependence, unspecified, uncomplicated; W18.30XA Fall on same level, unspecified, initial encounter; Y92.230 Patient room in hospital as the place of occurrence of the external cause; Z66 Do not resuscitate; Z79.01 Long term (current) use of anticoagulants; Z79.84 Long term (current) use of oral hypoglycemic drugs; Z88.6 Allergy status to analgesic agent; Z91.81 History of falling; Z95.0 Presence of cardiac pacemaker
CPT/HCPCS: 70450; 70496; 70498; 72072; 73502; 76937; 80048; 80061; 82948; 83036; 83735; 83880; 84443; 84484; 85025; 85610; 85730; 93005; 93306; 94002; 94003; J1650; J1815; J7030; J7512; Q0164; Q9967

== ENCOUNTER → 2017-11-17 | Outpatient (CLI) | payer MEDICAID ==
[~2017-11-17] MED LIST changes: -AMLO10TA2 PO; +AMLO5 PO; +APIX5TAB PO; +Benztropine PO; -CELE10TA PO; -CPAP; -DIFL0.0512 LEFT EYE; -DOCU100C15 PO; -GETGO ROLLING W1 MI1; +LEXA10TA PO; +LORA-392 PO; +MORP60TA24 PO; -NEBUKIT5; -NEPA0.3D LEFT EYE; +PRED10 PO; -PRED20 PO; -PRED5TAB PO; -PROC10TA PO; +QUET1TAB10 PO; -RISP4TAB2 PO; -VIGA0.5D LEFT EYE; -WHEEMIS3
--- NOTE | 2017-11-17 11:19 | RADRPT ---
EXAM DATE: 11/17/2017 11:13 AM EDT AGE/SEX: 62 years / Female INDICATIONS: Short of breath and right sided chest pain. CLINICAL DATA: This is the patient's initial encounter. Patient reports that signs and symptoms have been present for > 1 year and indicates a pain score of 10/10. MEDICAL/SURGICAL HISTORY: Chronic obstructive pulmonary disease. Asthma. Hypertension. Pacema ker. [place] [facility] [place]. . FINDINGS: AP erect and lateral views of the chest were obtained and again demonstrate the left subclavian A-V s equential transvenous pacer in place with defibrillator lead. The heart size is mildly enlarged and a ppears improved. There are no confluent infiltrates or effusions. There is no perihilar edema. The [place] thorax is intact. CONCLUSION: Mild cardiomegaly with no perihilar edema. Electronically signed by: Frankie Morel MD 11/17/2017 11:18 AM EDT
--- NOTE | 2017-11-22 08:24 | RSPPFT ---
DATE OF PROCEDURE: 11/17/17 COMMENTS: Spirometry with FVC of 2.2, FEV1 of 1.9, FV1/FVC ratio at 86%. TLC is 89% of predicted. Diffusion capacity is 53% of predicted and normal when corrected for alveolar volume. Room air arterial blood gases show pH of 7.40, PCO2 of 35, PO2 of 79. IMPRESSION: 1. No evidence of airways obstruction. 2. No evidence of airways restriction. 3. Adequate oxygenation and alveolar ventilation. 4. Reduced diffusion that is normal when related to alveolar volume.
== END ==
LOC: HRSP 09:31
PROVIDERS: ATTEND Internal Medicine Sleep Medicine
DX: R06.09 Other forms of dyspnea (principal); R06.89 Other abnormalities of breathing
CPT/HCPCS: 36600; 71046; 82805; 94060; 94726; 94729

== ENCOUNTER 2018-08-11 00:24 | Observation (INO) ==
[2018-08-11] MEDS ORDERED: Morphine Inj 4 MG/ML Vial IV.PUSH ONE (00:46)
--- NOTE | 2018-08-11 01:44 | XR ---
EXAM DATE: 08/11/2018 1:34 AM EST AGE/SEX: 63 years / Female INDICATIONS: Shortness of breath. CLINICAL DATA: This is the patient's initial encounter. Patient reports that signs and symptoms have been present for 1 day and indicates a pain score of 0/10. MEDICAL/SURGICAL HISTORY: . Chronic obstructive pulmonary disease. Asthma. Hypertension. . Pa cemaker. COMPARISON: No prior exams available for comparison. FINDINGS: A single AP view of the chest demonstrates the lungs to be symmetrically aerated without evidence of mass, infiltrate or effusion. Mild cardiomegaly. Mild pulmonary vascular engorgement. Pacer leads and pacing device noted. Osseous structures are intact. CONCLUSION: Cardiomegaly with mild pulmonary vascular engorgement. Electronically signed by: Manny Darden MD Board Certified Radiologist 08/11/2018 1:43 AM EST
[2018-08-11 01:46] LABS: Baso % (Auto) 0.5 % (0.0-2.0); Hematocrit 43.6 % (35.0-46.0); Lymph # (Auto) 1.4 th/mm3 (1.0-4.8); Lymph % (Auto) 21.3 % (9.0-44.0); Mean Corpuscular HGB Conc 32.2 % (32.0-36.0); Mean Corpuscular Hemoglobin 26.6 pg (27.0-34.0); Mean Corpuscular Volume 82.8 fL (80.0-100.0); Mean Platelet Volume 9.4 fL (7.0-11.0); Mono # (Auto) 0.5 th/mm3 (0.0-0.9); Mono % (Auto) 7.4 % (0.0-8.0); Neut # (Auto) 4.7 th/mm3 (1.8-7.7); Neut % (Auto) 70.8 % (16.0-70.0); Platelet Count 197 th/mm3 (150-450); Red Blood Count 5.27 mil/mm3 (4.00-5.30); Red Cell Distribution Width 15.2 % (11.6-17.2); White Blood Count 6.7 th/mm3 (4.0-11.0)
[2018-08-11 02:11] LABS: Alanine Aminotransferase 33 U/L (10-53); Albumin 3.1 g/dL (3.4-5.0); Anion Gap 8 meq/L (5-15); Aspartate Aminotransferase 14 U/L (15-37); Blood Urea Nitrogen 15 mg/dL (7-18); Chloride 108 meq/L (98-107); Glomerular Filtration Rate 72 mL/min (>89); Glucose,Random 95 mg/dL (74-106); Potassium 4.3 meq/L (3.5-5.1); Sodium 143 meq/L (136-145)
[2018-08-11 02:15] LABS: Alkaline Phosphatase 86 U/L (45-117); Total Protein 7.1 g/dL (6.4-8.2); Troponin I 0.02 ng/mL (0.02-0.05)
--- NOTE | 2018-08-11 02:24 | ED ---
HPI General Chief Complaint: Chest Pain Stated Complaint: Medical,Evac Time Seen by Provider: 08/11/18 00:34 Source: patient Mode of arrival: EMS Limitations: no limitations History of Present Illness HPI narrative: 63-year-old female was brought to the emergency room by EMS for left-sided chest pain. Patient says she is been getting off-and-on chest pain for past 3 days. Last night it remained continuous and hence she called 911. Pain is sharp worsening on movement and exertion. Patient has a pacemaker and has history of atrial fibrillation. She is on Eliquis. No history of coronary artery disease. Patient also has history of COPD. She is not a smoker and requires 2 L of oxygen at home. Vital signs were relatively stable. Patient also says that her pacemaker has been beeping for past month and a half. She does not have a industrial relations manager currently and she mentioned this to her primary care who asked her to follow-up with a industrial relations manager. Patient has not made any appointments with any other industrial relations manager. Patient says that she is currently having some pain. However she did not look uncomfortable. Patient is also complaining of left upper quadrant abdominal pain. No aggravating or relieving symptoms identified for that. No history of nausea vomiting. Related Data Home Medications Medication Instructions Recorded Confirmed apixaban [Eliquis] 5 tab PO BID 08/11/18 08/13/18 ferrous sulfate 325 mg PO TID 08/11/18 08/13/18 metformin 500 mg PO BID 08/11/18 08/13/18 nitroglycerin [Nitrostat] 0.6 mg SUBLINGUAL Q5-6M PRN MDD 3 08/11/18 08/13/18 risperidone [Risperdal] 2 mg PO BID 08/11/18 08/11/18 trazodone 50 mg PO HS 08/11/18 08/13/18 amlodipine 10 mg PO DAILY 08/13/18 08/13/18 benztropine 1 mg PO BID 08/13/18 08/13/18 citalopram 20 mg PO DAILY 08/13/18 08/13/18 fluticasone-salmeterol [Advair 1 inh INHALATION BID 08/13/18 08/13/18 Diskus] isosorbide mononitrate 60 mg PO DAILY 08/13/18 08/13/18 lorazepam 0.5 mg PO BID 08/13/18 08/13/18 mirtazapine 15 mg PO HS 08/13/18 08/13/18 oxycodone 10 mg PO Q8HR 08/13/18 08/13/18 ropinirole 8 mg PO BID 08/13/18 08/13/18 spironolactone 12.5 mg PO DAILY 08/13/18 08/13/18 tiotropium bromide 1 cap INHALATION DAILY 08/13/18 08/13/18 Previous Rx's Medication Instructions Recorded bisacodyl 5 mg PO DAILY PRN #60 tab 08/14/18 furosemide 40 mg PO DAILY #90 tab 08/14/18 levothyroxine [Synthroid] 75 mcg PO DAILY@0700 tab 08/14/18 polyethylene glycol 3350 17 gm PO DAILY PRN 30 Days #500 gm 08/14/18 prednisone 4 mg PO DAILY #70 tab 08/14/18 prednisone 5 mg PO DAILY #30 tab 08/14/18 Allergies Allergy/AdvReac Type Severity Reaction Status Date / Time aspirin Allergy Severe Anaphylaxis Verified 09/19/17 09:35 benazepril Allergy Severe ANAPHALAXIS Verified 09/19/17 09:35 captopril Allergy Severe ANAPHALAXIS Verified 09/19/17 09:35 enalaprilat Allergy Severe Anaphylaxis Verified 09/19/17 09:35 fosinopril Allergy Severe ANAPHALAXIS Verified 09/19/17 09:35 gabapentin Allergy Severe AGGRESSIVE Verified 09/19/17 09:35 BEHAVIOR ibuprofen Allergy Severe TOUNGE Verified 09/19/17 09:35 SWELLING lisinopril Allergy Severe ANAPHALAXIS Verified 09/19/17 09:35 quinapril Allergy Severe ANAPHALAXIS Verified 09/19/17 09:35 naproxen Allergy Intermediate RESTELESS Verified 09/19/17 09:35 LEG acetaminophen AdvReac Severe Verified 09/19/17 09:35 MRI PRECAUTION AdvReac Severe NON REVO Uncoded 09/19/17 09:35 PACEMAKER 07/04/13 LRS Review of Systems ROS: all other systems reviewed are negative [facility] Medical History Medical History Arthritis (Acute) Asthma (Acute) CHF (congestive heart failure) (Acute) COPD (chronic obstructive pulmonary disease) (Acute) Cardiac defibrillator in place (Acute) Carpal tunnel syndrome (Acute) Surgical History Surgical History H/O tubal ligation (Acute) Social History Social History Substance History: No History of Abuse Second Hand Smoke Exposure: No Smoking Status: Former smoker How Often Do You Have a Drink Containing Alcohol: Never Recent Travel in [facility] within the Last 8 Weeks: No Recent Out of Country Travel within the Last 8 Weeks: No Immunization History Tetanus Immunization: Unsure Exam Narrative Exam Narrative: GENERAL: Awake, alert, morbidly obese, no obvious distress SKIN: Focused skin assessment warm/dry. HEAD: Atraumatic. Normocephalic. EYES: Pupils equal and round. No scleral icterus. No injection or drainage. ENT: No nasal bleeding or discharge. Mucous membranes pink and moist. NECK: Trachea midline. No JVD. CARDIOVASCULAR: Regular rate and rhythm. No murmur appreciated. RESPIRATORY: No accessory muscle use. Clear to auscultation. End expiratory wheeze. GASTROINTESTINAL: Abdomen soft, non-tender, nondistended. Hepatic and splenic margins not palpable. MUSCULOSKELETAL: No obvious deformities. No clubbing. No cyanosis. No edema. NEUROLOGICAL: Awake and alert. No obvious cranial nerve deficits. Motor grossly within normal limits. Normal speech. PSYCHIATRIC: Appropriate mood and affect; insight and judgment normal. Course Initial Documented Vital Signs Temperature 98.4 F 08/11/18 00:28 Pulse Rate 82 08/11/18 00:28 Respiratory Rate 20 08/11/18 00:28 Blood Pressure 136/86 08/11/18 00:28 Pulse Oximetry 93 L 08/11/18 00:28 Last Documented Vital Signs Temperature 99.8 F H 08/14/18 16:00 Pulse Rate 85 08/14/18 16:00 Respiratory Rate 18 08/14/18 16:00 Blood Pressure 153/73 H 08/14/18 16:00 Pulse Oximetry 95 08/14/18 16:00 Medical Decision Making MDM Narrative Medical decision making narrative: 2:22 AM patient was given 2 DuoNeb's. Blood test results are back and within acceptable limit. Patient is getting the CT of her abdomen and pelvis. Awaiting for the report. If CT is negative patient will be admitted to the chest pain center to be ruled out. 4:[address] scan was within normal limit. Given the fact that patient has a pacemaker and is 100% paced she is not a candidate for the chest pain center. I discussed the case with the residents who have accepted the patient. Medical Screen Exam Complete: Yes Emergency Medical Condition: Yes Lab Data Result diagrams: 08/14/18 09:30 08/14/18 09:30 Lab Results 08/11/18 08/11/18 08/11/18 Range/Units 01:38 01:38 01:38 WBC 6.7 (4.0-11.0) th/mm3 RBC 5.27 (4.00-5.30) mil/mm3 Hgb 14.0 (11.6-15.3) gm/dL Hct 43.6 (35.0-46.0) % MCV 82.8 (80.0-100.0) fL MCH 26.6 L (27.0-34.0) pg MCHC 32.2 (32.0-36.0) % RDW 15.2 (11.6-17.2) % Plt Count 197 (150-450) th/mm3 MPV 9.4 (7.0-11.0) fL Neut % (Auto) 70.8 H (16.0-70.0) % Lymph % (Auto) 21.3 (9.0-44.0) % Mora % (Auto) 7.4 (0.0-8.0) % Eos % (Auto) 0.0 (0.0-4.0) % Baso % (Auto) 0.5 (0.0-2.0) % Neut # (Auto) 4.7 (1.8-7.7) th/mm3 Lymph # (Auto) 1.4 (1.0-4.8) th/mm3 Mora # (Auto) 0.5 (0.0-0.9) th/mm3 Eos # (Auto) 0.0 (0.0-0.4) th/mm3 Baso # (Auto) 0.0 (0.0-0.2) th/mm3 WBC Differential . Differential Comment Auto diff final Puncture Site Patient Temperature O2 Saturation (90-100) % ABG pH (7.380-7.420) ABG pCO2 (38-42) mmHg ABG pO2 (61-120) mmHg ABG HCO3 (22-26) mmol/L ABG O2 Content (12.0-20.0) Vol % ABG Base Excess (-2-2) mmol/L ABG Methemoglobin (0-2) % Rbobi Test Hemoglobin (12.0-16.0) G/DL Carboxyhemoglobin (0-4) % O2 Delivery Device Liter Flow L/M Critical Value Sodium 143 (136-145) meq/L Potassium 4.3 (3.5-5.1) meq/L Chloride 108 H (98-107) meq/L Carbon Dioxide 27.0 (21.0-32.0) meq/L Anion Gap 8 (5-15) meq/L BUN 15 (7-18) mg/dL Creatinine 0.95 (0.50-1.00) mg/dL Estimated GFR 72 L (>89) mL/min POC Glucose (68-110) mg/dl Random Glucose 95 (74-106) mg/dL Hemoglobin A1c (4.3-6.0) % Calcium 8.0 L (8.5-10.1) mg/dL Total Bilirubin 0.3 (0.2-1.0) mg/dL AST 14 L (15-37) U/L ALT 33 (10-53) U/L Alkaline Phosphatase 86 (45-117) U/L Total Creatine Kinase (26-192) U/L CK-MB (CK-2) (0.5-3.6) ng/mL CK-MB (CK-2) % (0.0-4.0) % Troponin I 0.02 (0.02-0.05) ng/mL B-Natriuretic Peptide 440 H (0-100) pg/mL Total Protein 7.1 (6.4-8.2) g/dL Albumin 3.1 L (3.4-5.0) g/dL Triglycerides (42-150) mg/dL Cholesterol (120-200) mg/dL LDL Cholesterol, Calc (0-99) mg/dL HDL Cholesterol (40.0-60.0) mg/dL Cholesterol/HDL Ratio Ratio Lipase (73-393) U/L TSH (0.358-3.740) uIU/mL Free T4 (0.76-1.46) ng/dL 02/23/19 02/23/19 02/23/19 Range/Units 08:28 12:41 13:20 WBC (4.0-11.0) th/mm3 RBC (4.00-5.30) mil/mm3 Hgb (11.6-15.3) gm/dL Hct (35.0-46.0) % MCV (80.0-100.0) fL MCH (27.0-34.0) pg MCHC (32.0-36.0) % RDW (11.6-17.2) % Plt Count (150-450) th/mm3 MPV (7.0-11.0) fL Neut % (Auto) (16.0-70.0) % Lymph % (Auto) (9.0-44.0) % Mora % (Auto) (0.0-8.0) % Eos % (Auto) (0.0-4.0) % Baso % (Auto) (0.0-2.0) % Neut # (Auto) (1.8-7.7) th/mm3 Lymph # (Auto) (1.0-4.8) th/mm3 Mora # (Auto) (0.0-0.9) th/mm3 Eos # (Auto) (0.0-0.4) th/mm3 Baso # (Auto) (0.0-0.2) th/mm3 WBC Differential Differential Comment Puncture Site Patient Temperature O2 Saturation (90-100) % ABG pH (7.380-7.420) ABG pCO2 (38-42) mmHg ABG pO2 (61-120) mmHg ABG HCO3 (22-26) mmol/L ABG O2 Content (12.0-20.0) Vol % ABG Base Excess (-2-2) mmol/L ABG Methemoglobin (0-2) % Robbi Test Hemoglobin (12.0-16.0) G/DL Carboxyhemoglobin (0-4) % O2 Delivery Device Liter Flow L/M Critical Value Sodium 140 (136-145) meq/L Potassium 4.3 (3.5-5.1) meq/L Chloride 106 (98-107) meq/L Carbon Dioxide 25.0 (21.0-32.0) meq/L Anion Gap 9 (5-15) meq/L BUN 14 (7-18) mg/dL Creatinine 0.88 (0.50-1.00) mg/dL Estimated GFR 79 L (>89) mL/min POC Glucose 87 114 H (68-110) mg/dl Random Glucose 108 H (74-106) mg/dL Hemoglobin A1c (4.3-6.0) % Calcium 8.3 L (8.5-10.1) mg/dL Total Bilirubin 0.5 (0.2-1.0) mg/dL AST 16 (15-37) U/L ALT 32 (10-53) U/L Alkaline Phosphatase 89 (45-117) U/L Total Creatine Kinase 173 (26-192) U/L CK-MB (CK-2) (0.5-3.6) ng/mL CK-MB (CK-2) % (0.0-4.0) % Troponin I Less than 0.02 L (0.02-0.05) ng/mL B-Natriuretic Peptide (0-100) pg/mL Total Protein 7.4 (6.4-8.2) g/dL Albumin 3.3 L (3.4-5.0) g/dL Triglycerides (42-150) mg/dL Cholesterol (120-200) mg/dL LDL Cholesterol, Calc (0-99) mg/dL HDL Cholesterol (40.0-60.0) mg/dL Cholesterol/HDL Ratio Ratio Lipase (73-393) U/L TSH (0.358-3.740) uIU/mL Free T4 (0.76-1.46) ng/dL 08/11/18 08/11/18 08/11/18 Range/Units 13:20 13:20 13:20 WBC (4.0-11.0) th/mm3 RBC (4.00-5.30) mil/mm3 Hgb (11.6-15.3) gm/dL Hct (35.0-46.0) % MCV (80.0-100.0) fL MCH (27.0-34.0) pg MCHC (32.0-36.0) % RDW (11.6-17.2) % Plt Count (150-450) th/mm3 MPV (7.0-11.0) fL Neut % (Auto) (16.0-70.0) % Lymph % (Auto) (9.0-44.0) % Mora % (Auto) (0.0-8.0) % Eos % (Auto) (0.0-4.0) % Baso % (Auto) (0.0-2.0) % Neut # (Auto) (1.8-7.7) th/mm3 Lymph # (Auto) (1.0-4.8) th/mm3 Mora # (Auto) (0.0-0.9) th/mm3 Eos # (Auto) (0.0-0.4) th/mm3 Baso # (Auto) (0.0-0.2) th/mm3 WBC Differential Differential Comment Puncture Site Patient Temperature O2 Saturation (90-100) % ABG pH (7.380-7.420) ABG pCO2 (38-42) mmHg ABG pO2 (61-120) mmHg ABG HCO3 (22-26) mmol/L ABG O2 Content (12.0-20.0) Vol % ABG Base Excess (-2-2) mmol/L ABG Methemoglobin (0-2) % Robbi Test Hemoglobin (12.0-16.0) G/DL Carboxyhemoglobin (0-4) % O2 Delivery Device Liter Flow L/M Critical Value Sodium (136-145) meq/L Potassium (3.5-5.1) meq/L Chloride (98-107) meq/L Carbon Dioxide (21.0-32.0) meq/L Anion Gap (5-15) meq/L BUN (7-18) mg/dL Creatinine (0.50-1.00) mg/dL Estimated GFR (>89) mL/min POC Glucose (68-110) mg/dl Random Glucose (74-106) mg/dL Hemoglobin A1c 5.7 (4.3-6.0) % Calcium (8.5-10.1) mg/dL Total Bilirubin (0.2-1.0) mg/dL AST (15-37) U/L ALT (10-53) U/L Alkaline Phosphatase (45-117) U/L Total Creatine Kinase (26-192) U/L CK-MB (CK-2) (0.5-3.6) ng/mL CK-MB (CK-2) % (0.0-4.0) % Troponin I (0.02-0.05) ng/mL B-Natriuretic Peptide (0-100) pg/mL Total Protein (6.4-8.2) g/dL Albumin (3.4-5.0) g/dL Triglycerides 120 (42-150) mg/dL Cholesterol 179 (120-200) mg/dL LDL Cholesterol, Calc 106 H (0-99) mg/dL HDL Cholesterol 48.9 (40.0-60.0) mg/dL Cholesterol/HDL Ratio 3.66 Ratio Lipase 185 (73-393) U/L TSH 0.468 (0.358-3.740) uIU/mL Free T4 (0.76-1.46) ng/dL 08/11/18 08/11/18 08/11/18 Range/Units 13:20 15:26 20:52 WBC (4.0-11.0) th/mm3 RBC (4.00-5.30) mil/mm3 Hgb (11.6-15.3) gm/dL Hct (35.0-46.0) % MCV (80.0-100.0) fL MCH (27.0-34.0) pg MCHC (32.0-36.0) % RDW (11.6-17.2) % Plt Count (150-450) th/mm3 MPV (7.0-11.0) fL Neut % (Auto) (16.0-70.0) % Lymph % (Auto) (9.0-44.0) % Mora % (Auto) (0.0-8.0) % Eos % (Auto) (0.0-4.0) % Baso % (Auto) (0.0-2.0) % Neut # (Auto) (1.8-7.7) th/mm3 Lymph # (Auto) (1.0-4.8) th/mm3 Mora # (Auto) (0.0-0.9) th/mm3 Eos # (Auto) (0.0-0.4) th/mm3 Baso # (Auto) (0.0-0.2) th/mm3 WBC Differential Differential Comment Puncture Site Patient Temperature O2 Saturation (90-100) % ABG pH (7.380-7.420) ABG pCO2 (38-42) mmHg ABG pO2 (61-120) mmHg ABG HCO3 (22-26) mmol/L ABG O2 Content (12.0-20.0) Vol % ABG Base Excess (-2-2) mmol/L ABG Methemoglobin (0-2) % Robbi Test Hemoglobin (12.0-16.0) G/DL Carboxyhemoglobin (0-4) % O2 Delivery Device Liter Flow L/M Critical Value Sodium (136-145) meq/L Potassium (3.5-5.1) meq/L Chloride (98-107) meq/L Carbon Dioxide (21.0-32.0) meq/L Anion Gap (5-15) meq/L BUN (7-18) mg/dL Creatinine (0.50-1.00) mg/dL Estimated GFR (>89) mL/min POC Glucose 157 H 130 H (68-110) mg/dl Random Glucose (74-106) mg/dL Hemoglobin A1c (4.3-6.0) % Calcium (8.5-10.1) mg/dL Total Bilirubin (0.2-1.0) mg/dL AST (15-37) U/L ALT (10-53) U/L Alkaline Phosphatase (45-117) U/L Total Creatine Kinase (26-192) U/L CK-MB (CK-2) (0.5-3.6) ng/mL CK-MB (CK-2) % (0.0-4.0) % Troponin I (0.02-0.05) ng/mL B-Natriuretic Peptide (0-100) pg/mL Total Protein (6.4-8.2) g/dL Albumin (3.4-5.0) g/dL Triglycerides (42-150) mg/dL Cholesterol (120-200) mg/dL LDL Cholesterol, Calc (0-99) mg/dL HDL Cholesterol (40.0-60.0) mg/dL Cholesterol/HDL Ratio Ratio Lipase (73-393) U/L TSH (0.358-3.740) uIU/mL Free T4 0.95 (0.76-1.46) ng/dL 08/12/18 08/12/18 08/12/18 Range/Units 06:33 06:33 06:33 WBC 5.2 (4.0-11.0) th/mm3 RBC 5.00 (4.00-5.30) mil/mm3 Hgb 12.9 (11.6-15.3) gm/dL Hct 41.9 (35.0-46.0) % MCV 83.7 (80.0-100.0) fL MCH 25.9 L (27.0-34.0) pg MCHC 30.9 L (32.0-36.0) % RDW 15.7 (11.6-17.2) % Plt Count 165 (150-450) th/mm3 MPV 9.3 (7.0-11.0) fL Neut % (Auto) (16.0-70.0) % Lymph % (Auto) (9.0-44.0) % Mora % (Auto) (0.0-8.0) % Eos % (Auto) (0.0-4.0) % Baso % (Auto) (0.0-2.0) % Neut # (Auto) (1.8-7.7) th/mm3 Lymph # (Auto) (1.0-4.8) th/mm3 Mora # (Auto) (0.0-0.9) th/mm3 Eos # (Auto) (0.0-0.4) th/mm3 Baso # (Auto) (0.0-0.2) th/mm3 WBC Differential Differential Comment Puncture Site Patient Temperature O2 Saturation (90-100) % ABG pH (7.380-7.420) ABG pCO2 (38-42) mmHg ABG pO2 (61-120) mmHg ABG HCO3 (22-26) mmol/L ABG O2 Content (12.0-20.0) Vol % ABG Base Excess (-2-2) mmol/L ABG Methemoglobin (0-2) % Robbi Test Hemoglobin (12.0-16.0) G/DL Carboxyhemoglobin (0-4) % O2 Delivery Device Liter Flow L/M Critical Value Sodium 138 (136-145) meq/L Potassium 4.0 (3.5-5.1) meq/L Chloride 104 (98-107) meq/L Carbon Dioxide 25.9 (21.0-32.0) meq/L Anion Gap 8 (5-15) meq/L BUN 16 (7-18) mg/dL Creatinine 0.84 (0.50-1.00) mg/dL Estimated GFR 83 L (>89) mL/min POC Glucose (68-110) mg/dl Random Glucose 85 (74-106) mg/dL Hemoglobin A1c (4.3-6.0) % Calcium 8.8 (8.5-10.1) mg/dL Total Bilirubin (0.2-1.0) mg/dL AST (15-37) U/L ALT (10-53) U/L Alkaline Phosphatase (45-117) U/L Total Creatine Kinase (26-192) U/L CK-MB (CK-2) (0.5-3.6) ng/mL CK-MB (CK-2) % (0.0-4.0) % Troponin I (0.02-0.05) ng/mL B-Natriuretic Peptide 389 H (0-100) pg/mL Total Protein (6.4-8.2) g/dL Albumin (3.4-5.0) g/dL Triglycerides (42-150) mg/dL Cholesterol (120-200) mg/dL LDL Cholesterol, Calc (0-99) mg/dL HDL Cholesterol (40.0-60.0) mg/dL Cholesterol/HDL Ratio Ratio Lipase (73-393) U/L TSH (0.358-3.740) uIU/mL Free T4 (0.76-1.46) ng/dL 08/12/18 08/12/18 08/12/18 Range/Units 08:11 17:47 21:36 WBC (4.0-11.0) th/mm3 RBC (4.00-5.30) mil/mm3 Hgb (11.6-15.3) gm/dL Hct (35.0-46.0) % MCV (80.0-100.0) fL MCH (27.0-34.0) pg MCHC (32.0-36.0) % RDW (11.6-17.2) % Plt Count (150-450) th/mm3 MPV (7.0-11.0) fL Neut % (Auto) (16.0-70.0) % Lymph % (Auto) (9.0-44.0) % Mora % (Auto) (0.0-8.0) % Eos % (Auto) (0.0-4.0) % Baso % (Auto) (0.0-2.0) % Neut # (Auto) (1.8-7.7) th/mm3 Lymph # (Auto) (1.0-4.8) th/mm3 Mora # (Auto) (0.0-0.9) th/mm3 Eos # (Auto) (0.0-0.4) th/mm3 Baso # (Auto) (0.0-0.2) th/mm3 WBC Differential Differential Comment Puncture Site Patient Temperature O2 Saturation (90-100) % ABG pH (7.380-7.420) ABG pCO2 (38-42) mmHg ABG pO2 (61-120) mmHg ABG HCO3 (22-26) mmol/L ABG O2 Content (12.0-20.0) Vol % ABG Base Excess (-2-2) mmol/L ABG Methemoglobin (0-2) % Robbi Test Hemoglobin (12.0-16.0) G/DL Carboxyhemoglobin (0-4) % O2 Delivery Device Liter Flow L/M Critical Value Sodium (136-145) meq/L Potassium (3.5-5.1) meq/L Chloride (98-107) meq/L Carbon Dioxide (21.0-32.0) meq/L Anion Gap (5-15) meq/L BUN (7-18) mg/dL Creatinine (0.50-1.00) mg/dL Estimated GFR (>89) mL/min POC Glucose 97 109 103 (68-110) mg/dl Random Glucose (74-106) mg/dL Hemoglobin A1c (4.3-6.0) % Calcium (8.5-10.1) mg/dL Total Bilirubin (0.2-1.0) mg/dL AST (15-37) U/L ALT (10-53) U/L Alkaline Phosphatase (45-117) U/L Total Creatine Kinase (26-192) U/L CK-MB (CK-2) (0.5-3.6) ng/mL CK-MB (CK-2) % (0.0-4.0) % Troponin I (0.02-0.05) ng/mL B-Natriuretic Peptide (0-100) pg/mL Total Protein (6.4-8.2) g/dL Albumin (3.4-5.0) g/dL Triglycerides (42-150) mg/dL Cholesterol (120-200) mg/dL LDL Cholesterol, Calc (0-99) mg/dL HDL Cholesterol (40.0-60.0) mg/dL Cholesterol/HDL Ratio Ratio Lipase (73-393) U/L TSH (0.358-3.740) uIU/mL Free T4 (0.76-1.46) ng/dL 08/13/18 08/13/18 08/13/18 Range/Units 05:48 05:48 05:48 WBC 5.0 (4.0-11.0) th/mm3 RBC 4.87 (4.00-5.30) mil/mm3 Hgb 12.8 (11.6-15.3) gm/dL Hct 40.9 (35.0-46.0) % MCV 84.0 (80.0-100.0) fL MCH 26.2 L (27.0-34.0) pg MCHC 31.3 L (32.0-36.0) % RDW 15.1 (11.6-17.2) % Plt Count 169 (150-450) th/mm3 MPV 8.9 (7.0-11.0) fL Neut % (Auto) (16.0-70.0) % Lymph % (Auto) (9.0-44.0) % Mora % (Auto) (0.0-8.0) % Eos % (Auto) (0.0-4.0) % Baso % (Auto) (0.0-2.0) % Neut # (Auto) (1.8-7.7) th/mm3 Lymph # (Auto) (1.0-4.8) th/mm3 Mora # (Auto) (0.0-0.9) th/mm3 Eos # (Auto) (0.0-0.4) th/mm3 Baso # (Auto) (0.0-0.2) th/mm3 WBC Differential Differential Comment Puncture Site Patient Temperature O2 Saturation (90-100) % ABG pH (7.380-7.420) ABG pCO2 (38-42) mmHg ABG pO2 (61-120) mmHg ABG HCO3 (22-26) mmol/L ABG O2 Content (12.0-20.0) Vol % ABG Base Excess (-2-2) mmol/L ABG Methemoglobin (0-2) % Robbi Test Hemoglobin (12.0-16.0) G/DL Carboxyhemoglobin (0-4) % O2 Delivery Device Liter Flow L/M Critical Value Sodium 140 (136-145) meq/L Potassium 3.8 (3.5-5.1) meq/L Chloride 104 (98-107) meq/L Carbon Dioxide 31.0 (21.0-32.0) meq/L Anion Gap 5 (5-15) meq/L BUN 15 (7-18) mg/dL Creatinine 0.84 (0.50-1.00) mg/dL Estimated GFR 83 L (>89) mL/min POC Glucose (68-110) mg/dl Random Glucose 84 (74-106) mg/dL Hemoglobin A1c (4.3-6.0) % Calcium 8.5 (8.5-10.1) mg/dL Total Bilirubin (0.2-1.0) mg/dL AST (15-37) U/L ALT (10-53) U/L Alkaline Phosphatase (45-117) U/L Total Creatine Kinase (26-192) U/L CK-MB (CK-2) (0.5-3.6) ng/mL CK-MB (CK-2) % (0.0-4.0) % Troponin I (0.02-0.05) ng/mL B-Natriuretic Peptide 338 H (0-100) pg/mL Total Protein (6.4-8.2) g/dL Albumin (3.4-5.0) g/dL Triglycerides (42-150) mg/dL Cholesterol (120-200) mg/dL LDL Cholesterol, Calc (0-99) mg/dL HDL Cholesterol (40.0-60.0) mg/dL Cholesterol/HDL Ratio Ratio Lipase (73-393) U/L TSH (0.358-3.740) uIU/mL Free T4 (0.76-1.46) ng/dL 02/25/19 02/25/19 02/25/19 Range/Units 05:48 06:09 06:37 WBC (4.0-11.0) th/mm3 RBC (4.00-5.30) mil/mm3 Hgb (11.6-15.3) gm/dL Hct (35.0-46.0) % MCV (80.0-100.0) fL MCH (27.0-34.0) pg MCHC (32.0-36.0) % RDW (11.6-17.2) % Plt Count (150-450) th/mm3 MPV (7.0-11.0) fL Neut % (Auto) (16.0-70.0) % Lymph % (Auto) (9.0-44.0) % Mora % (Auto) (0.0-8.0) % Eos % (Auto) (0.0-4.0) % Baso % (Auto) (0.0-2.0) % Neut # (Auto) (1.8-7.7) th/mm3 Lymph # (Auto) (1.0-4.8) th/mm3 Mora # (Auto) (0.0-0.9) th/mm3 Eos # (Auto) (0.0-0.4) th/mm3 Baso # (Auto) (0.0-0.2) th/mm3 WBC Differential Differential Comment Puncture Site Right radial Patient Temperature 98.6 O2 Saturation 87 L* (90-100) % ABG pH 7.35 L (7.380-7.420) ABG pCO2 58 H* (38-42) mmHg ABG pO2 61 (61-120) mmHg ABG HCO3 31 H (22-26) mmol/L ABG O2 Content 15.2 (12.0-20.0) Vol % ABG Base Excess 5.6 H (-2-2) mmol/L ABG Methemoglobin 0.8 (0-2) % Robbi Test Present Hemoglobin 12.5 (12.0-16.0) G/DL Carboxyhemoglobin 1.4 (0-4) % O2 Delivery Device Nasal cannula Liter Flow 2.00 L/M Critical Value Yes Sodium (136-145) meq/L Potassium (3.5-5.1) meq/L Chloride (98-107) meq/L Carbon Dioxide (21.0-32.0) meq/L Anion Gap (5-15) meq/L BUN (7-18) mg/dL Creatinine (0.50-1.00) mg/dL Estimated GFR (>89) mL/min POC Glucose 93 (68-110) mg/dl Random Glucose (74-106) mg/dL Hemoglobin A1c (4.3-6.0) % Calcium (8.5-10.1) mg/dL Total Bilirubin (0.2-1.0) mg/dL AST (15-37) U/L ALT (10-53) U/L Alkaline Phosphatase (45-117) U/L Total Creatine Kinase (26-192) U/L CK-MB (CK-2) (0.5-3.6) ng/mL CK-MB (CK-2) % (0.0-4.0) % Troponin I 0.03 (0.02-0.05) ng/mL B-Natriuretic Peptide (0-100) pg/mL Total Protein (6.4-8.2) g/dL Albumin (3.4-5.0) g/dL Triglycerides (42-150) mg/dL Cholesterol (120-200) mg/dL LDL Cholesterol, Calc (0-99) mg/dL HDL Cholesterol (40.0-60.0) mg/dL Cholesterol/HDL Ratio Ratio Lipase (73-393) U/L TSH (0.358-3.740) uIU/mL Free T4 (0.76-1.46) ng/dL 08/13/18 08/13/18 08/13/18 Range/Units 13:19 14:07 16:55 WBC (4.0-11.0) th/mm3 RBC (4.00-5.30) mil/mm3 Hgb (11.6-15.3) gm/dL Hct (35.0-46.0) % MCV (80.0-100.0) fL MCH (27.0-34.0) pg MCHC (32.0-36.0) % RDW (11.6-17.2) % Plt Count (150-450) th/mm3 MPV (7.0-11.0) fL Neut % (Auto) (16.0-70.0) % Lymph % (Auto) (9.0-44.0) % Mora % (Auto) (0.0-8.0) % Eos % (Auto) (0.0-4.0) % Baso % (Auto) (0.0-2.0) % Neut # (Auto) (1.8-7.7) th/mm3 Lymph # (Auto) (1.0-4.8) th/mm3 Mora # (Auto) (0.0-0.9) th/mm3 Eos # (Auto) (0.0-0.4) th/mm3 Baso # (Auto) (0.0-0.2) th/mm3 WBC Differential Differential Comment Puncture Site Patient Temperature O2 Saturation (90-100) % ABG pH (7.380-7.420) ABG pCO2 (38-42) mmHg ABG pO2 (61-120) mmHg ABG HCO3 (22-26) mmol/L ABG O2 Content (12.0-20.0) Vol % ABG Base Excess (-2-2) mmol/L ABG Methemoglobin (0-2) % Robbi Test Hemoglobin (12.0-16.0) G/DL Carboxyhemoglobin (0-4) % O2 Delivery Device Liter Flow L/M Critical Value Sodium (136-145) meq/L Potassium (3.5-5.1) meq/L Chloride (98-107) meq/L Carbon Dioxide (21.0-32.0) meq/L Anion Gap (5-15) meq/L BUN (7-18) mg/dL Creatinine (0.50-1.00) mg/dL Estimated GFR (>89) mL/min POC Glucose 94 108 (68-110) mg/dl Random Glucose (74-106) mg/dL Hemoglobin A1c (4.3-6.0) % Calcium (8.5-10.1) mg/dL Total Bilirubin (0.2-1.0) mg/dL AST (15-37) U/L ALT (10-53) U/L Alkaline Phosphatase (45-117) U/L Total Creatine Kinase (26-192) U/L CK-MB (CK-2) (0.5-3.6) ng/mL CK-MB (CK-2) % (0.0-4.0) % Troponin I 0.02 (0.02-0.05) ng/mL B-Natriuretic Peptide (0-100) pg/mL Total Protein (6.4-8.2) g/dL Albumin (3.4-5.0) g/dL Triglycerides (42-150) mg/dL Cholesterol (120-200) mg/dL LDL Cholesterol, Calc (0-99) mg/dL HDL Cholesterol (40.0-60.0) mg/dL Cholesterol/HDL Ratio Ratio Lipase (73-393) U/L TSH (0.358-3.740) uIU/mL Free T4 (0.76-1.46) ng/dL 08/13/18 08/14/18 08/14/18 Range/Units 21:54 09:30 09:30 WBC 4.2 (4.0-11.0) th/mm3 RBC 5.20 (4.00-5.30) mil/mm3 Hgb 13.7 (11.6-15.3) gm/dL Hct 43.6 (35.0-46.0) % MCV 83.7 (80.0-100.0) fL MCH 26.3 L (27.0-34.0) pg MCHC 31.4 L (32.0-36.0) % RDW 14.5 (11.6-17.2) % Plt Count 172 (150-450) th/mm3 MPV 9.0 (7.0-11.0) fL Neut % (Auto) (16.0-70.0) % Lymph % (Auto) (9.0-44.0) % Mora % (Auto) (0.0-8.0) % Eos % (Auto) (0.0-4.0) % Baso % (Auto) (0.0-2.0) % Neut # (Auto) (1.8-7.7) th/mm3 Lymph # (Auto) (1.0-4.8) th/mm3 Mora # (Auto) (0.0-0.9) th/mm3 Eos # (Auto) (0.0-0.4) th/mm3 Baso # (Auto) (0.0-0.2) th/mm3 WBC Differential Differential Comment Puncture Site Patient Temperature O2 Saturation (90-100) % ABG pH (7.380-7.420) ABG pCO2 (38-42) mmHg ABG pO2 (61-120) mmHg ABG HCO3 (22-26) mmol/L ABG O2 Content (12.0-20.0) Vol % ABG Base Excess (-2-2) mmol/L ABG Methemoglobin (0-2) % Robbi Test Hemoglobin (12.0-16.0) G/DL Carboxyhemoglobin (0-4) % O2 Delivery Device Liter Flow L/M Critical Value Sodium 139 (136-145) meq/L Potassium 4.2 (3.5-5.1) meq/L Chloride 104 (98-107) meq/L Carbon Dioxide 29.0 (21.0-32.0) meq/L Anion Gap 6 (5-15) meq/L BUN 13 (7-18) mg/dL Creatinine 0.83 (0.50-1.00) mg/dL Estimated GFR 84 L (>89) mL/min POC Glucose 101 (68-110) mg/dl Random Glucose 90 (74-106) mg/dL Hemoglobin A1c (4.3-6.0) % Calcium 8.9 (8.5-10.1) mg/dL Total Bilirubin (0.2-1.0) mg/dL AST (15-37) U/L ALT (10-53) U/L Alkaline Phosphatase (45-117) U/L Total Creatine Kinase 277 H (26-192) U/L CK-MB (CK-2) 1.1 (0.5-3.6) ng/mL CK-MB (CK-2) % 0.4 (0.0-4.0) % Troponin I (0.02-0.05) ng/mL B-Natriuretic Peptide (0-100) pg/mL Total Protein (6.4-8.2) g/dL Albumin (3.4-5.0) g/dL Triglycerides (42-150) mg/dL Cholesterol (120-200) mg/dL LDL Cholesterol, Calc (0-99) mg/dL HDL Cholesterol (40.0-60.0) mg/dL Cholesterol/HDL Ratio Ratio Lipase (73-393) U/L TSH (0.358-3.740) uIU/mL Free T4 (0.76-1.46) ng/dL 02/26/19 Range/Units 12:27 WBC (4.0-11.0) th/mm3 RBC (4.00-5.30) mil/mm3 Hgb (11.6-15.3) gm/dL Hct (35.0-46.0) % MCV (80.0-100.0) fL MCH (27.0-34.0) pg MCHC (32.0-36.0) % RDW (11.6-17.2) % Plt Count (150-450) th/mm3 MPV (7.0-11.0) fL Neut % (Auto) (16.0-70.0) % Lymph % (Auto) (9.0-44.0) % Mora % (Auto) (0.0-8.0) % Eos % (Auto) (0.0-4.0) % Baso % (Auto) (0.0-2.0) % Neut # (Auto) (1.8-7.7) th/mm3 Lymph # (Auto) (1.0-4.8) th/mm3 Mora # (Auto) (0.0-0.9) th/mm3 Eos # (Auto) (0.0-0.4) th/mm3 Baso # (Auto) (0.0-0.2) th/mm3 WBC Differential Differential Comment Puncture Site Patient Temperature O2 Saturation (90-100) % ABG pH (7.380-7.420) ABG pCO2 (38-42) mmHg ABG pO2 (61-120) mmHg ABG HCO3 (22-26) mmol/L ABG O2 Content (12.0-20.0) Vol % ABG Base Excess (-2-2) mmol/L ABG Methemoglobin (0-2) % Robbi Test Hemoglobin (12.0-16.0) G/DL Carboxyhemoglobin (0-4) % O2 Delivery Device Liter Flow L/M Critical Value Sodium (136-145) meq/L Potassium (3.5-5.1) meq/L Chloride (98-107) meq/L Carbon Dioxide (21.0-32.0) meq/L Anion Gap (5-15) meq/L BUN (7-18) mg/dL Creatinine (0.50-1.00) mg/dL Estimated GFR (>89) mL/min POC Glucose 107 (68-110) mg/dl Random Glucose (74-106) mg/dL Hemoglobin A1c (4.3-6.0) % Calcium (8.5-10.1) mg/dL Total Bilirubin (0.2-1.0) mg/dL AST (15-37) U/L ALT (10-53) U/L Alkaline Phosphatase (45-117) U/L Total Creatine Kinase (26-192) U/L CK-MB (CK-2) (0.5-3.6) ng/mL CK-MB (CK-2) % (0.0-4.0) % Troponin I (0.02-0.05) ng/mL B-Natriuretic Peptide (0-100) pg/mL Total Protein (6.4-8.2) g/dL Albumin (3.4-5.0) g/dL Triglycerides (42-150) mg/dL Cholesterol (120-200) mg/dL LDL Cholesterol, Calc (0-99) mg/dL HDL Cholesterol (40.0-60.0) mg/dL Cholesterol/HDL Ratio Ratio Lipase (73-393) U/L TSH (0.358-3.740) uIU/mL Free T4 (0.76-1.46) ng/dL Imaging Data Radiologist's impression: Abdomen/Pelvis CT 08/11/18 00:46 CONCLUSION: 1. No acute abnormality. Chest X-Ray 08/11/18 00:46 CONCLUSION: Cardiomegaly with mild pulmonary vascular engorgement. Abdomen X-Ray 08/13/18 00:00 CONCLUSION: There is some stool seen throughout the colon. Otherwise, unremarkable examination. Head CT 08/13/18 00:00 CONCLUSION: 1. Unremarkable CT brain Report was called by Luzma Pollard. Head CTA 08/13/18 00:00 CONCLUSION: 1. No large vessel stenosis or aneurysm. Report was called by Luzma Pollard.. Neck CTA 08/13/18 00:00 CONCLUSION: 1. No significant carotid stenosis. 2. Heterogeneous thyroid gland. Report was called by Luzma Pollard. ECG Data Attestation: I personally reviewed and interpreted this ECG as follows: Interpretation: Twelve-lead EKG was reviewed by me. Paced rhythm. Heart rate of 81 bpm. Discharge Plan Discharge Disposition Patient Disposition: ED Admit(ED Internal Use Only) Discharge Condition Condition: Stable Discharge Order Discharge Orders: Discharge Order (Routine); Ordered 08/14/18 Ordered By: [place] ED Use Only Admit Order (Routine); Ordered 08/11/18 Ordered By: Kevin Villavicencio Discharge Details Anticipated Discharge Date: 08/14/18 Physicians Team ED Provider: Kevin Villavicencio Primary Care Provider: Lydia Merrill Attending Provider: Loida Nuñez Other Providers: Adnre Ramirez ; [facility],Insurance ; Danny Morrison Fernando B Status ED Status: Left Department Discharge Information Discharge Date/Time: 08/11/18 06:49
--- NOTE | 2018-08-11 03:13 | CT ---
EXAM DATE: 08/11/2018 2:31 AM EST AGE/SEX: 63 years / Female INDICATIONS: Abdominal pain for 1 week. CLINICAL DATA: This is the patient's initial encounter. Patient reports that signs and symptoms have been present for 1 day and indicates a pain score of 6/10. MEDICAL/SURGICAL HISTORY: Congestive heart failure. Chronic obstructive pulmonary disease. Tub al ligation. RADIATION DOSE: 32.14 CTDI (mGy) ; Patient body habitus COMPARISON: [facility] [place] ABDOMEN & PELVIS W/O CONTRAST, 12/25/2014. . TECHNIQUE: Multiple contiguous axial images were obtained through the abdomen. Images were obtained using multiple row detector helical technique. Using automated exposure control and adjustment of the mA and/or kV according to patient size, radiation dose was kept as low as reasonably achievable to o btain optimal diagnostic quality images. DICOM format image data is available electronically for rev iew and comparison. FINDINGS: Lower Lungs: The visualized lower lungs are clear. A tiny hiatal hernia. Liver: The liver has a homogeneous density without space-occupying lesion. There is no dilation of th e biliary tree. Gallbladder is surgically absent. Spleen: Homogeneous density without enlargement. Pancreas: Unremarkable without mass or calcification. Kidneys: Normal in size and shape. No evidence of mass or hydronephrosis. 1.9 cm cyst involving the lower pole left kidney is long-term stable. Hounsfield units are 11. Adrenal Glands: Unremarkable. Aorta: Calcified atherosclerotic plaque without aneurysmal dilation. Bowel/Mesentery: The bowel loops are grossly unremarkable. The cecum and sigmoid colon have a normal configuration. Abdominal Wall: Intact. Retroperitoneum: No evidence of adenopathy in the retrocrural, para-aortic, or deep pelvic regions. Bladder: Contours are smooth. Reproductive Organs: A small calcified degenerating fibroid is seen. No adnexal mass or fluid collec tions observed.. Inguinal: The inguinal region is unremarkable without evidence of adenopathy. Bony Structures: A degenerative lumbar spine.. CONCLUSION: 1. No acute abnormality. Electronically signed by: Manny Darden MD Board Certified Radiologist 08/11/2018 3:12 AM EST
--- NOTE | 2018-08-11 04:21 | P.HPFP ---
History of Present Illness Primary Care Physician: Lydia Diaz MD, R2 <Kevin Rodriguez - 08/11/18 12:17> Lydia Diaz MD, R2 <Adrianne Álvarez - 08/11/18 04:20> Chief Complaint: chest pain <Alcira RitterAdrianne N - 08/11/18 04:20> History of Present Illness: 63 y/o F w/hx of morbid obesity, COPD, and cardiomyopathy presenting w/ constant chest pain for the last 3 days. Went to PCP for appointment after pacemaker started beeping on August 03. This is not noted in the chart documentation but patient is sure that this was at 9 am. Was not able to see color maker formulator because she did not have an ID. Has been beeping for 1.5 months. 3 days ago, chest pain started at the center of her chest and radiated to the left side. It was sharp but her heart also felt like it was fluttering. [place] pressure. Worse with movement. Initially was 10/10 now down to 8/10. Pain does not feel better since she came in. Endorses shortness of breath, numbness and tingling in the arms and legs, chills, nausea, vision changes, headaches, weakness. Vomited x1 today and again on Monday. Sees Dr. Swain, psychiatry, and Dr. Neely (eye). Med hx: chronic back pain, takes morphine COPD/asthma CVA x4 (last was 09/2016) anxiety/depression GERD bipolar disorder I, schizophrenia HTN hypothyroidism CHF DM type 2 sleep apnea arthritis morbid obesity Surg hx: tubal ligation, total colectomy pacemaker 2010 for cardiomyopathy carpal tunnel surgery partial hysterectomy cholecystectomy FH: Father - alcoholism Mother - DM, heart disease, kidney disease Social hx: Former smoker for 15 pack years, quit 3 months ago <Alcira RitterAdrianne N - 08/11/18 06:09> - Diagnosis (1) Chest pain (2) Cardiomyopathy (3) Heart failure (4) COPD (chronic obstructive pulmonary disease) (5) Obstructive sleep apnea (6) Pacemaker complications (7) DM2 (diabetes mellitus, type 2) (8) Hypothyroidism (9) Abdominal pain (10) Black stools (11) Cough (12) GERD (gastroesophageal reflux disease) (13) Schizophrenia (14) Morbid obesity (15) Candidiasis of skin <PrevKevin benjamin - 08/11/18 12:17> (1) Chest pain (2) Left upper quadrant pain (3) Pacemaker complications (4) COPD (chronic obstructive pulmonary disease) (5) GERD (gastroesophageal reflux disease) (6) Cardiomyopathy (7) Morbid obesity (8) Candidiasis of skin (9) Schizophrenia (10) DM2 (diabetes mellitus, type 2) <Abid R2,[facility] 08/11/18 05:42> Review of Systems other <Abid R2,[facility] 08/11/18 04:45> Constitutional: Reports weight gain <Abid R2,[facility] 08/11/18 04:45> Ears, Nose, Mouth, and Throat: Reports sore throat <Abid R2[facility] 04:45> Cardiovascular: Denies leg swelling <Abid R2[facility] 08/11/18 04:45> Respiratory: Reports cough <Abid R2[facility] 08/11/18 04:45> Genitourinary: Denies painful urination <Abid R2[facility] 08/11/18 04:45> Musculoskeletal: Reports abnormal walking, Reports back pain, Reports body aches <Abid R2[facility] 08/11/18 04:45> Neurologic: Denies fainting, Denies frequent falls <Abid R2[facility] 04:45> PMFSH - History History Provided By: [facility] [address] 08/11/18 04:20> - Medical History Medical History: Medical History (Last Reviewed 08/11/18 @ 02:22 by Kevin Villavicencio MD) Arthritis Asthma CHF (congestive heart failure) COPD (chronic obstructive pulmonary disease) Cardiac defibrillator in place Carpal tunnel syndrome <Kevin Rodriguez - 08/11/18 12:17> Medical History (Last Reviewed 08/11/18 @ 02:22 by Kevin Villavicencio MD) Arthritis Asthma CHF (congestive heart failure) COPD (chronic obstructive pulmonary disease) Cardiac defibrillator in place Carpal tunnel syndrome <Abid R2[facility] 08/11/18 04:20> - Surgical History Surgical History: Surgical History (Last Reviewed 08/11/18 @ 02:22 by Kevin Villavicencio MD) H/O tubal ligation <Kevin Rodriguez - 08/11/18 12:17> Surgical History (Last Reviewed 08/11/18 @ 02:22 by Kevin Villavicencio MD) H/O tubal ligation <Adrianne Álvarez 08/11/18 04:20> - Tobacco History Second Hand Smoke Exposure: Yes <Adrianne Álvarez 08/11/18 04:20> Smoking Status: Never smoker <Adrianne Álvarez 08/11/18 04:20> - Alcohol History How Often Do You Have a Drink Containing Alcohol: Never <Adrianne Álvarez 04:20> - Substance Use History Substance History: No History of Abuse <Alcira RitterAdrianne 08/11/18 04:20> - Travel History Recent Travel in the [facility] Within the Last 8 Weeks: No [facility] Recent Travel Out of the Country Within the Last 8 Weeks: No <Adrianne Álvarez 08/11/18 04:20> - Immunization History Tetanus Immunization: Unsure <Adrianne Álvarez 08/11/18 04:20> Medications and Allergies Allergies Allergy/AdvReac Type Severity Reaction Status Date / Time aspirin Allergy Severe Anaphylaxis Verified 09/19/17 09:35 benazepril Allergy Severe ANAPHALAXIS Verified 09/19/17 09:35 captopril Allergy Severe ANAPHALAXIS Verified 09/19/17 09:35 enalaprilat Allergy Severe Anaphylaxis Verified 09/19/17 09:35 fosinopril Allergy Severe ANAPHALAXIS Verified 09/19/17 09:35 gabapentin Allergy Severe AGGRESSIVE Verified 09/19/17 09:35 BEHAVIOR ibuprofen Allergy Severe TOUNGE Verified 09/19/17 09:35 SWELLING lisinopril Allergy Severe ANAPHALAXIS Verified 09/19/17 09:35 quinapril Allergy Severe ANAPHALAXIS Verified 09/19/17 09:35 naproxen Allergy Intermediate RESTELESS Verified 09/19/17 09:35 LEG acetaminophen AdvReac Severe Verified 09/19/17 09:35 MRI PRECAUTION AdvReac Severe NON REVO Uncoded 09/19/17 09:35 PACEMAKER 07/04/13 LRS <Kevin Rodriguez - 08/11/18 12:17> Home Medications Medication Instructions Recorded Confirmed Type Spiriva with HandiHaler 1.25 mcg INHALATION DAILY 08/11/18 08/11/18 History apixaban [Eliquis] 5 tab PO DAILY 08/11/18 08/11/18 History ferrous sulfate 27 mg PO DAILY 08/11/18 08/11/18 History fluticasone-salmeterol [Advair 100 mcg INHALATION DAILY 08/11/18 08/11/18 History Diskus] furosemide 40 mg PO DAILY 08/11/18 08/11/18 History levothyroxine 88 mcg PO DAILY 08/11/18 08/11/18 History lorazepam 1 mg PO BID PRN 08/11/18 08/11/18 History metformin 1,000 mg PO DAILY 08/11/18 08/11/18 History morphine 15 mg PO Q6H PRN 08/11/18 08/11/18 History nitroglycerin [Nitrostat] 0.3 mg SUBLINGUAL Q5-6M PRN MDD 3 08/11/18 08/11/18 History oxycodone 5 mg PO Q5-30M PRN 08/11/18 08/11/18 History prednisone 20 mg PO DAILY 08/11/18 08/11/18 History trazodone 50 mg PO BID 08/11/18 08/11/18 History <Kevin Rodriguez - 08/11/18 12:17> Active Medications: Active Medications Al Hydroxide/Mg Hydroxide (Milk Of Angela Liq) 30 ml PO Q12H PRN PRN Reason: Mild Constipation Albuterol (Duoneb Neb (Nilo)) 1 ampul NEB Q4HR NEB [facility] Last Admin: 08/11/18 11:58 Dose: 1 ampul Albuterol (Albuterol Neb (Prn)) 1.25 mg NEB Q2HR NEB PRN PRN Reason: SHORTNESS OF BREATH Apixaban (Eliquis) 5 mg PO DAILY [facility] Last Admin: 08/11/18 08:04 Dose: 5 mg Benzonatate (Tessalon Perles) 200 mg PO Q8H PRN PRN Reason: COUGH Bisacodyl (Dulcolax Ec) 5 mg PO DAILY PRN PRN Reason: CONSTIPATION Bisacodyl (Dulcolax Supp) 10 mg RECTAL DAILY PRN PRN Reason: SEVERE CONSITIPATION Dextrose (D50w Vial) 50 ml IV.PUSH UNSCH PRN PRN Reason: PER HYPOGLYCEMIA PROTOCOL Ferrous Sulfate (Ferosul) 325 mg PO DAILY [facility] Last Admin: 08/11/18 08:05 Dose: 325 mg Furosemide (Lasix) 40 mg PO DAILY [facility] Last Admin: 08/11/18 08:04 Dose: 40 mg Glucagon (Glucagon Inj) 1 mg OTHER UNSCH PRN PRN Reason: for Hypoglycemia Protocol Insulin Aspart (Novolog Insulin Correctional Sugar Inj) 0 unit SQ ACHS [facility]; Protocol Lactulose (Lactulose Liq) 30 ml PO DAILY PRN PRN Reason: SEVERE CONSITIPATION Levothyroxine Sodium (Synthroid) 75 mcg PO DAILY@0700 [facility] Last Admin: 08/11/18 06:52 Dose: 75 mcg Lorazepam (Ativan) 0.5 mg PO Q4H PRN PRN Reason: ANXIETY Morphine Sulfate (Msir) 15 mg PO Q6H PRN PRN Reason: CHRONIC PAIN Nystatin (Mycostatin Powder) 1 applicatio TOPICAL TID [facility] Ondansetron HCl (Zofran Inj) 4 mg IV.PUSH Q6H PRN PRN Reason: NAUSEA OR VOMITING Oxycodone HCl (Roxicodone) 10 mg PO Q8H PRN PRN Reason: ACUTE PAIN Last Admin: 08/11/18 08:04 Dose: 10 mg Pantoprazole Sodium (Protonix) 40 mg PO DAILY [facility] Prednisone (Deltasone) 10 mg PO DAILY [facility] Last Admin: 08/11/18 08:04 Dose: 10 mg Sennosides (Senokot) 17.2 mg PO Q12H PRN PRN Reason: Moderate Constipation Sodium Chloride (Ns Inj) 2 ml IV.FLUSH BID [facility] Last Admin: 08/11/18 08:05 Dose: 2 ml Sodium Chloride (Ns Inj) 2 ml IV.FLUSH UNSCH PRN PRN Reason: FLUSH AFTER USING IV ACCESS Trazodone HCl (Desyrel) 50 mg PO HS [facility] <Kevin Rodriguez - 08/11/18 12:17> Active Medications Sodium Chloride (Ns Flush) 2 ml IV.FLUSH UNSCH PRN PRN Reason: FLUSH AFTER USING IV ACCESS <Abid R2Adrianne N - 08/11/18 04:20> Exam Vital signs: Vital Signs 08/11/18 00:28 08/11/18 00:34 08/11/18 00:55 Temperature 98.4 F Pulse Rate 82 83 78 Respiratory Rate 20 20 18 Blood Pressure 136/86 143/85 H Pulse Oximetry 93 L 98 98 08/11/18 03:50 08/11/18 07:44 08/11/18 08:05 Temperature 98.4 F Pulse Rate 68 69 Respiratory Rate 20 19 15 Blood Pressure 155/83 H Pulse Oximetry 99 98 08/11/18 11:58 Temperature Pulse Rate 71 Respiratory Rate 15 Blood Pressure Pulse Oximetry Intake & Output 08/10/18 08/11/18 08/11/18 18:59 06:59 18:59 Intake Total 517.9 / 517.9 Balance 517.9 / 517.9 Weight 119.748 kg 119.748 kg Intake: IV 517.9 / 517.9 Vancomycin Inj 1,790 MG In NS 517.9 / 517.9 Inj 500 ML @ 250 mls/hr IV.SIG ONCE ONE Rx#:[id number] Other: Date of Last Bowel Movement 08/10/18 Weight On Admission 119.748 kg <Kevin Rodriguez - 08/11/18 12:17> Vital Signs 08/11/18 00:28 08/11/18 00:34 08/11/18 00:55 Temperature 98.4 F Pulse Rate 82 83 78 Respiratory Rate 20 20 18 Blood Pressure 136/86 143/85 H Pulse Oximetry 93 L 98 98 08/11/18 03:50 Temperature Pulse Rate Respiratory Rate 20 Blood Pressure Pulse Oximetry Intake & Output 08/10/18 08/10/18 08/11/18 06:59 18:59 06:59 Weight 119.748 kg <Adrianne Álvarez N - 08/11/18 04:20> Narrative: GENERAL: Morbidly obese Black lady sitting up calmly in bed. SKIN: Warm and dry. HEAD: Atraumatic. Normocephalic. EYES: normal EOM. ENT: No nasal bleeding or discharge. Mucous membranes pink and moist. CARDIOVASCULAR: Regular rate and rhythm. Left upper chest pacemaker. Patient endorses tenderness over this site. However, it does not appear red or edematous , is not draining fluid. RESPIRATORY: No accessory muscle use. Expiratory (soft), occasional wheezing in the lower lobes. Breath sounds equal bilaterally. GASTROINTESTINAL: Abdomen soft, nondistended but tender to touch in the midabdomen and toward the left (includes both upper and lower quadrants). Under both breasts, the skin is hyperpigmented. At the left breast, there is an area that is hyperpigmented and slightly red. No induration noted. Tender at this site. In the left upper quadrant, there is a 3x3 cm abscess w/1 cm obvious overlying pustule. This site is tender as well. MUSCULOSKELETAL: Extremities without clubbing, cyanosis, or edema. No obvious deformities or rash. NEUROLOGICAL: Awake and alert. No obvious cranial nerve deficits. Normal speech. PSYCHIATRIC: Appropriate mood and affect; insight and judgment appear slightly off. Patient is unable to remember all of her medical history and what she does remember does not seem logically connected as she relates history. <Adrianne Álvarez - 08/11/18 06:09> Results - Labs Result diagrams: 08/11/18 01:38 08/11/18 01:38 <Kevin Rodriguez - 08/11/18 12:17> Abnormal lab results 08/11/18 08/11/18 08/11/18 Range/Units 01:38 01:38 01:38 MCH 26.6 L (27.0-34.0) pg Neut % (Auto) 70.8 H (16.0-70.0) % Chloride 108 H (98-107) meq/L Estimated GFR 72 L (>89) mL/min Calcium 8.0 L (8.5-10.1) mg/dL AST 14 L (15-37) U/L B-Natriuretic Peptide 440 H (0-100) pg/mL Albumin 3.1 L (3.4-5.0) g/dL Short CBC 08/11/18 Range/Units 01:38 WBC 6.7 (4.0-11.0) th/mm3 Hgb 14.0 (11.6-15.3) gm/dL Hct 43.6 (35.0-46.0) % Plt Count 197 (150-450) th/mm3 BMP 08/11/18 01:38 Sodium 143 Potassium 4.3 Chloride 108 H Carbon Dioxide 27.0 BUN 15 Creatinine 0.95 Calcium 8.0 L Cardiac Enzymes 08/11/18 Range/Units 01:38 Troponin I 0.02 (0.02-0.05) ng/mL Liver Function 08/11/18 Range/Units 01:38 Total Bilirubin 0.3 (0.2-1.0) mg/dL AST 14 L (15-37) U/L ALT 33 (10-53) U/L Alkaline Phosphatase 86 (45-117) U/L Albumin 3.1 L (3.4-5.0) g/dL <Kevin Rodriguez - 08/11/18 12:17> Abnormal lab results 08/11/18 08/11/18 Range/Units 01:38 01:38 MCH 26.6 L (27.0-34.0) pg Neut % (Auto) 70.8 H (16.0-70.0) % Chloride 108 H (98-107) meq/L Estimated GFR 72 L (>89) mL/min Calcium 8.0 L (8.5-10.1) mg/dL AST 14 L (15-37) U/L Albumin 3.1 L (3.4-5.0) g/dL Short CBC 08/11/18 Range/Units 01:38 WBC 6.7 (4.0-11.0) th/mm3 Hgb 14.0 (11.6-15.3) gm/dL Hct 43.6 (35.0-46.0) % Plt Count 197 (150-450) th/mm3 BMP 08/11/18 01:38 Sodium 143 Potassium 4.3 Chloride 108 H Carbon Dioxide 27.0 BUN 15 Creatinine 0.95 Calcium 8.0 L Cardiac Enzymes 08/11/18 Range/Units 01:38 Troponin I 0.02 (0.02-0.05) ng/mL Liver Function 08/11/18 Range/Units 01:38 Total Bilirubin 0.3 (0.2-1.0) mg/dL AST 14 L (15-37) U/L ALT 33 (10-53) U/L Alkaline Phosphatase 86 (45-117) U/L Albumin 3.1 L (3.4-5.0) g/dL <Adrianne Álvarez - 08/11/18 04:20> - Imaging Impressions Abdomen/Pelvis CT 08/11/18 00:46 CONCLUSION: 1. No acute abnormality. Chest X-Ray 08/11/18 00:46 CONCLUSION: Cardiomegaly with mild pulmonary vascular engorgement. <Prevatte,Kevin - 08/11/18 12:17> Impressions Abdomen/Pelvis CT 08/11/18 00:46 CONCLUSION: 1. No acute abnormality. Chest X-Ray 08/11/18 00:46 CONCLUSION: Cardiomegaly with mild pulmonary vascular engorgement. <Abid Adrianne Ritter N - 08/11/18 04:20> Caprini VTE Risk Assessment Caprini VTE Risk Assessment: Moderate/High Risk (score >= 2) <Abid Adrianne Ritter N - 08/11/18 06:09> Caprini Risk Assessment Model: Point Value = 1 Point Value = 2 Point Value = 3 Point Value = 5 Age 41-60 Minor surgery BMI > 25 kg/m2 Swollen legs Varicose veins or History of unexplained or recurrent spontaneous Oral contraceptives or hormone replacement Sepsis (< 1 month) Serious lung disease, including pneumonia (< 1 month) Abnormal pulmonary function Acute myocardial infarction Congestive heart failure (< 1 month) History of inflammatory bowel disease Medical patient at bed rest Age 61-74 Arthroscopic surgery Major open surgery (> 45 min) Laparoscopic surgery (> 45 min) Malignancy Confined to bed (> 72 hours) Immobilizing plaster cast Central venous access Age >= 75 History of VTE Family history of VTE Factor V Leiden Prothrombin [id number] Lupus anticoagulant Anticardiolipin antibodies Elevated serum homocysteine Heparin-induced thrombocytopenia Other congenital or acquired thrombophilia Stroke (< 1 month) Elective arthroplasty Hip, pelvis, or leg fracture Acute spinal cord injury (< 1 month) <PrevatteKevin - 08/11/18 12:17> Point Value = 1 Point Value = 2 Point Value = 3 Point Value = 5 Age 41-60 Minor surgery BMI > 25 kg/m2 Swollen legs Varicose veins or History of unexplained or recurrent spontaneous Oral contraceptives or hormone replacement Sepsis (< 1 month) Serious lung disease, including pneumonia (< 1 month) Abnormal pulmonary function Acute myocardial infarction Congestive heart failure (< 1 month) History of inflammatory bowel disease Medical patient at bed rest Age 61-74 Arthroscopic surgery Major open surgery (> 45 min) Laparoscopic surgery (> 45 min) Malignancy Confined to bed (> 72 hours) Immobilizing plaster cast Central venous access Age >= 75 History of VTE Family history of VTE Factor V Leiden Prothrombin [id number] Lupus anticoagulant Anticardiolipin antibodies Elevated serum homocysteine Heparin-induced thrombocytopenia Other congenital or acquired thrombophilia Stroke (< 1 month) Elective arthroplasty Hip, pelvis, or leg fracture Acute spinal cord injury (< 1 month) <Adrianne Álvarez - 08/11/18 06:09> Prophylaxis Regimen: Total Risk Factor Score Risk Level Prophylaxis Regimen 0-1 Low Early ambulation 2 Moderate Order ONE of the following: *Sequential Compression Device (SCD) *Heparin 5000 units SQ BID 3-4 Higher Order ONE of the following medications: *Heparin 5000 units SQ TID *Enoxaparin/Lovenox 40 mg SQ daily (WT < 150 kg, CrCl > 30 mL/min) *Enoxaparin/Lovenox 30 mg SQ daily (WT < 150 kg, CrCl > 10-29 mL/min) *Enoxaparin/Lovenox 30 mg SQ BID (WT < 150 kg, CrCl > 30 mL/min) AND/OR *Sequential Compression Device (SCD) 5 or more Highest Order ONE of the following medications: *Heparin 5000 units SQ TID (Preferred with Epidurals) *Enoxaparin/Lovenox 40 mg SQ daily (WT < 150 kg, CrCl > 30 mL/min) *Enoxaparin/Lovenox 30 mg SQ daily (WT < 150 kg, CrCl > 10-29 mL/min) *Enoxaparin/Lovenox 30 mg SQ BID (WT < 150 kg, CrCl > 30 mL/min) AND *Sequential Compression Device (SCD) <Kevin Rodriguez - 08/11/18 12:17> Total Risk Factor Score Risk Level Prophylaxis Regimen 0-1 Low Early ambulation 2 Moderate Order ONE of the following: *Sequential Compression Device (SCD) *Heparin 5000 units SQ BID 3-4 Higher Order ONE of the following medications: *Heparin 5000 units SQ TID *Enoxaparin/Lovenox 40 mg SQ daily (WT < 150 kg, CrCl > 30 mL/min) *Enoxaparin/Lovenox 30 mg SQ daily (WT < 150 kg, CrCl > 10-29 mL/min) *Enoxaparin/Lovenox 30 mg SQ BID (WT < 150 kg, CrCl > 30 mL/min) AND/OR *Sequential Compression Device (SCD) 5 or more Highest Order ONE of the following medications: *Heparin 5000 units SQ TID (Preferred with Epidurals) *Enoxaparin/Lovenox 40 mg SQ daily (WT < 150 kg, CrCl > 30 mL/min) *Enoxaparin/Lovenox 30 mg SQ daily (WT < 150 kg, CrCl > 10-29 mL/min) *Enoxaparin/Lovenox 30 mg SQ BID (WT < 150 kg, CrCl > 30 mL/min) AND *Sequential Compression Device (SCD) <AbiAdrianne Santa - 08/11/18 04:20> Assessment and Plan - Assessment (1) Chest pain Code(s): R07.9 - Chest pain, unspecified Status: Acute (2) Cardiomyopathy Code(s): I42.9 - Cardiomyopathy, unspecified Status: Acute (3) Heart failure Code(s): I50.9 - Heart failure, unspecified Status: Acute (4) COPD (chronic obstructive pulmonary disease) Code(s): J44.9 - Chronic obstructive pulmonary disease, unspecified Status: Acute (5) Obstructive sleep apnea Code(s): G47.33 - Obstructive sleep apnea (adult) (pediatric) Status: Acute (6) Pacemaker complications Code(s): T82.9XXA - Unspecified complication of cardiac and vascular prosthetic device, implant and graft, initial encounter Status: Acute (7) DM2 (diabetes mellitus, type 2) Code(s): E11.9 - Type 2 diabetes mellitus without complications Status: Acute (8) Hypothyroidism Code(s): E03.9 - Hypothyroidism, unspecified Status: Acute (9) Abdominal pain Code(s): R10.9 - Unspecified abdominal pain Status: Acute (10) Black stools Code(s): K92.1 - Melena Status: Acute (11) Cough Code(s): R05 - Cough Status: Acute (12) GERD (gastroesophageal reflux disease) Code(s): K21.9 - Gastro-esophageal reflux disease without esophagitis Status: Acute (13) Schizophrenia Code(s): F20.9 - Schizophrenia, unspecified Status: Acute (14) Morbid obesity Code(s): E66.01 - Morbid (severe) obesity due to excess calories Status: Acute (15) Candidiasis of skin Code(s): B37.2 - Candidiasis of skin and nail Status: Acute <MirtacristineKevin - 08/11/18 12:17> (1) Chest pain Code(s): R07.9 - Chest pain, unspecified Status: Acute Plan: Diff: ACS v skin infection v MSK -Areas of hypopigmentation and inflammation may be masking cellulitis in addition to abscess site. This follows a pattern similar to where patient has pain. -ACS r/o w/troponins, CK, and EKG. First set of troponins negative - tele - apply ice or warm compress, may alternate. Avoid further pain medication due to allergies - Consult cardiology for pacemaker examination - Con't home meds (2) Left upper quadrant pain Code(s): R10.12 - Left upper quadrant pain Status: Acute Plan: May be secondary to abscess and/or skin infection Treat w/Vancomycin 15 mg/kg x1 due to pacemaker being in area close to site of abscess, tenderness over pacemaker site, and concern of cellulitis. Can transitioning to oral abx after 24 hrs. Order wound culture when abscess site becomes more fluctuant. (3) Pacemaker complications Code(s): T82.9XXA - Unspecified complication of cardiac and vascular prosthetic device, implant and graft, initial encounter Status: Acute Plan: Pacemaker since 2010 States she has not seen color maker formulator in 2 years Pacemaker has been giving off beeping sounds Consult cardiology, appreciate assistance w/further investigation See above for rest of plan (4) COPD (chronic obstructive pulmonary disease) Code(s): J44.9 - Chronic obstructive pulmonary disease, unspecified Status: Acute Plan: CXR negative Provide duonebs q4h, albuterol q2h prn Provide supplemental O2 (2L), which she takes at home Con't prednisone dose per [facility] chart review (5) GERD (gastroesophageal reflux disease) Code(s): K21.9 - Gastro-esophageal reflux disease without esophagitis Status: Acute Plan: Con't PPI 20 mg daily (home) (6) Cardiomyopathy Code(s): I42.9 - Cardiomyopathy, unspecified Status: Acute Plan: Appears stable Con't home meds Investigate pacemaker (7) Morbid obesity Code(s): E66.01 - Morbid (severe) obesity due to excess calories Status: Acute Plan: Gambreler on weight loss and healthy diet (8) Candidiasis of skin Code(s): B37.2 - Candidiasis of skin and nail Status: Acute Plan: Provide nystatin ointment to apply under folds of skin at sites of hyperpigmentation (9) Schizophrenia Code(s): F20.9 - Schizophrenia, unspecified Status: Acute Plan: Unclear what kind of antipsychotic patient is on at home [facility] medical chart shows Quetiapine but patient states she is taking Risperidone but does not remember does or who put her on it Questionable patient history reporting. May be beneficial to contact a family member, guardian, or PCP to clarify health hx (10) DM2 (diabetes mellitus, type 2) Code(s): E11.9 - Type 2 diabetes mellitus without complications Status: Acute Plan: Con't home Metformin Fluids: none Electrolytes: not indicated Nutrition: Diabetic diet GI prophylaxis: protonix DVT prophylaxis: Eliquis for hx of stroke and SCDs DNR code <Adrianne Álvarez - 08/11/18 05:42> - Attending Attestation The patient was seen and examined. 63 y/o female with a history of cardiomyopathy and pacemaker presents with 3 day history of atypical chest pain and shortness of breath. Also complains of LUQ abdominal pain and a 3 day history of black stools. No acute changes noted on EKG, initial troponin normal. I have reviewed the resident's documentation and have discussed the treatment plan with Dr. Knight. Agree with assessment and plan as documented. <Kevin Rodriguez - 08/11/18 12:17> <Adrianne Álvarez - Last Filed: 08/11/18 05:42> (10) DM2 (diabetes mellitus, type 2) Qualifiers: Diabetes mellitus complication status: with unspecified complications <Kevin Rodriguez - Last Filed: 08/11/18 12:17> (7) DM2 (diabetes mellitus, type 2) Qualifiers: Diabetes mellitus complication status: with unspecified complications <Adrianne Álvarez - Last Filed: 08/11/18 05:42> (10) DM2 (diabetes mellitus, type 2) Qualifiers: Diabetes mellitus complication status: with unspecified complications <Kevin Rodriguez - Last Filed: 08/11/18 12:17> (7) DM2 (diabetes mellitus, type 2) Qualifiers: Diabetes mellitus complication status: with unspecified complications
[2018-08-11] MEDS ORDERED: LORazepam 0.5 MG Tablet PO PRN (05:45)
[2018-08-11] MEDS ORDERED: VANCOMYCIN IV.SIG ONE (06:00)
[2018-08-11] MEDS ORDERED: SODIUM CHLOR 0.9% IV.SIG ONE (06:00)
[2018-08-11] MEDS: Levothyroxine 75 MCG Tablet PO SCH (06:52)
[2018-08-11] MEDS: Furosemide 40 MG Tablet PO SCH (08:04)
[2018-08-11] MEDS: predniSONE 10 MG Tablet PO SCH (08:04)
[2018-08-11] MEDS: Ferrous Sulfate 325 MG Tablet PO SCH (08:05)
[2018-08-11] MEDS ORDERED: Pantoprazole Sodium 20 MG DR Tablet PO SCH (09:00)
--- NOTE | 2018-08-11 10:48 | P.PNFP ---
Subjective Interval history: Pt was seen and examined this morning. She reports chest pain of 3-4 days duration but states that her pacemaker has been beeping at exactly 6:50am for the past month. She does not understand why her pacemaker is beeping because she just had a installed at the end of 2016. Patient also reports black stools for the past 3-4 days as well as diffuse abdominal pain that is worse in her left lower quadrant. She last had a colonoscopy 2-3 years ago and was told that there were polyps. In addition, she reports dysphagia with swallowing both solids and liquids. She feels pain and burning in the middle of her chest shortly after swallowing. She has also been coughing a lot after swallowing such that sometimes she vomits the food. This has been going on for about one month but has worsened in the last 2 weeks. She also states that she has had worse shortness of breath the last 3-4 days with the chest pain but she is chronically short of breath and has difficulty walking to her bathroom that is down the carver from her bedroom. <Eko R3,Luh U - 08/11/18 11:34> Results - Labs Result diagrams: 08/11/18 01:38 08/11/18 01:38 <Kevin Rodriguez - 08/11/18 12:19> Abnormal lab results 08/11/18 08/11/18 08/11/18 Range/Units 01:38 01:38 01:38 MCH 26.6 L (27.0-34.0) pg Neut % (Auto) 70.8 H (16.0-70.0) % Chloride 108 H (98-107) meq/L Estimated GFR 72 L (>89) mL/min Calcium 8.0 L (8.5-10.1) mg/dL AST 14 L (15-37) U/L B-Natriuretic Peptide 440 H (0-100) pg/mL Albumin 3.1 L (3.4-5.0) g/dL Short CBC 08/11/18 Range/Units 01:38 WBC 6.7 (4.0-11.0) th/mm3 Hgb 14.0 (11.6-15.3) gm/dL Hct 43.6 (35.0-46.0) % Plt Count 197 (150-450) th/mm3 BMP 08/11/18 01:38 Sodium 143 Potassium 4.3 Chloride 108 H Carbon Dioxide 27.0 BUN 15 Creatinine 0.95 Calcium 8.0 L Cardiac Enzymes 08/11/18 Range/Units 01:38 Troponin I 0.02 (0.02-0.05) ng/mL Liver Function 08/11/18 Range/Units 01:38 Total Bilirubin 0.3 (0.2-1.0) mg/dL AST 14 L (15-37) U/L ALT 33 (10-53) U/L Alkaline Phosphatase 86 (45-117) U/L Albumin 3.1 L (3.4-5.0) g/dL <MichaelKevin - 08/11/18 12:19> Abnormal lab results 08/11/18 08/11/18 08/11/18 Range/Units 01:38 01:38 01:38 MCH 26.6 L (27.0-34.0) pg Neut % (Auto) 70.8 H (16.0-70.0) % Chloride 108 H (98-107) meq/L Estimated GFR 72 L (>89) mL/min Calcium 8.0 L (8.5-10.1) mg/dL AST 14 L (15-37) U/L B-Natriuretic Peptide 440 H (0-100) pg/mL Albumin 3.1 L (3.4-5.0) g/dL Short CBC 08/11/18 Range/Units 01:38 WBC 6.7 (4.0-11.0) th/mm3 Hgb 14.0 (11.6-15.3) gm/dL Hct 43.6 (35.0-46.0) % Plt Count 197 (150-450) th/mm3 BMP 08/11/18 01:38 Sodium 143 Potassium 4.3 Chloride 108 H Carbon Dioxide 27.0 BUN 15 Creatinine 0.95 Calcium 8.0 L Cardiac Enzymes 08/11/18 Range/Units 01:38 Troponin I 0.02 (0.02-0.05) ng/mL Liver Function 08/11/18 Range/Units 01:38 Total Bilirubin 0.3 (0.2-1.0) mg/dL AST 14 L (15-37) U/L ALT 33 (10-53) U/L Alkaline Phosphatase 86 (45-117) U/L Albumin 3.1 L (3.4-5.0) g/dL <Eko R3,Luh U - 08/11/18 10:48> - Imaging Impressions Abdomen/Pelvis CT 08/11/18 00:46 CONCLUSION: 1. No acute abnormality. Chest X-Ray 08/11/18 00:46 CONCLUSION: Cardiomegaly with mild pulmonary vascular engorgement. <Prevatte,Kevin - 08/11/18 12:19> Impressions Abdomen/Pelvis CT 08/11/18 00:46 CONCLUSION: 1. No acute abnormality. Chest X-Ray 08/11/18 00:46 CONCLUSION: Cardiomegaly with mild pulmonary vascular engorgement. <Eko R3,Luh U - 08/11/18 10:48> Physical Exam Vital signs: Vital Signs 08/11/18 00:28 08/11/18 00:34 08/11/18 00:55 Temperature 98.4 F Pulse Rate 82 83 78 Respiratory Rate 20 20 18 Blood Pressure 136/86 143/85 H Pulse Oximetry 93 L 98 98 08/11/18 03:50 08/11/18 07:44 08/11/18 08:05 Temperature 98.4 F Pulse Rate 68 69 Respiratory Rate 20 19 15 Blood Pressure 155/83 H Pulse Oximetry 99 98 08/11/18 11:58 Temperature Pulse Rate 71 Respiratory Rate 15 Blood Pressure Pulse Oximetry Intake & Output 08/10/18 08/11/18 08/11/18 18:59 06:59 18:59 Intake Total 517.9 / 517.9 Balance 517.9 / 517.9 Weight 119.748 kg 119.748 kg Intake: IV 517.9 / 517.9 Vancomycin Inj 1,790 MG In NS 517.9 / 517.9 Inj 500 ML @ 250 mls/hr IV.SIG ONCE ONE Rx#:[id number] Other: Date of Last Bowel Movement 08/10/18 Weight On Admission 119.748 kg <[place] Rodriguezwin - 08/11/18 12:19> Vital Signs 08/11/18 00:28 08/11/18 00:34 08/11/18 00:55 Temperature 98.4 F Pulse Rate 82 83 78 Respiratory Rate 20 20 18 Blood Pressure 136/86 143/85 H Pulse Oximetry 93 L 98 98 08/11/18 03:50 08/11/18 07:44 08/11/18 08:05 Temperature 98.4 F Pulse Rate 68 69 Respiratory Rate 20 19 15 Blood Pressure 155/83 H Pulse Oximetry 99 98 Intake & Output 08/10/18 08/11/18 08/11/18 18:59 06:59 18:59 Intake Total 517.9 / 517.9 Balance 517.9 / 517.9 Weight 119.748 kg 119.748 kg Intake: IV 517.9 / 517.9 Vancomycin Inj 1,790 MG In NS 517.9 / 517.9 Inj 500 ML @ 250 mls/hr IV.SIG ONCE ONE Rx#:[id number] Other: Date of Last Bowel Movement 08/10/18 Weight On Admission 119.748 kg <Eko [facility] - 08/11/18 10:48> Narrative: GENERAL: Morbidly obese -[place] lady sitting up calmly at the side of her bed, drinking coffee. Nasal cannula in place SKIN: Warm and dry. HEAD: Atraumatic. Normocephalic. EYES: normal EOM. ENT: No nasal bleeding or discharge. Mucous membranes pink and moist. Edentulous CARDIOVASCULAR: Regular rate and rhythm. Left upper chest pacemaker. Systolic murmur appreciated in the aortic area. No erythema or edema over the site of her pacemaker RESPIRATORY: No accessory muscle use. Expiratory wheezing noted in the lower lobes bilaterally, otherwise clear to auscultation. Breath sounds equal bilaterally. GASTROINTESTINAL: Abdomen soft, nondistended but tender to palpation diffusely, worse in the left upper quadrant and mid epigastric area. At the left breast, there is an area that is hyperpigmented and slightly red. No induration noted. In the left upper quadrant, there is a small boil 3 x 3 cm in dimension that is tender. This lesion is not surrounded by erythema or edema. There is skin peeling underneath her breast, worse on the right MUSCULOSKELETAL: Extremities without clubbing, cyanosis, or edema. No obvious deformities or rash. NEUROLOGICAL: Awake and alert. No obvious cranial nerve deficits. Normal speech. PSYCHIATRIC: Appropriate mood and affect <Eko [facility] - 08/11/18 11:34> Assessment and Plan - Assessment (1) Chest pain Code(s): R07.9 - Chest pain, unspecified Status: Acute (2) Cardiomyopathy Code(s): I42.9 - Cardiomyopathy, unspecified Status: Acute (3) Heart failure Code(s): I50.9 - Heart failure, unspecified Status: Acute (4) COPD (chronic obstructive pulmonary disease) Code(s): J44.9 - Chronic obstructive pulmonary disease, unspecified Status: Acute (5) Obstructive sleep apnea Code(s): G47.33 - Obstructive sleep apnea (adult) (pediatric) Status: Acute (6) Pacemaker complications Code(s): T82.9XXA - Unspecified complication of cardiac and vascular prosthetic device, implant and graft, initial encounter Status: Acute (7) DM2 (diabetes mellitus, type 2) Code(s): E11.9 - Type 2 diabetes mellitus without complications Status: Acute (8) Hypothyroidism Code(s): E03.9 - Hypothyroidism, unspecified Status: Acute (9) Abdominal pain Code(s): R10.9 - Unspecified abdominal pain Status: Acute (10) Black stools Code(s): K92.1 - Melena Status: Acute (11) Cough Code(s): R05 - Cough Status: Acute (12) GERD (gastroesophageal reflux disease) Code(s): K21.9 - Gastro-esophageal reflux disease without esophagitis Status: Acute (13) Schizophrenia Code(s): F20.9 - Schizophrenia, unspecified Status: Acute (14) Morbid obesity Code(s): E66.01 - Morbid (severe) obesity due to excess calories Status: Acute (15) Candidiasis of skin Code(s): B37.2 - Candidiasis of skin and nail Status: Acute <Kevin Rodriguez - 08/11/18 12:19> (1) Chest pain Code(s): R07.9 - Chest pain, unspecified Status: Acute (2) Cardiomyopathy Code(s): I42.9 - Cardiomyopathy, unspecified Status: Acute (3) Heart failure Code(s): I50.9 - Heart failure, unspecified Status: Acute (4) COPD (chronic obstructive pulmonary disease) Code(s): J44.9 - Chronic obstructive pulmonary disease, unspecified Status: Acute (5) Obstructive sleep apnea Code(s): G47.33 - Obstructive sleep apnea (adult) (pediatric) Status: Acute (6) Pacemaker complications Code(s): T82.9XXA - Unspecified complication of cardiac and vascular prosthetic device, implant and graft, initial encounter Status: Acute (7) DM2 (diabetes mellitus, type 2) Code(s): E11.9 - Type 2 diabetes mellitus without complications Status: Acute (8) Hypothyroidism Code(s): E03.9 - Hypothyroidism, unspecified Status: Acute (9) Abdominal pain Code(s): R10.9 - Unspecified abdominal pain Status: Acute (10) Black stools Code(s): K92.1 - Melena Status: Acute (11) Cough Code(s): R05 - Cough Status: Acute (12) GERD (gastroesophageal reflux disease) Code(s): K21.9 - Gastro-esophageal reflux disease without esophagitis Status: Acute (13) Schizophrenia Code(s): F20.9 - Schizophrenia, unspecified Status: Acute (14) Morbid obesity Code(s): E66.01 - Morbid (severe) obesity due to excess calories Status: Acute (15) Candidiasis of skin Code(s): B37.2 - Candidiasis of skin and nail Status: Acute <Eko R3,Luh U - 08/11/18 12:03> - Assessment and Plan 63-year-old -[place] female admitted with chief complaint of chest pain and increased shortness of breath past 3-4 days, admitted on observation for ACS rule out. Also has a history of black stools for the past 3-4 days. Cardiology has been consulted to assist with management-patient has a pacemaker and a history of cardiomyopathy but has not seen a medical billing assistant for over 2 years. [employer] will be contacted to interrogate pacemaker. GI consulted due to patient's history of black stools and dysphagia. Chest pain -Continue ACS r/o w/troponin, CK, and EKG -First set of troponin and CK negative. Initial EKG similar to previous EKG in 09/2017 -Continue telemetry -Consult cardiology due to history of cardiomyopathy -Patient's pacemaker was placed in May 2017, hospital insurance representative is [employer] * Nurse will call [employer] to have them come and interrogate the pacemaker -BNP elevated at 440 -Check TSH -Continue home medications Abdominal pain -Diffuse abdominal pain, worse in the left quadrants -History of black stools for the past 3-4 days -Notably, patient is on chronic oral prednisone at home -No abnormality found on CT of abdomen -Check occult blood in the stool -GI consult Cardiomyopathy -Mild cardiomegaly on chest x-ray with mild pulmonary vascular engorgement -Last echo was performed in September 2017 read as: * Technically difficult study, possible global hypokinesis. Grossly, left ventricular function mildly reduced Heart failure -Chest x-ray findings as above -Last echo as above -Cardiology consulted -patient has not seen a medical billing assistant in more than 2 years -Repeat echo -Fluid overload not noted on exam -continue home furosemide Diabetes mellitus, type II -Hold home metformin -Accu-Cheks with sliding scale insulin -Check A1c -Check lipid panel Hypothyroidism -Continue home Levothyroxine -Check TSH and Free T4 COPD -Pt states diagnosis although last PFT in November 2017 was normal with no evidence of airway obstruction/restriction -CXR negative for acute pulmonary process -Continue scheduled duonebs q4h, albuterol q2h prn -Continue supplemental O2 (2L), which she takes at home -Continue home prednisone 10 mg dose -Patient follows with 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 Swain, last saw him 3-4 months ago * Encourage follow-up with him as an outpatient Cough -May be related to her COPD or dysphagia/GERD -Tessalon Perles as needed -GI consult as above Obstructive Sleep Apnea -Patient uses CPAP machine at home -Advised to get her machine to the hospital -CPAP request placed GERD -Continue home Protonix but increase dose to 40 mg p.o. daily -GI consult as above Possible candidiasis of skin -Nystatin powder to apply under folds of skin at sites of hyperpigmentation Schizophrenia -Unclear what kind of antipsychotic patient is on at home -Possibly taking risperidone but chart shows quetiapine -Will clarify with patient Physical complications, increased body habitus -History of stroke with left-sided chronic pain -She may benefit from a cardiopulmonary rehab -PT to evaluate and treat -Case management consulted to assist with discharge needs FEN -Oral fluids only -Monitor replace electrolytes as needed -Cardiac and diabetic diet PPX -Patient currently on Eliquis due to history of stroke, SCDs -Zofran prn for nausea -Constipation protocol on board -Patient is DNR, daughter Tania is her [facility] - [phone] <Eugene Luh U - 08/11/18 12:10> Discussed Condition With: Dr. Rodriguez <EkLuh Rodrigez - 08/11/18 10:56> Discharge Planning: Pending cardiology and GI evaluation <Luh Medeiros - 08/11/18 10:56> - Attending Attestation The patient was seen and examined. 63 y/o female with a history of cardiomyopathy and pacemaker presents with 3 day history of atypical chest pain and shortness of breath. Also complains of LUQ abdominal pain and a 3 day history of black stools. No acute changes noted on EKG, initial troponin normal. I have reviewed the resident's documentation and have discussed the treatment plan with Dr. Knight. Agree with assessment and plan as documented. <Kevin Rodriguez - 08/11/18 12:19> <Luh Medeiros U - Last Filed: 08/11/18 12:03> (7) DM2 (diabetes mellitus, type 2) Qualifiers: Diabetes mellitus complication status: with unspecified complications <Kevin Rodriguez - Last Filed: 08/11/18 12:19> (7) DM2 (diabetes mellitus, type 2) Qualifiers: Diabetes mellitus complication status: with unspecified complications <Luh Medeiros - Last Filed: 08/11/18 12:03> (7) DM2 (diabetes mellitus, type 2) Qualifiers: Diabetes mellitus complication status: with unspecified complications <Kevin Rodriguez - Last Filed: 08/11/18 12:19> (7) DM2 (diabetes mellitus, type 2) Qualifiers: Diabetes mellitus complication status: with unspecified complications
[2018-08-11] MEDS ORDERED: Dextrose 50% in Water 50 ML Vial IV.PUSH PRN (11:05)
[2018-08-11] MEDS ORDERED: Bisacodyl 10 MG Supp RECTAL PRN (11:19)
[2018-08-11] MEDS ORDERED: Benzonatate 100 MG Capsule PO PRN (11:35)
[2018-08-11] MEDS: Insulin NovoLOG Aspart Correctional Sugar Inj SQ SCH ×3 (12:50→23:33)
[2018-08-11] MEDS: Morphine Sulfate 15 MG IR Tablet PO PRN ×2 (12:51→21:05)
--- NOTE | 2018-08-11 13:41 | MB ---
cc: Andre Ramirez MD DATE: 08/11/2018 HISTORY OF PRESENT ILLNESS: This patient is a 63-year-old black female with a history of morbid obesity, cardiomyopathy and dual-chamber biventricular [employer] defibrillator placement, which was exchanged once several years ago. She went to her primary physician and stated that her device has been beeping for 1-1/2 months. Three days ago, she developed sharp, substernal chest discomfort radiating to the left side and also mild palpitations. She also was short of breath and had numbness and paresthesias of her extremities, nausea, headaches and generalized weakness. She sees Dr. Swain for COPD. PAST MEDICAL HISTORY: Positive for CVA x4, last in 09/2016, cardiomyopathy, status post [employer] dual-chamber biventricular defibrillator placement, chronic back pain, COPD/asthma, anxiety/depression, gastroesophageal reflux disease, bipolar disorder, schizophrenia, hypertension, hypothyroidism, congestive heart failure, type 2 diabetes mellitus, sleep apnea, arthritis, morbid obesity, history of colectomy, tubal ligation, carpal tunnel surgery, partial hysterectomy, cholecystectomy. MEDICATIONS: 1. Levothyroxine. 2. Morphine. 3. Trazodone. 4. Prednisone. 5. Oxycodone. 6. Lorazepam. 7. Furosemide. 8. Eliquis. 9. Iron. 10. Metformin. 11. Nitroglycerin. 12. Fluticasone/salmeterol. 13. Spiriva. 14. Risperdal. ALLERGIES: ASPIRIN, benazepril, captopril, enalapril, fosinopril, Gabapentin, ibuprofen, lisinopril, quinapril, naproxen, Tylenol. SOCIAL HISTORY: The patient is a former smoker who does not smoke anymore. She does not drink anymore. FAMILY HISTORY: Negative for heart disease. REVIEW OF SYSTEMS: Otherwise negative. PHYSICAL EXAMINATION: VITAL SIGNS: Blood pressure 143/67, pulse 70 and regular. HEENT: Negative, 2+ carotid upstrokes No bruits. LUNGS: Clear. HEART: Regular. No murmur. ABDOMEN: Soft, morbidly obese. EXTREMITIES: Mild edema, 1-2+ pulses. NEUROLOGIC: Grossly nonfocal. DIAGNOSTIC DATA: EKG was reviewed and showed sinus rhythm and biventricular pacing. LABORATORY DATA: Hemoglobin 14, potassium 4.3, creatinine 0.95. AST, ALT normal. Troponin 0.02. BNP 440. [employer] dual-chamber biventricular defibrillator was interrogated. The epicardial left ventricular lead has low impedance and this was the reason for the alert. Device is otherwise functioning normally and still has almost 3 years battery longevity. The device was reprogrammed. DIAGNOSES: 1. Atypical chest pain. 2. Cardiomyopathy. 3. Status post placement of [employer] dual-chamber biventricular defibrillator with low impedance of the epicardial left ventricular lead. 4. Congestive heart failure. 5. Chronic obstructive pulmonary disease. 6. Sleep apnea. 7. Morbid obesity. 8. Diabetes mellitus. DISPOSITION: This patient will be monitored on telemetry. Her device was reprogrammed but otherwise has normal function. Her troponin is unremarkable. We will obtain echocardiogram to reevaluate her left ventricular function. She will be monitored on telemetry. We will follow her for cardiology during her hospitalization. MD RONAK Estrada/vesta , 12:57 PM , 01:07 PM NUSRAT
--- NOTE | 2018-08-11 13:48 | P.CONGI ---
History of Present Illness Consult date: 08/11/18 Requesting physician: Luh Knight R3 Consult reason: Dysphagia, abdominal pain Chief complaint: Chest pain, rule out ACS History of Present Illness: 63 year-old female with history of morbid obesity, COPD, cardiomyopathy, pacemaker, GERD and colon polyps presented for chest pain times 3 days. We are consulted for abdominal pain and dysphasia. Reports upper abdominal pain and bloating as well as crampy abdominal pain and dysphagia worsening over the past month. Patient states when she is eating she begins coughing which leads to vomiting. It feels like food is sticking in her throat. Symptoms are somewhat improved when she takes smaller bites and eats more slowly. She has had similar symptoms in the past and had an upper endoscopy 3 years ago. This revealed a hiatal hernia. She has been prescribed omeprazole in the past but has not taken it for the past 6 months due to insurance. She has GERD symptoms including esophageal burning and reflux and regurgitation. She has difficulty chewing her foods well due to poor dentition. She denies nausea or any vomiting other than that which occurs with coughing fits and reflux/ regurgitation. Patient reports black stool but denies any bright red blood per rectum. She is on Eliquis. Patient takes narcotics for chronic back pain. She admits to constipation which she manages with prune juice and eating vegetables. She denies diarrhea. She denies rectal bleeding. She reports "black stools". Last colonoscopy was 3 years ago and she had colon polyps at that time. Initial workup includes normal CBC. Unremarkable CAT scan. Cardiology consult is pending. <Li Adams - Last Filed: 08/11/18 13:51> [facility] - History History Provided By: Patient - Medical History Medical History: Medical History (Last Reviewed 08/11/18 @ 02:22 by Kevin Villavicencio MD) Arthritis Asthma CHF (congestive heart failure) COPD (chronic obstructive pulmonary disease) Cardiac defibrillator in place Carpal tunnel syndrome - Surgical History Surgical History: Surgical History (Last Reviewed 08/11/18 @ 02:22 by Kevin Villavicencio MD) H/O tubal ligation - Tobacco History Second Hand Smoke Exposure: No Smoking Status: Former smoker - Alcohol History How Often Do You Have a Drink Containing Alcohol: Never - Substance Use History Substance History: No History of Abuse - Travel History Recent Travel in the [facility] Within the Last 8 Weeks: No Recent Travel Out of the Country Within the Last 8 Weeks: No - Immunization History Tetanus Immunization: Unsure <Li Adams - Last Filed: 08/11/18 13:51> - Medical History Medical History: Medical History (Last Reviewed 08/11/18 @ 02:22 by Kevin Villavicencio MD) Arthritis Asthma CHF (congestive heart failure) COPD (chronic obstructive pulmonary disease) Cardiac defibrillator in place Carpal tunnel syndrome - Surgical History Surgical History: Surgical History (Last Reviewed 08/11/18 @ 02:22 by Kevin Villavicencio MD) H/O tubal ligation <Danny Morrison - Last Filed: 08/11/18 21:56> Medications and Allergies Active Medications: Active Medications Al Hydroxide/Mg Hydroxide (Milk Of Magnesia Liq) 30 ml PO Q12H PRN PRN Reason: Mild Constipation Albuterol (Duoneb Neb (Nilo)) 1 ampul NEB Q4HR NEB [facility] Last Admin: 08/11/18 11:58 Dose: 1 ampul Albuterol (Albuterol Neb (Prn)) 1.25 mg NEB Q2HR NEB PRN PRN Reason: SHORTNESS OF BREATH Apixaban (Eliquis) 5 mg PO DAILY [facility] Last Admin: 08/11/18 08:04 Dose: 5 mg Benzonatate (Tessalon Perles) 200 mg PO Q8H PRN PRN Reason: COUGH Bisacodyl (Dulcolax Ec) 5 mg PO DAILY PRN PRN Reason: CONSTIPATION Bisacodyl (Dulcolax Supp) 10 mg RECTAL DAILY PRN PRN Reason: SEVERE CONSITIPATION Dextrose (D50w Vial) 50 ml IV.PUSH UNSCH PRN PRN Reason: PER HYPOGLYCEMIA PROTOCOL Ferrous Sulfate (Ferosul) 325 mg PO DAILY [facility] Last Admin: 08/11/18 08:05 Dose: 325 mg Furosemide (Lasix) 40 mg PO DAILY [facility] Last Admin: 08/11/18 08:04 Dose: 40 mg Glucagon (Glucagon Inj) 1 mg OTHER UNSCH PRN PRN Reason: for Hypoglycemia Protocol Insulin Aspart (Novolog Insulin Correctional Sugar Inj) 0 unit SQ ACHS [facility]; Protocol Last Admin: 08/11/18 12:50 Dose: Not Given Lactulose (Lactulose Liq) 30 ml PO DAILY PRN PRN Reason: SEVERE CONSITIPATION Levothyroxine Sodium (Synthroid) 75 mcg PO DAILY@0700 [facility] Last Admin: 08/11/18 06:52 Dose: 75 mcg Lorazepam (Ativan) 0.5 mg PO Q4H PRN PRN Reason: ANXIETY Morphine Sulfate (Msir) 15 mg PO Q6H PRN PRN Reason: CHRONIC PAIN Last Admin: 08/11/18 12:51 Dose: 15 mg Nystatin (Mycostatin Powder) 1 applicatio TOPICAL TID [facility] Ondansetron HCl (Zofran Inj) 4 mg IV.PUSH Q6H PRN PRN Reason: NAUSEA OR VOMITING Oxycodone HCl (Roxicodone) 10 mg PO Q8H PRN PRN Reason: ACUTE PAIN Last Admin: 08/11/18 08:04 Dose: 10 mg Pantoprazole Sodium (Protonix) 40 mg PO DAILY [facility] Prednisone (Deltasone) 10 mg PO DAILY [facility] Last Admin: 08/11/18 08:04 Dose: 10 mg Sennosides (Senokot) 17.2 mg PO Q12H PRN PRN Reason: Moderate Constipation Sodium Chloride (Ns Inj) 2 ml IV.FLUSH BID [facility] Last Admin: 08/11/18 08:05 Dose: 2 ml Sodium Chloride (Ns Inj) 2 ml IV.FLUSH UNSCH PRN PRN Reason: FLUSH AFTER USING IV ACCESS Trazodone HCl (Desyrel) 50 mg PO HS [facility] <Li Adams - Last Filed: 08/11/18 13:51> Active Medications: Active Medications Al Hydroxide/Mg Hydroxide (Milk Of Magnesia Liq) 30 ml PO Q12H PRN PRN Reason: Mild Constipation Albuterol (Duoneb Neb ([facility])) 1 ampul NEB Q4HR NEB [facility] Last Admin: 08/11/18 21:38 Dose: 1 ampul Albuterol (Albuterol Neb (Prn)) 1.25 mg NEB Q2HR NEB PRN PRN Reason: SHORTNESS OF BREATH Apixaban (Eliquis) 5 mg PO DAILY [facility] Last Admin: 08/11/18 08:04 Dose: 5 mg Benzonatate (Tessalon Perles) 200 mg PO Q8H PRN PRN Reason: COUGH Bisacodyl (Dulcolax Ec) 5 mg PO DAILY PRN PRN Reason: CONSTIPATION Bisacodyl (Dulcolax Supp) 10 mg RECTAL DAILY PRN PRN Reason: SEVERE CONSITIPATION Dextrose (D50w Vial) 50 ml IV.PUSH UNSCH PRN PRN Reason: PER HYPOGLYCEMIA PROTOCOL Ferrous Sulfate (Ferosul) 325 mg PO DAILY [facility] Last Admin: 08/11/18 08:05 Dose: 325 mg Furosemide (Lasix) 40 mg PO DAILY [facility] Last Admin: 08/11/18 08:04 Dose: 40 mg Glucagon (Glucagon Inj) 1 mg OTHER UNSCH PRN PRN Reason: for Hypoglycemia Protocol Insulin Aspart (Novolog Insulin Correctional Sugar Inj) 0 unit SQ ACHS [facility]; Protocol Last Admin: 08/11/18 19:02 Dose: 1 unit Lactulose (Lactulose Liq) 30 ml PO DAILY PRN PRN Reason: SEVERE CONSITIPATION Levothyroxine Sodium (Synthroid) 75 mcg PO DAILY@0700 [facility] Last Admin: 08/11/18 06:52 Dose: 75 mcg Lorazepam (Ativan) 0.5 mg PO Q4H PRN PRN Reason: ANXIETY Morphine Sulfate (Msir) 15 mg PO Q6H PRN PRN Reason: CHRONIC PAIN Last Admin: 08/11/18 21:05 Dose: 15 mg Nystatin (Mycostatin Powder) 1 applicatio TOPICAL TID [facility] Last Admin: 08/11/18 19:02 Dose: 1 applicatio Ondansetron HCl (Zofran Inj) 4 mg IV.PUSH Q6H PRN PRN Reason: NAUSEA OR VOMITING Oxycodone HCl (Roxicodone) 10 mg PO Q8H PRN PRN Reason: ACUTE PAIN Last Admin: 08/11/18 17:00 Dose: 10 mg Pantoprazole Sodium (Protonix) 40 mg PO DAILY [facility] Prednisone (Deltasone) 10 mg PO DAILY [facility] Last Admin: 08/11/18 08:04 Dose: 10 mg Sennosides (Senokot) 17.2 mg PO Q12H PRN PRN Reason: Moderate Constipation Sodium Chloride (Ns Inj) 2 ml IV.FLUSH BID [facility] Last Admin: 08/11/18 08:05 Dose: 2 ml Sodium Chloride (Ns Inj) 2 ml IV.FLUSH UNSCH PRN PRN Reason: FLUSH AFTER USING IV ACCESS Trazodone HCl (Desyrel) 50 mg PO HS [facility] Last Admin: 08/11/18 20:55 Dose: 50 mg <Danny Morrison E - Last Filed: 08/11/18 21:56> Allergies Allergy/AdvReac Type Severity Reaction Status Date / Time aspirin Allergy Severe Anaphylaxis Verified 09/19/17 09:35 benazepril Allergy Severe ANAPHALAXIS Verified 09/19/17 09:35 captopril Allergy Severe ANAPHALAXIS Verified 09/19/17 09:35 enalaprilat Allergy Severe Anaphylaxis Verified 09/19/17 09:35 fosinopril Allergy Severe ANAPHALAXIS Verified 09/19/17 09:35 gabapentin Allergy Severe AGGRESSIVE Verified 09/19/17 09:35 BEHAVIOR ibuprofen Allergy Severe TOUNGE Verified 09/19/17 09:35 SWELLING lisinopril Allergy Severe ANAPHALAXIS Verified 09/19/17 09:35 quinapril Allergy Severe ANAPHALAXIS Verified 09/19/17 09:35 naproxen Allergy Intermediate RESTELESS Verified 09/19/17 09:35 LEG acetaminophen AdvReac Severe Verified 09/19/17 09:35 MRI PRECAUTION AdvReac Severe NON REVO Uncoded 09/19/17 09:35 PACEMAKER 07/04/13 LRS Home Medications Medication Instructions Recorded Confirmed Type Spiriva with HandiHaler 1.25 mcg INHALATION DAILY 08/11/18 08/11/18 History apixaban [Eliquis] 5 tab PO DAILY 08/11/18 08/11/18 History ferrous sulfate 27 mg PO DAILY 08/11/18 08/11/18 History fluticasone-salmeterol [Advair 100 mcg INHALATION DAILY 08/11/18 08/11/18 History Diskus] furosemide 40 mg PO DAILY 08/11/18 08/11/18 History levothyroxine 88 mcg PO DAILY 08/11/18 08/11/18 History lorazepam 1 mg PO BID PRN 08/11/18 08/11/18 History metformin 1,000 mg PO DAILY 08/11/18 08/11/18 History morphine 15 mg PO Q6H PRN 08/11/18 08/11/18 History nitroglycerin [Nitrostat] 0.3 mg SUBLINGUAL Q5-6M PRN MDD 3 08/11/18 08/11/18 History oxycodone 5 mg PO Q5-30M PRN 08/11/18 08/11/18 History prednisone 20 mg PO DAILY 08/11/18 08/11/18 History risperidone [Risperdal] 2 mg PO BID 08/11/18 08/11/18 History trazodone 50 mg PO BID 08/11/18 08/11/18 History Exam Vital signs: Vital Signs 08/11/18 00:28 08/11/18 00:34 08/11/18 00:55 Temperature 98.4 F Pulse Rate 82 83 78 Respiratory Rate 20 20 18 Blood Pressure 136/86 143/85 H Pulse Oximetry 93 L 98 98 08/11/18 03:50 08/11/18 07:44 08/11/18 08:05 Temperature 98.4 F Pulse Rate 68 69 Respiratory Rate 20 19 15 Blood Pressure 155/83 H Pulse Oximetry 99 98 08/11/18 11:58 08/11/18 12:35 Temperature 98.3 F Pulse Rate 71 70 Respiratory Rate 15 19 Blood Pressure 143/67 H Pulse Oximetry 97 Intake & Output 08/10/18 08/11/18 08/11/18 18:59 06:59 18:59 Intake Total 517.9 / 517.9 Balance 517.9 / 517.9 Weight 119.748 kg 119.748 kg Intake: IV 517.9 / 517.9 Vancomycin Inj 1,790 MG In NS 517.9 / 517.9 Inj 500 ML @ 250 mls/hr IV.SIG ONCE ONE Rx#:[id number] Other: Date of Last Bowel Movement 08/10/18 Weight On Admission 119.748 kg <Li Adams - Last Filed: 08/11/18 13:51> Vital signs: Vital Signs 08/11/18 00:28 08/11/18 00:34 08/11/18 00:55 Temperature 98.4 F Pulse Rate 82 83 78 Respiratory Rate 20 20 18 Blood Pressure 136/86 143/85 H Pulse Oximetry 93 L 98 98 08/11/18 03:50 08/11/18 07:44 08/11/18 08:05 Temperature 98.4 F Pulse Rate 68 69 Respiratory Rate 20 19 15 Blood Pressure 155/83 H Pulse Oximetry 99 98 08/11/18 11:58 08/11/18 12:35 08/11/18 15:33 Temperature 98.3 F 99.9 F H Pulse Rate 71 70 67 Respiratory Rate 15 19 18 Blood Pressure 143/67 H 121/71 Pulse Oximetry 97 99 08/11/18 15:52 08/11/18 16:58 08/11/18 19:40 Temperature 98.5 F Pulse Rate 70 83 70 Respiratory Rate 16 16 Blood Pressure 143/67 H 136/60 Pulse Oximetry 86 L 95 Intake & Output 08/11/18 08/11/18 08/12/18 06:59 18:59 06:59 Intake Total 517.9 / 517.9 Balance 517.9 / 517.9 Weight 119.748 kg 119.748 kg Intake: IV 517.9 / 517.9 Vancomycin Inj 1,790 MG In NS 517.9 / 517.9 Inj 500 ML @ 250 mls/hr IV.SIG ONCE ONE Rx#:[id number] Other: # Voids 3 Date of Last Bowel Movement 08/10/18 Weight On Admission 119.748 kg <Danny Morrison E - Last Filed: 08/11/18 21:56> Results - Labs CBC & Chem 7: 08/11/18 01:38 08/11/18 01:38 Labs: Laboratory Results - last 24 hr 08/11/18 08/11/18 08/11/18 01:38 01:38 01:38 WBC 6.7 RBC 5.27 Hgb 14.0 Hct 43.6 MCV 82.8 MCH 26.6 L MCHC 32.2 RDW 15.2 Plt Count 197 MPV 9.4 Neut % (Auto) 70.8 H Lymph % (Auto) 21.3 [place] % (Auto) 7.4 Eos % (Auto) 0.0 Baso % (Auto) 0.5 Neut # (Auto) 4.7 Lymph # (Auto) 1.4 [place] # (Auto) 0.5 Eos # (Auto) 0.0 Baso # (Auto) 0.0 WBC Differential . Differential Comment Auto diff final Sodium 143 Potassium 4.3 Chloride 108 H Carbon Dioxide 27.0 Anion Gap 8 BUN 15 Creatinine 0.95 Estimated GFR 72 L POC Glucose Random Glucose 95 Calcium 8.0 L Total Bilirubin 0.3 AST 14 L ALT 33 Alkaline Phosphatase 86 Troponin I 0.02 B-Natriuretic Peptide 440 H Total Protein 7.1 Albumin 3.1 L 02/23/19 02/23/19 08:28 12:41 WBC RBC Hgb Hct MCV MCH MCHC RDW Plt Count MPV Neut % (Auto) Lymph % (Auto) [place] % (Auto) Eos % (Auto) Baso % (Auto) Neut # (Auto) Lymph # (Auto) [place] # (Auto) Eos # (Auto) Baso # (Auto) WBC Differential Differential Comment Sodium Potassium Chloride Carbon Dioxide Anion Gap BUN Creatinine Estimated GFR POC Glucose 87 114 H Random Glucose Calcium Total Bilirubin AST ALT Alkaline Phosphatase Troponin I B-Natriuretic Peptide Total Protein Albumin - Imaging Impressions Abdomen/Pelvis CT 08/11/18 00:46 CONCLUSION: 1. No acute abnormality. Chest X-Ray 08/11/18 00:46 CONCLUSION: Cardiomegaly with mild pulmonary vascular engorgement. <Li Adams - Last Filed: 08/11/18 13:51> - Labs CBC & Chem 7: 08/11/18 01:38 08/11/18 13:20 Labs: Laboratory Results - last 24 hr 08/11/18 08/11/18 08/11/18 01:38 01:38 01:38 WBC 6.7 RBC 5.27 Hgb 14.0 Hct 43.6 MCV 82.8 MCH 26.6 L MCHC 32.2 RDW 15.2 Plt Count 197 MPV 9.4 Neut % (Auto) 70.8 H Lymph % (Auto) 21.3 [place] % (Auto) 7.4 Eos % (Auto) 0.0 Baso % (Auto) 0.5 Neut # (Auto) 4.7 Lymph # (Auto) 1.4 [place] # (Auto) 0.5 Eos # (Auto) 0.0 Baso # (Auto) 0.0 WBC Differential . Differential Comment Auto diff final Sodium 143 Potassium 4.3 Chloride 108 H Carbon Dioxide 27.0 Anion Gap 8 BUN 15 Creatinine 0.95 Estimated GFR 72 L POC Glucose Random Glucose 95 Calcium 8.0 L Total Bilirubin 0.3 AST 14 L ALT 33 Alkaline Phosphatase 86 Total Creatine Kinase Troponin I 0.02 B-Natriuretic Peptide 440 H Total Protein 7.1 Albumin 3.1 L Triglycerides Cholesterol LDL Cholesterol, Calc HDL Cholesterol Cholesterol/HDL Ratio Lipase TSH Free T4 08/11/18 08/11/18 08/11/18 08:28 12:41 13:20 WBC RBC Hgb Hct MCV MCH MCHC RDW Plt Count MPV Neut % (Auto) Lymph % (Auto) [place] % (Auto) Eos % (Auto) Baso % (Auto) Neut # (Auto) Lymph # (Auto) [place] # (Auto) Eos # (Auto) Baso # (Auto) WBC Differential Differential Comment Sodium 140 Potassium 4.3 Chloride 106 Carbon Dioxide 25.0 Anion Gap 9 BUN 14 Creatinine 0.88 Estimated GFR 79 L POC Glucose 87 114 H Random Glucose 108 H Calcium 8.3 L Total Bilirubin 0.5 AST 16 ALT 32 Alkaline Phosphatase 89 Total Creatine Kinase 173 Troponin I Less than 0.02 L B-Natriuretic Peptide Total Protein 7.4 Albumin 3.3 L Triglycerides Cholesterol LDL Cholesterol, Calc HDL Cholesterol Cholesterol/HDL Ratio Lipase TSH Free T4 08/11/18 08/11/18 08/11/18 13:20 13:20 13:20 WBC RBC Hgb Hct MCV MCH MCHC RDW Plt Count MPV Neut % (Auto) Lymph % (Auto) [place] % (Auto) Eos % (Auto) Baso % (Auto) Neut # (Auto) Lymph # (Auto) [place] # (Auto) Eos # (Auto) Baso # (Auto) WBC Differential Differential Comment Sodium Potassium Chloride Carbon Dioxide Anion Gap BUN Creatinine Estimated GFR POC Glucose Random Glucose Calcium Total Bilirubin AST ALT Alkaline Phosphatase Total Creatine Kinase Troponin I B-Natriuretic Peptide Total Protein Albumin Triglycerides 120 Cholesterol 179 LDL Cholesterol, Calc 106 H HDL Cholesterol 48.9 Cholesterol/HDL Ratio 3.66 Lipase 185 TSH 0.468 Free T4 0.95 08/11/18 08/11/18 15:26 20:52 WBC RBC Hgb Hct MCV MCH MCHC RDW Plt Count MPV Neut % (Auto) Lymph % (Auto) [place] % (Auto) Eos % (Auto) Baso % (Auto) Neut # (Auto) Lymph # (Auto) [place] # (Auto) Eos # (Auto) Baso # (Auto) WBC Differential Differential Comment Sodium Potassium Chloride Carbon Dioxide Anion Gap BUN Creatinine Estimated GFR POC Glucose 157 H 130 H Random Glucose Calcium Total Bilirubin AST ALT Alkaline Phosphatase Total Creatine Kinase Troponin I B-Natriuretic Peptide Total Protein Albumin Triglycerides Cholesterol LDL Cholesterol, Calc HDL Cholesterol Cholesterol/HDL Ratio Lipase TSH Free T4 - Imaging Impressions Abdomen/Pelvis CT 08/11/18 00:46 CONCLUSION: 1. No acute abnormality. Chest X-Ray 08/11/18 00:46 CONCLUSION: Cardiomegaly with mild pulmonary vascular engorgement. <Danny Morrison - Last Filed: 08/11/18 21:56> Assessment and Plan (1) Dysphagia Status: Acute Code(s): R13.10 - Dysphagia, unspecified - Plan 1. Dysphagia, abdominal pain and bloating in a patient with known history of hiatal hernia and GERD. She has not been on medication for this for 6 months. 2. Chronic narcotics, constipation. 3. History of colon polyps. 4. Black stool in a patient with normal CBC. On Eliquis. On pantoprazole. Has orders for milk of magnesia and Dulcolax suppository as needed. An EGD can be scheduled for tomorrow pending cardiac clearance. If negative consider colonoscopy. If labs are stable can consider colonoscopy as an outpatient. <Li Adams - Last Filed: 08/11/18 13:51> (1) Dysphagia Status: Acute Code(s): R13.10 - Dysphagia, unspecified - Attending Attestation Patient seen and examined Agree with above Continue with current supportive care Monitor labs <Danny Morrison E - Last Filed: 08/11/18 21:56>
[2018-08-11 14:02] LABS: Alanine Aminotransferase 32 U/L (10-53); Albumin 3.3 g/dL (3.4-5.0); Anion Gap 9 meq/L (5-15); Aspartate Aminotransferase 16 U/L (15-37); Blood Urea Nitrogen 14 mg/dL (7-18); Calcium 8.3 mg/dL (8.5-10.1); Chloride 106 meq/L (98-107); Glomerular Filtration Rate 79 mL/min (>89); Glucose,Random 108 mg/dL (74-106); Potassium 4.3 meq/L (3.5-5.1); Sodium 140 meq/L (136-145)
[2018-08-11 14:06] LABS: Alkaline Phosphatase 89 U/L (45-117); Creatine Kinase 173 U/L (26-192); Total Protein 7.4 g/dL (6.4-8.2)
[2018-08-11 14:12] LABS: Chol/HDL Ratio 3.66 Ratio; HDL Cholesterol 48.9 mg/dL (40.0-60.0); Thyroid Stimulating Hormone 0.468 uIU/mL (0.358-3.740)
--- NOTE | 2018-08-11 15:16 | ECHRPT ---
Indication: Cardiomyopathy CONCLUSIONS The left ventricular systolic function is severely reduced with an estimated ejection fraction in th e range of 30-35%. Global hypokinesis Mild to moderate aortic valve stenosis (visually more significant and gradient may be lower due to l ow cardiac output, clinical correlation recomended) Moderate aortic valve regurgitation. Mildly dilated left ventricle. Mild concentric left ventricular hypertrophy The left atrial size is mildly dilated. [id number] mitral valve regurgitation. There is mild tricuspid valve regurgitation. The estimated pulmonary arterial pressure is 53 mmHg. BP: / HR: Rhythm: MEASUREMENTS (Male / Female) Normal Values Technical Quality:Technically difficult study 2D ECHO LV Diastolic Diameter PLAX 5.6 cm 4.2 - 5.9 / 3.9 - 5.3 cm LV Systolic Diameter PLAX 4.8 cm IVS Diastolic Thickness 1.2 cm 0.6 - 1.0 / 0.6 - 0.9 cm LVPW Diastolic Thickness 1.2 cm 0.6 - 1.0 / 0.6 - 0.9 cm LV Relative Wall Thickness 0.4 RV Internal Dim ED PLAX 3.0 cm LVOT Diameter 1.8 cm Aortic Root Diameter 2.9 cm LA Systolic Diameter LX 4.6 cm 3.0 - 4.0 / 2.7 - 3.8 cm DOPPLER AV Peak Velocity 313.0 cm/s AV Peak Gradient 39.2 mmHg AV Mean Gradient 23.0 mmHg AV Velocity Time Integral 67.7 cm AI Peak Velocity 453.0 cm/s AI Peak Gradient 82.1 mmHg AI Pressure Half Time 324.0 ms LVOT Peak Velocity 141.0 cm/s LVOT Peak Gradient 8.0 mmHg LVOT Velocity Time Integral 32.2 cm AV Area Cont Eq vti 1.2 cm AV Area Cont Eq pk 1.1 cm MV Peak Velocity 168.0 cm/s MV Peak Gradient 11.3 mmHg MV Mean Velocity 110.0 cm/s MV Mean Gradient 5.0 mmHg Mitral E Point Velocity 108.0 cm/s Mitral A Point Velocity 113.0 cm/s Mitral E to A Ratio 1.0 LV E' Lateral Velocity 4.2 cm/s Mitral E to LV E' Lateral Ratio 25.8 LV E' Septal Velocity 4.7 cm/s Mitral E to LV E' Septal Ratio 23.1 TR Peak Velocity 328.0 cm/s TR Peak Gradient 43.0 mmHg Right Atrial Pressure 10.0 mmHg Pulmonary Artery Systolic Pressu 53.0 mmHg Right Ventricular Systolic Press 53.0 mmHg PV Peak Velocity 130.0 cm/s PV Peak Gradient 6.8 mmHg FINDINGS LEFT VENTRICLE Mildly dilated left ventricle. Mild concentric left ventricular hypertrophy. The left ventricular systolic function is severely reduced with an estimated ejection fraction in th e range of 30-35%. RIGHT VENTRICLE A pacemaker wire is noted. LEFT ATRIUM The left atrial size is mildly dilated. RIGHT ATRIUM The right atrial size is normal. ATRIAL SEPTUM Normal atrial septal thickness without atrial level shunting by limited color doppler interrogation. AORTA The aortic root and proximal ascending aorta are normal in size on limited imaging. MITRAL VALVE [id number] mitral valve regurgitation. AORTIC VALVE Trileaflet aortic valve. Aortic valve sclerosis is present. Moderate aortic valve regurgitation. Mild to moderate aortic valve stenosis. TRICUSPID VALVE There is mild tricuspid valve regurgitation. The estimated pulmonary arterial pressure is 53 mmHg. PULMONARY VALVE The pulmonary valve is not well visualized. VESSELS The inferior vena cava is normal in size. PERICARDIUM No pericardial effusion. Truong Steiner MD (Electronically Signed) Final Date:11 August 2018 15:15
[2018-08-11] MEDS: Nystatin 100,000 UNITS/GM Powder 15 GM Bottle TOPICAL SCH ×2 (15:20→19:02)
--- NOTE | 2018-08-11 17:58 | ECG ---
Date Performed: 08/11/2018 Time Performed: 14:00:42 PTAGE: 63 years EKG: ELECTRONIC ATRIAL PACEMAKER ELECTRONIC VENTRICULAR PACEMAKER ABNORMAL RHYTHM ECG PREVIOUS TRACING : 08/11/2018 07.39 Since the previous tracing, no significant change noted DOCTOR: Andre Ramirez Interpretating Date/Time 08/11/2018 17:57:03
--- NOTE | 2018-08-11 18:15 | ECG ---
Date Performed: 08/11/2018 Time Performed: 07:39:20 PTAGE: 63 years EKG: ELECTRONIC VENTRICULAR PACEMAKER PREVIOUS TRACING : 08/11/2018 00.36 Since the previous tracing, no significant change not ed DOCTOR: Andre Ramirez Interpretating Date/Time 08/11/2018 18:13:54
--- NOTE | 2018-08-11 18:28 | ECG ---
Date Performed: 08/11/2018 Time Performed: 00:36:20 PTAGE: 63 years EKG: ELECTRONIC VENTRICULAR PACEMAKER ABNORMAL RHYTHM ECG PREVIOUS TRACING : 09/21/2017 10.08 Since the previous tracing, no significant change noted DOCTOR: Andre Ramirez Interpretating Date/Time 08/11/2018 18:26:12
[2018-08-11] MEDS: traZODone 50 MG Tablet PO SCH (20:55)
--- NOTE | 2018-08-11 21:49 | ECG ---
Date Performed: 08/11/2018 Time Performed: 16:50:01 PTAGE: 63 years EKG: PACEMAKER RHYTHM ABNORMAL RHYTHM ECG PREVIOUS TRACING : 08/11/2018 14.00 Since the previous tracing, no significant change noted DOCTOR: Andre Ramirez Interpretating Date/Time 08/11/2018 21:48:56
--- NOTE | 2018-08-12 07:04 | P.PNFP ---
Subjective Interval history: Patient was seen and examined this morning. She states that she is feeling a little better but is still having constant pressure-like chest pain in the middle of her chest, under her left breast, and in her left abdomen. She has chest pain when she moves and is short of breath all the time - the breathing treatments help but she does not have a nebulizer machine at home. She reports regurgitating food after she eats with cough and chest pain. She has not taken omeprazole in about a year because her insurance company refused to pay for it. She did not know about alternative medications that she could take for reflux. During the visit, the telemetry department called and sated that her pacemaker was kicking in during the QRS cycle, not before. I called Dr. Ramirez to mention the findings, and he responded that he would look into it when he goes to see Ms Rubi this morning. <Eko [place] U - 08/12/18 09:38> Results - Labs Result diagrams: 08/13/18 05:48 08/13/18 05:48 <Kevin Rodriguez - 08/13/18 15:19> Abnormal lab results 08/13/18 08/13/18 08/13/18 Range/Units 05:48 05:48 05:48 MCH 26.2 L (27.0-34.0) pg MCHC 31.3 L (32.0-36.0) % O2 Saturation (90-100) % ABG pH (7.380-7.420) ABG pCO2 (38-42) mmHg ABG HCO3 (22-26) mmol/L ABG Base Excess (-2-2) mmol/L Estimated GFR 83 L (>89) mL/min B-Natriuretic Peptide 338 H (0-100) pg/mL 08/13/18 Range/Units 06:37 MCH (27.0-34.0) pg MCHC (32.0-36.0) % O2 Saturation 87 L* (90-100) % ABG pH 7.35 L (7.380-7.420) ABG pCO2 58 H* (38-42) mmHg ABG HCO3 31 H (22-26) mmol/L ABG Base Excess 5.6 H (-2-2) mmol/L Estimated GFR (>89) mL/min B-Natriuretic Peptide (0-100) pg/mL Short CBC 08/13/18 Range/Units 05:48 WBC 5.0 (4.0-11.0) th/mm3 Hgb 12.8 (11.6-15.3) gm/dL Hct 40.9 (35.0-46.0) % Plt Count 169 (150-450) th/mm3 BMP 08/13/18 05:48 Sodium 140 Potassium 3.8 Chloride 104 Carbon Dioxide 31.0 BUN 15 Creatinine 0.84 Calcium 8.5 Cardiac Enzymes 08/13/18 Range/Units 05:48 Troponin I 0.03 (0.02-0.05) ng/mL <MichaelKevin - 08/13/18 15:19> Abnormal lab results 08/11/18 08/11/18 08/11/18 Range/Units 12:41 13:20 13:20 Estimated GFR 79 L (>89) mL/min POC Glucose 114 H (68-110) mg/dl Random Glucose 108 H (74-106) mg/dL Calcium 8.3 L (8.5-10.1) mg/dL Troponin I Less than 0.02 L (0.02-0.05) ng/mL Albumin 3.3 L (3.4-5.0) g/dL LDL Cholesterol, Calc 106 H (0-99) mg/dL 08/11/18 08/11/18 Range/Units 15:26 20:52 Estimated GFR (>89) mL/min POC Glucose 157 H 130 H (68-110) mg/dl Random Glucose (74-106) mg/dL Calcium (8.5-10.1) mg/dL Troponin I (0.02-0.05) ng/mL Albumin (3.4-5.0) g/dL LDL Cholesterol, Calc (0-99) mg/dL [facility] 08/11/18 13:20 Sodium 140 Potassium 4.3 Chloride 106 Carbon Dioxide 25.0 BUN 14 Creatinine 0.88 Calcium 8.3 L Cardiac Enzymes 08/11/18 Range/Units 13:20 Total Creatine Kinase 173 (26-192) U/L Troponin I Less than 0.02 L (0.02-0.05) ng/mL Liver Function 08/11/18 Range/Units 13:20 Total Bilirubin 0.5 (0.2-1.0) mg/dL AST 16 (15-37) U/L ALT 32 (10-53) U/L Alkaline Phosphatase 89 (45-117) U/L Albumin 3.3 L (3.4-5.0) g/dL <Eko R3,Luh U - 08/12/18 07:04> - Imaging Impressions Abdomen X-Ray 08/13/18 00:00 CONCLUSION: There is some stool seen throughout the colon. Otherwise, unremarkable examination. Head CT 08/13/18 00:00 CONCLUSION: 1. Unremarkable CT brain Report was called by Toclaureen to Atul. Head CTA 08/13/18 00:00 CONCLUSION: 1. No large vessel stenosis or aneurysm. Report was called by Toclaureen to Atul.. Neck CTA 08/13/18 00:00 CONCLUSION: 1. No significant carotid stenosis. 2. Heterogeneous thyroid gland. Report was called by Toclaureen to Atul. <Prevatte,Kevin - 08/13/18 15:19> Physical Exam Vital signs: Vital Signs 08/12/18 15:28 08/12/18 17:04 08/12/18 19:49 Temperature 99.3 F Pulse Rate 68 90 71 Respiratory Rate 18 20 20 Blood Pressure 144/66 H Pulse Oximetry 97 98 08/12/18 19:56 08/12/18 20:00 08/12/18 23:45 Temperature 97.6 F 98.7 F Pulse Rate 72 71 80 Respiratory Rate 16 20 Blood Pressure 114/73 158/69 H Pulse Oximetry 85 L 98 08/13/18 00:00 08/13/18 01:09 08/13/18 04:00 Temperature Pulse Rate 59 L 70 90 Respiratory Rate 20 Blood Pressure Pulse Oximetry 08/13/18 04:49 08/13/18 06:05 08/13/18 07:44 Temperature 97.4 F L 96.6 F L Pulse Rate 70 76 Respiratory Rate 20 Blood Pressure 200/86 H 177/81 H Pulse Oximetry 97 94 L 95 08/13/18 08:43 08/13/18 11:48 08/13/18 12:36 Temperature 98.5 F Pulse Rate 77 62 63 Respiratory Rate 16 16 20 Blood Pressure 141/69 H Pulse Oximetry 99 98 Intake & Output 08/12/18 08/13/18 08/13/18 18:59 06:59 18:59 Intake Total 50 / 50 Balance 50 / 50 Intake: Anesthesia Amount 50 / 50 Other: Date of Last Bowel Movement 08/10/18 08/10/18 08/10/18 <Kevin Rodriguez - 08/13/18 15:19> Vital Signs 08/11/18 07:44 08/11/18 08:05 08/11/18 11:58 Temperature 98.4 F Pulse Rate 68 69 71 Respiratory Rate 19 15 15 Blood Pressure 155/83 H Pulse Oximetry 99 98 08/11/18 12:35 08/11/18 15:33 08/11/18 15:52 Temperature 98.3 F 99.9 F H Pulse Rate 70 67 70 Respiratory Rate 19 18 16 Blood Pressure 143/67 H 121/71 Pulse Oximetry 97 99 08/11/18 16:58 08/11/18 19:40 08/11/18 20:00 Temperature 98.5 F Pulse Rate 83 70 68 Respiratory Rate 16 Blood Pressure 143/67 H 136/60 Pulse Oximetry 86 L 95 08/11/18 21:55 08/11/18 23:46 08/12/18 00:00 Temperature 98.8 F Pulse Rate 68 73 61 Respiratory Rate 16 16 Blood Pressure 140/68 Pulse Oximetry 92 L 94 L 08/12/18 02:50 08/12/18 04:00 Temperature 98.5 F Pulse Rate 68 73 Respiratory Rate 16 Blood Pressure 148/70 H Pulse Oximetry 94 L Intake & Output 08/11/18 08/12/18 08/12/18 18:59 06:59 18:59 Intake Total 517.9 / 517.9 Balance 517.9 / 517.9 Weight 119.748 kg Intake: IV 517.9 / 517.9 Vancomycin Inj 1,790 MG In NS 517.9 / 517.9 Inj 500 ML @ 250 mls/hr IV.SIG ONCE ONE Rx#:[id number] Other: # Voids 3 Date of Last Bowel Movement 08/10/18 08/10/18 Weight On Admission 119.748 kg <Eko R3Luh U - 08/12/18 07:04> Narrative: GENERAL: Morbidly obese -[place] lady lying up in bed. Nasal cannula in place SKIN: Warm and dry. HEAD: Atraumatic. Normocephalic. EYES: normal EOM. ENT: No nasal bleeding or discharge. Mucous membranes pink and moist. Edentulous CARDIOVASCULAR: Regular rate and rhythm. Left upper chest pacemaker. Systolic murmur appreciated in the aortic area. No erythema or edema over the site of her pacemaker RESPIRATORY: No accessory muscle use. Expiratory wheezing noted in the right middle lobe, otherwise clear to auscultation. Breath sounds equal bilaterally. GASTROINTESTINAL: Abdomen soft, nondistended but tender to light palpation diffusely, worse in the left upper quadrant and mid epigastric area. At the left breast, there is an area that is hyperpigmented and slightly red. No induration noted. In the left upper quadrant, there is a small boil 3 x 3 cm in dimension that is very tender and is beginning to form a head. This lesion is not surrounded by erythema or edema. MUSCULOSKELETAL: Extremities without clubbing, cyanosis, or edema. No obvious deformities or rash. NEUROLOGICAL: Awake and alert. No obvious cranial nerve deficits. Normal speech. PSYCHIATRIC: Appropriate mood and affect <Eko ,[facility] - 08/12/18 07:49> Assessment and Plan - Assessment (1) Chest pain Code(s): R07.9 - Chest pain, unspecified Status: Acute (2) Cardiomyopathy Code(s): I42.9 - Cardiomyopathy, unspecified Status: Acute (3) Heart failure with reduced ejection fraction, NYHA class IV Code(s): I50.20 - Unspecified systolic (congestive) heart failure Status: Acute (4) COPD (chronic obstructive pulmonary disease) Code(s): J44.9 - Chronic obstructive pulmonary disease, unspecified Status: Acute (5) Obstructive sleep apnea Code(s): G47.33 - Obstructive sleep apnea (adult) (pediatric) Status: Acute (6) Pacemaker complications Code(s): T82.9XXA - Unspecified complication of cardiac and vascular prosthetic device, implant and graft, initial encounter Status: Acute (7) DM2 (diabetes mellitus, type 2) Code(s): E11.9 - Type 2 diabetes mellitus without complications Status: Acute (8) Hypothyroidism Code(s): E03.9 - Hypothyroidism, unspecified Status: Acute (9) Abdominal pain Code(s): R10.9 - Unspecified abdominal pain Status: Acute (10) Black stools Code(s): K92.1 - Melena Status: Acute (11) Cough Code(s): R05 - Cough Status: Acute (12) GERD (gastroesophageal reflux disease) Code(s): K21.9 - Gastro-esophageal reflux disease without esophagitis Status: Acute (13) Constipation Code(s): K59.00 - Constipation, unspecified Status: Acute (14) Schizophrenia Code(s): F20.9 - Schizophrenia, unspecified Status: Acute (15) Tremors of nervous system Code(s): R25.1 - Tremor, unspecified Status: Acute (16) Morbid obesity Code(s): E66.01 - Morbid (severe) obesity due to excess calories Status: Acute (17) Candidiasis of skin Code(s): B37.2 - Candidiasis of skin and nail Status: Acute <Kevin Rodriguez - 08/13/18 15:19> (1) Chest pain Code(s): R07.9 - Chest pain, unspecified Status: Acute (2) Cardiomyopathy Code(s): I42.9 - Cardiomyopathy, unspecified Status: Acute (3) Heart failure with reduced ejection fraction, NYHA class IV Code(s): I50.20 - Unspecified systolic (congestive) heart failure Status: Acute (4) COPD (chronic obstructive pulmonary disease) Code(s): J44.9 - Chronic obstructive pulmonary disease, unspecified Status: Acute (5) Obstructive sleep apnea Code(s): G47.33 - Obstructive sleep apnea (adult) (pediatric) Status: Acute (6) Pacemaker complications Code(s): T82.9XXA - Unspecified complication of cardiac and vascular prosthetic device, implant and graft, initial encounter Status: Acute (7) DM2 (diabetes mellitus, type 2) Code(s): E11.9 - Type 2 diabetes mellitus without complications Status: Acute (8) Hypothyroidism Code(s): E03.9 - Hypothyroidism, unspecified Status: Acute (9) Abdominal pain Code(s): R10.9 - Unspecified abdominal pain Status: Acute (10) Black stools Code(s): K92.1 - Melena Status: Acute (11) Cough Code(s): R05 - Cough Status: Acute (12) GERD (gastroesophageal reflux disease) Code(s): K21.9 - Gastro-esophageal reflux disease without esophagitis Status: Acute (13) Schizophrenia Code(s): F20.9 - Schizophrenia, unspecified Status: Acute (14) Morbid obesity Code(s): E66.01 - Morbid (severe) obesity due to excess calories Status: Acute (15) Candidiasis of skin Code(s): B37.2 - Candidiasis of skin and nail Status: Acute <Eko R3,Luh U - 08/12/18 10:02> - Assessment and Plan 63-year-old -[place] female admitted with chief complaint of chest pain and increased shortness of breath past 3-4 days, admitted on observation for ACS rule out. Also has a history of black stools for the past 3-4 days. Cardiology has been consulted to assist with management-patient has a pacemaker and a history of cardiomyopathy but has not seen a cloth doffer for over 2 years. [employer] was contacted to interrogate the pacemaker. GI was consulted due to patient's history of black stools and dysphagia - plan for EGD pending cardiology clearance. 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 [employer] * [employer] interrogated the pacemaker which was reset -TSH and Free T4 wnl -Continue home medications Abdominal pain -Diffuse abdominal pain, worse in the left quadrants -History of black stools for the past 3-4 days -Notably, patient is on chronic oral prednisone at home and takes Eliquis -H/H wnl -No abnormality found on CT of abdomen -Check occult blood in the stool -GI consulted * Plan for EGD today if cleared by cardiology Cardiomyopathy and Heart failure with reduced ejection fraction -S/P [employer] dual-chamber biventricular pacer/defibrillator -Mild cardiomegaly on chest x-ray with mild pulmonary vascular engorgement -ECHO performed on 08/11 read as: * Left ventricular systolic function is severely reduced with an estimated ejection fraction in the range of 30-35%. * Global hypokinesis * Mild to moderate aortic valve stenosis * Moderate aortic valve regurgitation * Mildly dilated left ventricle * Mild concentric left ventricular hypertrophy * The left atrial size is mildly dilated * [id number] mitral valve regurgitation * There is mild tricuspid valve regurgitation * The estimated pulmonary arterial pressure is 53 mmHg -Cardiology consulted -patient has not seen a cloth doffer in more than 2 years -Fluid overload not noted on exam -Continue home furosemide Diabetes mellitus, type II -Hold home metformin -Accu-Cheks with sliding scale insulin -A1c pending -Lipid panel wnl except for a mildly elevated LDL of 106 Hypothyroidism -Continue home Levothyroxine -TSH and Free T4 wnl COPD -Pt states diagnosis although last PFT in November 2017 was normal with no evidence of airway obstruction/restriction -CXR negative for acute pulmonary process -Continue scheduled duonebs q4h, albuterol q2h prn * Will prescribe a nebulizer machine and medication for home use -Continue supplemental O2 (2L), which she takes at home -Continue home prednisone 10 mg dose -Patient follows with auto tester Dr. Swain, last saw him 3-4 months ago * Encourage follow-up with him as an outpatient Cough -May be related to her CHF or dysphagia/GERD -Tessalon Perles as needed -GI consult as above Obstructive Sleep Apnea -Patient uses CPAP machine at home -Advised to get her machine to the hospital GERD -Continue home Protonix but increase dose to 40 mg p.o. daily -GI consult as above Possible candidiasis of skin -Continue Nystatin powder, apply under folds of skin at sites of hyperpigmentation Schizophrenia -Unclear what kind of antipsychotic patient is on at home -Will continue home Risperidone Physical complications, increased body habitus -History of stroke with left-sided chronic pain -She may benefit from a cardiopulmonary rehab -PT to evaluate and treat -Case management to assist with discharge needs FEN -Oral fluids only -Monitor replace electrolytes as needed -Cardiac and diabetic diet PPX -Patient currently on Eliquis due to history of stroke, SCDs -Zofran prn for nausea -Constipation protocol on board -Patient is DNR, daughter Tania Rubi is her [facility] - [phone] <Luh Medeiros - 08/12/18 10:10> Discussed Condition With: Dr. Ramirez, Dr. Rodriguez, Pt's nurse <Luh Medeiros - 08/12/18 10:10> Discharge Planning: Pending cardiology and GI evaluation <Luh Medeiros - 08/12/18 07:04> - Attending Attestation Resident documentation reviewed. Case discussed with Dr. Knight. Agree with assessment and plan as documented. <Kevin Rodriguez - 08/13/18 15:19> <Eko R3,Luh U - Last Filed: 08/12/18 10:02> (7) DM2 (diabetes mellitus, type 2) Qualifiers: Diabetes mellitus complication status: with unspecified complications <Prevatte,Kevin - Last Filed: 08/13/18 15:19> (7) DM2 (diabetes mellitus, type 2) Qualifiers: Diabetes mellitus complication status: with unspecified complications <Eko R3,Luh U - Last Filed: 08/12/18 10:02> (7) DM2 (diabetes mellitus, type 2) Qualifiers: Diabetes mellitus complication status: with unspecified complications <Prevatte,Kevin - Last Filed: 08/13/18 15:19> (7) DM2 (diabetes mellitus, type 2) Qualifiers: Diabetes mellitus complication status: with unspecified complications
[2018-08-12 08:24] LABS: Hematocrit 41.9 % (35.0-46.0); Hemoglobin 12.9 gm/dL (11.6-15.3); Mean Corpuscular Hemoglobin 25.9 pg (27.0-34.0); Mean Corpuscular Volume 83.7 fL (80.0-100.0); Mean Platelet Volume 9.3 fL (7.0-11.0); Platelet Count 165 th/mm3 (150-450); Red Cell Distribution Width 15.7 % (11.6-17.2); White Blood Count 5.2 th/mm3 (4.0-11.0)
[2018-08-12 08:30] LABS: Mean Corpuscular HGB Conc 30.9 % (32.0-36.0)
[2018-08-12] MEDS: Levothyroxine 75 MCG Tablet PO SCH (08:37)
[2018-08-12] MEDS: Furosemide 40 MG Tablet PO SCH (08:37)
[2018-08-12] MEDS: Ferrous Sulfate 325 MG Tablet PO SCH (08:38)
[2018-08-12] MEDS: predniSONE 10 MG Tablet PO SCH (08:38)
[2018-08-12] MEDS: Morphine Sulfate 15 MG IR Tablet PO PRN ×2 (08:38→15:38)
[2018-08-12] MEDS: Insulin NovoLOG Aspart Correctional Sugar Inj SQ SCH ×4 (08:39→23:04)
[2018-08-12 08:51] LABS: Calcium 8.8 mg/dL (8.5-10.1); Carbon Dioxide 25.9 meq/L (21.0-32.0)
[2018-08-12] MEDS: Nystatin 100,000 UNITS/GM Powder 15 GM Bottle TOPICAL SCH ×3 (09:12→18:15)
[2018-08-12] MEDS ORDERED: Chlorhexidine Gluconate 2% 1 Pack (2 Cloths) TOPICAL ONE (11:53)
[2018-08-12] MEDS ORDERED: Metoprolol Tartrate 25 MG Tablet PO ONE (11:53)
[2018-08-12] MEDS ORDERED: Sodium Chlor 0.9% Inj 500 ML IV.SIG ONE (12:00)
[2018-08-12] MEDS ORDERED: Ketamine Inj 50 MG/5 ML Syringe IV.PUSH ONE (12:48)
--- NOTE | 2018-08-12 12:52 | P.PNCA ---
Subjective Interval history: Atyp lower substernal and upper abdominal pain, no SOB, feels better Medications and Allergies Active Medications: Active Medications Al Hydroxide/Mg Hydroxide (Milk Of Magnesia Liq) 30 ml PO Q12H PRN PRN Reason: Mild Constipation Albuterol (Duoneb Neb (Nilo)) 1 ampul NEB Q4HR NEB [facility] Last Admin: 08/12/18 12:18 Dose: 1 ampul Albuterol (Albuterol Neb (Prn)) 1.25 mg NEB Q2HR NEB PRN PRN Reason: SHORTNESS OF BREATH Apixaban (Eliquis) 5 mg PO DAILY [facility] Last Admin: 08/12/18 08:38 Dose: 5 mg Benzonatate (Tessalon Perles) 200 mg PO Q8H PRN PRN Reason: COUGH Bisacodyl (Dulcolax Ec) 5 mg PO DAILY PRN PRN Reason: CONSTIPATION Bisacodyl (Dulcolax Supp) 10 mg RECTAL DAILY PRN PRN Reason: SEVERE CONSITIPATION Dextrose (D50w Vial) 50 ml IV.PUSH UNSCH PRN PRN Reason: PER HYPOGLYCEMIA PROTOCOL Ferrous Sulfate (Ferosul) 325 mg PO DAILY [facility] Last Admin: 08/12/18 08:38 Dose: 325 mg Furosemide (Lasix) 40 mg PO DAILY [facility] Last Admin: 08/12/18 08:37 Dose: 40 mg Glucagon (Glucagon Inj) 1 mg OTHER UNSCH PRN PRN Reason: for Hypoglycemia Protocol Lactated Ringer's (Lr 1000 Ml Inj) 1,000 mls @ 30 mls/hr IV.SIG .Q24H NILO Stop: 08/13/18 11:59 Sodium Chloride (Ns Inj) 500 mls @ 30 mls/hr IV.SIG .Q10H ONE Stop: 08/13/18 04:39 Insulin Aspart (Novolog Insulin Correctional Sugar Inj) 0 unit SQ ACHS [facility]; Protocol Last Admin: 08/12/18 08:39 Dose: Not Given Lactulose (Lactulose Liq) 30 ml PO DAILY PRN PRN Reason: SEVERE CONSITIPATION Levothyroxine Sodium (Synthroid) 75 mcg PO DAILY@0700 [facility] Last Admin: 08/12/18 08:37 Dose: 75 mcg Lorazepam (Ativan) 0.5 mg PO Q4H PRN PRN Reason: ANXIETY Morphine Sulfate (Msir) 15 mg PO Q6H PRN PRN Reason: CHRONIC PAIN Last Admin: 08/12/18 08:38 Dose: 15 mg Nystatin (Mycostatin Powder) 1 applicatio TOPICAL TID [facility] Last Admin: 08/12/18 09:12 Dose: 1 applicatio Ondansetron HCl (Zofran Inj) 4 mg IV.PUSH Q6H PRN PRN Reason: NAUSEA OR VOMITING Oxycodone HCl (Roxicodone) 10 mg PO Q8H PRN PRN Reason: ACUTE PAIN Last Admin: 08/12/18 01:40 Dose: 10 mg Pantoprazole Sodium (Protonix) 40 mg PO DAILY [facility] Last Admin: 08/12/18 08:38 Dose: 40 mg Polyethylene Glycol (Miralax) 17 gm PO DAILY [facility] Prednisone (Deltasone) 10 mg PO DAILY [facility] Last Admin: 08/12/18 08:38 Dose: 10 mg Sennosides (Senokot) 17.2 mg PO Q12H PRN PRN Reason: Moderate Constipation Sodium Chloride (Ns Inj) 2 ml IV.FLUSH BID [facility] Last Admin: 08/11/18 23:33 Dose: 2 ml Sodium Chloride (Ns Inj) 2 ml IV.FLUSH UNSCH PRN PRN Reason: FLUSH AFTER USING IV ACCESS Trazodone HCl (Desyrel) 50 mg PO HS [facility] Last Admin: 08/11/18 20:55 Dose: 50 mg Allergies Allergy/AdvReac Type Severity Reaction Status Date / Time aspirin Allergy Severe Anaphylaxis Verified 09/19/17 09:35 benazepril Allergy Severe ANAPHALAXIS Verified 09/19/17 09:35 captopril Allergy Severe ANAPHALAXIS Verified 09/19/17 09:35 enalaprilat Allergy Severe Anaphylaxis Verified 09/19/17 09:35 fosinopril Allergy Severe ANAPHALAXIS Verified 09/19/17 09:35 gabapentin Allergy Severe AGGRESSIVE Verified 09/19/17 09:35 BEHAVIOR ibuprofen Allergy Severe TOUNGE Verified 09/19/17 09:35 SWELLING lisinopril Allergy Severe ANAPHALAXIS Verified 09/19/17 09:35 quinapril Allergy Severe ANAPHALAXIS Verified 09/19/17 09:35 naproxen Allergy Intermediate RESTELESS Verified 09/19/17 09:35 LEG acetaminophen AdvReac Severe Verified 09/19/17 09:35 MRI PRECAUTION AdvReac Severe NON REVO Uncoded 09/19/17 09:35 PACEMAKER 07/04/13 LRS Home Medications Medication Instructions Recorded Confirmed Type Spiriva with HandiHaler 1.25 mcg INHALATION DAILY 08/11/18 08/11/18 History apixaban [Eliquis] 5 tab PO DAILY 08/11/18 08/11/18 History ferrous sulfate 27 mg PO DAILY 08/11/18 08/11/18 History fluticasone-salmeterol [Advair 100 mcg INHALATION DAILY 08/11/18 08/11/18 History Diskus] furosemide 40 mg PO DAILY 08/11/18 08/11/18 History levothyroxine 88 mcg PO DAILY 08/11/18 08/11/18 History lorazepam 1 mg PO BID PRN 08/11/18 08/11/18 History metformin 1,000 mg PO DAILY 08/11/18 08/11/18 History morphine 15 mg PO Q6H PRN 08/11/18 08/11/18 History nitroglycerin [Nitrostat] 0.3 mg SUBLINGUAL Q5-6M PRN MDD 3 08/11/18 08/11/18 History oxycodone 5 mg PO Q5-30M PRN 08/11/18 08/11/18 History prednisone 20 mg PO DAILY 08/11/18 08/11/18 History risperidone [Risperdal] 2 mg PO BID 08/11/18 08/11/18 History trazodone 50 mg PO BID 08/11/18 08/11/18 History Physical Exam Vital signs: Vital Signs 08/11/18 15:33 08/11/18 15:52 08/11/18 16:58 Temperature 99.9 F H Pulse Rate 67 70 83 Respiratory Rate 18 16 Blood Pressure 121/71 143/67 H Pulse Oximetry 99 86 L 08/11/18 19:40 08/11/18 20:00 08/11/18 21:55 Temperature 98.5 F Pulse Rate 70 68 68 Respiratory Rate 16 16 Blood Pressure 136/60 Pulse Oximetry 95 92 L 08/11/18 23:46 08/12/18 00:00 08/12/18 02:50 Temperature 98.8 F Pulse Rate 73 61 68 Respiratory Rate 16 Blood Pressure 140/68 Pulse Oximetry 94 L 08/12/18 04:00 08/12/18 07:47 02/24/19 07:57 Temperature 98.5 F 97.7 F Pulse Rate 73 65 70 Respiratory Rate 16 18 2 L Blood Pressure 148/70 H 160/85 H Pulse Oximetry 94 L 99 08/12/18 08:00 08/12/18 11:59 08/12/18 12:19 Temperature 99.1 F Pulse Rate 64 80 Respiratory Rate 18 20 Blood Pressure 158/80 H Pulse Oximetry 99 99 Intake & Output 08/11/18 08/12/18 08/12/18 18:59 06:59 18:59 Intake Total 517.9 / 517.9 Balance 517.9 / 517.9 Weight 263 lb 15.986 oz Intake: IV 517.9 / 517.9 Vancomycin Inj 1,790 MG In NS 517.9 / 517.9 Inj 500 ML @ 250 mls/hr IV.SIG ONCE ONE Rx#:[id number] Other: # Voids 3 Date of Last Bowel Movement 08/10/18 08/10/18 08/10/18 Weight On Admission 263 lb 15.986 oz - Constitutional no acute distress - Routine Respiratory Exam Present: CTA bilaterally - Routine Cardiovascular Exam Present: RRR, S1, S2, murmur Comments: CHEN - Routine Abdominal Exam Present: soft Comments: obese - Routine Extremities Exam Present: edema - Routine Neurological Exam Present: alert, oriented X3 - Routine Psychiatric Exam Present: normal affect Results 08/12/18 06:33 08/12/18 06:33 Cardiac Enzymes 08/11/18 08/11/18 08/11/18 Range/Units 01:38 01:38 13:20 AST 14 L 16 (15-37) U/L Troponin I 0.02 Less than 0.02 L (0.02-0.05) ng/mL B-Natriuretic Peptide 440 H (0-100) pg/mL 08/12/18 Range/Units 06:33 AST (15-37) U/L Troponin I (0.02-0.05) ng/mL B-Natriuretic Peptide 389 H (0-100) pg/mL Coagulation 08/11/18 08/12/18 Range/Units 01:38 06:33 B-Natriuretic Peptide 440 H 389 H (0-100) pg/mL Lipids 08/11/18 Range/Units 13:20 Triglycerides 120 (42-150) mg/dL Cholesterol 179 (120-200) mg/dL HDL Cholesterol 48.9 (40.0-60.0) mg/dL Cholesterol/HDL Ratio 3.66 Ratio CBC 08/11/18 08/12/18 Range/Units 01:38 06:33 WBC 6.7 5.2 (4.0-11.0) th/mm3 RBC 5.27 5.00 (4.00-5.30) mil/mm3 Hgb 14.0 12.9 (11.6-15.3) gm/dL Hct 43.6 41.9 (35.0-46.0) % Plt Count 197 165 (150-450) th/mm3 Neut # (Auto) 4.7 (1.8-7.7) th/mm3 Lymph # (Auto) 1.4 (1.0-4.8) th/mm3 Cameron # (Auto) 0.5 (0.0-0.9) th/mm3 Eos # (Auto) 0.0 (0.0-0.4) th/mm3 Baso # (Auto) 0.0 (0.0-0.2) th/mm3 Comprehensive Metabolic Panel 08/11/18 08/11/18 08/12/18 Range/Units 01:38 13:20 06:33 Sodium 143 140 138 (136-145) meq/L Potassium 4.3 4.3 4.0 (3.5-5.1) meq/L Chloride 108 H 106 104 (98-107) meq/L Carbon Dioxide 27.0 25.0 25.9 (21.0-32.0) meq/L BUN 15 14 16 (7-18) mg/dL Creatinine 0.95 0.88 0.84 (0.50-1.00) mg/dL Calcium 8.0 L 8.3 L 8.8 (8.5-10.1) mg/dL AST 14 L 16 (15-37) U/L ALT 33 32 (10-53) U/L Alkaline Phosphatase 86 89 (45-117) U/L Total Protein 7.1 7.4 (6.4-8.2) g/dL Albumin 3.1 L 3.3 L (3.4-5.0) g/dL Intake and Output 02/23/19 02/24/19 02/24/19 22:59 06:59 14:59 Other: # Voids 3 Date of Last Bowel Movement 08/10/18 08/10/18 - Imaging and Cardiology Imaging: Impressions Abdomen/Pelvis CT 08/11/18 00:46 CONCLUSION: 1. No acute abnormality. Chest X-Ray 08/11/18 00:46 CONCLUSION: Cardiomegaly with mild pulmonary vascular engorgement. Assessment and Plan - Assessment (1) Chest pain Code(s): R07.9 - Chest pain, unspecified Status: Acute (2) Cardiomyopathy Code(s): I42.9 - Cardiomyopathy, unspecified Status: Acute (3) COPD (chronic obstructive pulmonary disease) Code(s): J44.9 - Chronic obstructive pulmonary disease, unspecified Status: Acute (4) Morbid obesity Code(s): E66.01 - Morbid (severe) obesity due to excess calories Status: Acute (5) ICD (implantable cardioverter-defibrillator) in place Code(s): Z95.810 - Presence of automatic (implantable) cardiac defibrillator Status: Acute (6) Diabetes Code(s): E11.9 - Type 2 diabetes mellitus without complications Status: Acute - Plan Atypical CP, no evidence of ACS. ICD reprogrammed, normal function. Echo with EF 30-35%. Continue current program. GI evaluation. Patient is cleared for endoscopy from cardiac standpoint. Increase activity.
--- NOTE | 2018-08-12 13:17 | P.PCN ---
Date of procedure: 08/12/18 Pre-op diagnosis: Dysphagia Procedure: PROCEDURE PERFORMED EGD with biopsy PROCEDURE: The procedure, risks and benefits were discussed with Patient/POA and informed consent was obtained. Anesthesia sedated Patient with Diprivan. Patient was placed in the left lateral decubitus position. EGD: The Pentax videoscope was introduced through the oropharynx and advanced to the second portion of the duodenum under direct visualization. Retroflexion was performed in the stomach. FINDINGS: The esophagus this appeared to be unremarkable and within normal limits Z line was regular The stomach there was a mild to moderately sized hiatal hernia there was some mild patchy erythema in the antrum but no ulcerations no erosions no blood or bleeding antral biopsies were taken for further evaluation the rest of the stomach unremarkable The duodenum this too appeared to be unremarkable with normal limits ESTIMATED BLOOD LOSS: None SPECIMENS REMOVED: Gastric biopsies COMPLICATIONS: None IMPRESSION: Hiatal hernia Gastritis PLAN: Await biopsies Continue PPI Monitor labs Controlled blood sugars Anesthesia: MAC Surgeon: Danny Morrison Condition: stable Disposition: floor
[2018-08-12 13:46] LABS: Hemoglobin A1c 5.7 % (4.3-6.0)
[2018-08-12] MEDS: Polyethylene Glycol 3350 17 GM Packet PO SCH (14:15)
[2018-08-12] MEDS: traZODone 50 MG Tablet PO SCH (20:42)
--- NOTE | 2018-08-12 21:01 | P.DCO ---
- Physical Therapy Order: Evaluate and treat, Improve ambulation, Strength and gait training - Home Health Nursing Order: Medical education, Signs/symptoms of disease process, CHF education, Oxygen administration education, Medication education-adverse effect, Nursing assessment with vital signs - Case Management Consult Case Management Consult-Home Health: Yes - Certification I have seen patient Windy Rubi on 08/12/18. My clinical findings support the need for the requested home health care services because: Limited mobility due to disease progression, Patient has SOB, Deconditioned with increased weakness, Medication compliance is questionable, Limited ability to care for self, Need for psychosocial assistance, High risk of falls I certify that my clinical findings support that this patient is homebound because: Impaired cognitive ability/safety, Unsteady gait/balance, Unsafe to leave home unassisted, Need for psychosocial assistance, Poor cardiac reserve
[2018-08-13] MEDS: Morphine Sulfate 15 MG IR Tablet PO PRN (01:37)
--- NOTE | 2018-08-13 06:08 | P.PNADD ---
Addendum to Inpatient Note Additional information: Received page from nursing staff at approximately [phone]. Staff reports that the patient has new chest pain. Patient reports the chest pain is different from the initial presenting chest pain, describes it more as tightness. Blood pressure initially 200/86 with new pressure started, recently retaken and decreased to 173/81. Denies any significant change in chest pressure. No new change in work of breathing. No other new complaints. -Stat EKG, trend EKG -Stat troponin, trend troponin
[2018-08-13 06:11] LABS: Hematocrit 40.9 % (35.0-46.0); Hemoglobin 12.8 gm/dL (11.6-15.3); Mean Corpuscular HGB Conc 31.3 % (32.0-36.0); Mean Corpuscular Hemoglobin 26.2 pg (27.0-34.0); Mean Platelet Volume 8.9 fL (7.0-11.0); Platelet Count 169 th/mm3 (150-450); Red Blood Count 4.87 mil/mm3 (4.00-5.30); Red Cell Distribution Width 15.1 % (11.6-17.2)
[2018-08-13 06:30] LABS: Calcium 8.5 mg/dL (8.5-10.1); Potassium 3.8 meq/L (3.5-5.1)
[2018-08-13 06:48] LABS: ABG Base Excess 5.6 mmol/L (-2-2); ABG PCO2 58 mmHg (38-42); ABG PO2 61 mmHg (61-120)
[2018-08-13] MEDS: Sod Chloride 0.9% Inj 1,000 ML IV.SIG SCH ×2 (07:00→21:56)
--- NOTE | 2018-08-13 07:01 | CT ---
EXAM DATE: 08/13/2018 6:47 AM EST AGE/SEX: 63 years / Female INDICATIONS: Stroke alert, all extremities flaccid, non verbal CLINICAL DATA: This is the patient's initial encounter. Patient reports that signs and symptoms have been present for 1 day and indicates a pain score of Nonresponsive. MEDICAL/SURGICAL HISTORY: Cardiovascular disease. Pacemaker. RADIATION DOSE: 56.35 CTDI (mGy) COMPARISON: [facility] [place], CTA BRAIN W 3D RECON, 09/19/2017. . TECHNIQUE: CT of the head without contrast. Using automated exposure control and adjustment of the mA and/or kV according to patient size, radiation dose was kept as low as reasonably achievable to ob tain optimal diagnostic quality images. DICOM format image data is available electronically for revi ew and comparison. FINDINGS: Cerebrum: The ventricles are normal for age. No evidence of midline shift, mass lesion, hemorrhage or acute infarction. No extraaxial fluid collections are seen. Posterior Fossa: The cerebellum and brainstem are intact. The 4th ventricle is midline. The cerebe llopontine angle is unremarkable. Extracranial: The visualized portion of the orbits is intact. Skull: The calvaria is intact. No evidence of skull fracture. CONCLUSION: 1. Unremarkable CT brain Report was called by Luzma to Atul. Electronically signed by: Aditya Segal MD Board Certified Radiologist 08/13/2018 7:00 AM EST
--- NOTE | 2018-08-13 07:02 | CT ---
EXAM DATE: 08/13/2018 6:51 AM EST AGE/SEX: 63 years / Female INDICATIONS: Stroke alert, all extremities flaccid, non verbal CLINICAL DATA: This is the patient's initial encounter. Patient reports that signs and symptoms have been present for 1 day and indicates a pain score of Nonresponsive. MEDICAL/SURGICAL HISTORY: Cardiovascular disease. Pacemaker. RADIATION DOSE: 10.78 CTDI (mGy) ; Combined studies COMPARISON: No prior exams available for comparison. TECHNIQUE: Volumetric scanning was performed using a multi-row detector CT scanner during bolus infu estefani of 100 ml Visipaque 320 (iodixanol) nonionic water-soluble contrast as a cumulative dose for mu ltiple exams. The data was post processed with a variety of visualization algorithms including full volume maximum intensity projection, multi-planar sliding thin slab reformation, curved planar refor mation, and surface rendering techniques. Using automated exposure control and adjustment of the mA and/or kV according to patient size, radiation dose was kept as low as reasonably achievable to obtai n optimal diagnostic quality images. DICOM format image data is available electronically for review and comparison. FINDINGS: There is excellent visualization of the major intracranial arteries out to the second-order branch ve ssels. There is no evidence for aneurysm, vessel truncation or stenosis, and no evidence for vascula r malformation. The anterior communicating artery. CONCLUSION: 1. No large vessel stenosis or aneurysm. Report was called by Luzma Pollard.. Electronically signed by: Aditya Segal MD Board Certified Radiologist 08/13/2018 7:01 AM EST
--- NOTE | 2018-08-13 07:05 | CT ---
EXAM DATE: 08/13/2018 7:00 AM EST AGE/SEX: 63 years / Female INDICATIONS: Stroke alert, all extremities flaccid, patient non verbal CLINICAL DATA: This is the patient's initial encounter. Patient reports that signs and symptoms have been present for 1 day and indicates a pain score of Nonresponsive. MEDICAL/SURGICAL HISTORY: Cardiovascular disease. Pacemaker. RADIATION DOSE: 10.78 CTDI (mGy) ; Combined studies COMPARISON: No prior exams available for comparison. TECHNIQUE: Volumetric scanning was performed using a multirow detector CT scanner during bolus infus ion of 100 ml Visipaque 320 (iodixanol) nonionic water-soluble contrast as a cumulative dose for mul tiple exams. The data was postprocessed with a variety of visualization algorithms including full-v olume maximum intensity projection, multiplanar sliding thin-slab reformation, curved-planar reformat ion, and surface-rendering techniques. Using automated exposure control and adjustment of the mA and /or kV according to patient size, radiation dose was kept as low as reasonably achievable to obtain o ptimal diagnostic quality images. DICOM format image data is available electronically for review and comparison. Percent stenosis is calculated using the diameter of the stenotic region over the diameter of the nor mal distal internal carotid artery. FINDINGS: Aortic Arch: There is a three-vessel origin of the great vessels from the aorta. No evidence of ost ial narrowing Right Carotid: The common carotid artery is intact. The carotid bulb has a normal configuration wit hout ulceration or narrowing. The internal carotid artery lumen is smooth without stenosis. The ext ernal carotid artery is intact. Left Carotid: The common carotid artery is intact. Mild plaque without significant stenosis. The int ernal carotid artery lumen is smooth without stenosis. The external carotid artery is intact. Vertebrals: The vertebral arteries have a symmetric diameter. No stenotic lesions are seen. CONCLUSION: 1. No significant carotid stenosis. 2. Heterogeneous thyroid gland. Report was called by Luzma to Atul. Electronically signed by: Aditya Segal MD Board Certified Radiologist 08/13/2018 7:03 AM EST
--- NOTE | 2018-08-13 08:18 | MB ---
cc: Mikey Pollard MD DATE: 08/13/2018 HISTORY OF PRESENT ILLNESS: A 63-year-old woman who I had actually seen in 2013. Has low blood pressure, defibrillator, sees Dr. Ramirez, renal problems, bladder problems, and falls. Five syncopal episodes where she just passes out and falls to the floor. History of CAD, COPD, stroke with left-sided deficit, hypertension, depression, hypothyroidism, AICD, had fallen at that time. CT of the head and neck were negative. She was on Seroquel, Wellbutrin with a history of psychiatric problems. She had normal strength throughout. CTA of her head and neck were negative. Rheumatoid factor, REUBEN, RPR have been negative in the past. No spinal stenosis was noted. I thought probably she had some low blood pressure and that was her problem. She was also seen by Dr. Patiño in 09/2017 for possible stroke, right-sided weakness for several days. CTA of the head and neck were negative, as was a CT scan of the brain. Was found to have possible atrial fibrillation. She was noted to have schizophrenia with psychosis. She was put on Eliquis. She was called for stroke alert this morning, had been seen moving everything about 5:45 a.m., and then about 6 or 6:15 a.m. was not moving any of her extremities and was unresponsive. She became more responsive in the CT scanner where she was able to talk, but still not moving anything. She has since had improvement of her right-sided weakness, which she is able to move the right side, not the left side so much, and is able to talk and follow commands now. CT scan of the brain was negative as was a CTA of the head and neck. MEDICATIONS AT HOME: Risperdal 2 mg b.i.d., metformin, Nitrostat, iron, Eliquis 5 mg just once a day, Lasix, trazodone, morphine, thyroid medicine. Here, she continues on Eliquis just once a day. CURRENT MEDICATIONS: As noted, on the Eliquis just once a day, Dulcolax suppository, iron, Lasix, glucagon, insulin (sugar here was 103), Ativan p.r.n., oxycodone, prednisone, trazodone. PHYSICAL EXAMINATION: VITAL SIGNS: On exam, paced, afebrile, 70, 20, 200/86-170/80. NECK: There were no carotid bruits. HEART: Regular rhythm. I do not detect a murmur. GENERAL: She is mildly obese. NEUROLOGIC: Pupils are equal. Visual chin are full. Face was symmetric. She moved her right arm and leg well and normal. Toes are downgoing bilaterally. She can wiggle her left toes spontaneously, but not when I asked her to. When holding her arm up, the hand did not fall down into her face, but she would not otherwise move her left arm or leg. She has left hemisensory loss to pinprick face, arm, and leg. LABORATORY DATA: CBC is normal. Basic metabolic profile normal. LDL is 106. TSH normal. ABG 7.35, PaCO2 of 58, PaO2 of 61. She had a blood gas back on 11/17/2017. That pH was 7.4 with a PaCO2 of 35 and a PaO2 of 79. Creatinine is normal. IMPRESSION AND PLAN: Possible stroke. She has a lot of psych history, so it is a little bit unclear. She is also retaining CO2. She certainly had improvement and her CTAs are negative. On the Eliquis, she is not IV TPA eligible. I would increase her Eliquis, however, to 5 mg b.i.d. Add on a baby aspirin. It is unclear to me why she is only on a once a day Eliquis. She cannot have an MRI due to the pacemaker. I will be following with you in the hospital. She has a history, as noted, of some psych disease. I am not entirely sure if this not a combination of the elevated PaCO2; though certainly with the atrial fibrillation, she could have had a small stroke. Her NIH stroke scale currently is a 6. I have a suspicion, however, that she will probably improve with the left-sided weakness. MD ANNE Gagnon/brendan , 07:46 AM , 07:58 AM
--- NOTE | 2018-08-13 08:33 | P.PNADD ---
Addendum to Inpatient Note Additional information: S: Stat paged for how he cannot at 0611. Upon arriving at patient's room staff notified that the patient was at CT. How Nurse reported that the patient was stroke alerted and rushed to CT. She notes that the patient had a flaccid paralysis. Was unable to move arms, legs, aphasic. According to patient's nurse this is a large change from her baseline, typically able to move arms and legs and converse normally. Patient was unable to speak with physician team, could make eye contact, nod yes when asking if she had some chest tightness. Otherwise patient could not communicate and would not nod yes or no. O: GENERAL: Laying in bed, no acute distress. SKIN: Warm and dry. HEAD: Normocephalic. EYES: No scleral icterus. No injection or drainage. NECK: Supple, trachea midline. No JVD or lymphadenopathy. CARDIOVASCULAR: Regular rate and rhythm without gallops, or rubs. Systolic murmur present. RESPIRATORY: Breath sounds equal bilaterally. No accessory muscle use. GASTROINTESTINAL: Abdomen soft, non-tender, nondistended. Neuro: Arms and legs flaccid. Unable to move, no muscle flicker. Unable to hold up. Negative Babinski. Does not follow commands, unable to fully assess cranial nerves. No obvious facial droop. A/P: Stroke alert called, CT head without significant hemorrhage noted. Neurologist Dr. Pollard spoken with. To be seen early this morning. Recommends additional CTA testing. Blood pressure had been elevated to the 170s , advised to not significantly adjust at this time. Possible stroke versus psychiatric disorder. Noted there is been stroke workups in the past, possible conversion disorder. -Follow-up CTA -Follow-up ABG -Consider BiPAP -Follow-up neurology recommendations Addendum: Prior to leaving patient she had regained significant function. Moving arms and legs. Weak on the left side. Able to speak with physician team and nursing staff. Notes that her chest tightness that was present earlier this morning had improved. No other significant complaints at this time.
--- NOTE | 2018-08-13 08:53 | P.PNFP ---
Subjective Interval history: Patient was seen and examined this morning after she was examined for a stroke alert with a Halicat. The overnight resident was paged around 6:11 AM and by the time he got to the room patient was already getting a noncontrast CT for highly cath. She states that patient was unable to move her arms and legs and was a phasic. By the time I got to the patient's room this morning, she was lying down flat and was in no acute respiratory distress. She was moving all extremities as usual. She has residual deficits from the left side but was able to elevate her arms and legs. Her neuro exam was intact. She still complained of chest and abdominal pain but was otherwise okay. Yesterday, I spoke with patient's pharmacy to verify her medications and called her daughter to bring all her medication bottles to the hospital so that we can reconcile them. Patient has not been very clear on what doses of what medications she takes. Patient's daughter was also supposed to bring in her CPAP machine but mistakenly brought her nebulizer machine to the hospital. <Eko Luh Park U - 08/13/18 10:40> Results - Labs Result diagrams: 08/14/18 09:30 08/14/18 09:30 <Loida Nuñez - 08/16/18 12:32> Abnormal lab results 08/12/18 08/13/18 08/13/18 Range/Units 06:33 05:48 05:48 MCH 26.2 L (27.0-34.0) pg MCHC 31.3 L (32.0-36.0) % O2 Saturation (90-100) % ABG pH (7.380-7.420) ABG pCO2 (38-42) mmHg ABG HCO3 (22-26) mmol/L ABG Base Excess (-2-2) mmol/L Estimated GFR 83 L (>89) mL/min B-Natriuretic Peptide 389 H (0-100) pg/mL 08/13/18 08/13/18 Range/Units 05:48 06:37 MCH (27.0-34.0) pg MCHC (32.0-36.0) % O2 Saturation 87 L* (90-100) % ABG pH 7.35 L (7.380-7.420) ABG pCO2 58 H* (38-42) mmHg ABG HCO3 31 H (22-26) mmol/L ABG Base Excess 5.6 H (-2-2) mmol/L Estimated GFR (>89) mL/min B-Natriuretic Peptide 338 H (0-100) pg/mL Short CBC 08/13/18 Range/Units 05:48 WBC 5.0 (4.0-11.0) th/mm3 Hgb 12.8 (11.6-15.3) gm/dL Hct 40.9 (35.0-46.0) % Plt Count 169 (150-450) th/mm3 BMP 08/13/18 05:48 Sodium 140 Potassium 3.8 Chloride 104 Carbon Dioxide 31.0 BUN 15 Creatinine 0.84 Calcium 8.5 Cardiac Enzymes 08/13/18 Range/Units 05:48 Troponin I 0.03 (0.02-0.05) ng/mL <Eko R3Luh U - 08/13/18 08:53> - Imaging Impressions Head CT 08/13/18 00:00 CONCLUSION: 1. Unremarkable CT brain Report was called by Toclaureen Pollard. Head CTA 08/13/18 00:00 CONCLUSION: 1. No large vessel stenosis or aneurysm. Report was called by Luzma to Atul.. Neck CTA 08/13/18 00:00 CONCLUSION: 1. No significant carotid stenosis. 2. Heterogeneous thyroid gland. Report was called by Toclaureen to Atul. <Eko [place] U - 08/13/18 08:53> Physical Exam Vital signs: Vital Signs 08/12/18 11:59 08/12/18 12:19 08/12/18 13:23 Temperature 99.1 F 98.9 F Pulse Rate 64 80 95 H Respiratory Rate 18 20 28 H Blood Pressure 158/80 H 120/79 Pulse Oximetry 99 92 L 08/12/18 13:30 08/12/18 13:40 08/12/18 15:28 Temperature 98.8 F 99.3 F Pulse Rate 83 85 68 Respiratory Rate 22 20 18 Blood Pressure 144/70 H 144/66 H Pulse Oximetry 92 L 94 L 97 08/12/18 17:04 08/12/18 19:49 08/12/18 19:56 Temperature 97.6 F Pulse Rate 90 71 72 Respiratory Rate 20 20 16 Blood Pressure 114/73 Pulse Oximetry 98 85 L 08/12/18 20:00 08/12/18 23:45 08/13/18 00:00 Temperature 98.7 F Pulse Rate 71 80 59 L Respiratory Rate 20 Blood Pressure 158/69 H Pulse Oximetry 98 08/13/18 01:09 08/13/18 04:00 08/13/18 04:49 Temperature 97.4 F L Pulse Rate 70 90 70 Respiratory Rate 20 20 Blood Pressure 200/86 H Pulse Oximetry 97 08/13/18 06:05 08/13/18 07:44 08/13/18 08:43 Temperature 96.6 F L Pulse Rate 76 77 Respiratory Rate 16 Blood Pressure 177/81 H Pulse Oximetry 94 L 95 99 Intake & Output 08/12/18 08/13/18 08/13/18 18:59 06:59 18:59 Intake Total 50 / 50 Balance 50 / 50 Intake: Anesthesia Amount 50 / 50 Other: Date of Last Bowel Movement 08/10/18 08/10/18 <Eko CandyLuh U - 08/13/18 08:53> Narrative: GENERAL: Morbidly obese -[place] lady lying flat in bed. Nasal cannula in place SKIN: Warm and dry. HEAD: Atraumatic. Normocephalic. EYES: normal EOM. ENT: No nasal bleeding or discharge. Mucous membranes pink and moist. Edentulous CARDIOVASCULAR: Regular rate and rhythm. Left upper chest pacemaker. Systolic murmur appreciated in the aortic area. No erythema or edema over the site of her pacemaker RESPIRATORY: No accessory muscle use. Expiratory wheezing noted in the right middle lobe, otherwise clear to auscultation. Breath sounds equal bilaterally. GASTROINTESTINAL: Abdomen soft, nondistended but tender to light palpation diffusely, worse in the left upper quadrant and mid epigastric area. In the left upper quadrant, there is a small boil 3 x 3 cm in dimension that has opened up and is less tender than previous days. This lesion is not surrounded by erythema or edema. MUSCULOSKELETAL: Extremities without clubbing, cyanosis, or edema. No obvious deformities or rash. NEUROLOGICAL: Awake and alert. No obvious cranial nerve deficits. Normal speech. PSYCHIATRIC: Appropriate mood and affect <Eko Luh Park - 08/13/18 10:13> Assessment and Plan - Assessment (1) Chest pain Code(s): R07.9 - Chest pain, unspecified Status: Acute (2) Cardiomyopathy Code(s): I42.9 - Cardiomyopathy, unspecified Status: Acute (3) Heart failure with reduced ejection fraction, NYHA class IV Code(s): I50.20 - Unspecified systolic (congestive) heart failure Status: Acute (4) COPD (chronic obstructive pulmonary disease) Code(s): J44.9 - Chronic obstructive pulmonary disease, unspecified Status: Acute (5) Obstructive sleep apnea Code(s): G47.33 - Obstructive sleep apnea (adult) (pediatric) Status: Acute (6) Pacemaker complications Code(s): T82.9XXA - Unspecified complication of cardiac and vascular prosthetic device, implant and graft, initial encounter Status: Acute (7) DM2 (diabetes mellitus, type 2) Code(s): E11.9 - Type 2 diabetes mellitus without complications Status: Acute (8) Hypothyroidism Code(s): E03.9 - Hypothyroidism, unspecified Status: Acute (9) Abdominal pain Code(s): R10.9 - Unspecified abdominal pain Status: Acute (10) Black stools Code(s): K92.1 - Melena Status: Acute (11) Cough Code(s): R05 - Cough Status: Acute (12) GERD (gastroesophageal reflux disease) Code(s): K21.9 - Gastro-esophageal reflux disease without esophagitis Status: Acute (13) Constipation Code(s): K59.00 - Constipation, unspecified Status: Acute (14) Schizophrenia Code(s): F20.9 - Schizophrenia, unspecified Status: Acute (15) Tremors of nervous system Code(s): R25.1 - Tremor, unspecified Status: Acute (16) Morbid obesity Code(s): E66.01 - Morbid (severe) obesity due to excess calories Status: Acute (17) Candidiasis of skin Code(s): B37.2 - Candidiasis of skin and nail Status: Acute <Loida Nuñez - 08/16/18 12:32> (1) Chest pain Code(s): R07.9 - Chest pain, unspecified Status: Acute (2) Cardiomyopathy Code(s): I42.9 - Cardiomyopathy, unspecified Status: Acute (3) Heart failure with reduced ejection fraction, NYHA class IV Code(s): I50.20 - Unspecified systolic (congestive) heart failure Status: Acute (4) COPD (chronic obstructive pulmonary disease) Code(s): J44.9 - Chronic obstructive pulmonary disease, unspecified Status: Acute (5) Obstructive sleep apnea Code(s): G47.33 - Obstructive sleep apnea (adult) (pediatric) Status: Acute (6) Pacemaker complications Code(s): T82.9XXA - Unspecified complication of cardiac and vascular prosthetic device, implant and graft, initial encounter Status: Acute (7) DM2 (diabetes mellitus, type 2) Code(s): E11.9 - Type 2 diabetes mellitus without complications Status: Acute (8) Hypothyroidism Code(s): E03.9 - Hypothyroidism, unspecified Status: Acute (9) Abdominal pain Code(s): R10.9 - Unspecified abdominal pain Status: Acute (10) Black stools Code(s): K92.1 - Melena Status: Acute (11) Cough Code(s): R05 - Cough Status: Acute (12) GERD (gastroesophageal reflux disease) Code(s): K21.9 - Gastro-esophageal reflux disease without esophagitis Status: Acute (13) Constipation Code(s): K59.00 - Constipation, unspecified Status: Acute (14) Schizophrenia Code(s): F20.9 - Schizophrenia, unspecified Status: Acute (15) Tremors of nervous system Code(s): R25.1 - Tremor, unspecified Status: Acute (16) Morbid obesity Code(s): E66.01 - Morbid (severe) obesity due to excess calories Status: Acute (17) Candidiasis of skin Code(s): B37.2 - Candidiasis of skin and nail Status: Acute <Eko R3,Luh U - 08/13/18 10:13> - Assessment and Plan 63-year-old -[place] female admitted with chief complaint of chest pain and increased shortness of breath past 3-4 days, admitted on observation for ACS rule out. Also has a history of black stools for the past 3-4 days. Cardiology has been consulted to assist with management-patient has a pacemaker and a history of cardiomyopathy but has not seen a appraiser auditor for over 2 years. [employer] was contacted to interrogate the pacemaker. GI was consulted due to patient's history of black stools and dysphagia, EGD was performed on after clearance was obtained from cardiology. Halicat and stroke alert was called on 08/13 am. No new retained deficits on exam. 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 [employer] * [employer] interrogated the pacemaker which was reset -Pt is allergic to aspirin Abdominal pain -Diffuse abdominal pain, worse in the left quadrants -History of black stools for the past 3-4 days -Notably, patient is on chronic oral prednisone at home and takes Eliquis -H/H wnl -No abnormality found on CT of abdomen -Check occult blood in the stool -GI consulted * EGD was performed on 08-13 with only gastritis found and a known mild to moderately sized hiatal hernia, no ulcers * Biopsy results pending Cardiomyopathy and Heart failure with reduced ejection fraction -S/P [employer]tronic dual-chamber biventricular pacer/defibrillator -Mild cardiomegaly on chest x-ray with mild pulmonary vascular engorgement -ECHO performed on 08/11 read as: * Left ventricular systolic function is severely reduced with an estimated ejection fraction in the range of 30-35%. * Global hypokinesis * Mild to moderate aortic valve stenosis * Moderate aortic valve regurgitation * Mildly dilated left ventricle * Mild concentric left ventricular hypertrophy * The left atrial size is mildly dilated * [id number] mitral valve regurgitation * There is mild tricuspid valve regurgitation * The estimated pulmonary arterial pressure is 53 mmHg -Cardiology consulted -patient has not seen a appraiser auditor in more than 2 years -Fluid overload not noted on exam -Continue home furosemide and spironolactone Diabetes mellitus, type II -Hold home metformin -Accu-Cheks with sliding scale insulin -A1c within normal limits at 5.7 -Lipid panel wnl except for a mildly elevated LDL of 106 Hypothyroidism -Continue home Levothyroxine -TSH and Free T4 wnl COPD -Pt states diagnosis although last PFT in November 2017 was normal with no evidence of airway obstruction/restriction -CXR negative for acute pulmonary process -Continue scheduled duonebs q4h, albuterol q2h prn * Will prescribe a nebulizer machine and medication for home use -Continue supplemental O2 (2L), which she takes at home -Start weaning of prednisone from 10 mg to 9 mg x 1 week -Patient follows with service engineer Dr. Swain, last saw him 3-4 months ago * Encourage follow-up with him as an outpatient Cough -May be related to her CHF or dysphagia/GERD -Tessalon Perles as needed -GI consult as above Obstructive Sleep Apnea -Patient uses CPAP machine at home -Advised to get her machine to the hospital GERD -Continue home Protonix but increase dose to 40 mg p.o. daily Constipation -No bowel movements since 08/10 which may be contributing to her abdominal pain -Currently on MiraLAX once daily -Will check abdominal x-ray and escalate the constipation protocol as needed Possible candidiasis of skin -Continue Nystatin powder, apply under folds of skin at sites of hyperpigmentation Depression -Continue home citalopram Schizophrenia -Will continue home Risperidone -Continue home Benztropine -Pt has other medications that she takes but cannot remember -Psych consult to help with medication management Insomnia -Continue home Trazodone Physical complications, increased body habitus -History of stroke with left-sided chronic pain -She may benefit from a cardiopulmonary rehab -PT to evaluate and treat * Recommend a 2 wheeled walker and home health PT at discharge -Case management to assist with discharge needs FEN -Oral fluids only -Monitor replace electrolytes as needed -Cardiac diet PPX -Patient currently on Eliquis due to history of stroke, SCDs -Zofran prn for nausea -Constipation protocol on board -Patient is DNR, daughter Tania Rubi is her [facility] - [phone] <Luh Medeiros [facility] 08/13/18 10:40> Discussed Condition With: Dr. Leigh, PGY-2 Dr. Nuñez <Ekberta ParkLuh [facility] 08/13/18 10:40> Discharge Planning: Pending cardiology and GI evaluation <Eugene ParkLuh [facility] 08/13/18 08:53> - Attending Attestation The exam, history, and the medical decision-making described in the above note were completed with the assistance of the resident physician. I reviewed and agree with the findings presented. I attest that I had a [id number] encounter with the patient on the same day, and personally performed and documented my assessment and findings in the medical record. she is doing well and ready to go home <ChocowinityLoida diaz - 08/16/18 12:32> <Eko R3Luh U - Last Filed: 08/13/18 10:13> (7) DM2 (diabetes mellitus, type 2) Qualifiers: Diabetes mellitus complication status: with unspecified complications <SavannahLoida Pipo - Last Filed: 08/16/18 12:32> (7) DM2 (diabetes mellitus, type 2) Qualifiers: Diabetes mellitus complication status: with unspecified complications <Eko [place]uh [place] U - Last Filed: 08/13/18 10:13> (7) DM2 (diabetes mellitus, type 2) Qualifiers: Diabetes mellitus complication status: with unspecified complications <SavannahLoida Pipo - Last Filed: 08/16/18 12:32> (7) DM2 (diabetes mellitus, type 2) Qualifiers: Diabetes mellitus complication status: with unspecified complications
[2018-08-13] MEDS ORDERED: LORazepam 0.5 MG Tablet PO PRN (09:37)
[2018-08-13] MEDS: Insulin NovoLOG Aspart Correctional Sugar Inj SQ SCH ×4 (10:01→21:56)
[2018-08-13] MEDS: Levothyroxine 75 MCG Tablet PO SCH (10:05)
[2018-08-13] MEDS: Spironolactone 25 MG Tablet PO SCH (10:05)
[2018-08-13] MEDS: Ferrous Sulfate 325 MG Tablet PO SCH (10:06)
[2018-08-13] MEDS: Sod Chloride 0.9% Inj 1,000 ML IV.CONT SCH (10:06)
[2018-08-13] MEDS: Citalopram 20 MG Tablet PO SCH (10:06)
[2018-08-13] MEDS: Furosemide 40 MG Tablet PO SCH (10:06)
[2018-08-13] MEDS: Nystatin 100,000 UNITS/GM Powder 15 GM Bottle TOPICAL SCH ×3 (10:07→21:55)
[2018-08-13] MEDS: Polyethylene Glycol 3350 17 GM Packet PO SCH (10:07)
[2018-08-13] MEDS: predniSONE 10 MG Tablet PO SCH (10:13)
--- NOTE | 2018-08-13 12:24 | ECG ---
Date Performed: 08/13/2018 Time Performed: 05:33:10 PTAGE: 63 years EKG: ELECTRONIC VENTRICULAR PACEMAKER ABNORMAL RHYTHM ECG Since the PREVIOUS TRACING , no significant change noted PREVIOUS TRACIN08/11/2018 16.50.01 DOCTOR: Drew Lay Interpretating Date/Time 08/13/2018 12:17:30
--- NOTE | 2018-08-13 13:15 | P.PNCA ---
Subjective Interval history: She is currently resting in bed with complaints of left sided chest pain that increases with palpation or deep breathing. She denies any palpitations, dizziness, edema or SOB. Medications and Allergies Allergies Allergy/AdvReac Type Severity Reaction Status Date / Time aspirin Allergy Severe Anaphylaxis Verified 09/19/17 09:35 benazepril Allergy Severe ANAPHALAXIS Verified 09/19/17 09:35 captopril Allergy Severe ANAPHALAXIS Verified 09/19/17 09:35 enalaprilat Allergy Severe Anaphylaxis Verified 09/19/17 09:35 fosinopril Allergy Severe ANAPHALAXIS Verified 09/19/17 09:35 gabapentin Allergy Severe AGGRESSIVE Verified 09/19/17 09:35 BEHAVIOR ibuprofen Allergy Severe TOUNGE Verified 09/19/17 09:35 SWELLING lisinopril Allergy Severe ANAPHALAXIS Verified 09/19/17 09:35 quinapril Allergy Severe ANAPHALAXIS Verified 09/19/17 09:35 naproxen Allergy Intermediate RESTELESS Verified 09/19/17 09:35 LEG acetaminophen AdvReac Severe Verified 09/19/17 09:35 MRI PRECAUTION AdvReac Severe NON REVO Uncoded 09/19/17 09:35 PACEMAKER 07/04/13 LRS Home Medications Medication Instructions Recorded Confirmed Type apixaban [Eliquis] 5 tab PO BID 08/11/18 08/13/18 History ferrous sulfate 325 mg PO TID 08/11/18 08/13/18 History furosemide 40 mg PO BID 08/11/18 08/13/18 History levothyroxine 88 mcg PO DAILY 08/11/18 08/11/18 History metformin 500 mg PO BID 08/11/18 08/13/18 History nitroglycerin [Nitrostat] 0.6 mg SUBLINGUAL Q5-6M PRN MDD 3 08/11/18 08/13/18 History prednisone 10 mg PO DAILY 08/11/18 08/13/18 History risperidone [Risperdal] 2 mg PO BID 08/11/18 08/11/18 History trazodone 50 mg PO HS 08/11/18 08/13/18 History amlodipine 10 mg PO DAILY 08/13/18 08/13/18 History benztropine 1 mg PO BID 08/13/18 08/13/18 History citalopram 20 mg PO DAILY 08/13/18 08/13/18 History fluticasone-salmeterol [Advair 1 inh INHALATION BID 08/13/18 08/13/18 History Diskus] isosorbide mononitrate 60 mg PO DAILY 08/13/18 08/13/18 History lorazepam 0.5 mg PO BID 08/13/18 08/13/18 History mirtazapine 15 mg PO HS 08/13/18 08/13/18 History morphine 30 mg PO BID 08/13/18 08/13/18 History oxycodone 10 mg PO Q8HR 08/13/18 08/13/18 History prochlorperazine maleate 10 mg PO Q4HR PRN 08/13/18 08/13/18 History ropinirole 8 mg PO BID 08/13/18 08/13/18 History spironolactone 12.5 mg PO DAILY 08/13/18 08/13/18 History tiotropium bromide 1 cap INHALATION DAILY 08/13/18 08/13/18 History Active Medications: Active Medications Al Hydroxide/Mg Hydroxide (Milk Of CelebCallsangel Torrez) 30 ml PO Q12H PRN PRN Reason: Mild Constipation Albuterol (Duoneb Neb (Nilo)) 1 ampul NEB Q4HR NEB [facility] Last Admin: 08/13/18 12:33 Dose: 1 ampul Albuterol (Albuterol Neb (Prn)) 1.25 mg NEB Q2HR NEB PRN PRN Reason: SHORTNESS OF BREATH Apixaban (Eliquis) 5 mg PO BID [facility] Benzonatate (Tessalon Perles) 200 mg PO Q8H PRN PRN Reason: COUGH Benztropine Mesylate (Cogentin) 1 mg PO BID [facility] Bisacodyl (Dulcolax Ec) 5 mg PO DAILY PRN PRN Reason: CONSTIPATION Bisacodyl (Dulcolax Supp) 10 mg RECTAL DAILY PRN PRN Reason: SEVERE CONSITIPATION Citalopram Hydrobromide (Celexa) 20 mg PO DAILY [facility] Last Admin: 08/13/18 10:06 Dose: 20 mg Dextrose (D50w Vial) 50 ml IV.PUSH UNSCH PRN PRN Reason: PER HYPOGLYCEMIA PROTOCOL Ferrous Sulfate (Ferosul) 325 mg PO DAILY [facility] Last Admin: 08/13/18 10:06 Dose: 325 mg Furosemide (Lasix) 40 mg PO DAILY [facility] Last Admin: 08/13/18 10:06 Dose: 40 mg Glucagon (Glucagon Inj) 1 mg OTHER UNSCH PRN PRN Reason: for Hypoglycemia Protocol Sodium Chloride (Ns Inj) 1,000 mls @ 70 mls/hr IV.SIG .[id number] [facility] Last Admin: 08/13/18 07:00 Dose: 70 mls/hr Sodium Chloride (Ns Inj) 1,000 mls @ 70 mls/hr IV.CONT .[id number] [facility] Last Admin: 08/13/18 10:06 Dose: Not Given Insulin Aspart (Novolog Insulin Correctional Sugar Inj) 0 unit SQ ACHS [facility]; Protocol Last Admin: 08/13/18 10:01 Dose: Not Given Lactulose (Lactulose Liq) 30 ml PO DAILY PRN PRN Reason: SEVERE CONSITIPATION Levothyroxine Sodium (Synthroid) 75 mcg PO DAILY@0700 [facility] Last Admin: 08/13/18 10:05 Dose: 75 mcg Lorazepam (Ativan) 0.5 mg PO BID PRN PRN Reason: ANXIETY Miscellaneous Information (Misc Nursing Information) 1 each OTHER UNSCH PRN PRN Reason: SEE LABEL COMMENTS Stop: 08/13/18 13:17 Nystatin (Mycostatin Powder) 1 applicatio TOPICAL TID [facility] Last Admin: 08/13/18 10:07 Dose: 1 applicatio Ondansetron HCl (Zofran Inj) 4 mg IV.PUSH Q6H PRN PRN Reason: NAUSEA OR VOMITING Oxycodone HCl (Roxicodone) 10 mg PO Q8H PRN PRN Reason: ACUTE PAIN Last Admin: 08/13/18 10:06 Dose: 10 mg Pantoprazole Sodium (Protonix) 40 mg PO DAILY [facility] Last Admin: 08/13/18 10:06 Dose: 40 mg Polyethylene Glycol (Miralax) 17 gm PO DAILY [facility] Last Admin: 08/13/18 10:07 Dose: 17 gm Prednisone (Deltasone) 5 mg PO DAILY [facility] Prednisone (Deltasone) 4 mg PO DAILY [facility] Risperidone (Risperdal) 2 mg PO BID [facility] Sennosides (Senokot) 17.2 mg PO Q12H PRN PRN Reason: Moderate Constipation Sodium Chloride (Ns Inj) 2 ml IV.FLUSH BID [facility] Last Admin: 08/13/18 10:07 Dose: Not Given Sodium Chloride (Ns Inj) 2 ml IV.FLUSH UNSCH PRN PRN Reason: FLUSH AFTER USING IV ACCESS Spironolactone (Aldactone) 12.5 mg PO DAILY [facility] Last Admin: 08/13/18 10:05 Dose: 12.5 mg Trazodone HCl (Desyrel) 50 mg PO [facility] Last Admin: 08/12/18 20:42 Dose: 50 mg Physical Exam Vital signs: Vital Signs 08/12/18 13:23 08/12/18 13:30 08/12/18 13:40 Temperature 98.9 F 98.8 F Pulse Rate 95 H 83 85 Respiratory Rate 28 H 22 20 Blood Pressure 120/79 144/70 H Pulse Oximetry 92 L 92 L 94 L 08/12/18 15:28 08/12/18 17:04 08/12/18 19:49 Temperature 99.3 F Pulse Rate 68 90 71 Respiratory Rate 18 20 20 Blood Pressure 144/66 H Pulse Oximetry 97 98 08/12/18 19:56 08/12/18 20:00 08/12/18 23:45 Temperature 97.6 F 98.7 F Pulse Rate 72 71 80 Respiratory Rate 16 20 Blood Pressure 114/73 158/69 H Pulse Oximetry 85 L 98 08/13/18 00:00 08/13/18 01:09 08/13/18 04:00 Temperature Pulse Rate 59 L 70 90 Respiratory Rate 20 Blood Pressure Pulse Oximetry 08/13/18 04:49 08/13/18 06:05 08/13/18 07:44 Temperature 97.4 F L 96.6 F L Pulse Rate 70 76 Respiratory Rate 20 Blood Pressure 200/86 H 177/81 H Pulse Oximetry 97 94 L 95 08/13/18 08:43 08/13/18 11:48 08/13/18 12:36 Temperature 98.5 F Pulse Rate 77 62 63 Respiratory Rate 16 16 20 Blood Pressure 141/69 H Pulse Oximetry 99 98 Intake & Output 08/12/18 08/13/18 08/13/18 18:59 06:59 18:59 Intake Total 50 / 50 Balance 50 / 50 Intake: Anesthesia Amount 50 / 50 Other: Date of Last Bowel Movement 08/10/18 08/10/18 08/10/18 - Constitutional no acute distress - Routine HEENT Exam Head: Present: normocephalic Eye: Present: PERRL ENT: Present: mucous membranes moist - Routine Neck Exam Present: full ROM - Routine Respiratory Exam Present: CTA bilaterally - Routine Cardiovascular Exam Present: S1, S2, murmur. Absent: gallop, rubs - Routine Abdominal Exam Present: normoactive bowel sounds - Routine Extremities Exam Present: full ROM, pulses intact, normal capillary refill. Absent: cyanosis, clubbing, edema - Routine Skin Exam Present: intact - Routine Neurological Exam Present: oriented X3 - Detailed Neurological Exam: Coma Scale Eye Opening: Spontaneous Verbal Response: Oriented Motor Response: Obey commands Marcus Coma Scale Total: 15 - Routine Psychiatric Exam Present: normal affect Results 08/13/18 05:48 08/13/18 05:48 Cardiac Enzymes 08/11/18 08/12/18 08/13/18 Range/Units 13:20 06:33 05:48 AST 16 (15-37) U/L Troponin I Less than 0.02 L (0.02-0.05) ng/mL B-Natriuretic Peptide 389 H 338 H (0-100) pg/mL 08/13/18 Range/Units 05:48 AST (15-37) U/L Troponin I 0.03 (0.02-0.05) ng/mL B-Natriuretic Peptide (0-100) pg/mL Coagulation 08/12/18 08/13/18 Range/Units 06:33 05:48 B-Natriuretic Peptide 389 H 338 H (0-100) pg/mL Lipids 08/11/18 Range/Units 13:20 Triglycerides 120 (42-150) mg/dL Cholesterol 179 (120-200) mg/dL HDL Cholesterol 48.9 (40.0-60.0) mg/dL Cholesterol/HDL Ratio 3.66 Ratio CBC 08/12/18 08/13/18 Range/Units 06:33 05:48 WBC 5.2 5.0 (4.0-11.0) th/mm3 RBC 5.00 4.87 (4.00-5.30) mil/mm3 Hgb 12.9 12.8 (11.6-15.3) gm/dL Hct 41.9 40.9 (35.0-46.0) % Plt Count 165 169 (150-450) th/mm3 Comprehensive Metabolic Panel 08/11/18 08/12/1819 Range/Units 13:20 06:33 05:48 Sodium 140 138 140 (136-145) meq/L Potassium 4.3 4.0 3.8 (3.5-5.1) meq/L Chloride 106 104 104 (98-107) meq/L Carbon Dioxide 25.0 25.9 31.0 (21.0-32.0) meq/L BUN 14 16 15 (7-18) mg/dL Creatinine 0.88 0.84 0.84 (0.50-1.00) mg/dL Calcium 8.3 L 8.8 8.5 (8.5-10.1) mg/dL AST 16 (15-37) U/L ALT 32 (10-53) U/L Alkaline Phosphatase 89 (45-117) U/L Total Protein 7.4 (6.4-8.2) g/dL Albumin 3.3 L (3.4-5.0) g/dL Intake and Output 08/12/18 08/13/18 08/13/18 22:59 06:59 14:59 Other: Date of Last Bowel Movement 08/10/18 08/10/18 - Imaging and Cardiology Imaging: Impressions Head CT 08/13/18 00:00 CONCLUSION: 1. Unremarkable CT brain Report was called by Luzma Pollard. Head CTA 08/13/18 00:00 CONCLUSION: 1. No large vessel stenosis or aneurysm. Report was called by Luzma Pollard.. Neck CTA 08/13/18 00:00 CONCLUSION: 1. No significant carotid stenosis. 2. Heterogeneous thyroid gland. Report was called by Luzma Pollard. Assessment and Plan - Assessment (1) Chest pain Code(s): R07.9 - Chest pain, unspecified Status: Acute (2) Cardiomyopathy Code(s): I42.9 - Cardiomyopathy, unspecified Status: Acute (3) COPD (chronic obstructive pulmonary disease) Code(s): J44.9 - Chronic obstructive pulmonary disease, unspecified Status: Acute (4) Morbid obesity Code(s): E66.01 - Morbid (severe) obesity due to excess calories Status: Acute (5) ICD (implantable cardioverter-defibrillator) in place Code(s): Z95.810 - Presence of automatic (implantable) cardiac defibrillator Status: Acute (6) Diabetes Code(s): E11.9 - Type 2 diabetes mellitus without complications Status: Acute - Plan She continues to have atypical CP that increases with palpation and deep breathing. There are no signs of ACS at this time. Neurology evaluation in progress due to patient becoming unresponsive this morning; this has resolved. GI evaluation and treatment in progress; endoscopy completed. Continue to increase her activity as she tolerates. We will continue to monitor her during her hospitalization. The patient was seen and evaluated by Dr. Ramirez who participated in care, management and decision making. - Attending Attestation Patient seen and examined. I reviewed and agree with the evaluation and plan as presented. No new cardiac issues. Possible TIA; neurology evaluation. Increase activity, PT.
--- NOTE | 2018-08-13 13:42 | XR ---
EXAM DATE: 08/13/2018 1:37 PM EST AGE/SEX: 63 years / Female INDICATIONS: Upper abdominal pain and no bowel movement since Monday. CLINICAL DATA: This is the patient's initial encounter. Patient reports that signs and symptoms have been present for 3 days and indicates a pain score of 6/10. MEDICAL/SURGICAL HISTORY: Cardiovascular disease. Tubal ligation. Cholecystectomy. Pacemaker. removal of tube and ovary COMPAR[place]: [facility] [place], 08/07/2010. . FINDINGS: The abdominal bowel gas pattern is normal. There is some stool seen throughout the colon. No signifi cant dilatation of the large or small bowel is demonstrated. No significant change compared to the pr ior examination. There are some degenerative changes of the bony structures. Surgical clips are seen in the right upper quadrant. The lung bases are grossly clear. CONCLUSION: There is some stool seen throughout the colon. Otherwise, unremarkable examination. Electronically signed by: Marco Paige MD Board Certified Radiologist 08/13/2018 1:41 PM EST
--- NOTE | 2018-08-13 13:48 | P.CONPSY ---
Provisional Diagnosis Admission Date: August 13, 2018 10:25 [place].: Schizophrenia vs schizoaffective disorder [place].: Deferred [place].: A. fib, CHF, COPD, DM, HTN, History of Present Illness Service: ER Primary Care Provider: Lydia Diaz MD, R2 Chief Complaint: chest pain History of Present Illness: The patient is a 63-year-old -[place] woman, domiciled in [facility] with her daughter, , unemployed, on SSI, with an extensive psychiatric history of schizophrenia, bipolar disorder, four previous psychiatric hospitalizations, the last hospitalization was in the s, and suicidal attempt in the s, outpatient psychiatric care in [facility], she is in trazodone 50 mg, escitalopram 20 mg, risperidone 2 mg twice daily, Remeron 15 mg at bedtime, with a past medical history of atrial fibrillation, hypertension, type 2 diabetes, CHF, COPD, who presented with chief complaint of chest pain and increased shortness of breath past 3-4 days, admitted on observation for ACS rule out. Also has a history of black stools for the past 3-4 days. 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 [employer] was contacted to interrogate the pacemaker. GI was consulted due to patient's history of black stools and dysphagia, EGD was performed on after clearance was obtained from cardiology. Halicat and stroke alert was called on 08/13 am. Patient was consulted to psychiatry to address potential interaction on medication and psychotropics as a potential cause of medical complaints. On my psychiatric evaluation today I find a patient that is calm, cooperative, very pleasant. The patient reports that she feels much better now , but still have chest pain. She clarifies that her chest pain is decreased from about 8-10-5-10 now, but still fixed and permanent in her chest. The patient reports to be in an okay mood, she says that she is not depressed,"but I am not happy either". The patient denies anhedonia, she denies hopelessness, denies helplessness, she denies worthlessness, denies problems with appetite, with energy, denies problems with his sleep with her medications, denies suicidal and homicidal ideation, she denies visual and auditory hallucinations. The patient reports that she has been quite stable in her current psychotropic regimen. She says that this sets of medications seems to be helping very well. She says that she has an upcoming appointment with Gilberto in [facility] very soon. The patient is fully oriented x3, there is no attention deficit , no gross cognitive impairment. No agitation, no aggressive behavior. There is no loosening of associations, no ideas of reference, no paranoia present during this evaluation. PPHx: PMHx: Substance Hx: Family Hx: Social Hx Review of Systems All other systems reviewed negative except as stated in HPI Constitutional: Denies anorexia, Denies body ache(s), Denies chills, Denies daytime sleepiness, Denies excessive sweating, Denies fatigue, Denies fever(s), Denies headache(s), Denies increased appetite, Denies lack of energy, Denies malaise, Denies night sweats, Denies weakness, Denies weight gain, Denies weight loss, Denies other Eyes: Denies blind spots, Denies blurry vision, Denies bulging eyes, Denies change in vision, Denies double vision, Denies discharge, Denies dry eyes, Denies floaters, Denies irritation, Denies itchy eyes, Denies loss of vision, Denies pain, Denies requires corrective lenses, Denies sensitivity to light, Denies other Ears, Nose, Mouth, and Throat: Denies abnormal hearing, Denies bleeding gums, Denies bad breath, Denies change in voice, Denies dental pain, Denies difficulty swallowing, Denies dizziness, Denies dry mouth, Denies ear discharge , Denies ear pain, Denies facial pain, Denies headache(s), Denies hearing loss, Denies hoarseness, Denies lip swelling, Denies nosebleed, Denies mouth lesions, Denies mouth pain, Denies nasal congestion, Denies nasal discharge, Denies nasal obstruction, Denies nasal trauma, Denies neck lump, Denies neck pain, Denies nose pain, Denies pain with swallowing, Denies poor balance, Denies post nasal drip, Denies ringing in the ears, Denies sinus pain, Denies sinus pressure , Denies sore throat, Denies throat swelling, Denies tongue swelling, Denies other Cardiovascular: Reports chest pain, Reports chest pain at rest, Denies chest pain with activity, Denies excessive sweating, Denies fainting, Denies fast heart rate, Denies foot swelling, Denies generalized swelling, Denies irregular heart rhythm, Denies leg pain with activity, Denies leg sores, Denies leg swelling, Denies lightheadedness, Denies radiating jaw, neck or arm pain, Denies rapid, pounding, or irregular heartbeat, Denies shortness of breath, Denies shortness of breath with activity, Denies shortness of breath when lying down, Denies shortness of breath causing sudden awakening, Denies slow heart rate, Denies other Respiratory: Denies change in phlegm color, Denies chest congestion, Denies cough, Denies coughing up blood, Denies excessive phlegm production, Denies pain on inspiration, Denies pain with cough, Denies shortness of breath, Denies shortness of breath with activity, Denies snoring, Denies stridor, Denies wheezing, Denies other Gastrointestinal: Denies abdominal pain, Denies belching, Denies black, tarry stools, Denies bloating, Denies bright, red blood in stools, Denies change in bowel habits, Denies constant urge to pass stool, Denies change in stools, Denies coffee ground vomit, Denies constipation, Denies cramping, Denies difficulty swallowing, Denies excessive passing of gas, Denies feeling full early, Denies heartburn, Denies incontinent of stools, Denies loose stools, Denies nausea, Denies pain with swallowing, Denies vomiting, Denies vomiting blood, Denies other Genitourinary: Denies abnormal periods, Denies abnormal vaginal bleeding, Denies absent period, Denies bleeding between periods, Denies blood in urine, Denies difficulty starting urination, Denies difficulty urinating, Denies dribbling after urination, Denies frequent nighttime urination, Denies genital itching, Denies genital lesions, Denies heavy periods, Denies hot flashes, Denies light periods, Denies nipple discharge, Denies painful intercourse, Denies painful periods, Denies painful urination, Denies pelvic pain, Denies prolapse symptoms, Denies sexual problems, Denies side pain, Denies urinary incontinence, Denies urinary urgency, Denies vaginal discharge, Denies vaginal dryness, Denies vaginal odor, Denies vaginal itching, Denies other Musculoskeletal: Denies abnormal walking, Denies back pain, Denies body aches, Denies decreased muscle mass, Denies deformity, Denies joint pain, Denies joint swelling, Denies limited joint movement, Denies loss of height, Denies muscle cramps, Denies muscle weakness, Denies neck pain, Denies numbness, Denies radiating pain into limb, Denies stiffness, Denies tingling, Denies other Skin/Breast: Denies acne, Denies bleeding lesions, Denies boil, Denies breast swelling, Denies breast skin changes, Denies breast pain, Denies breast lump, Denies change in breast shape, Denies change in hair, Denies change in skin color, Denies changing lesions, Denies dry skin, Denies excessive hair growth, Denies hair loss, Denies itching, Denies lesions, Denies nail changes, Denies new lesions, Denies nipple discharge, Denies non-healing lesions, Denies redness , Denies sensitivity to light, Denies rash, Denies skin pain, Denies skin ulcer , Denies sores, Denies stretch galvan, Denies unusual bruising, Denies wounds, Denies yellowing of the skin, Denies other Neurologic: Denies abnormal hearing, Denies abnormal movements, Denies abnormal speech, Denies abnormal walking, Denies behavioral changes, Denies burning sensations, Denies confusion, Denies dizziness, Denies fainting, Denies frequent falls, Denies headache(s), Denies lack of coordination, Denies localized weakness, Denies loss of vision, Denies memory loss, Denies numbness, Denies other visual disturbances, Denies radiating pain, Denies restless legs, Denies convulsions, Denies seizure-like activity, Denies sensory deficit, Denies tingling, Denies tingling/numbness/burning sensations, Denies tremor(s), Denies unsteadiness, Denies weakness, Denies other Psychiatric: Denies abnormal sleep pattern, Denies anxiety, Denies behavioral changes, Denies change in appetite, Denies change in sex drive, Denies confusion , Denies depression, Denies difficulty concentrating, Denies hearing things others do not hear, Denies hopelessness, Denies irritability, Denies lack of enjoyment, Denies memory loss, Denies mood swings, Denies panic attacks, Denies paranoia, Denies seeing things others do not see, Denies sensing things others do not sense, Denies tactile hallucinations, Denies thoughts of hurting/killing others, Denies thoughts of hurting/killing yourself, Denies other Endocrine: Denies cold intolerance, Denies excessive sweating, Denies flushing, Denies heat intolerance, Denies increased hunger, Denies increased thirst, Denies increased urination, Denies rapid, pounding, or irregular heartbeat, Denies other PMFSH - History History Provided By: Patient - Medical History Medical History: Medical History (Last Reviewed 08/13/18 @ 09:42 by Andrey Pappas) Arthritis Asthma CHF (congestive heart failure) COPD (chronic obstructive pulmonary disease) Cardiac defibrillator in place Carpal tunnel syndrome - Surgical History Surgical History: Surgical History (Last Reviewed 08/13/18 @ 09:42 by Andrey Pappas) H/O tubal ligation - Tobacco History Second Hand Smoke Exposure: No Smoking Status: Former smoker - Alcohol History How Often Do You Have a Drink Containing Alcohol: Never - Substance Use History Substance History: No History of Abuse - Travel History Recent Travel in the [place] Within the Last 8 Weeks: No Recent Travel Out of the Country Within the Last 8 Weeks: No - Immunization History Tetanus Immunization: Unsure Medications and Allergies Active Medications: Active Medications Al Hydroxide/Mg Hydroxide (Milk Of Angela Torrez) 30 ml PO Q12H PRN PRN Reason: Mild Constipation Albuterol (Duoneb Neb (Nilo)) 1 ampul NEB Q4HR NEB NILO Last Admin: 08/13/18 12:33 Dose: 1 ampul Albuterol (Albuterol Neb (Prn)) 1.25 mg NEB Q2HR NEB PRN PRN Reason: SHORTNESS OF BREATH Apixaban (Eliquis) 5 mg PO BID NILO Benzonatate (Tessalon Perles) 200 mg PO Q8H PRN PRN Reason: COUGH Benztropine Mesylate (Cogentin) 1 mg PO BID NILO Bisacodyl (Dulcolax Ec) 5 mg PO DAILY PRN PRN Reason: CONSTIPATION Bisacodyl (Dulcolax Supp) 10 mg RECTAL DAILY PRN PRN Reason: SEVERE CONSITIPATION Citalopram Hydrobromide (Celexa) 20 mg PO DAILY [facility] Last Admin: 08/13/18 10:06 Dose: 20 mg Dextrose (D50w Vial) 50 ml IV.PUSH UNSCH PRN PRN Reason: PER HYPOGLYCEMIA PROTOCOL Ferrous Sulfate (Ferosul) 325 mg PO DAILY [facility] Last Admin: 08/13/18 10:06 Dose: 325 mg Furosemide (Lasix) 40 mg PO DAILY [facility] Last Admin: 08/13/18 10:06 Dose: 40 mg Glucagon (Glucagon Inj) 1 mg OTHER UNSCH PRN PRN Reason: for Hypoglycemia Protocol Sodium Chloride (Ns Inj) 1,000 mls @ 70 mls/hr IV.SIG .[id number] [facility] Last Admin: 08/13/18 07:00 Dose: 70 mls/hr Sodium Chloride (Ns Inj) 1,000 mls @ 70 mls/hr IV.CONT .[id number] [facility] Last Admin: 08/13/18 10:06 Dose: Not Given Insulin Aspart (Novolog Insulin Correctional Sugar Inj) 0 unit SQ ACHS [facility]; Protocol Last Admin: 08/13/18 10:01 Dose: Not Given Lactulose (Lactulose Liq) 30 ml PO DAILY PRN PRN Reason: SEVERE CONSITIPATION Levothyroxine Sodium (Synthroid) 75 mcg PO DAILY@0700 [facility] Last Admin: 08/13/18 10:05 Dose: 75 mcg Lorazepam (Ativan) 0.5 mg PO BID PRN PRN Reason: ANXIETY Nystatin (Mycostatin Powder) 1 applicatio TOPICAL TID [facility] Last Admin: 08/13/18 10:07 Dose: 1 applicatio Ondansetron HCl (Zofran Inj) 4 mg IV.PUSH Q6H PRN PRN Reason: NAUSEA OR VOMITING Oxycodone HCl (Roxicodone) 10 mg PO Q8H PRN PRN Reason: ACUTE PAIN Last Admin: 08/13/18 10:06 Dose: 10 mg Pantoprazole Sodium (Protonix) 40 mg PO DAILY [facility] Last Admin: 08/13/18 10:06 Dose: 40 mg Polyethylene Glycol (Miralax) 17 gm PO DAILY [facility] Last Admin: 08/13/18 10:07 Dose: 17 gm Prednisone (Deltasone) 5 mg PO DAILY [facility] Prednisone (Deltasone) 4 mg PO DAILY [facility] Risperidone (Risperdal) 2 mg PO BID [facility] Sennosides (Senokot) 17.2 mg PO Q12H PRN PRN Reason: Moderate Constipation Sodium Chloride (Ns Inj) 2 ml IV.FLUSH BID [facility] Last Admin: 08/13/18 10:07 Dose: Not Given Sodium Chloride (Ns Inj) 2 ml IV.FLUSH UNSCH PRN PRN Reason: FLUSH AFTER USING IV ACCESS Spironolactone (Aldactone) 12.5 mg PO DAILY [facility] Last Admin: 08/13/18 10:05 Dose: 12.5 mg Trazodone HCl (Desyrel) 50 mg PO HS [facility] Last Admin: 08/12/18 20:42 Dose: 50 mg Allergies Allergy/AdvReac Type Severity Reaction Status Date / Time aspirin Allergy Severe Anaphylaxis Verified 09/19/17 09:35 benazepril Allergy Severe ANAPHALAXIS Verified 09/19/17 09:35 captopril Allergy Severe ANAPHALAXIS Verified 09/19/17 09:35 enalaprilat Allergy Severe Anaphylaxis Verified 09/19/17 09:35 fosinopril Allergy Severe ANAPHALAXIS Verified 09/19/17 09:35 gabapentin Allergy Severe AGGRESSIVE Verified 09/19/17 09:35 BEHAVIOR ibuprofen Allergy Severe TOUNGE Verified 09/19/17 09:35 SWELLING lisinopril Allergy Severe ANAPHALAXIS Verified 09/19/17 09:35 quinapril Allergy Severe ANAPHALAXIS Verified 09/19/17 09:35 naproxen Allergy Intermediate RESTELESS Verified 09/19/17 09:35 LEG acetaminophen AdvReac Severe Verified 09/19/17 09:35 MRI PRECAUTION AdvReac Severe NON REVO Uncoded 09/19/17 09:35 PACEMAKER 07/04/13 LRS Home Medications Medication Instructions Recorded Confirmed Type apixaban [Eliquis] 5 tab PO BID 08/11/18 08/13/18 History ferrous sulfate 325 mg PO TID 08/11/18 08/13/18 History furosemide 40 mg PO BID 08/11/18 08/13/18 History levothyroxine 88 mcg PO DAILY 08/11/18 08/11/18 History metformin 500 mg PO BID 08/11/18 08/13/18 History nitroglycerin [Nitrostat] 0.6 mg SUBLINGUAL Q5-6M PRN MDD 3 08/11/18 08/13/18 History prednisone 10 mg PO DAILY 08/11/18 08/13/18 History risperidone [Risperdal] 2 mg PO BID 08/11/18 08/11/18 History trazodone 50 mg PO HS 08/11/18 08/13/18 History amlodipine 10 mg PO DAILY 08/13/18 08/13/18 History benztropine 1 mg PO BID 08/13/18 08/13/18 History citalopram 20 mg PO DAILY 08/13/18 08/13/18 History fluticasone-salmeterol [Advair 1 inh INHALATION BID 08/13/18 08/13/18 History Diskus] isosorbide mononitrate 60 mg PO DAILY 08/13/18 08/13/18 History lorazepam 0.5 mg PO BID 08/13/18 08/13/18 History mirtazapine 15 mg PO HS 08/13/18 08/13/18 History morphine 30 mg PO BID 08/13/18 08/13/18 History oxycodone 10 mg PO Q8HR 08/13/18 08/13/18 History prochlorperazine maleate 10 mg PO Q4HR PRN 08/13/18 08/13/18 History ropinirole 8 mg PO BID 08/13/18 08/13/18 History spironolactone 12.5 mg PO DAILY 08/13/18 08/13/18 History tiotropium bromide 1 cap INHALATION DAILY 08/13/18 08/13/18 History Exam Vital signs: Vital Signs 08/12/18 13:40 08/12/18 15:28 08/12/18 17:04 Temperature 98.8 F 99.3 F Pulse Rate 85 68 90 Respiratory Rate 20 18 20 Blood Pressure 144/66 H Pulse Oximetry 94 L 97 08/12/18 19:49 08/12/18 19:56 08/12/18 20:00 Temperature 97.6 F Pulse Rate 71 72 71 Respiratory Rate 20 16 Blood Pressure 114/73 Pulse Oximetry 98 85 L 08/12/18 23:45 08/13/18 00:00 08/13/18 01:09 Temperature 98.7 F Pulse Rate 80 59 L 70 Respiratory Rate 20 20 Blood Pressure 158/69 H Pulse Oximetry 98 08/13/18 04:00 08/13/18 04:49 08/13/18 06:05 Temperature 97.4 F L Pulse Rate 90 70 Respiratory Rate 20 Blood Pressure 200/86 H Pulse Oximetry 97 94 L 08/13/18 07:44 08/13/18 08:43 08/13/18 11:48 Temperature 96.6 F L 98.5 F Pulse Rate 76 77 62 Respiratory Rate 16 16 Blood Pressure 177/81 H 141/69 H Pulse Oximetry 95 99 98 08/13/18 12:36 Temperature Pulse Rate 63 Respiratory Rate 20 Blood Pressure Pulse Oximetry Intake & Output 08/12/18 08/13/18 08/13/18 18:59 06:59 18:59 Intake Total 50 / 50 Balance 50 / 50 Intake: Anesthesia Amount 50 / 50 Other: Date of Last Bowel Movement 08/10/18 08/10/18 08/10/18 - Constitutional no acute distress, mild distress - Routine HEENT Exam Head: Present: normocephalic, atraumatic Eye: Present: EOMI ENT: Present: mucous membranes moist Mental Status Examination Appearance: Appropriate Consciousness: Alert Orientation: x4 Motor Activity: Normal gait Speech: Unremarkable Language: Adequate Fund of Knowledge: Adequate Attention and Concentration: Adequate Memory: Unremarkable Mood: Appropriate Affect: Appropriate Thought Process & Associations: Intact Thought Content: Appropriate Hallucination Type: None Delusion Type: None Suicidal Ideation: No Suicidal Plan: No Suicidal Intention: No Homicidal Ideation: No Homicidal Plan: No Homicidal Intention: No Insight: Adequate Judgment: Adequate Assessment and Plan - Assessment (1) Schizophrenia Code(s): F20.9 - Schizophrenia, unspecified Status: Acute - Plan Plan: On my psychiatric evaluation today patient presents calm, cooperative, logical coherent and relevant. Patient is at baseline. She does not report any neuropsychiatric symptoms or require an immediate psychiatric intervention at this moment. Denies symptomatology of depression, anxiety, ray and psychosis. She denies suicidal and homicidal ideation, denies visual and auditory hallucinations. Patient has been quite stable in current psychotropic regimen. She has history of schizophrenia versus schizoaffective, but has not been hospitalized since the . She has outpatient care in [facility]. At this moment she does not meet criteria for involuntary psychiatric admission. Continue current psychotropic regimen including Risperdal 2 mg twice daily, trazodone 50 mg and citalopram 20 mg daily. Will restart her Remeron 15 mg at bedtime to help her to sleep. Extensive support, motivation, psych education provided. Consult appreciated. Justification for Continued Inpatient Stay: Continue medical treatment, no psychiatric admission indicated.
[2018-08-13] MEDS ORDERED: Mirtazapine 15 MG Tablet PO SCH (21:00)
--- NOTE | 2018-08-13 21:02 | P.PNGI ---
Subjective Interval history: Patient seen and examined this a.m. No report of discomfort Completed breakfast meal without complaint of nausea vomiting or discomfort Post EGD Physical Exam Vital signs: Vital Signs 08/12/18 23:45 08/13/18 00:00 08/13/18 01:09 Temperature 98.7 F Pulse Rate 80 59 L 70 Respiratory Rate 20 20 Blood Pressure 158/69 H Pulse Oximetry 98 08/13/18 04:00 08/13/18 04:49 08/13/18 06:05 Temperature 97.4 F L Pulse Rate 90 70 Respiratory Rate 20 Blood Pressure 200/86 H Pulse Oximetry 97 94 L 08/13/18 07:44 08/13/18 08:00 08/13/18 08:43 Temperature 96.6 F L Pulse Rate 76 69 77 Respiratory Rate 16 Blood Pressure 177/81 H Pulse Oximetry 95 99 08/13/18 11:48 08/13/18 12:00 08/13/18 12:36 Temperature 98.5 F Pulse Rate 62 71 63 Respiratory Rate 16 20 Blood Pressure 141/69 H Pulse Oximetry 98 08/13/18 16:00 08/13/18 16:30 08/13/18 20:06 Temperature 98.5 F 99 F Pulse Rate 66 96 H 70 Respiratory Rate 18 18 Blood Pressure 178/83 H 147/77 H Pulse Oximetry 96 98 Intake & Output 08/13/18 08/13/18 08/14/18 06:59 18:59 06:59 Intake Total 939 / 939 Balance 939 / 939 Intake: IV 459 / 459 NS Inj 1,000 ML @ 70 mls/hr IV. 459 / 459 SIG .[id number] [facility] Rx#:[id number] Oral 480 / 480 Other: # Voids 3 Date of Last Bowel Movement 08/10/18 08/10/18 - Constitutional no acute distress - Routine HEENT Exam Head: Present: normocephalic - Routine Respiratory Exam Present: CTA bilaterally - Routine Abdominal Exam Present: soft, normoactive bowel sounds. Absent: tenderness - Routine Skin Exam Present: dry, warm - Routine Neurological Exam Present: alert Results - Labs CBC & Chem 7: 08/13/18 05:48 08/13/18 05:48 Laboratory Results - last 24 hr 08/12/18 08/13/18 08/13/18 21:36 05:48 05:48 WBC 5.0 RBC 4.87 Hgb 12.8 Hct 40.9 MCV 84.0 MCH 26.2 L MCHC 31.3 L RDW 15.1 Plt Count 169 MPV 8.9 Puncture Site Patient Temperature O2 Saturation ABG pH ABG pCO2 ABG pO2 ABG HCO3 ABG O2 Content ABG Base Excess ABG Methemoglobin Robbi Test Hemoglobin Carboxyhemoglobin O2 Delivery Device Liter Flow Critical Value Sodium 140 Potassium 3.8 Chloride 104 Carbon Dioxide 31.0 Anion Gap 5 BUN 15 Creatinine 0.84 Estimated GFR 83 L POC Glucose 103 Random Glucose 84 Calcium 8.5 Troponin I B-Natriuretic Peptide 08/13/18 08/13/18 08/13/18 05:48 05:48 06:09 WBC RBC Hgb Hct MCV MCH MCHC RDW Plt Count MPV Puncture Site Patient Temperature O2 Saturation ABG pH ABG pCO2 ABG pO2 ABG HCO3 ABG O2 Content ABG Base Excess ABG Methemoglobin Robbi Test Hemoglobin Carboxyhemoglobin O2 Delivery Device Liter Flow Critical Value Sodium Potassium Chloride Carbon Dioxide Anion Gap BUN Creatinine Estimated GFR POC Glucose 93 Random Glucose Calcium Troponin I 0.03 B-Natriuretic Peptide 338 H 08/13/18 08/13/18 08/13/18 06:37 13:19 14:07 WBC RBC Hgb Hct MCV MCH MCHC RDW Plt Count MPV Puncture Site Right radial Patient Temperature 98.6 O2 Saturation 87 L* ABG pH 7.35 L ABG pCO2 58 H* ABG pO2 61 ABG HCO3 31 H ABG O2 Content 15.2 ABG Base Excess 5.6 H ABG Methemoglobin 0.8 Robbi Test Present Hemoglobin 12.5 Carboxyhemoglobin 1.4 O2 Delivery Device Nasal cannula Liter Flow 2.00 Critical Value Yes Sodium Potassium Chloride Carbon Dioxide Anion Gap BUN Creatinine Estimated GFR POC Glucose 94 Random Glucose Calcium Troponin I 0.02 B-Natriuretic Peptide 08/13/18 16:55 WBC RBC Hgb Hct MCV MCH MCHC RDW Plt Count MPV Puncture Site Patient Temperature O2 Saturation ABG pH ABG pCO2 ABG pO2 ABG HCO3 ABG O2 Content ABG Base Excess ABG Methemoglobin Robbi Test Hemoglobin Carboxyhemoglobin O2 Delivery Device Liter Flow Critical Value Sodium Potassium Chloride Carbon Dioxide Anion Gap BUN Creatinine Estimated GFR POC Glucose 108 Random Glucose Calcium Troponin I B-Natriuretic Peptide - Imaging Impressions Abdomen X-Ray 08/13/18 00:00 CONCLUSION: There is some stool seen throughout the colon. Otherwise, unremarkable examination. Head CT 08/13/18 00:00 CONCLUSION: 1. Unremarkable CT brain Report was called by Luzma to Atul. Head CTA 08/13/18 00:00 CONCLUSION: 1. No large vessel stenosis or aneurysm. Report was called by Luzma to Atul.. Neck CTA 08/13/18 00:00 CONCLUSION: 1. No significant carotid stenosis. 2. Heterogeneous thyroid gland. Report was called by Toclaureen to Atul. Assessment and Plan (1) Dysphagia Status: Acute Code(s): R13.10 - Dysphagia, unspecified - Plan 1. Dysphagia, abdominal pain and bloating in a patient with known history of hiatal hernia and GERD. She has not been on medication for this for 6 months. 2. Chronic narcotics, constipation. 3. History of colon polyps. 4. Black stool in a patient with normal CBC. On Eliquis. 08/13/2018 Patient without report of abdominal pain nausea vomiting Tolerated breakfast meal well Post EGD:The esophagus this appeared to be unremarkable and within normal limits Z line was regular The stomach there was a mild to moderately sized hiatal hernia there was some mild patchy erythema in the antrum but no ulcerations no erosions no blood or bleeding antral biopsies were taken for further evaluation the rest of the stomach unremarkable The duodenum this too appeared to be unremarkable with normal limits --Hiatal hernia and gastritis --WBC 5.0 hemoglobin 12.8 hematocrit 40.9 Plan Diet as tolerated Bowel regimen Continue pantoprazole Consider colonoscopy as outpatient Monitor for bleeding-patient on Eliquis GI will sign off at this time, please notify if any further assistance required This patient has been seen by myself and Dr. Denny and this note is written on his behalf - Attending Attestation Dr. Denny
[2018-08-13] MEDS: traZODone 50 MG Tablet PO SCH (21:55)
[2018-08-14] MEDS: Levothyroxine 75 MCG Tablet PO SCH (06:04)
--- NOTE | 2018-08-14 07:33 | P.PNNEU ---
Subjective Active Medications: Active Medications Al Hydroxide/Mg Hydroxide (Milk Of Magnesia Liq) 30 ml PO Q12H PRN PRN Reason: Mild Constipation Albuterol (Duoneb Neb (Nilo)) 1 ampul NEB Q4HR NEB [facility] Last Admin: 08/14/18 03:32 Dose: 1 ampul Albuterol (Albuterol Neb (Prn)) 1.25 mg NEB Q2HR NEB PRN PRN Reason: SHORTNESS OF BREATH Apixaban (Eliquis) 5 mg PO BID [facility] Last Admin: 08/13/18 21:55 Dose: 5 mg Benzonatate (Tessalon Perles) 200 mg PO Q8H PRN PRN Reason: COUGH Benztropine Mesylate (Cogentin) 1 mg PO BID [facility] Last Admin: 08/13/18 21:55 Dose: 1 mg Bisacodyl (Dulcolax Ec) 5 mg PO DAILY PRN PRN Reason: CONSTIPATION Bisacodyl (Dulcolax Supp) 10 mg RECTAL DAILY PRN PRN Reason: SEVERE CONSITIPATION Citalopram Hydrobromide (Celexa) 20 mg PO DAILY [facility] Last Admin: 08/13/18 10:06 Dose: 20 mg Dextrose (D50w Vial) 50 ml IV.PUSH UNSCH PRN PRN Reason: PER HYPOGLYCEMIA PROTOCOL Ferrous Sulfate (Ferosul) 325 mg PO DAILY [facility] Last Admin: 08/13/18 10:06 Dose: 325 mg Furosemide (Lasix) 40 mg PO DAILY [facility] Last Admin: 08/13/18 10:06 Dose: 40 mg Glucagon (Glucagon Inj) 1 mg OTHER UNSCH PRN PRN Reason: for Hypoglycemia Protocol Sodium Chloride (Ns Inj) 1,000 mls @ 70 mls/hr IV.SIG .[id number] [facility] Last Admin: 08/13/18 21:56 Dose: Not Given Sodium Chloride (Ns Inj) 1,000 mls @ 70 mls/hr IV.CONT .[id number] [facility] Last Admin: 08/13/18 10:06 Dose: Not Given Insulin Aspart (Novolog Insulin Correctional Sugar Inj) 0 unit SQ ACHS [facility]; Protocol Last Admin: 08/13/18 21:56 Dose: Not Given Lactulose (Lactulose Liq) 30 ml PO DAILY PRN PRN Reason: SEVERE CONSITIPATION Levothyroxine Sodium (Synthroid) 75 mcg PO DAILY@0700 [facility] Last Admin: 08/14/18 06:04 Dose: 75 mcg Lorazepam (Ativan) 0.5 mg PO BID PRN PRN Reason: ANXIETY Mirtazapine (Remeron) 15 mg PO HS [facility] Last Admin: 08/13/18 21:55 Dose: 15 mg Nystatin (Mycostatin Powder) 1 applicatio TOPICAL TID [facility] Last Admin: 08/13/18 21:55 Dose: 1 applicatio Ondansetron HCl (Zofran Inj) 4 mg IV.PUSH Q6H PRN PRN Reason: NAUSEA OR VOMITING Oxycodone HCl (Roxicodone) 10 mg PO Q8H PRN PRN Reason: ACUTE PAIN Last Admin: 08/14/18 01:55 Dose: 10 mg Pantoprazole Sodium (Protonix) 40 mg PO DAILY [facility] Last Admin: 08/13/18 10:06 Dose: 40 mg Polyethylene Glycol (Miralax) 17 gm PO DAILY [facility] Last Admin: 08/13/18 10:07 Dose: 17 gm Prednisone (Deltasone) 5 mg PO DAILY [facility] Prednisone (Deltasone) 4 mg PO DAILY [facility] Risperidone (Risperdal) 2 mg PO BID [facility] Last Admin: 08/13/18 23:45 Dose: 2 mg Sennosides (Senokot) 17.2 mg PO Q12H PRN PRN Reason: Moderate Constipation Last Admin: 08/13/18 18:27 Dose: 17.2 mg Sodium Chloride (Ns Inj) 2 ml IV.FLUSH BID [facility] Last Admin: 08/13/18 21:55 Dose: Not Given Sodium Chloride (Ns Inj) 2 ml IV.FLUSH UNSCH PRN PRN Reason: FLUSH AFTER USING IV ACCESS Spironolactone (Aldactone) 12.5 mg PO DAILY [facility] Last Admin: 08/13/18 10:05 Dose: 12.5 mg Trazodone HCl (Desyrel) 50 mg PO [facility] Last Admin: 08/13/18 21:55 Dose: 50 mg Allergies/Adverse Reactions: Allergies Allergy/AdvReac Type Severity Reaction Status Date / Time aspirin Allergy Severe Anaphylaxis Verified 09/19/17 09:35 benazepril Allergy Severe ANAPHALAXIS Verified 09/19/17 09:35 captopril Allergy Severe ANAPHALAXIS Verified 09/19/17 09:35 enalaprilat Allergy Severe Anaphylaxis Verified 09/19/17 09:35 fosinopril Allergy Severe ANAPHALAXIS Verified 09/19/17 09:35 gabapentin Allergy Severe AGGRESSIVE Verified 09/19/17 09:35 BEHAVIOR ibuprofen Allergy Severe TOUNGE Verified 09/19/17 09:35 SWELLING lisinopril Allergy Severe ANAPHALAXIS Verified 09/19/17 09:35 quinapril Allergy Severe ANAPHALAXIS Verified 09/19/17 09:35 naproxen Allergy Intermediate RESTELESS Verified 09/19/17 09:35 LEG acetaminophen AdvReac Severe Verified 09/19/17 09:35 MRI PRECAUTION AdvReac Severe NON REVO Uncoded 09/19/17 09:35 PACEMAKER 07/04/13 LRS Physical Exam Vital signs: Vital Signs 08/13/18 07:44 08/13/18 08:00 08/13/18 08:43 Temperature 96.6 F L Pulse Rate 76 69 77 Respiratory Rate 16 Blood Pressure 177/81 H Pulse Oximetry 95 99 08/13/18 11:48 08/13/18 12:00 08/13/18 12:36 Temperature 98.5 F Pulse Rate 62 71 63 Respiratory Rate 16 20 Blood Pressure 141/69 H Pulse Oximetry 98 08/13/18 16:00 08/13/18 16:30 08/13/18 20:00 Temperature 98.5 F Pulse Rate 66 96 H Respiratory Rate 18 Blood Pressure 178/83 H Pulse Oximetry 96 98 08/13/18 20:05 08/13/18 20:06 08/13/18 23:41 Temperature 99 F Pulse Rate 72 70 66 Respiratory Rate 18 18 18 Blood Pressure 147/77 H 159/97 H Pulse Oximetry 97 98 08/13/18 23:43 08/14/18 01:01 08/14/18 03:34 Temperature Pulse Rate 66 68 75 Respiratory Rate 18 18 Blood Pressure Pulse Oximetry 08/14/18 04:00 Temperature Pulse Rate Respiratory Rate 18 Blood Pressure Pulse Oximetry Intake & Output 08/13/18 08/14/18 08/14/18 18:59 06:59 18:59 Intake Total 939 / 939 Balance 939 / 939 Intake: IV 459 / 459 NS Inj 1,000 ML @ 70 mls/hr IV. 459 / 459 SIG .[id number] [facility] Rx#:[id number] Oral 480 / 480 Other: # Voids 3 Date of Last Bowel Movement 08/10/18 08/10/18 Narrative: awake alert moves all 4 ext nl Objective Laboratory Results - last 24 hr 08/13/18 08/13/18 08/13/18 13:19 14:07 16:55 POC Glucose 94 108 Troponin I 0.02 08/13/18 21:54 POC Glucose 101 Troponin I Review/Management - Review/Management Plan: imp back to nl ctax2 and ct neg trop neg on eliquis cannot take asa allergy plan is check eeg i suspect some psych features here not true cva alert will sign off an fu eeg
[2018-08-14] MEDS ORDERED: amLODIPine 10 MG Tablet PO SCH (09:00)
[2018-08-14] MEDS ORDERED: predniSONE 5 MG Tablet PO SCH (09:00)
[2018-08-14] MEDS ORDERED: predniSONE 1 MG Tablet PO SCH (09:00)
--- NOTE | 2018-08-14 09:01 | P.PNFP ---
Subjective Interval history: Patient was seen and examined this morning. She said that she slept on and off. No longer has chest pain and thinks that the issue is in her stomach. She feels very uncomfortable and has not had a bowel movement for 4 days now. <Luh Medeiros U - 08/14/18 09:56> Results - Labs Result diagrams: 08/14/18 09:30 08/14/18 09:30 <Loida Nuñez - 08/15/18 10:50> Abnormal lab results 08/14/18 Range/Units 09:30 Total Creatine Kinase 277 H (26-192) U/L Cardiac Enzymes 08/14/18 Range/Units 09:30 Total Creatine Kinase 277 H (26-192) U/L CK-MB (CK-2) 1.1 (0.5-3.6) ng/mL <Loida Nuñez - 08/15/18 10:50> Cardiac Enzymes 08/13/18 Range/Units 14:07 Troponin I 0.02 (0.02-0.05) ng/mL <Luh Medeiros U - 08/14/18 09:01> - Imaging Impressions Abdomen X-Ray 08/13/18 00:00 CONCLUSION: There is some stool seen throughout the colon. Otherwise, unremarkable examination. <Luh Medeiros U - 08/14/18 09:01> Physical Exam Vital signs: Vital Signs 08/14/18 11:58 08/14/18 12:05 08/14/18 12:21 Temperature 97.4 F L Pulse Rate 74 70 74 Respiratory Rate 16 16 Blood Pressure 148/67 H Pulse Oximetry 95 08/14/18 16:00 Temperature 99.8 F H Pulse Rate 85 Respiratory Rate 18 Blood Pressure 153/73 H Pulse Oximetry 95 Intake & Output 08/14/18 08/15/18 08/15/18 18:59 06:59 18:59 Weight 101.9 kg Other: # Voids 1 Date of Last Bowel Movement 08/14/18 # Bowel Movements 2 <Loida Nuñez - 08/15/18 10:50> Vital Signs 08/13/18 11:48 08/13/18 12:00 08/13/18 12:36 Temperature 98.5 F Pulse Rate 62 71 63 Respiratory Rate 16 20 Blood Pressure 141/69 H Pulse Oximetry 98 08/13/18 16:00 08/13/18 16:30 08/13/18 20:00 Temperature 98.5 F Pulse Rate 66 96 H Respiratory Rate 18 Blood Pressure 178/83 H Pulse Oximetry 96 98 08/13/18 20:05 08/13/18 20:06 08/13/18 23:41 Temperature 99 F Pulse Rate 72 70 66 Respiratory Rate 18 18 18 Blood Pressure 147/77 H 159/97 H Pulse Oximetry 97 98 08/13/18 23:43 08/14/18 01:01 08/14/18 03:34 Temperature Pulse Rate 66 68 75 Respiratory Rate 18 18 Blood Pressure Pulse Oximetry 08/14/18 04:00 08/14/18 07:57 08/14/18 08:00 Temperature 96.6 F L Pulse Rate 74 71 Respiratory Rate 18 18 16 Blood Pressure 179/100 H Pulse Oximetry 90 L Intake & Output 08/13/18 08/14/18 08/14/18 18:59 06:59 18:59 Intake Total 939 / 939 541 / 541 Balance 939 / 939 541 / 541 Intake: IV 459 / 459 541 / 541 NS Inj 1,000 ML @ 70 mls/hr IV. 459 / 459 541 / 541 SIG .[id number] [facility] Rx#:[id number] Oral 480 / 480 Other: # Voids 3 Date of Last Bowel Movement 08/10/18 08/10/18 <Eko R3,Luh U - 08/14/18 09:01> Narrative: GENERAL: Morbidly obese -Portuguese lady lying up in bed. Nasal cannula in place SKIN: Warm and dry. HEAD: Atraumatic. Normocephalic. EYES: normal EOM. ENT: No nasal bleeding or discharge. Mucous membranes pink and moist. Edentulous CARDIOVASCULAR: Regular rate and rhythm. Left upper chest pacemaker. Systolic murmur appreciated in the aortic area. No erythema or edema over the site of her pacemaker RESPIRATORY: No accessory muscle use. clear to auscultation. Breath sounds equal bilaterally. GASTROINTESTINAL: Abdomen soft, nondistended but tender to light palpation diffusely, worse in the left upper quadrant and mid epigastric area. The area of the boil is clear of erythema and no longer swollen or tender MUSCULOSKELETAL: Extremities without clubbing, cyanosis, or edema. No obvious deformities or rash. NEUROLOGICAL: Awake and alert. No obvious cranial nerve deficits. Normal speech. PSYCHIATRIC: Appropriate mood and affect <Eko [place] - 08/14/18 09:56> Assessment and Plan - Assessment (1) Chest pain Code(s): R07.9 - Chest pain, unspecified Status: Acute (2) Cardiomyopathy Code(s): I42.9 - Cardiomyopathy, unspecified Status: Acute (3) Heart failure with reduced ejection fraction, NYHA class IV Code(s): I50.20 - Unspecified systolic (congestive) heart failure Status: Acute (4) COPD (chronic obstructive pulmonary disease) Code(s): J44.9 - Chronic obstructive pulmonary disease, unspecified Status: Acute (5) Obstructive sleep apnea Code(s): G47.33 - Obstructive sleep apnea (adult) (pediatric) Status: Acute (6) Pacemaker complications Code(s): T82.9XXA - Unspecified complication of cardiac and vascular prosthetic device, implant and graft, initial encounter Status: Acute (7) DM2 (diabetes mellitus, type 2) Code(s): E11.9 - Type 2 diabetes mellitus without complications Status: Acute (8) Hypothyroidism Code(s): E03.9 - Hypothyroidism, unspecified Status: Acute (9) Abdominal pain Code(s): R10.9 - Unspecified abdominal pain Status: Acute (10) Black stools Code(s): K92.1 - Melena Status: Acute (11) Cough Code(s): R05 - Cough Status: Acute (12) GERD (gastroesophageal reflux disease) Code(s): K21.9 - Gastro-esophageal reflux disease without esophagitis Status: Acute (13) Constipation Code(s): K59.00 - Constipation, unspecified Status: Acute (14) Schizophrenia Code(s): F20.9 - Schizophrenia, unspecified Status: Acute (15) Tremors of nervous system Code(s): R25.1 - Tremor, unspecified Status: Acute (16) Morbid obesity Code(s): E66.01 - Morbid (severe) obesity due to excess calories Status: Acute (17) Candidiasis of skin Code(s): B37.2 - Candidiasis of skin and nail Status: Acute <Loida Nuñez - 08/15/18 10:50> (1) Chest pain Code(s): R07.9 - Chest pain, unspecified Status: Acute (2) Cardiomyopathy Code(s): I42.9 - Cardiomyopathy, unspecified Status: Acute (3) Heart failure with reduced ejection fraction, NYHA class IV Code(s): I50.20 - Unspecified systolic (congestive) heart failure Status: Acute (4) COPD (chronic obstructive pulmonary disease) Code(s): J44.9 - Chronic obstructive pulmonary disease, unspecified Status: Acute (5) Obstructive sleep apnea Code(s): G47.33 - Obstructive sleep apnea (adult) (pediatric) Status: Acute (6) Pacemaker complications Code(s): T82.9XXA - Unspecified complication of cardiac and vascular prosthetic device, implant and graft, initial encounter Status: Acute (7) DM2 (diabetes mellitus, type 2) Code(s): E11.9 - Type 2 diabetes mellitus without complications Status: Acute (8) Hypothyroidism Code(s): E03.9 - Hypothyroidism, unspecified Status: Acute (9) Abdominal pain Code(s): R10.9 - Unspecified abdominal pain Status: Acute (10) Black stools Code(s): K92.1 - Melena Status: Acute (11) Cough Code(s): R05 - Cough Status: Acute (12) GERD (gastroesophageal reflux disease) Code(s): K21.9 - Gastro-esophageal reflux disease without esophagitis Status: Acute (13) Constipation Code(s): K59.00 - Constipation, unspecified Status: Acute (14) Schizophrenia Code(s): F20.9 - Schizophrenia, unspecified Status: Acute (15) Tremors of nervous system Code(s): R25.1 - Tremor, unspecified Status: Acute (16) Morbid obesity Code(s): E66.01 - Morbid (severe) obesity due to excess calories Status: Acute (17) Candidiasis of skin Code(s): B37.2 - Candidiasis of skin and nail Status: Acute <Eko R3Luh U - 08/14/18 10:52> - Assessment and Plan 63-year-old -Portuguese female admitted with chief complaint of chest pain and increased shortness of breath past 3-4 days, admitted on observation for ACS rule out. Also has a history of black stools for the past 3-4 days. Cardiology has been consulted to assist with management-patient has a pacemaker and a history of cardiomyopathy but has not seen a technical support internship for over 2 years. [employer] was contacted to interrogate the pacemaker. GI was consulted due to patient's history of black stools and dysphagia, EGD was performed on after clearance was obtained from cardiology. Halicat and stroke alert was called on 08/13 am. No new retained deficits on exam. Neurology has signed off Possible TIA -Noncontrast CT negative -Unable to have an MRI due to pacemaker -Head of bed flat -Continue Eliquis -Continue spironolactone and Lasix -Start amlodipine 10 mg p.o. 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 * Global hypokinesis * Mild to moderate aortic valve stenosis * Moderate aortic valve regurgitation * Mildly dilated left ventricle * Mild concentric left ventricular hypertrophy * The left atrial size is mildly dilated * [id number] mitral valve regurgitation * There is mild tricuspid valve regurgitation * The estimated pulmonary arterial pressure is 53 mmHg -Cardiology consulted -patient has not seen a technical support internship in more than 2 years -Fluid overload not noted on exam -Continue home furosemide and spironolactone -Resume amlodipine 10 mg for hypertension Abdominal pain -Diffuse abdominal pain, worse in the left quadrants -History of black stools for the past 3-4 days -Notably, patient is on chronic oral prednisone at home and takes Eliquis -H/H wnl -No abnormality found on CT of abdomen -Check occult blood in the stool -GI has signed * EGD was performed on 08-13 with only gastritis found and a known mild to moderately sized hiatal hernia, no ulcers * Biopsy results pending * Colonoscopy to be done as outpatient -Suspect constipation, abdominal x-ray on 08/13/18 showed moderate stool throughout the colon -Start scheduled lactulose 30 mL 3 times daily -Continue stool softeners and MiraLAX Constipation -Plan as above Diabetes mellitus, type II -Hold home metformin -Accu-Cheks with sliding scale insulin -A1c within normal limits at 5.7 -Lipid panel wnl except for a mildly elevated LDL of 106 Hypothyroidism -Continue home Levothyroxine -TSH and Free T4 wnl COPD -Pt states diagnosis although last PFT in November 2017 was normal with no evidence of airway obstruction/restriction -CXR negative for acute pulmonary process -Continue scheduled duonebs q4h, albuterol q2h prn * Will prescribe a nebulizer machine and medication for home use -Continue supplemental O2 (2L), which she takes at home -Start weaning of prednisone from 10 mg to 9 mg x 1 week -Patient follows with career development coordinator/teacher Dr. Swain, last saw him 3-4 months ago * Encourage follow-up with him as an outpatient Cough -May be related to her CHF or dysphagia/GERD -Tessalon Perles as needed Obstructive Sleep Apnea -Patient will be using her home CPAP machine in the hospital GERD -Continue home Protonix but increase dose to 40 mg p.o. daily Possible candidiasis of skin -Continue Nystatin powder, apply under folds of skin at sites of hyperpigmentation Depression -Continue home citalopram Schizophrenia -Will continue home Risperidone, trazodone, and Remeron -Continue home Benztropine for tremors Insomnia -Continue home Trazodone Physical complications, increased body habitus -History of stroke with left-sided chronic pain -She may benefit from a cardiopulmonary rehab -PT on board * Recommend a 2 wheeled walker and home health PT at discharge -Case management to assist with discharge needs FEN -Oral fluids only -Monitor replace electrolytes as needed -Cardiac diet PPX -Patient currently on Eliquis due to history of stroke, SCDs -Zofran prn for nausea -Constipation protocol on board -Patient is DNR, daughter Tania Rubi is her [facility] - [phone] <Eko R3,Luh U - 08/14/18 09:56> Discharge Planning: Patient will be ready for discharge after she has a bowel movement <Luh Medeiros U - 08/14/18 09:56> - Attending Attestation The exam, history, and the medical decision-making described in the above note were completed with the assistance of the resident physician. I reviewed and agree with the findings presented. I attest that I had a [id number] encounter with the patient on the same day, and personally performed and documented my assessment and findings in the medical record. she is not the best historian. She reports being at baseline and will be ready to go home soon. Unfortunately her insurance will not cover any sort of home health or home PT. But she reports being safe living with her daughter <Loida Nuñez - 08/15/18 10:50> <Luh Medeiros U - Last Filed: 08/14/18 10:52> (7) DM2 (diabetes mellitus, type 2) Qualifiers: Diabetes mellitus complication status: with unspecified complications <Loida Nuñez M - Last Filed: 08/15/18 10:50> (7) DM2 (diabetes mellitus, type 2) Qualifiers: Diabetes mellitus complication status: with unspecified complications <Luh Medeiros U - Last Filed: 08/14/18 10:52> (7) DM2 (diabetes mellitus, type 2) Qualifiers: Diabetes mellitus complication status: with unspecified complications <Loida Nuñez - Last Filed: 08/15/18 10:50> (7) DM2 (diabetes mellitus, type 2) Qualifiers: Diabetes mellitus complication status: with unspecified complications
--- NOTE | 2018-08-14 09:24 | P.PNCA ---
Subjective Interval history: She is currently resting in bed. She denies any palpitations, dizziness, edema or SOB. She continues to complain of left sided chest pain that increases with deep breathing and palpation. Medications and Allergies Allergies Allergy/AdvReac Type Severity Reaction Status Date / Time aspirin Allergy Severe Anaphylaxis Verified 09/19/17 09:35 benazepril Allergy Severe ANAPHALAXIS Verified 09/19/17 09:35 captopril Allergy Severe ANAPHALAXIS Verified 09/19/17 09:35 enalaprilat Allergy Severe Anaphylaxis Verified 09/19/17 09:35 fosinopril Allergy Severe ANAPHALAXIS Verified 09/19/17 09:35 gabapentin Allergy Severe AGGRESSIVE Verified 09/19/17 09:35 BEHAVIOR ibuprofen Allergy Severe TOUNGE Verified 09/19/17 09:35 SWELLING lisinopril Allergy Severe ANAPHALAXIS Verified 09/19/17 09:35 quinapril Allergy Severe ANAPHALAXIS Verified 09/19/17 09:35 naproxen Allergy Intermediate RESTELESS Verified 09/19/17 09:35 LEG acetaminophen AdvReac Severe Verified 09/19/17 09:35 MRI PRECAUTION AdvReac Severe NON REVO Uncoded 09/19/17 09:35 PACEMAKER 07/04/13 LRS Home Medications Medication Instructions Recorded Confirmed Type apixaban [Eliquis] 5 tab PO BID 08/11/18 08/13/18 History ferrous sulfate 325 mg PO TID 08/11/18 08/13/18 History metformin 500 mg PO BID 08/11/18 08/13/18 History nitroglycerin [Nitrostat] 0.6 mg SUBLINGUAL Q5-6M PRN MDD 3 08/11/18 08/13/18 History risperidone [Risperdal] 2 mg PO BID 08/11/18 08/11/18 History trazodone 50 mg PO HS 08/11/18 08/13/18 History amlodipine 10 mg PO DAILY 08/13/18 08/13/18 History benztropine 1 mg PO BID 08/13/18 08/13/18 History citalopram 20 mg PO DAILY 08/13/18 08/13/18 History fluticasone-salmeterol [Advair 1 inh INHALATION BID 08/13/18 08/13/18 History Diskus] isosorbide mononitrate 60 mg PO DAILY 08/13/18 08/13/18 History lorazepam 0.5 mg PO BID 08/13/18 08/13/18 History mirtazapine 15 mg PO HS 08/13/18 08/13/18 History oxycodone 10 mg PO Q8HR 08/13/18 08/13/18 History ropinirole 8 mg PO BID 08/13/18 08/13/18 History spironolactone 12.5 mg PO DAILY 08/13/18 08/13/18 History tiotropium bromide 1 cap INHALATION DAILY 08/13/18 08/13/18 History Active Medications: Active Medications Al Hydroxide/Mg Hydroxide (Milk Of Angela Torrez) 30 ml PO Q12H PRN PRN Reason: Mild Constipation Albuterol (Duoneb Neb ([facility])) 1 ampul NEB Q4HR NEB [facility] Last Admin: 08/14/18 07:57 Dose: 1 ampul Albuterol (Albuterol Neb (Prn)) 1.25 mg NEB Q2HR NEB PRN PRN Reason: SHORTNESS OF BREATH Amlodipine Besylate (Norvasc) 10 mg PO DAILY [facility] Apixaban (Eliquis) 5 mg PO BID [facility] Last Admin: 08/13/18 21:55 Dose: 5 mg Benzonatate (Tessalon Perles) 200 mg PO Q8H PRN PRN Reason: COUGH Benztropine Mesylate (Cogentin) 1 mg PO BID [facility] Last Admin: 08/13/18 21:55 Dose: 1 mg Bisacodyl (Dulcolax Ec) 5 mg PO DAILY PRN PRN Reason: CONSTIPATION Bisacodyl (Dulcolax Supp) 10 mg RECTAL DAILY PRN PRN Reason: SEVERE CONSITIPATION Citalopram Hydrobromide (Celexa) 20 mg PO DAILY [facility] Last Admin: 08/13/18 10:06 Dose: 20 mg Dextrose (D50w Vial) 50 ml IV.PUSH UNSCH PRN PRN Reason: PER HYPOGLYCEMIA PROTOCOL Ferrous Sulfate (Ferosul) 325 mg PO DAILY [facility] Last Admin: 08/13/18 10:06 Dose: 325 mg Furosemide (Lasix) 40 mg PO DAILY [facility] Last Admin: 08/13/18 10:06 Dose: 40 mg Glucagon (Glucagon Inj) 1 mg OTHER UNSCH PRN PRN Reason: for Hypoglycemia Protocol Sodium Chloride (Ns Inj) 1,000 mls @ 70 mls/hr IV.SIG .[id number] [facility] Last Infusion: 08/14/18 02:13 Dose: Infused Sodium Chloride (Ns Inj) 1,000 mls @ 70 mls/hr IV.CONT .[id number] [facility] Last Admin: 08/14/18 00:00 Dose: Not Given Insulin Aspart (Novolog Insulin [employer] Sugar Inj) 0 unit SQ ACHS [facility]; Protocol Last Admin: 08/13/18 21:56 Dose: Not Given Lactulose (Lactulose Liq) 30 ml PO DAILY PRN PRN Reason: SEVERE CONSITIPATION Levothyroxine Sodium (Synthroid) 75 mcg PO DAILY@0700 [facility] Last Admin: 08/14/18 06:04 Dose: 75 mcg Lorazepam (Ativan) 0.5 mg PO BID PRN PRN Reason: ANXIETY Mirtazapine (Remeron) 15 mg PO HS [facility] Last Admin: 08/13/18 21:55 Dose: 15 mg Nystatin (Mycostatin Powder) 1 applicatio TOPICAL TID [facility] Last Admin: 08/13/18 21:55 Dose: 1 applicatio Ondansetron HCl (Zofran Inj) 4 mg IV.PUSH Q6H PRN PRN Reason: NAUSEA OR VOMITING Oxycodone HCl (Roxicodone) 10 mg PO Q8H PRN PRN Reason: ACUTE PAIN Last Admin: 08/14/18 01:55 Dose: 10 mg Pantoprazole Sodium (Protonix) 40 mg PO DAILY [facility] Last Admin: 08/13/18 10:06 Dose: 40 mg Polyethylene Glycol (Miralax) 17 gm PO DAILY [facility] Last Admin: 08/13/18 10:07 Dose: 17 gm Prednisone (Deltasone) 5 mg PO DAILY [facility] Prednisone (Deltasone) 4 mg PO DAILY [facility] Risperidone (Risperdal) 2 mg PO BID [facility] Last Admin: 08/13/18 23:45 Dose: 2 mg Sennosides (Senokot) 17.2 mg PO Q12H PRN PRN Reason: Moderate Constipation Last Admin: 08/13/18 18:27 Dose: 17.2 mg Sodium Chloride (Ns Inj) 2 ml IV.FLUSH BID [facility] Last Admin: 08/13/18 21:55 Dose: Not Given Sodium Chloride (Ns Inj) 2 ml IV.FLUSH UNSCH PRN PRN Reason: FLUSH AFTER USING IV ACCESS Spironolactone (Aldactone) 12.5 mg PO DAILY [facility] Last Admin: 08/13/18 10:05 Dose: 12.5 mg Trazodone HCl (Desyrel) 50 mg PO [facility] Last Admin: 08/13/18 21:55 Dose: 50 mg Physical Exam Vital signs: Vital Signs 08/13/18 11:48 08/13/18 12:00 08/13/18 12:36 Temperature 98.5 F Pulse Rate 62 71 63 Respiratory Rate 16 20 Blood Pressure 141/69 H Pulse Oximetry 98 08/13/18 16:00 08/13/18 16:30 08/13/18 20:00 Temperature 98.5 F Pulse Rate 66 96 H Respiratory Rate 18 Blood Pressure 178/83 H Pulse Oximetry 96 98 08/13/18 20:05 08/13/18 20:06 08/13/18 23:41 Temperature 99 F Pulse Rate 72 70 66 Respiratory Rate 18 18 18 Blood Pressure 147/77 H 159/97 H Pulse Oximetry 97 98 08/13/18 23:43 08/14/18 01:01 08/14/18 03:34 Temperature Pulse Rate 66 68 75 Respiratory Rate 18 18 Blood Pressure Pulse Oximetry 08/14/18 04:00 08/14/18 07:57 08/14/18 08:00 Temperature 96.6 F L Pulse Rate 74 71 Respiratory Rate 18 18 16 Blood Pressure 179/100 H Pulse Oximetry 90 L Intake & Output 08/13/18 08/14/18 08/14/18 18:59 06:59 18:59 Intake Total 939 / 939 541 / 541 Balance 939 / 939 541 / 541 Intake: IV 459 / 459 541 / 541 NS Inj 1,000 ML @ 70 mls/hr IV. 459 / 459 541 / 541 SIG .[id number] [facility] Rx#:[id number] Oral 480 / 480 Other: # Voids 3 Date of Last Bowel Movement 08/10/18 08/10/18 - Constitutional no acute distress - Routine HEENT Exam Head: Present: normocephalic Eye: Present: PERRL ENT: Present: mucous membranes moist - Routine Neck Exam Present: full ROM - Routine Respiratory Exam Present: CTA bilaterally - Routine Cardiovascular Exam Present: S1, S2, murmur. Absent: gallop, rubs - Routine Abdominal Exam Present: normoactive bowel sounds - Routine Extremities Exam Present: full ROM, pulses intact, normal capillary refill. Absent: cyanosis, clubbing, edema - Routine Skin Exam Present: intact - Routine Neurological Exam Present: oriented X3 - Detailed Neurological Exam: Coma Scale Eye Opening: Spontaneous Verbal Response: Oriented Motor Response: Obey commands [place] Coma Scale Total: 15 - Routine Psychiatric Exam Present: normal affect Results 08/14/18 09:30 08/14/18 09:30 Cardiac Enzymes 08/12/18 08/13/18 08/13/18 Range/Units 06:33 05:48 05:48 Troponin I 0.03 (0.02-0.05) ng/mL B-Natriuretic Peptide 389 H 338 H (0-100) pg/mL 08/13/18 Range/Units 14:07 Troponin I 0.02 (0.02-0.05) ng/mL B-Natriuretic Peptide (0-100) pg/mL Coagulation 08/12/18 08/13/18 Range/Units 06:33 05:48 B-Natriuretic Peptide 389 H 338 H (0-100) pg/mL CBC 08/13/18 Range/Units 05:48 WBC 5.0 (4.0-11.0) th/mm3 RBC 4.87 (4.00-5.30) mil/mm3 Hgb 12.8 (11.6-15.3) gm/dL Hct 40.9 (35.0-46.0) % Plt Count 169 (150-450) th/mm3 Comprehensive Metabolic Panel 08/13/18 Range/Units 05:48 Sodium 140 (136-145) meq/L Potassium 3.8 (3.5-5.1) meq/L Chloride 104 (98-107) meq/L Carbon Dioxide 31.0 (21.0-32.0) meq/L BUN 15 (7-18) mg/dL Creatinine 0.84 (0.50-1.00) mg/dL Calcium 8.5 (8.5-10.1) mg/dL Intake and Output 08/13/18 08/14/18 08/14/18 22:59 06:59 14:59 Intake Total 939 / 939 541 / 541 Balance 939 / 939 541 / 541 Intake: IV 459 / 459 541 / 541 NS Inj 1,000 ML @ 70 mls/hr IV. 459 / 459 541 / 541 SIG .[id number] [facility] Rx#:[id number] Oral 480 / 480 Other: # Voids 3 Date of Last Bowel Movement 08/10/18 - Imaging and Cardiology Imaging: Impressions Abdomen X-Ray 08/13/18 00:00 CONCLUSION: There is some stool seen throughout the colon. Otherwise, unremarkable examination. Head CT 08/13/18 00:00 CONCLUSION: 1. Unremarkable CT brain Report was called by [employer] to [facility]. Head CTA 08/13/18 00:00 CONCLUSION: 1. No large vessel stenosis or aneurysm. Report was called by [employer] to [facility].. Neck CTA 08/13/18 00:00 CONCLUSION: 1. No significant carotid stenosis. 2. Heterogeneous thyroid gland. Report was called by [employer] to [facility]. Assessment and Plan - Assessment (1) Chest pain Code(s): R07.9 - Chest pain, unspecified Status: Acute (2) Cardiomyopathy Code(s): I42.9 - Cardiomyopathy, unspecified Status: Acute (3) COPD (chronic obstructive pulmonary disease) Code(s): J44.9 - Chronic obstructive pulmonary disease, unspecified Status: Acute (4) Morbid obesity Code(s): E66.01 - Morbid (severe) obesity due to excess calories Status: Acute (5) ICD (implantable cardioverter-defibrillator) in place Code(s): Z95.810 - Presence of automatic (implantable) cardiac defibrillator Status: Acute (6) Diabetes Code(s): E11.9 - Type 2 diabetes mellitus without complications Status: Acute - Plan She remains hypertensive, we will start amlodipine 10 mg QD for blood pressure control. She has no neurologic deficits at this time, neurology evaluation and treatment in progress. She is currently being weaned off of her narcotics. She had an endoscopy performed which showed hiatal hernia and gastritis, GI evaluation and treatment in progress. Continue to increase her activity as she tolerates. We will continue to monitor her during her hospitalization. The patient was seen and evaluated by Dr. Ramirez who participated in care, management and decision making. - Attending Attestation Patient seen and examined. I reviewed and agree with the evaluation and plan as presented. Continue and titrate BP control. Neurology evaluation. Increase activity, PT.
[2018-08-14] MEDS: Polyethylene Glycol 3350 17 GM Packet PO SCH (09:46)
[2018-08-14] MEDS: Nystatin 100,000 UNITS/GM Powder 15 GM Bottle TOPICAL SCH ×2 (09:47→13:13)
[2018-08-14] MEDS: Ferrous Sulfate 325 MG Tablet PO SCH (09:47)
[2018-08-14] MEDS: Spironolactone 25 MG Tablet PO SCH (09:48)
[2018-08-14] MEDS: Citalopram 20 MG Tablet PO SCH (09:48)
[2018-08-14] MEDS: Furosemide 40 MG Tablet PO SCH (09:48)
[2018-08-14] MEDS: Insulin NovoLOG Aspart Correctional Sugar Inj SQ SCH ×3 (09:49→17:24)
[2018-08-14 10:36] LABS: Hematocrit 43.6 % (35.0-46.0); Hemoglobin 13.7 gm/dL (11.6-15.3); Mean Corpuscular HGB Conc 31.4 % (32.0-36.0); Mean Corpuscular Hemoglobin 26.3 pg (27.0-34.0); Mean Corpuscular Volume 83.7 fL (80.0-100.0); Platelet Count 172 th/mm3 (150-450); Red Cell Distribution Width 14.5 % (11.6-17.2); White Blood Count 4.2 th/mm3 (4.0-11.0)
[2018-08-14 10:47] LABS: Calcium 8.9 mg/dL (8.5-10.1); Potassium 4.2 meq/L (3.5-5.1)
[2018-08-14 11:07] LABS: CKMB Percent 0.4 % (0.0-4.0); Creatine Kinase MB 1.1 ng/mL (0.5-3.6)
[2018-08-14] MEDS: Sod Chloride 0.9% Inj 1,000 ML IV.SIG SCH (11:43)
[2018-08-14 11:59] VITALS: O2SAT 95
[2018-08-14] MEDS: Sod Chloride 0.9% Inj 1,000 ML IV.CONT SCH ×2 (12:59)
[2018-08-14] MEDS ORDERED: Influenza (Quadrivalent) Vaccine 0.5 ML Syringe IM ONE (14:00)
[2018-08-14 17:36] VITALS: BP 153/73; PULSE 85; RESP 18; TEMP 99.8
--- NOTE | 2018-08-14 17:58 | P.DS ---
Date of admission: 08/11/18 04:06 Primary care physician: Lydia Diaz MD, R2 Attending physician on discharge: Loida Nuñez Anticipated date of discharge: 08/14/18 Brief History from admission: 63 y/o F w/hx of morbid obesity, COPD, and cardiomyopathy presenting w/ constant chest pain for the last 3 days. Went to PCP for appointment after pacemaker started beeping on August 03. This is not noted in the chart documentation but patient is sure that this was at 9 am. Was not able to see sports specialist because she did not have an ID. Has been beeping for 1.5 months. 3 days ago, chest pain started at the center of her chest and radiated to the left side. It was sharp but her heart also felt like it was fluttering. Holden pressure. Worse with movement. Initially was 10/10 now down to 8/10. Pain does not feel better since she came in. Endorses shortness of breath, numbness and tingling in the arms and legs, chills, nausea, vision changes, headaches, weakness. Vomited x1 today and again on Monday. Sees Dr. Swain, psychiatry, and Dr. Neely (eye). Med hx: chronic back pain, takes morphine COPD/asthma CVA x4 (last was 09/2016) anxiety/depression GERD bipolar disorder I, schizophrenia HTN hypothyroidism CHF DM type 2 sleep apnea arthritis morbid obesity Surg hx: tubal ligation, total colectomy pacemaker 2010 for cardiomyopathy carpal tunnel surgery partial hysterectomy cholecystectomy FH: Father - alcoholism Mother - DM, heart disease, kidney disease Social hx: Former smoker for 15 pack years, quit 3 months ago DS: Diagnosis - Discharge Diagnosis (1) Chest pain Status: Acute Diagnosis: Principal (2) Cardiomyopathy Status: Acute Diagnosis: Secondary (3) Heart failure with reduced ejection fraction, NYHA class IV Status: Acute Diagnosis: Secondary (4) COPD (chronic obstructive pulmonary disease) Status: Acute Diagnosis: Secondary (5) Obstructive sleep apnea Status: Acute Diagnosis: Secondary (6) Pacemaker complications Status: Acute Diagnosis: Principal (7) DM2 (diabetes mellitus, type 2) Status: Acute Diagnosis: Secondary (8) Hypothyroidism Status: Acute (9) Abdominal pain Status: Acute Diagnosis: Principal (10) Black stools Status: Acute Diagnosis: Secondary (11) Cough Status: Acute Diagnosis: Secondary (12) GERD (gastroesophageal reflux disease) Status: Acute Diagnosis: Secondary (13) Constipation Status: Acute Diagnosis: Principal (14) Schizophrenia Status: Acute Diagnosis: Secondary (15) Tremors of nervous system Status: Acute Diagnosis: Secondary (16) Morbid obesity Status: Acute Diagnosis: Secondary (17) Candidiasis of skin Status: Acute DS: Medications - Discharge Medications Prescriptions: bisacodyl 5 mg PO DAILY PRN #60 tab PRN Reason: Constipation furosemide 40 mg PO DAILY #90 tab polyethylene glycol 3350 17 gm PO DAILY PRN 30 Days #500 gm PRN Reason: constipation prednisone 5 mg PO DAILY #30 tab prednisone 4 mg PO DAILY #70 tab DS: Summary Hospital Course: 63-year-old -Hung[place] female presented with chief complaint of chest pain and increased shortness of breath for the previous 3-4 days, was admitted on observation for ACS rule out. Also complained of her pacemaker beeping as well as abdominal pain, worse in the left quadrant, and black stools for the previous 3-4 days. Cardiology was consulted to assist with management-patient has a pacemaker and a history of cardiomyopathy but had not seen a sports specialist for over 2 years. Her 2-D Echo showed severely reduced left ventricular systolic function with ejection fraction in the range of 30-35% with global hypokinesis, mild to moderate aortic valve stenosis, among other abnormalities. Her medications were optimized to manage her cardiovascular disease. [employer] was contacted to interrogate her pacemaker and it was reset during the process. GI was consulted due to patient's history of black stools and dysphagia, EGD was performed on 08/12 after clearance was obtained from cardiology - chronic inflammation consistent with gastritis was noted but no source of bleeding was found. Notably, she did not have a bowel movement for at least 3 days so the constipation protocol was escalated which resulted in her having multiple bowel movements. On the day of discharge, she no longer chest pain or abdominal pain and felt much better. She was discharged home in stable condition on 08/14/18. She is to follow up with cardiology and gastroenterology. Colonoscopy to be performed in the outpatient setting. She has an appointment setup with her primary care doctor for August 24, 2018 at 10:40am. In addition, she is to undergo a steroid taper as follows: Week 1, 9mg; Week 2, 8mg, Week 3, 7mg, Week 4, 6mg, and so on, under the direction of her primary care provider. - Time Spent with Patient Total time spent providing and/or coordinating discharge services: Greater than 30 minutes - Quality: Stroke Last date observed well: 08/13/18 Last time observed well: 05:15 - Quality: VTE Deep Vein Thrombosis/Pulmonary Embolism Present on Admission: No Exam Vital signs: Vital Signs 08/13/18 20:00 08/13/18 20:05 08/13/18 20:06 Temperature 99 F Pulse Rate 72 70 Respiratory Rate 18 18 Blood Pressure 147/77 H Pulse Oximetry 98 97 98 08/13/18 23:41 08/13/18 23:43 08/14/18 01:01 Temperature Pulse Rate 66 66 68 Respiratory Rate 18 18 Blood Pressure 159/97 H Pulse Oximetry 08/14/18 03:34 08/14/18 04:00 08/14/18 07:57 Temperature Pulse Rate 75 74 Respiratory Rate 18 18 18 Blood Pressure Pulse Oximetry 08/14/18 08:00 08/14/18 09:39 08/14/18 11:58 Temperature 96.6 F L 97.4 F L Pulse Rate 71 71 74 Respiratory Rate 16 16 Blood Pressure 179/100 H 148/67 H Pulse Oximetry 90 L 90 L 95 08/14/18 12:05 08/14/18 12:21 08/14/18 16:00 Temperature 99.8 F H Pulse Rate 70 74 85 Respiratory Rate 16 18 Blood Pressure 153/73 H Pulse Oximetry 95 Intake & Output 08/13/18 08/14/18 08/14/18 18:59 06:59 18:59 Intake Total 939 / 939 541 / 541 Balance 939 / 939 541 / 541 Weight 101.9 kg Intake: IV 459 / 459 541 / 541 NS Inj 1,000 ML @ 70 mls/hr IV. 459 / 459 541 / 541 SIG .[id number] [facility] Rx#:[id number] Oral 480 / 480 Other: # Voids 3 1 Date of Last Bowel Movement 08/10/18 08/10/18 08/14/18 # Bowel Movements 2 Narrative: GENERAL: Morbidly obese -Hungarian lady lying up in bed. Nasal cannula in place SKIN: Warm and dry. HEAD: Atraumatic. Normocephalic. EYES: normal EOM. ENT: No nasal bleeding or discharge. Mucous membranes pink and moist. Edentulous CARDIOVASCULAR: Regular rate and rhythm. Left upper chest pacemaker. Systolic murmur appreciated in the aortic area. No erythema or edema over the site of her pacemaker RESPIRATORY: No accessory muscle use. clear to auscultation. Breath sounds equal bilaterally. GASTROINTESTINAL: Abdomen soft, nondistended but tender to light palpation diffusely, worse in the left upper quadrant and mid epigastric area. The area of the boil is clear of erythema and no longer swollen or tender MUSCULOSKELETAL: Extremities without clubbing, cyanosis, or edema. No obvious deformities or rash. NEUROLOGICAL: Awake and alert. No obvious cranial nerve deficits. Normal speech. PSYCHIATRIC: Appropriate mood and affect Results Procedures completed during hospitalization: Pacemaker interrogation and reset EGD EEG Completed studies during hospitalization: Pending at discharge 08/12/18 08:12 Surgical [PTH] Routine Labs on day of discharge: Labs from last 24 hours 08/14/18 08/14/18 08/14/18 12:27 09:30 09:30 WBC 4.2 RBC 5.20 Hgb 13.7 Hct 43.6 MCV 83.7 MCH 26.3 L MCHC 31.4 L RDW 14.5 Plt Count 172 MPV 9.0 Sodium 139 Potassium 4.2 Chloride 104 Carbon Dioxide 29.0 Anion Gap 6 BUN 13 Creatinine 0.83 Estimated GFR 84 L POC Glucose 107 Random Glucose 90 Calcium 8.9 Total Creatine Kinase 277 H CK-MB (CK-2) 1.1 CK-MB (CK-2) % 0.4 08/13/18 21:54 WBC RBC Hgb Hct MCV MCH MCHC RDW Plt Count MPV Sodium Potassium Chloride Carbon Dioxide Anion Gap BUN Creatinine Estimated GFR POC Glucose 101 Random Glucose Calcium Total Creatine Kinase CK-MB (CK-2) CK-MB (CK-2) % - Impressions ITS Impressions Abdomen/Pelvis CT 08/11/18 00:46 CONCLUSION: 1. No acute abnormality. Chest X-Ray 08/11/18 00:46 CONCLUSION: Cardiomegaly with mild pulmonary vascular engorgement. Abdomen X-Ray 08/13/18 00:00 CONCLUSION: There is some stool seen throughout the colon. Otherwise, unremarkable examination. Head CT 08/13/18 00:00 CONCLUSION: 1. Unremarkable CT brain Report was called by [facility] to [facility]. Head CTA 08/13/18 00:00 CONCLUSION: 1. No large vessel stenosis or aneurysm. Report was called by [employer] to [facility].. Neck CTA 08/13/18 00:00 CONCLUSION: 1. No significant carotid stenosis. 2. Heterogeneous thyroid gland. Report was called by [facility] to [facility]. Discharge Plan - Discharge Disposition Patient Disposition: 01 Discharge Home - Discharge Condition Condition: Stable - Discharge Order Discharge Orders: Discharge Order (Routine); Ordered 08/14/18 Ordered By: Luh Knight R3 - Discharge Details Anticipated Discharge Date: 08/14/18 - Physicians Team Primary Care Provider: Lydia Merrill Attending Provider: Loida Nuñez Other Providers: Andre Ramirez MD ; [employer] ; Danny Morrison MD ; Eduardo Allan MD
--- NOTE | 2018-08-14 23:20 | MG ---
cc: Mikey Pollard MD DATE: 08/14/2018. EEG #[id number] HISTORY: A 63-year-old woman, unable to move her arms and legs. Celexa, Cogentin, Risperdal, Roxicodone. Diffuse bifrontal delta slowing is noted on a background of 8-10 Hz, 60 microvolt rhythms. At times, the recording looks quite normal. Other times has the bifrontal delta slowing. No epileptiform or seizure activity is noted. Hyperventilation is not performed. Photic stimulation is performed without significant posterior driving. IMPRESSION: Some bifrontal delta slowing consistent with a moderate diffuse encephalopathy, but no focal abnormality was noted. No seizure activity was seen. Mikey Pollard MD DJM/sv , 05:59 PM , 06:05 PM
== END 2018-08-14 19:09 | disposition home or self-care (01) ==
LOC: NEDA 00:24 → NEPD 00:24 → NEPHCDU 06:44
PROVIDERS: ADMIT Family Medicine; ATTEND Family Medicine
PROC: PANENDO (2018-08-12 12:42)
CPT/HCPCS: 36600; 70450; 70496; 70498; 71010; 71045; 74000; 74018; 74176; 80048; 80053; 80061; 82550; 82552; 82805; 82948; 82962; 83036; 83520; 83690; 83880; 84439; 84443; 84484; 85025; 85027; 88305; 88312; 90471; 90658; 90686; 90775; 93005; 93306; 94640; 94664; 94665; 95819; 96361; 96365; 96366; 96375; 97162; 97164; 99285; G0008; G0378; G8987; G8988; J1815; J2250; J2270; J2704; J3370; J7030; J7040; J7506; J7512; Q2038; Q9967